=== PATIENT | female | born 1940 | race Caucasian/White ===

== ENCOUNTER 2017-12-09 13:56 | Observation (INO) | payer OTHER ==
[2017-12-09 14:38] LABS: Absolute Lymphocytes (CBC) 3.7 K/uL (0.7-4.9); Absolute Monocytes 0.5 K/uL (0.1-1.3); Absolute Neutrophil 4.8 K/uL (1.8-8.0); Basophils % 0.9 % (0-1.3); Eosinophils % 2.6 % (0-4.4); Hematocrit 42.9 % (36.0-45.0); Lymphocytes % 39.8 % (15.3-44.8); MCH 31.2 pg (27.0-35.0); MCV 94.7 fL (80-100); MPV 9.3 fL (7.6-11.3); Monocytes % 5.3 % (3.3-12.3); RBC Red Blood Cell Count 4.53 M/uL (3.86-4.86)
[2017-12-09 14:40] LABS: Protime INR 1.04
--- NOTE | 2017-12-09 14:41 | RAD REPORT ---
EXAM DESCRIPTION: CT - Ct Stroke Brain Wo Cont - 12/09/2017 2:29 pm CLINICAL HISTORY: Facial numbness, stroke protocol exam CLINICAL HISTORY: None. TECHNIQUE: Axial 5 millimeter thick images of the head were obtained without IV contrast. All CT scans are performed using dose optimization technique as appropriate and may include automated exposure control or mA/KV adjustment according to patient size. FINDINGS: No intracranial hemorrhage, mass, or cerebral edema. No acute cortical based infarction. N o cortical edema or sulcal effacement. Patient has advanced atrophy and chronic ischemic change. Vent ricular size is in proportion to volume loss. Dense arterial tree calcifications are present. No extr a-axial fluid collections. Villa matter-white matter differentiation is preserved. Visualized portions of the mastoid air cells, paranasal sinuses, and orbits are unremarkable. Findings telephoned to Dr. Self 2:37 p.m. IMPRESSION: No CT evidence of acute intracranial process. Advanced atrophy and chronic ischemic change.
[2017-12-09 14:53] LABS: Urine Blood NEGATIVE (NEG); Urine Glucose NEGATIVE (NEG); Urine Protein NEGATIVE (NEG); Urine Specific Gravity <1.005 (1.005-1.030)
--- NOTE | 2017-12-09 14:54 | RAD REPORT ---
EXAM DESCRIPTION: RAD - Chest Single View - 12/09/2017 2:49 pm CLINICAL HISTORY: Chest pain, malaise. COMPARISON: 04/28/2016 FINDINGS: Portable technique limits examination quality. The lungs are grossly clear. The heart is normal in size. No displaced fractures. IMPRESSION: No acute intrathoracic process suspected.
[2017-12-09 15:29] LABS: Potassium 4.4 mEq/L (3.6-5.0)
--- NOTE | 2017-12-09 15:32 | EDPHYS ---
Physician Documentation [facility] Name: Tsering Hamilton Age: 77 yrs Sex: Female : 1940 Arrival Date: 12/09/2017 Time: 14:00 Bed 4 Private MD: Darek Huerta R ED Physician Rudi Self HPI: 12/09 16:38 This 77 yrs old Female presents to ER via Ambulatory with complaints of gs Numbness Of Arm, Numbness Of Face. 16:38 The patient presents to the emergency department with paresthesias of the left side of gs the face, that is mild. Onset: The symptoms/episode began/occurred at 08:30. Associated signs and symptoms: Pertinent negatives: altered mental status. Severity of symptoms: At their worst the symptoms were mild in the emergency department the symptoms are unchanged. Patient's baseline: Neuro: alert and fully oriented, Motor: no deficits, Ambulation: walks without assistance, Speech: normal. Current symptoms: sensory loss. The patient has experienced a previous episode. The patient has not recently seen a physician. Historical: - Allergies: 14:05 No Known Allergies; ch - Home Meds: 14:16 Namenda Oral [Active]; Simvastatin Oral [Active]; ch - PMHx: 14:05 High Cholesterol; Hypertension; TIA; Dementia; ch - PSHx: 14:16 None; ch - Immunization history:: Adult Immunizations up to date. - Social history:: Smoking status: Patient/guardian denies using tobacco. - Ebola Screening: : Patient negative for fever greater than or equal to 101.5 degrees Fahrenheit, and additional compatible Ebola Virus Disease symptoms Patient denies exposure to infectious person Patient denies travel to an Ebola-affected area in the 21 days before illness onset No symptoms or risks identified at this time. ROS: 16:38 All other systems are negative. gs Exam: 16:38 Head/Face: Normocephalic, atraumatic. Eyes: Pupils equal round and reactive to light, gs extra-ocular motions intact. Lids and lashes normal. Conjunctiva and sclera are non-icteric and not injected. Cornea within normal limits. Periorbital areas with no swelling, redness, or edema. ENT: Nares patent. No nasal discharge, no septal abnormalities noted. Tympanic membranes are normal and external auditory canals are clear. Oropharynx with no redness, swelling, or masses, exudates, or evidence of obstruction, uvula midline. Mucous membranes moist. Neck: Trachea midline, no thyromegaly or masses palpated, and no cervical lymphadenopathy. Supple, full range of motion without nuchal rigidity, or vertebral point tenderness. No Meningismus. Chest/axilla: Normal chest wall appearance and motion. Nontender with no deformity. No lesions are appreciated. Cardiovascular: Regular rate and rhythm with a normal S1 and S2. No gallops, murmurs, or rubs. Normal PMI, no JVD. No pulse deficits. Respiratory: Lungs have equal breath sounds bilaterally, clear to auscultation and percussion. No rales, rhonchi or wheezes noted. No increased work of breathing, no retractions or nasal flaring. Abdomen/GI: Soft, non-tender, with normal bowel sounds. No distension or tympany. No guarding or rebound. No evidence of tenderness throughout. Back: No spinal tenderness. No costovertebral tenderness. Full range of motion. Skin: Warm, dry with normal turgor. Normal color with no rashes, no lesions, and no evidence of cellulitis. MS/ Extremity: Pulses equal, no cyanosis. Neurovascular intact. Full, normal range of motion. 16:38 Constitutional: The patient appears alert, awake. 16:38 ECG was reviewed by the Attending Physician. 16:38 Neuro: Orientation: is normal, Mentation: is normal, Memory: is normal, Cranial nerves: CN II- XII are normal as tested, Cerebellar function: normal finger to nose testing, Motor: strength is normal, Sensation: pin prick is decreased in the left ear and left druze. Vital Signs: 14:05 BP 194 / 82; Pulse 78; Resp 24; Temp 98.3; Pulse Ox 99% on R/A; Weight 71.67 kg; Height ch 5 ft. 4 in. (162.56 cm); Pain 0/10; 14:17 BP 184 / 80; Pulse 77; Resp 18; Pulse Ox 99% on R/A; ss 14:53 BP 153 / 60; Pulse 70; Resp 18; Pulse Ox 99% on R/A; sv 15:38 BP 140 / 63; Pulse 73 MON; Resp 18; Pulse Ox 99% on R/A; sv 16:56 Pulse 99; Resp 18; Pulse Ox 99% ; sv 17:21 Pulse 99; Resp 18; Pulse Ox 99% ; sv 17:25 BP 169 / 91; ss 14:05 Body Mass Index 27.12 (71.67 kg, 162.56 cm) ch 15:38 Sinus Rhythm sv NIH Stroke Scale Scores: 14:15 NIHSS Score: 1 sv 16:38 NIHSS Score: 1 gs Vj Coma Score: 14:17 Eye Response: spontaneous(4). Verbal Response: oriented(5). Motor Response: obeys ss commands(6). Total: 15. MDM: 14:33 Patient medically screened. gs 16:38 Data reviewed: vital signs, nurses notes. Response to treatment: the patient's symptoms gs have markedly improved after treatment, and as a result, I will admit patient. ED course: no TPA discussed risks benefits with low stroke scale with pt, declines at this time.. 12/09 14:23 Order name: Glucose, Ancillary Testing; Complete Time: 15:32 EDNC 12/09 14:23 Order name: Basic Metabolic Panel; Complete Time: 15:32 12/09 14:23 Order name: CBC with Diff; Complete Time: 15:32 12/09 14:23 Order name: Protime (+inr); Complete Time: 15:32 12/09 14:23 Order name: Urine Microscopic Only; Complete Time: 16:46 12/09 14:49 Order name: Urine Dipstick--Ancillary (enter results); Complete Time: 15:32 ag 12/09 14:23 Order name: CT Stroke Brain w/o Contrast; Complete Time: 15:32 12/09 14:23 Order name: Stroke CXR 1 View; Complete Time: 15:32 12/09 14:23 Order name: EKG; Complete Time: 14:24 12/09 14:23 Order name: Accucheck; Complete Time: 14:41 12/09 15:41 Order name: CONS Physician Consult EDNC 12/09 15:41 Order name: Regular EDNC 12/09 15:41 Order name: Stroke Protocol; Complete Time: 17:04 EDNC 12/09 14:23 Order name: Cardiac monitoring; Complete Time: 14:41 12/09 14:23 Order name: EKG - Nurse/Tech; Complete Time: 14:36 12/09 14:23 Order name: IV Saline Lock; Complete Time: 14:41 12/09 14:23 Order name: Labs collected and sent; Complete Time: 14:42 12/09 14:23 Order name: NPO; Complete Time: 14:42 12/09 14:23 Order name: O2 Per Protocol; Complete Time: 14:42 12/09 14:23 Order name: O2 Sat Monitoring; Complete Time: 14:42 12/09 14:23 Order name: Stroke Swallow Screen; Complete Time: 14:42 12/09 14:23 Order name: Urine Dipstick-Ancillary (obtain specimen); Complete Time: 14:53 gs EC:38 Rate is 77 beats/min. Rhythm is regular. SC interval is normal. QRS interval is normal. gs T waves are Normal. No ST changes noted. Clinical impression: Normal ECG. Interpreted by me. Administered Medications: 15:38 Drug: Aspirin Chewable Tablet 324 mg Route: PO; sv 15:41 Follow up: Response: No adverse reaction sv Point of Care Testing: Blood Glucose: 14:21 Blood Glucose: 129 mg/dL; ss Ranges: Critical Glucose Levels:Adult <50 mg/dl or >400 mg/dl <40 mg/dl or >180 mg/dl Disposition: 12/09/17 15:32 Hospitalization ordered by Darek Huerta for Observation. Preliminary diagnosis are Transient cerebral ischemic attack, unspecified, Cerebral infarction. - Bed requested for Telemetry/MedSurg (observation). - Status is Observation. sv - Condition is Stable. - Problem is new. - Symptoms have improved. UTI on Admission? No Critical care time excluding procedures: 16:38 Critical care time: Bedside Care: 10 minutes, Consultation: 10 minutes, Family gs Intervention: 10 minutes. Total time: 30 minutes NIH Stroke Scale - NIH Stroke Score Date: 12/09/2017 Time: 14:15 Total Score = 1 1a. Level of Consciousness (LOC) - 0(Alert) 1b. Level of Consciousness (LOC) (Year \T\ Age) - 0(Both) 1c. LOC Commands (Open \T\ Closes Eyes/Forensic Psychologist) - 0(Both) 2. Best Gaze (Lateral Gaze Paresis) - 0(Normal) 3. Visual Field Loss - 0(No visual loss) 4. Facial Palsy - 0(Normal) 5a. Left Arm: Motor (10-second hold) - 0(No drift) 5b. Right Arm: Motor (10-second hold) - 0(No drift) 6a. Left Leg: Motor (5-second hold - always test supine) - 0(No drift) 6b. Right Leg: Motor (5-second hold - always test supine) - 0(No drift) 7. Limb Ataxia (finger/nose \T\ heel/barba - test with eyes open) - 0(Absent) 8. Sensory Loss (pinprick arms/legs/face) - 1(Mild to moderate loss) 9. Best Language: Aphasia (description/naming/reading) - 0(No aphasia) 10. Dysarthria (speech clarity - read or repeat words) - 0(Normal) 11. Extinction and Inattention (visual/tactile/auditory/spatial/personal) - 0(No abnormality) Initials: emiliano NIH Stroke Scale - NIH Stroke Score Date: 12/09/2017 Time: 16:38 Total Score = 1 1a. Level of Consciousness (LOC) - 0(Alert) 1b. Level of Consciousness (LOC) (Year \T\ Age) - 0(Both) 1c. LOC Commands (Open \T\ Closes Eyes/Forensic Psychologist) - 0(Both) 2. Best Gaze (Lateral Gaze Paresis) - 0(Normal) 3. Visual Field Loss - 0(No visual loss) 4. Facial Palsy - 0(Normal) 5a. Left Arm: Motor (10-second hold) - 0(No drift) 5b. Right Arm: Motor (10-second hold) - 0(No drift) 6a. Left Leg: Motor (5-second hold - always test supine) - 0(No drift) 6b. Right Leg: Motor (5-second hold - always test supine) - 0(No drift) 7. Limb Ataxia (finger/nose \T\ heel/barba - test with eyes open) - 0(Absent) 8. Sensory Loss (pinprick arms/legs/face) - 1(Mild to moderate loss) 9. Best Language: Aphasia (description/naming/reading) - 0(No aphasia) 10. Dysarthria (speech clarity - read or repeat words) - 0(Normal) 11. Extinction and Inattention (visual/tactile/auditory/spatial/personal) - 0(No abnormality) Initials: gs Signatures: Dispatcher [employer] EDMS Felicity Lee, RN GISEL Jena Scales RN RN sv Woody, Diana, RN RN dw Starr, Gregory, MD MD Corrections: (The following items were deleted from the chart) 16:45 15:32 Hospitalization Ordered by Darek Huerta MD for Observation. Preliminary gs diagnosis is Transient cerebral ischemic attack, unspecified. Bed requested for Telemetry/MedSurg (observation). Status is Observation. Condition is Stable. Problem is new. Symptoms have improved. UTI on Admission? No. gs 17:12 16:45 12/09/2017 15:32 Hospitalization Ordered by Darek Huerta MD for dw Observation. Preliminary diagnosis is Transient cerebral ischemic attack, unspecified; Cerebral infarction. Bed requested for Telemetry/MedSurg (observation). Status is Observation. Condition is Stable. Problem is new. Symptoms have improved. UTI on Admission? No. gs 17:39 17:12 12/09/2017 15:32 Hospitalization Ordered by Darek Huerta MD for sv Observation. Preliminary diagnosis is Transient cerebral ischemic attack, unspecified; Cerebral infarction. Bed requested for Telemetry/MedSurg (observation). Status is Observation. Condition is Stable. Problem is new. Symptoms have improved. UTI on Admission? No. dw
--- NOTE | 2017-12-09 15:32 | ER ---
Nurse's Notes [facility] Name: Tsering Hamilton Age: 77 yrs Sex: Female : 1940 Arrival Date: 12/09/2017 Time: 14:00 Bed 4 Private MD: Darek Huerta R Diagnosis: Transient cerebral ischemic attack, unspecified;Cerebral infarction Presentation: 12/09 14:03 Presenting complaint: Patient states: tingling to tounge for over 24 hours. numbness to ch face and face not feeling right on and off, started at 11 after I went to cardiac rehab. Transition of care: patient was not received from another setting of care. Onset of symptoms was December 08, 2017. Risk Assessment: Do you want to hurt yourself or someone else? Patient reports no desire to harm self or others. Initial Sepsis Screen: Does the patient meet any 2 criteria? No. Patient's initial sepsis screen is negative. Does the patient have a suspected source of infection? No. Patient's initial sepsis screen is negative. Care prior to arrival: None. 14:03 Method Of Arrival: Ambulatory 14:03 Acuity: TALI 2 Triage Assessment: 14:05 General: Appears in no apparent distress. uncomfortable, well groomed, Behavior is ch anxious. Pain: Denies pain. Historical: - Allergies: 14:05 No Known Allergies; - Home Meds: 14:16 Namenda Oral [Active]; Simvastatin Oral [Active]; - PMHx: 14:05 High Cholesterol; Hypertension; TIA; Dementia; - PSHx: 14:16 None; - Immunization history:: Adult Immunizations up to date. - Social history:: Smoking status: Patient/guardian denies using tobacco. - Ebola Screening: : Patient negative for fever greater than or equal to 101.5 degrees Fahrenheit, and additional compatible Ebola Virus Disease symptoms Patient denies exposure to infectious person Patient denies travel to an Ebola-affected area in the 21 days before illness onset No symptoms or risks identified at this time. Screenin:20 Patient has been NPO before screening. The patient is alert, able to follow commands. ss The patient does not exhibit slurred or garbled speech The patient is not exhibiting difficulty speaking. The patient does not exhibit difficulty understanding words. The patient is able to swallow own secretions with no drooling or need for suction. Patient tolerated one teaspoon of water. No drooling, immediate coughing, gurgling, or clearing of the throat was noted. The patient tolerated 90mL of water. No drooling, immediate coughing, gurgling, or clearing of the throat was noted. The patient passed the bedside swallow screening. Oral medications may be given as ordered. Contact Physician for further diet orders. 14:42 Abuse screen: Denies threats or abuse. Denies injuries from another. Nutritional sv screening: No deficits noted. Tuberculosis screening: No symptoms or risk factors identified. Fall Risk None identified. Assessment: 14:13 General: Appears in no apparent distress. comfortable, well developed, Behavior is sv calm, cooperative, appropriate for age. Pain: Denies pain. Neuro: Level of Consciousness is awake, alert, obeys commands, Oriented to person, place, time, situation, Fleet Maintenance Foreman are equal bilaterally Moves all extremities. Full function Speech is normal, Facial symmetry appears normal, Facial symmetry: tongue is midline, Reports numbness in left zygomatic area, left cheek and mouth and left side of tongue since "either about 1000 or 1100". Cardiovascular: Patient's skin is warm and dry. Pulses are 3+ in right radial artery and left radial artery. Respiratory: Respiratory effort is even, unlabored, Respiratory pattern is regular, symmetrical. Derm: Skin is pink, warm \\T\\ dry. Musculoskeletal: Range of motion: intact in all extremities. 14:17 Reassessment: Code stroke called. Dr. Self, Jena Scales RN, Tiffanie Saenz RN and holli Mcnally ED tech at bedside. 14:23 Reassessment: EKG obtained and showed to Dr. Gamez. 14:24 Reassessment: To CT via stretcher on monitors with Jena Scales RN. 14:53 Reassessment: Patient appears in no apparent distress at this time. No changes from sv previously documented assessment. Patient and/or family updated on plan of care and expected duration. Pain level reassessed. Patient is alert, oriented x 3, equal unlabored respirations, skin warm/dry/pink. 15:30 Reassessment: Patient appears in no apparent distress at this time. Patient and/or sv family updated on plan of care and expected duration. Pain level reassessed. Patient is alert, oriented x 3, equal unlabored respirations, skin warm/dry/pink. 16:30 Reassessment: Pt currently in MRI. sv 16:56 Reassessment: Patient appears in no apparent distress at this time. No changes from sv previously documented assessment. Patient and/or family updated on plan of care and expected duration. Pain level reassessed. Patient is alert, oriented x 3, equal unlabored respirations, skin warm/dry/pink. 17:28 Reassessment: Patient appears in no apparent distress at this time. No changes from sv previously documented assessment. Patient and/or family updated on plan of care and expected duration. Pain level reassessed. Patient is alert, oriented x 3, equal unlabored respirations, skin warm/dry/pink. Vital Signs: 14:05 BP 194 / 82; Pulse 78; Resp 24; Temp 98.3; Pulse Ox 99% on R/A; Weight 71.67 kg; Height ch 5 ft. 4 in. (162.56 cm); Pain 0/10; 14:17 BP 184 / 80; Pulse 77; Resp 18; Pulse Ox 99% on R/A; ss 14:53 BP 153 / 60; Pulse 70; Resp 18; Pulse Ox 99% on R/A; sv 15:38 BP 140 / 63; Pulse 73 MON; Resp 18; Pulse Ox 99% on R/A; sv 16:56 Pulse 99; Resp 18; Pulse Ox 99% ; sv 17:21 Pulse 99; Resp 18; Pulse Ox 99% ; sv 17:25 BP 169 / 91; ss 14:05 Body Mass Index 27.12 (71.67 kg, 162.56 cm) ch 15:38 Sinus Rhythm sv Vitals: 14:15 Cardiac Rhythm Assessment Sinus rhythm. sv Vj Coma Score: 14:17 Eye Response: spontaneous(4). Verbal Response: oriented(5). Motor Response: obeys ss commands(6). Total: 15. NIH Stroke Scale Scores: 14:15 NIHSS Score: 1 sv 16:38 NIHSS Score: 1 ED Course: 14:00 Patient arrived in ED. as 14:00 Darek Huerta MD is Private Physician. as 14:04 Triage completed. ch 14:05 Arm band placed on left wrist. Patient placed in an exam room, on a stretcher. ch 14:10 Patient has correct armband on for positive identification. Placed in gown. Bed in low sv position. Side rails up X2. Adult w/ patient. shelter monitor on. Pulse ox on. NIBP on. Head of bed elevated. 14:12 Jena Scales RN is Primary Nurse. sv 14:15 Rudi Self MD is Attending Physician. gs 14:18 ED physician to see patient. sv 14:20 Inserted saline lock: 20 gauge in left antecubital area, using aseptic technique. sv ,using aseptic technique. insertion by Jena Scales RN Blood collected. 14:[address] via stretcher. vr 14:29 CT completed. Patient tolerated procedure well. Patient moved back from CT. vr 14:29 CT Stroke Brain w/o Contrast In Process Unspecified. EDMS 14:35 EKG done, by ED staff, by technology architect. reviewed by Rudi Self MD. [email or web address] 14:49 Stroke CXR 1 View In Process Unspecified. EDMS 14:55 Lab(s) recollected, by ED staff, sent to lab. sv 15:30 Darek Huerta MD is Hospitalizing Provider. gs 16:10 Patient moved to MRI via wheelchair. em2 17:32 No provider procedures requiring assistance completed. Patient admitted, IV remains in sv place. intact. Administered Medications: 15:38 Drug: Aspirin Chewable Tablet 324 mg Route: PO; sv 15:41 Follow up: Response: No adverse reaction sv Point of Care Testing: Blood Glucose: 14:21 Blood Glucose: 129 mg/dL; ss Ranges: Intake: 15:40 PO: 50ml (Water); Total: 50ml. sv Outcome: 15:32 Decision to Hospitalize by Provider. gs 17:33 Admitted to Tele accompanied by tech, family with patient, via stretcher, room 414, sv with chart, Report called to Laureen BATRES 17:33 Condition: stable 17:33 Instructed on the need for admit. 17:39 Patient left the ED. sv NIH Stroke Scale - NIH Stroke Score Date: 12/09/2017 Time: 14:15 Total Score = 1 1a. Level of Consciousness (LOC) - 0(Alert) 1b. Level of Consciousness (LOC) (Year \\T\\ Age) - 0(Both) 1c. LOC Commands (Open \\T\\ Closes Eyes/Melter Caster) - 0(Both) 2. Best Gaze (Lateral Gaze Paresis) - 0(Normal) 3. Visual Field Loss - 0(No visual loss) 4. Facial Palsy - 0(Normal) 5a. Left Arm: Motor (10-second hold) - 0(No drift) 5b. Right Arm: Motor (10-second hold) - 0(No drift) 6a. Left Leg: Motor (5-second hold - always test supine) - 0(No drift) 6b. Right Leg: Motor (5-second hold - always test supine) - 0(No drift) 7. Limb Ataxia (finger/nose \\T\\ heel/barba - test with eyes open) - 0(Absent) 8. Sensory Loss (pinprick arms/legs/face) - 1(Mild to moderate loss) 9. Best Language: Aphasia (description/naming/reading) - 0(No aphasia) 10. Dysarthria (speech clarity - read or repeat words) - 0(Normal) 11. Extinction and Inattention (visual/tactile/auditory/spatial/personal) - 0(No abnormality) Initials: NIH Stroke Scale - NIH Stroke Score Date: 12/09/2017 Time: 16:38 Total Score = 1 1a. Level of Consciousness (LOC) - 0(Alert) 1b. Level of Consciousness (LOC) (Year \\T\\ Age) - 0(Both) 1c. LOC Commands (Open \\T\\ Closes Eyes/Melter Caster) - 0(Both) 2. Best Gaze (Lateral Gaze Paresis) - 0(Normal) 3. Visual Field Loss - 0(No visual loss) 4. Facial Palsy - 0(Normal) 5a. Left Arm: Motor (10-second hold) - 0(No drift) 5b. Right Arm: Motor (10-second hold) - 0(No drift) 6a. Left Leg: Motor (5-second hold - always test supine) - 0(No drift) 6b. Right Leg: Motor (5-second hold - always test supine) - 0(No drift) 7. Limb Ataxia (finger/nose \\T\\ heel/barba - test with eyes open) - 0(Absent) 8. Sensory Loss (pinprick arms/legs/face) - 1(Mild to moderate loss) 9. Best Language: Aphasia (description/naming/reading) - 0(No aphasia) 10. Dysarthria (speech clarity - read or repeat words) - 0(Normal) 11. Extinction and Inattention (visual/tactile/auditory/spatial/personal) - 0(No abnormality) Initials: Signatures: Dispatcher [employer] Felicity Garcia, GISEL Scales, GISEL Bella RN, Amelia as Smirch, Shelby, RN RN ss Davis, Javid Linton Gregory, MD MD gs Stevenson, Kyle [email or web address] Corrections: (The following items were deleted from the chart) 14:35 14:20 Inserted saline lock: 20 gauge in left antecubital area, using aseptic sv technique. ,using aseptic technique. insertion by Jena Scales RN Blood collected. ss 14:35 14:16 Inserted saline lock: 20 gauge in left antecubital area, using aseptic sv technique. ,using aseptic technique. insertion by Jena Scales RN Blood collected. sv 14:41 14:10 General: Appears in no apparent distress. comfortable, well developed, sv Behavior is calm, cooperative, appropriate for age, sv 14:41 14:10 Pain: Denies pain. sv sv 14:41 14:10 Neuro: Level of Consciousness is awake, alert, obeys commands, Oriented sv to person, place, time, situation, Fleet Maintenance Foreman are equal bilaterally Moves all extremities. Full function Speech is normal, Facial symmetry appears normal, Facial symmetry: tongue is midline, Reports numbness in left zygomatic area, left cheek and mouth and left side of tongue since "either about 1000 or 1100" sv 14:41 14:10 Cardiovascular: Patient's skin is warm and dry. Pulses are 3+ in right sv radial artery and left radial artery sv 14:41 14:10 Respiratory: Respiratory effort is even, unlabored, Respiratory pattern sv is regular, symmetrical, sv 14:41 14:10 Derm: Skin is pink, warm \\T\\ dry. sv sv 14:41 14:10 Musculoskeletal: Range of motion: intact in all extremities, sv sv
[2017-12-09] MEDS ORDERED: ASPIRIN 81 MG CHEWABLE TABLET ONE (15:34)
[2017-12-09 16:23] LABS: Urine RBC <5 /HPF (NONE SEEN)
[2017-12-09 16:24] LABS: Urine Bacteria NONE SEEN /HPF (<20); Urine Culture Reflex Order NOT NEEDED
--- NOTE | 2017-12-09 17:01 | RAD REPORT ---
EXAM DESCRIPTION: MRI - Stroke Protocol - 12/09/2017 4:45 pm CLINICAL HISTORY: CVA COMPARISON: CT head December 09 TECHNIQUE: Sagittal T1- weighted images were obtained along with PD/heavily T2- weighted and T2-FLAI R images. Axial DWI and ADC mapping sequences were also obtained. Coronal heavily T2- weighted images were obtained. MRA head imaging performed with source images and 3D reconstruction images reviewed. MRA neck imaging was performed with source and 3D reconstruction imaging reviewed. Post contrast T1 i maging was performed. A 16 ml GD dosage was utilized. FINDINGS: No intracranial hemorrhage, mass or acute infarction. There is no edema or shift of midlin e structures. No extra-axial fluid collections. Villa-matter/white matter junction is preserved. Signa l voids are seen as a normal finding in the major intracranial vessels. Moderate atrophy and chronic ischemic changes are present. Ventricular size is in proportion. Brainstem, thalamus and basal gangli a tissue generally spared any measurable chronic ischemic change. Mastoid air cells and paranasal sinuses are clear. No globe or orbit abnormality. MRA Head imaging shows no aneurysm or vascular malformation. Scattered atherosclerotic changes are pr esent in the anterior, middle and posterior cerebral artery distributions. Significant degree of edward nal narrowing is not identifiable. No basilar or distal internal carotid artery significant disease. MRA Neck imaging shows no significant atherosclerotic disease or vessel narrowing seen. No dissection seen.No vertebral artery origins stenosis. The 3 vessel aortic arch and great vessel origin is limit ed in detail by motion. IMPRESSION: No acute infarction changes are present. There is moderate atrophy and chronic ischemic change in the cerebral white matter. MRA Head imaging shows scattered atherosclerotic changes in the intracranial circulation. No flow res tricting lesion or occlusion identifiable. MRA neck imaging shows no significant disease.
[2017-12-09 18:10] VITALS: BMI 27.1
[2017-12-09] MEDS: ACETAMINOPHEN 500 MG TAB PO PRN (22:05)
--- NOTE | 2017-12-10 02:14 | CON ---
Time: 2119. Reason For Consultation: Facial numbness. History: A 77-year-old lady, history of dementia and hypertension and insomnia. She was in her usual state of health until about a week ago when she started noticing pins and needle sensation on the left side of the tongue and the left cheek. Feels uncomfortable. She states it is swollen and tender to the touch. She was not unsure if the problem would improve or resolve, but it never really resolved, so she came to the emergency department, where given the aforementioned complaints, there was concern for a vascular event. She has had a brain MRI that does not demonstrate any evidence of any type of new ischemic change. Personal review of the CT does not reveal that sinuses are included in the CT scan of the brain and on MRI, there is certainly no evidence of severe acute sinusitis on the left. The patient recently was started on doxepin for insomnia and her Aricept was increased to 10 mg twice daily about a month ago. Otherwise, she has been on same medications for quite some time except for melatonin. There is no diplopia. There is no dysarthria. There is no extremity paresthesias, numbness, weakness, or confusion associated with the problem. She was admitted to the hospital. Dr. Kim is out of town through the weekend, so I was consulted. Hence I will tell them I would cover for his patient's when he is out of town. Past Medical History: As alluded to. Routine Medications: Vitamin C, multivitamin, aspirin, melatonin, doxepin, Aricept, Namenda, Cozaar, Prilosec, and Lipitor. Allergies: NONE. Social History: Never smoked. . Normally independent activities of daily living. Family History: Noncontributory. Review of Systems: General: Good health. Eyes: No diplopia. Ears, Nose, Throat: Negative. Cardiovascular: Hypertension. Pulmonary: Negative. GI: She has a cough. It has been attributed to reflux. : Negative. Musculoskeletal: Negative. Neurologic: As noted. Psychiatric: Negative. Endocrine: Negative. Hematologic: Negative. Physical Examination: Vital Signs: 99, 77, 16, 185/87. General: Pleasant lady, sitting in bed, in no distress. Awake, alert, and oriented to time, person, place, and situation, and lucid. HEENT: Pupils miotic, reactive. Ocular motion full without nystagmus. Duval full to confrontation bilaterally. Facial strength and sensation are normal. There are no facial triggers to suggest trigeminal neuralgia. There are no lesions in the oropharynx. There is no swelling around the gums or the dentures. There is some tenderness to the left maxillary region on palpation. There is a decreased gag reflex bilaterally. Tongue is midline. Soft palate elevates bilaterally. Heart: Sinus rhythm. No carotid bruits. Extremities: Examination of her extremities reveals full strength. Sensation is intact. Reflexes 1/4, symmetric. Toes are downgoing. No [id number] ataxia. Pertinent Laboratory Data: Imaging as noted. CBC was normal. Electrolytes, normal other than a glucose of 150. UA normal. Impression: Cranial neuritis. Plan: We will get plain films of the sinuses and do an evaluation for peripheral neuritis, sedimentation rate, B12, ANCA, WILLIAM, Gabe levels. While those will not be back in a timely fashion, if the sinus pain and paresthesias persist, ENT evaluation may be fruitful. We will decrease the doxepin to 10, and decrease the Aricept back to 10 at night. Occasionally, medications like Prilosec can generate facial paresthesias, so may be prudent to try a different type of H2 alejandrina for her cough. Thank you for the consult. We will continue to follow with you. ARIANA Voice ID: [id number] Report ID: [id number] GIGI
[2017-12-10] MEDS: ACETAMINOPHEN 500 MG TAB PO PRN (04:32)
--- NOTE | 2017-12-10 07:21 | EKG ---
Test Date: 2017-12-09 Test Time: 14:22:43 Condenser Tube Tender: JOHNNY MEASUREMENT RESULTS: Intervals: Rate: 77 MO: 126 QRSD: 82 QT: 420 QTc: 475 [place]: P: 61 MO: 126 QRS: 19 T: 35 INTERPRETIVE STATEMENTS: Normal sinus rhythm Normal ECG Compared to ECG 06/03/2011 09:40:33 No significant changes Electronically Signed On 12-10-17 07:19:49 CDT by Ras Andrade
[2017-12-10 07:24] LABS: Thyroid Stimulating Hormone 5.35 uIU/mL (0.34-5.60)
[2017-12-10] MEDS ORDERED: MEMANTINE HCL 10 MG TABLET PO SCH (09:00)
[2017-12-10] MEDS ORDERED: LOSARTAN POTASSIUM 50 MG TABLET PO SCH (09:00)
[2017-12-10] MEDS ORDERED: ASPIRIN EC 81 MG TAB PO SCH (09:00)
[2017-12-10] MEDS ORDERED: ASCORBIC ACID 500 MG TABLET PO SCH (09:00)
--- NOTE | 2017-12-10 10:37 | RAD REPORT ---
EXAM DESCRIPTION: RAD - Sinus 3/+ Views - 12/10/2017 10:29 am CLINICAL HISTORY: Left cheek pain COMPARISON: None. FINDINGS: No air-fluid level in the maxillary sinuses. There is delete select mucosal thickening in each maxillary sinus along the floor and lateral christensen. No sclerotic or expansile bony process. Nasal septum is midline. No foreign body. IMPRESSION: Maxillary sinus mucosal thickening. No air-fluid level to indicate acute sinusitis.
[2017-12-10 14:43] VITALS: O2SAT 97
[2017-12-10 16:05] VITALS: BP 169/83; TEMP 98.3
[2017-12-10] MEDS ORDERED: ATORVASTATIN 20 MG TAB PO SCH (21:00)
[2017-12-10] MEDS ORDERED: DONEPEZIL HCL 5 MG TAB PO SCH (21:00)
[2017-12-10] MEDS ORDERED: DOXEPIN HCL 10 MG CAP PO SCH (21:00)
[2017-12-11] MEDS ORDERED: PANTOPRAZOLE 40MG TABLET PO SCH (06:30)
--- NOTE | 2017-12-11 14:54 | HP ---
Date of Admission: 12/10/2017 Chief Complaint: Possible stroke. History Of Present Illness: A 77-year-old female, who was brought to the emergency room with symptom s of tingling of the tongue and tingling and numbness in left side of the face. The patient had eval uation done including CT scan, MRI. There was no evidence of stroke. The patient is admitted for ob servation. Past Medical History: Positive for Alzheimer disease, hyperlipidemia. Other problems include history of hyperlipidemia, hypertension. Family History: Noncontributory. Personal History: Nonsmoker. Home Medicines: Namenda and Zocor. Review of Systems: No history of fever, chills, or rigors. Physical Examination: General: Revealed a 77-year-old female, alert for her age. HEENT: Negative. Neck: Supple. JVD negative. Chest: Clear. Heart: Regular. Abdomen: Soft. Extremities: No edema. Neurologic: There is no focal deficit even though she had symptoms on left side of the face. Laboratory: CT scan, MRI negative for CVA. Assessment: 1.Possible transient ischemic attack. 2.Dementia. 3.Hypertension. 4.Hyperlipidemia. Plan: The patient has been seen by a neurologist and they also think that the patient did not have a ny evidence of stroke. The patient will be discharged on aspirin and modification of her home medica tions. She will be followed by Dr. Lee and Dr. Rodriguez in the office for further management. BRIANA/JOSUÉ Voice ID: [id number]
[2017-12-15 16:01] LABS: P-ANCA Anti-Myeloperoxidase Ab <1.0 AI (<1.0)
== END 2017-12-10 18:35 | disposition home or self-care (01) ==
LOC: ER 13:56 → ERHOLD 15:38 → 4TH 17:32
PROVIDERS: ADMIT Internal Medicine; ATTEND Internal Medicine
DX: G52.9 Cranial nerve disorder, unspecified (principal); G30.9 Alzheimer's disease, unspecified; F02.80 Dementia in other diseases classified elsewhere, unspecified severity, without behavioral disturbance, psychotic disturbance, mood disturbance, and anxiety; E78.5 Hyperlipidemia, unspecified; I10 Essential (primary) hypertension
CPT/HCPCS: 36415; 70220; 70450; 70544; 70549; 70553; 71045; 80048; 80061; 82607; 82962; 84443; 85025; 85610; 85652; 86021 ×2; 93005; 97163; 99285; A9577; G0378 ×2; 81003; 81015

== ENCOUNTER 2018-11-05 11:58 | Emergency (ER) | payer OTHER ==
--- NOTE | 2018-11-05 12:50 | RAD REPORT ---
EXAM DESCRIPTION: RAD - Foot Right 3 View - 11/05/2018 12:36 pm CLINICAL HISTORY: Right foot pain status post injury FINDINGS: No fracture or dislocation is seen . Osteoporosis
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
[2018-11-05 13:13] VITALS: BP 142/82; TEMP 98.2; O2SAT 100
== END 2018-11-05 13:06 | disposition home or self-care (01) ==
LOC: ER 11:58
DX: S93.501A Unspecified sprain of right great toe, initial encounter (principal); W22.8XXA Striking against or struck by other objects, initial encounter; F03.90 Unspecified dementia, unspecified severity, without behavioral disturbance, psychotic disturbance, mood disturbance, and anxiety; E78.00 Pure hypercholesterolemia, unspecified; I10 Essential (primary) hypertension; Z86.73 Personal history of transient ischemic attack (TIA), and cerebral infarction without residual deficits
CPT/HCPCS: 99283

== ENCOUNTER 2018-11-16 12:29 | Emergency (ER) | payer OTHER ==
--- NOTE | 2018-11-16 13:36 | RAD REPORT ---
EXAM DESCRIPTION: RAD - Hand Right 3 View - 11/16/2018 1:29 pm CLINICAL HISTORY: PAIN COMPARISON: No comparisons FINDINGS: Flexion deformity is seen at the level of the PIP joint of the third finger. Scattered art hritic changes are noted. An acute fracture is not seen.
[2018-11-16] MEDS ORDERED: BUPIVACAINE 0.5% PF 10 ML VIAL ONE (14:22)
[2018-11-16] MEDS ORDERED: LIDOCAINE 1% MPF 5 ML VIAL ONE (14:22)
--- NOTE | 2018-11-16 15:10 | EDPHYS ---
Physician Documentation [facility] Name: Tsering Hamilton Age: 78 yrs Sex: Female : 1940 Arrival Date: 11/16/2018 Time: 12:31 Bed 24 Private MD: Darek Huerta R ED Physician Rigo Kuhn HPI: 11/16 14:05 This 78 yrs old Female presents to ER via Ambulatory with complaints of kb Finger Problem. 14:06 The patient or guardian reports decreased range of motion, injury, tenderness. The kb complaints affect the right middle finger. Context: The problem was sustained at home, resulted from an unknown cause, happened when she was cleaning a window. Onset: The symptoms/episode began/occurred this morning. Modifying factors: The symptoms are alleviated by nothing, the symptoms are aggravated by movement. Associated signs and symptoms: The patient has no apparent associated signs or symptoms. Severity of symptoms: At their worst the symptoms were moderate, in the emergency department the symptoms are unchanged. The patient has not experienced similar symptoms in the past. The patient has not recently seen a physician. Historical: - Allergies: 12:33 No Known Allergies; la1 - PMHx: 12:33 Dementia; High Cholesterol; Hypertension; restasis; TIA; la1 - PSHx: 12:33 None; la1 - Immunization history:: Adult Immunizations up to date. - Social history:: Smoking status: Patient/guardian denies using tobacco. - Ebola Screening: : No symptoms or risks identified at this time. ROS: 14:05 Constitutional: Negative for fever, chills, and weight loss, Neck: Negative for injury, kb pain, and swelling, Cardiovascular: Negative for chest pain, palpitations, and edema, Respiratory: Negative for shortness of breath, cough, wheezing, and pleuritic chest pain, Abdomen/GI: Negative for abdominal pain, nausea, vomiting, diarrhea, and constipation, Skin: Negative for injury, rash, and discoloration, Neuro: Negative for headache, weakness, numbness, tingling, and seizure. 14:05 MS/extremity: Positive for injury or acute deformity, decreased range of motion, pain, tenderness, of the right middle finger. Exam: 14:03 Constitutional: This is a well developed, well nourished patient who is awake, alert, kb and in no acute distress. Head/Face: Normocephalic, atraumatic. Chest/axilla: Normal chest wall appearance and motion. Nontender with no deformity. No lesions are appreciated. Cardiovascular: Regular rate and rhythm with a normal S1 and S2. No gallops, murmurs, or rubs. Normal PMI, no JVD. No pulse deficits. Respiratory: Lungs have equal breath sounds bilaterally, clear to auscultation and percussion. No rales, rhonchi or wheezes noted. No increased work of breathing, no retractions or nasal flaring. Abdomen/GI: Soft, non-tender, with normal bowel sounds. No distension or tympany. No guarding or rebound. No evidence of tenderness throughout. Skin: Warm, dry with normal turgor. Normal color with no rashes, no lesions, and no evidence of cellulitis. Neuro: Awake and alert, GCS 15, oriented to person, place, time, and situation. Cranial nerves II-XII grossly intact. Motor strength 5/5 in all extremities. Sensory grossly intact. Cerebellar exam normal. Normal gait. 14:03 Musculoskeletal/extremity: Extremities: grossly normal except: noted in the right middle finger: pain, stuck in flexed position, ROM: limited active range of motion, in the right middle finger, limited passive range of motion, in the right middle finger, Circulation is intact in all extremities. Sensation intact. Vital Signs: 12:35 BP 156 / 80; Pulse 62; Resp 16; Temp 98.3; Pulse Ox 98% on R/A; Weight 71.67 kg; Height la1 5 ft. 4 in. (162.56 cm); Pain 6/10; 14:12 BP 142 / 78; Pulse 61; Resp 16; Pulse Ox 99% on R/A; Pain 2/10; ls4 15:19 BP 140 / 70; Pulse 63; Resp 16; Pulse Ox 99% on R/A; Pain 0/10; ls4 12:35 Body Mass Index 27.12 (71.67 kg, 162.56 cm) la1 Procedures: 15:06 Splinting: Splint applied to right middle finger using finger splint, applied by tech. kb Examined by va, post splint application: brisk capillary refill noted, Patient tolerated well. Reduction: of the right middle finger, using manipulation, Immobilized with finger splint, Patient tolerated well. Nerve block: (digital) of palmar aspect of proximal phalanx of right middle finger Medication: Lidocaine 1% without epinephrine Marcaine 0.5%, Amount: 4 mls were injected, Effect: the patient has resolution of the pain, Set up for procedure. Performed by Farrah GTZ Patient tolerated well. MDM: 12:55 Patient medically screened. kb 14:03 Data reviewed: vital signs, nurses notes. Data interpreted: Pulse oximetry: on room air kb is 98 %. Interpretation: normal. Counseling: I had a detailed discussion with the patient and/or guardian regarding: the historical points, exam findings, and any diagnostic results supporting the discharge/admit diagnosis, radiology results, the need for outpatient follow up, a family practitioner, to return to the emergency department if symptoms worsen or persist or if there are any questions or concerns that arise at home. 11/16 12:51 Order name: Hand Right 3 View XRAY; Complete Time: 13:40 kb Administered Medications: 14:20 Drug: Lidocaine (1 %) 1 vials {Note: administeredd by Farrah MCINTOSH} Volume: 5 ls4 ml; Route: Infiltration; 14:20 Drug: Marcaine (0.5 %) 1 vials {Note: administered by Farrah Gaytan} Volume: 10 ls4 ml; Route: Infiltration; Disposition: 16:54 Co-signature as Attending Physician, Rigo Kuhn MD. rn Disposition: 11/16/18 15:09 Discharged to Home. Impression: Extensor Tendon slip - right third digit. - Condition is Stable. - Discharge Instructions: Trigger Finger. - Medication Reconciliation Form, Thank You Letter, Antibiotic Education, Prescription Opioid Use form. - Follow up: Emergency Department; When: As needed; Reason: Worsening of condition. Follow up: Darek Huerta MD; When: 2 - 3 days; Reason: Recheck today's complaints, Continuance of care, Re-evaluation by your physician. Signatures: Dispatcher [employer] EDMS Farrah Lynch FNP-C FNP-Rigo Canales MD MD rn Attema, Lee, RN RN la1 Rachel Carter RN RN ls4 Corrections: (The following items were deleted from the chart) 15:24 15:09 11/16/2018 15:09 Discharged to Home. Impression: Extensor Tendon slip - right ls4 third digit. Condition is Stable. Forms are Medication Reconciliation Form, Thank You Letter, Antibiotic Education, Prescription Opioid Use. Follow up: Emergency Department; When: As needed; Reason: Worsening of condition. Follow up: Darek Huerta; When: 2 - 3 days; Reason: Recheck today's complaints, Continuance of care, Re-evaluation by your physician. kb
--- NOTE | 2018-11-16 15:10 | ER ---
Nurse's Notes [facility] Name: Tsering Hamilton Age: 78 yrs Sex: Female : 1940 Arrival Date: 11/16/2018 Time: 12:31 Bed 24 Private MD: Darek Huerta R Diagnosis: Extensor Tendon slip - right third digit Presentation: 11/16 12:33 Presenting complaint: Patient states: I was cleaning with a sponge and my right middle la1 finger contracted in and I cant move it. Transition of care: patient was not received from another setting of care. Onset of symptoms was November 16, 2018. Risk Assessment: Do you want to hurt yourself or someone else? Patient reports no desire to harm self or others. Initial Sepsis Screen: Does the patient meet any 2 criteria? No. Patient's initial sepsis screen is negative. Does the patient have a suspected source of infection? No. Patient's initial sepsis screen is negative. Care prior to arrival: None. 12:33 Method Of Arrival: Ambulatory la1 12:33 Acuity: TALI 3 la1 Triage Assessment: 13:09 General: Appears in no apparent distress. Behavior is calm, cooperative. Pain: ls4 Complains of pain in dorsal aspect of middle phalanx of right middle finger, dorsal aspect of proximal phalanx of right middle finger, palmar aspect of middle phalanx of right middle finger and palmar aspect of proximal phalanx of right middle finger Pain currently is 2 out of 10 on a pain scale. Neuro: No deficits noted. Cardiovascular: No deficits noted. Respiratory: No deficits noted. GI: No deficits noted. : No deficits noted. Musculoskeletal: Parent/caregiver report the patient having middle finger of right hand contracted and cannot be moved. Pt also felt right foot 1st great toe lose strength and dragged and it is now swollen. Pt feels there is something going on in her joints or electrolytes. Historical: - Allergies: 12:33 No Known Allergies; la1 - PMHx: 12:33 Dementia; High Cholesterol; Hypertension; restasis; TIA; la1 - PSHx: 12:33 None; la1 - Immunization history:: Adult Immunizations up to date. - Social history:: Smoking status: Patient/guardian denies using tobacco. - Ebola Screening: : No symptoms or risks identified at this time. Screenin:13 Abuse screen: Denies threats or abuse. Nutritional screening: No deficits noted. ls4 Tuberculosis screening: No symptoms or risk factors identified. Fall Risk None identified. Assessment: 13:12 General: Appears in no apparent distress. Neuro: No deficits noted. Cardiovascular: No ls4 deficits noted. Respiratory: No deficits noted. GI: No deficits noted. : No deficits noted. Derm: 1st great toe right foot swollen and reddened. Musculoskeletal: see triage note. 14:15 Reassessment: Patient and/or family updated on plan of care and expected duration. Pain ls4 level reassessed. Patient is alert, oriented x 3, equal unlabored respirations, skin warm/dry/pink. 15:18 Reassessment: Patient and/or family updated on plan of care and expected duration. Pain ls4 level reassessed. Patient is alert, oriented x 3, equal unlabored respirations, skin warm/dry/pink. Vital Signs: 12:35 BP 156 / 80; Pulse 62; Resp 16; Temp 98.3; Pulse Ox 98% on R/A; Weight 71.67 kg; Height la1 5 ft. 4 in. (162.56 cm); Pain 6/10; 14:12 BP 142 / 78; Pulse 61; Resp 16; Pulse Ox 99% on R/A; Pain 2/10; ls4 15:19 BP 140 / 70; Pulse 63; Resp 16; Pulse Ox 99% on R/A; Pain 0/10; ls4 12:35 Body Mass Index 27.12 (71.67 kg, 162.56 cm) la1 ED Course: 12:31 Patient arrived in ED. mr 12:32 Darek Huerta MD is Private Physician. mr 12:34 Triage completed. la1 12:34 Arm band placed on left wrist. la1 12:55 Farrah Lynch FNP-C is [facility]. kb 12:55 Rigo Kuhn MD is Attending Physician. kb 12:57 Rachel Carter, GISEL is Primary Nurse. ls4 13:05 Patient has correct armband on for positive identification. Bed in low position. Call ls4 light in reach. Side rails up X 1. Warm blanket given. Verbal reassurance given. 13:28 X-ray completed. Portable x-ray completed in exam room. Patient tolerated procedure ls3 well. 13:30 Hand Right 3 View XRAY In Process Unspecified. EDMS 15:08 Darek Huerta MD is Referral Physician. kb 15:19 No provider procedures requiring assistance completed. Patient did not have IV access ls4 during this emergency room visit. 15:21 See Farrah DIAZ note for procedure. Middle finger splinted. ls4 Administered Medications: 14:20 Drug: Lidocaine (1 %) 1 vials {Note: administeredd by Farrah DIAZ.} Volume: 5 ls4 ml; Route: Infiltration; 14:20 Drug: Marcaine (0.5 %) 1 vials {Note: administered by Farrah DIAZ .} Volume: 10 ls4 ml; Route: Infiltration; Outcome: 15:09 Discharge ordered by . kb 15:20 Discharged to home ambulatory. ls4 15:20 Condition: good 15:20 Discharge instructions given to patient, Instructed on discharge instructions, follow up and referral plans. medication usage, Demonstrated understanding of instructions, follow-up care, medications. 15:24 Patient left the ED. ls4 Signatures: Dispatcher [employer] EDMI Farrah Lynch, JOE-C [employer]-Ckb Pati Nunn mr Stoney Santiago RN RN la1 Jesusita Price ls3 Rachel Carter, RN RN ls4 Corrections: (The following items were deleted from the chart) 12:35 12:33 Presenting complaint: Patient states: I was cleaning with a sponge and my right la1 hand contracted in and I cant move it. la1
[2018-11-16 22:58] VITALS: TEMP 98.3
[2018-11-16 23:00] VITALS: O2SAT 99
[2018-11-16 23:02] VITALS: BP 140/70
== END 2018-11-16 15:24 | disposition home or self-care (01) ==
LOC: ER 12:29
PROC: 0LS70ZZ Reposition Right Hand Tendon, Open Approach (ICD-10-PCS; principal; 2018-11-16)
DX: M67.843 Other specified disorders of tendon, right hand (principal); F03.90 Unspecified dementia, unspecified severity, without behavioral disturbance, psychotic disturbance, mood disturbance, and anxiety; E78.00 Pure hypercholesterolemia, unspecified; I10 Essential (primary) hypertension; Z86.73 Personal history of transient ischemic attack (TIA), and cerebral infarction without residual deficits
CPT/HCPCS: 64450; 99283

== ENCOUNTER 2019-03-06 08:31 | Emergency (ER) | payer OTHER ==
[2019-03-06 09:33] VITALS: BP 174/82; TEMP 97.7; O2SAT 97
--- NOTE | 2019-03-06 09:39 | ER ---
Nurse's Notes [facility] Name: Tsering Hamilton Age: 78 yrs Sex: Female : 1940 Arrival Date: 03/06/2019 Time: 08:33 Bed 7 Private MD: Diagnosis: Fall due to bumping against object;Superficial injury of head-periorbital bruising, no entrapment Presentation: 03/06 09:08 Presenting complaint: Patient states: fell on Wednesday, slipped off a stool during iw rainstorm, feel to concrete, head first, large hematoma to left forehead, noticed new bruising to left orbital area yesterday, denies LOC, denies blood thinners. Transition of care: patient was not received from another setting of care. Onset of symptoms was March 04, 2019. Risk Assessment: Do you want to hurt yourself or someone else? Patient reports no desire to harm self or others. Initial Sepsis Screen: Does the patient meet any 2 criteria? No. Patient's initial sepsis screen is negative. Does the patient have a suspected source of infection? No. Patient's initial sepsis screen is negative. Care prior to arrival: None. 09:08 Method Of Arrival: Ambulatory iw 09:08 Acuity: TALI 4 iw Triage Assessment: 09:15 General: Appears in no apparent distress. Behavior is calm, cooperative. iw Historical: - Allergies: 09:11 No Known Allergies; iw - Home Meds: 09:11 Namenda Oral [Active]; Simvastatin Oral [Active]; iw - PMHx: 09:11 Dementia; High Cholesterol; Hypertension; restasis; TIA; iw - PSHx: 09:11 None; iw - Immunization history:: Adult Immunizations up to date. - Social history:: Smoking status: Patient/guardian denies using tobacco. - Family history:: not pertinent. - Ebola Screening: : Patient negative for fever greater than or equal to 101.5 degrees Fahrenheit, and additional compatible Ebola Virus Disease symptoms Patient denies exposure to infectious person Patient denies travel to an Ebola-affected area in the 21 days before illness onset No symptoms or risks identified at this time. Screenin:15 Abuse screen: Denies threats or abuse. Denies injuries from another. Nutritional iw screening: No deficits noted. Tuberculosis screening: No symptoms or risk factors identified. Fall Risk Fall in past 12 months (25 points). Assessment: 09:15 General: Appears in no apparent distress. comfortable, Behavior is calm, cooperative. iw Pain: Complains of pain in forehead. Neuro: Level of Consciousness is awake, alert, obeys commands, Oriented to person, place, time, situation, Moves all extremities. Full function. Cardiovascular: Patient's skin is warm and dry. Respiratory: Respiratory effort is even, unlabored, Respiratory pattern is regular. GI: No signs and/or symptoms were reported involving the gastrointestinal system. Derm: Bruising that is bright red, on left lower eyelid. Musculoskeletal: Range of motion: intact in all extremities. Vital Signs: 09:11 BP 174 / 82; Pulse 78; Resp 16; Temp 97.7; Pulse Ox 97% on R/A; Pain 2/10; iw [place] Coma Score: 09:13 Eye Response: spontaneous(4). Verbal Response: oriented(5). Motor Response: obeys mack commands(6). Total: 15. ED Course: 08:33 Patient arrived in ED. as 08:47 Trever Rendon MD is Attending Physician. mack 09:11 Triage completed. iw 09:11 Arm band placed on. iw 09:15 Patient has correct armband on for positive identification. iw 09:27 No provider procedures requiring assistance completed. Patient did not have IV access iw during this emergency room visit. 09:28 Winnie Pierce, RN is Primary Nurse. iw Administered Medications: No medications were administered Outcome: 09:15 Discharge ordered by . mack 09:27 Discharged to home ambulatory, with family. iw 09:27 Condition: good 09:27 Discharge instructions given to patient, Instructed on discharge instructions, the need for admit, Demonstrated understanding of instructions, follow-up care. 09:28 Patient left the ED. iw Signatures: Trever Rendon MD MD cha Martinez, Amelia as Winnie Pierce, RN RN iw
--- NOTE | 2019-03-06 09:39 | EDPHYS ---
Physician Documentation [facility] Name: Tsering Hamilton Age: 78 yrs Sex: Female : 1940 Arrival Date: 03/06/2019 Time: 08:33 Bed 7 Private MD: ED Physician Trever Rendon HPI: 03/06 09:09 This 78 yrs old Female presents to ER via Unassigned with complaints of Eye mack Problem. 09:09 The patient is experiencing pain. Onset: The symptoms/episode began/occurred 3 day(s) mack ago. Duration: the symptoms are continuous. Aggravated by nothing. Alleviated by nothing. Associated signs and symptoms: Pertinent positives: None. Pertinent negatives: None. Severity of symptoms: At their worst the symptoms were mild in the emergency department the symptoms are unchanged. The patient has not experienced similar symptoms in the past. 09:13 Context of injury: The problem was sustained at a relative's home. Associated signs and mack symptoms: Loss of consciousness: This patient did not experience any loss of consciousness. Pertinent positives:. Historical: - Allergies: 09:11 No Known Allergies; iw - Home Meds: 09:11 Namenda Oral [Active]; Simvastatin Oral [Active]; iw - PMHx: 09:11 Dementia; High Cholesterol; Hypertension; restasis; TIA; iw - PSHx: 09:11 None; iw - Immunization history:: Adult Immunizations up to date. - Social history:: Smoking status: Patient/guardian denies using tobacco. - Family history:: not pertinent. - Ebola Screening: : Patient negative for fever greater than or equal to 101.5 degrees Fahrenheit, and additional compatible Ebola Virus Disease symptoms Patient denies exposure to infectious person Patient denies travel to an Ebola-affected area in the 21 days before illness onset No symptoms or risks identified at this time. ROS: 09:10 Constitutional: Negative for fever, chills, and weight loss, Eyes: Negative for injury, mack pain, redness, and discharge, ENT: Negative for injury, pain, and discharge, Neck: Negative for injury, pain, and swelling, Cardiovascular: Negative for chest pain, palpitations, and edema, Respiratory: Negative for shortness of breath, cough, wheezing, and pleuritic chest pain, Abdomen/GI: Negative for abdominal pain, nausea, vomiting, diarrhea, and constipation, Back: Negative for injury and pain, : Negative for injury, bleeding, discharge, and swelling, MS/Extremity: Negative for injury and deformity, Neuro: Negative for headache, weakness, numbness, tingling, and seizure, Psych: Negative for depression, anxiety, suicide ideation, homicidal ideation, and hallucinations, Allergy/Immunology: Negative for hives, rash, and allergies, Endocrine: Negative for neck swelling, polydipsia, polyuria, polyphagia, and marked weight changes, Hematologic/Lymphatic: Negative for swollen nodes, abnormal bleeding, and unusual bruising. 09:10 Skin: Positive for swelling, of the forehead and left eye. Exam: 09:10 Constitutional: This is a well developed, well nourished patient who is awake, alert, mack and in no acute distress. Eyes: Pupils equal round and reactive to light, extra-ocular motions intact. Lids and lashes normal. Conjunctiva and sclera are non-icteric and not injected. Cornea within normal limits. Periorbital areas with no swelling, redness, or edema. ENT: Nares patent. No nasal discharge, no septal abnormalities noted. Tympanic membranes are normal and external auditory canals are clear. Oropharynx with no redness, swelling, or masses, exudates, or evidence of obstruction, uvula midline. Mucous membranes moist. Neck: Trachea midline, no thyromegaly or masses palpated, and no cervical lymphadenopathy. Supple, full range of motion without nuchal rigidity, or vertebral point tenderness. No Meningismus. Chest/axilla: Normal chest wall appearance and motion. Nontender with no deformity. No lesions are appreciated. Cardiovascular: Regular rate and rhythm with a normal S1 and S2. No gallops, murmurs, or rubs. Normal PMI, no JVD. No pulse deficits. Respiratory: Lungs have equal breath sounds bilaterally, clear to auscultation and percussion. No rales, rhonchi or wheezes noted. No increased work of breathing, no retractions or nasal flaring. Abdomen/GI: Soft, non-tender, with normal bowel sounds. No distension or tympany. No guarding or rebound. No evidence of tenderness throughout. Back: No spinal tenderness. No costovertebral tenderness. Full range of motion. Skin: Warm, dry with normal turgor. Normal color with no rashes, no lesions, and no evidence of cellulitis. MS/ Extremity: Pulses equal, no cyanosis. Neurovascular intact. Full, normal range of motion. Neuro: Awake and alert, GCS 15, oriented to person, place, time, and situation. Cranial nerves II-XII grossly intact. Motor strength 5/5 in all extremities. Sensory grossly intact. Cerebellar exam normal. Normal gait. Psych: Awake, alert, with orientation to person, place and time. Behavior, mood, and affect are within normal limits. 09:10 Head/face: Noted is Vital Signs: 09:11 BP 174 / 82; Pulse 78; Resp 16; Temp 97.7; Pulse Ox 97% on R/A; Pain 2/10; iw [place] Coma Score: 09:13 Eye Response: spontaneous(4). Verbal Response: oriented(5). Motor Response: obeys [facility] commands(6). Total: 15. MDM: 08:57 Patient medically screened. [facility] 09:10 Data reviewed: vital signs, nurses notes. [facility] Administered Medications: No medications were administered Disposition: 03/06/19 09:15 Discharged to Home. Impression: Fall due to bumping against object, Superficial injury of head - periorbital bruising, no entrapment. - Condition is Stable. - Discharge Instructions: Head Injury, Adult, Head Injury, Adult, [id number]. - Medication Reconciliation Form, Thank You Letter, Antibiotic Education, Prescription Opioid Use form. - Follow up: Private Physician; When: 2 - 3 days; Reason: Recheck today's complaints, Continuance of care, Re-evaluation by your physician. - Problem is new. - Symptoms have improved. Signatures: Trever Rendon MD MD cha Williams, Irene RN RN iw Corrections: (The following items were deleted from the chart) 09:28 09:15 03/06/2019 09:15 Discharged to Home. Impression: Fall due to bumping against iw object; Superficial injury of head - periorbital bruising, no entrapment. Condition is Stable. Forms are Medication Reconciliation Form, Thank You Letter, Antibiotic Education, Prescription Opioid Use. Follow up: Private Physician; When: 2 - 3 days; Reason: Recheck today's complaints, Continuance of care, Re-evaluation by your physician. Problem is new. Symptoms have improved. mack
== END 2019-03-06 09:28 | disposition home or self-care (01) ==
LOC: ER 08:31
DX: S00.202A Unspecified superficial injury of left eyelid and periocular area, initial encounter (principal); W18.00XA Striking against unspecified object with subsequent fall, initial encounter; Y93.9 Activity, unspecified; Y92.9 Unspecified place or not applicable; I10 Essential (primary) hypertension; E78.00 Pure hypercholesterolemia, unspecified; F03.90 Unspecified dementia, unspecified severity, without behavioral disturbance, psychotic disturbance, mood disturbance, and anxiety
CPT/HCPCS: 99281

== ENCOUNTER 2019-09-05 06:13 | Day surgery (SDC) | payer OTHER ==
--- OUTSIDE RECORDS SUMMARY | 2019-08-30 16:04 | XMS REPORT ---
:1940 Author Organization [employer] Care Team Providers Name Role Phone Allen Edward Provider Role Unavailable Allergies No Known Allergies Problems Problem Type Condition Code Onset Dates Condition Status Problem Glaucoma of both eyes, unspecified H40.9 Active glaucoma type Problem Mild cognitive disorder F09 Active Problem Insomnia, unspecified type G47.00 Active Problem HTN, goal below 150/90 I10 Active Problem Generalized anxiety disorder F41.1 Active Problem Non-seasonal allergic rhinitis, J30.89 Active unspecified trigger Problem Dry eyes, bilateral H04.123 Active Problem GERD without esophagitis K21.9 Active Problem Seasonal allergies J30.2 Active Problem Mixed hyperlipidemia E78.2 Active Problem Pain in joint of right hand M25.541 Active Problem Pain in joint of right foot M25.571 Active Problem Trigger finger, right middle finger M65.331 Active Problem 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
--- OUTSIDE RECORDS SUMMARY | 2019-08-30 16:04 | XMS REPORT ---
:1940 Author Organization e[employer] Care Team Providers Name Role Phone Edward Villa Provider Role Unavailable Allergies, Adverse Reactions, Alerts Substance Reaction Event Type N.K.D.A. Info Not Available Non Drug Allergy Problems Problem Type Condition Code Onset Dates Condition Status Assessment History of fall within past 90 days Z91.81 Active Assessment Dry eyes, bilateral H04.123 Active Problem Trigger finger, right middle finger M65.331 Active Assessment Glaucoma of both eyes, unspecified H40.9 Active glaucoma type Problem History of recurrent TIAs Z86.73 Active Assessment Insomnia, unspecified type G47.00 Active Problem Glaucoma of both eyes, unspecified H40.9 Active glaucoma type Problem Mild cognitive disorder F09 Active Problem Insomnia, unspecified type G47.00 Active Problem HTN, goal below 150/90 I10 Active Problem Generalized anxiety disorder F41.1 Active Assessment Non-seasonal allergic rhinitis, J30.89 Active unspecified trigger Assessment History of recurrent TIAs Z86.73 Active Problem Non-seasonal allergic rhinitis, J30.89 Active unspecified trigger Assessment Mild cognitive disorder F09 Active Problem Dry eyes, bilateral H04.123 Active Problem GERD without esophagitis K21.9 Active Problem Seasonal allergies J30.2 Active Problem Mixed hyperlipidemia E78.2 Active Assessment Mixed hyperlipidemia E78.2 Active Assessment HTN, goal below 150/90 I10 Active Assessment Generalized anxiety disorder F41.1 Active Assessment GERD without esophagitis K21.9 Active Problem Pain in joint of right hand M25.541 Active Problem Pain in joint of right foot M25.571 Active Problem 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 Medications Medication Code Code Instructions Start End Status Dosage System Date Date Omeprazole ND 06731495042 40 MG Orally Active 1 tablet Once a day Trazodone HCl ND 08038188016 100 MG Orally Active 1 tablet Once a day at bedtime Simvastatin ND 18359380390 20 MG Orally Active 1 tablet Once a day in the evening Losartan ND 66655596312 100 MG Orally Active 1 tablet Potassium Once a day Ativan [facility] 10937446037 0.5 MG Orally Active 1 tablet Once a day at bedtime as needed Zioptan [facility] [address]-04 Active not defined Ipratropium [facility] 10093260398 0.06 % Nasally Active 2 sprays [place] Three times a in each day nostril Zyrtec Allergy [facility] 36809274749 10 MG Orally Active 1 tablet Once a day Famotidine [facility] 70057610976 20 MG Active TAKE 1 TABLET BY MOUTH EVERY DAY AT BEDTIME NEEDED Losartan [facility] 15002288949 100 MG Active TAKE 1 Potassium TABLET BY MOUTH EVERY DAY Vitamin B12 [facility] 31137333888 1000 MCG Orally Active 1 tablet Once a day Donepezil HCl [facility] 77806873066 10 MG Orally Active 1 tablet Twice a day at bedtime Aspir-Low [facility] 88550066659 81 MG Orally Active 1 tablet Once a day Memantine HCl [facility] 42039079389 10 MG Orally Active 1 tablet Twice a day Famotidine [facility] 46868232013 20 MG Orally Active 1 tablet Once a day at bedtime as needed Results No Known Results Summary Purpose eClinicalWorks Submission
--- OUTSIDE RECORDS SUMMARY | 2019-08-30 16:05 | XMS REPORT ---
:1940 Author Organization [employer] Care Team Providers Name Role Phone Xiang Villah Provider Role Unavailable Allergies, Adverse Reactions, Alerts Substance Reaction Event Type N.K.D.A. Info Not Available Non Drug Allergy Problems Problem Type Condition Code Onset Dates Condition Status Assessment History of recurrent TIAs Z86.73 Active Assessment History of fall within past 90 days Z91.81 Active Assessment Dry eyes, bilateral H04.123 Active Assessment Glaucoma of both eyes, unspecified H40.9 Active glaucoma type Assessment Insomnia, unspecified type G47.00 Active Problem History of recurrent TIAs Z86.73 Active Assessment Mild cognitive disorder F09 Active Problem Glaucoma of both eyes, unspecified H40.9 Active glaucoma type Assessment Diverticula, bladder N32.3 Active Problem Insomnia, unspecified type G47.00 Active Problem GERD without esophagitis K21.9 Active Problem Mild cognitive disorder F09 Active Problem Non-seasonal allergic rhinitis, J30.89 Active unspecified trigger Problem HTN, goal below 150/90 I10 Active Assessment Non-seasonal allergic rhinitis, J30.89 Active unspecified trigger Assessment GERD without esophagitis K21.9 Active Problem Overactive bladder N32.81 Active Assessment Generalized anxiety disorder F41.1 Active Problem Mixed hyperlipidemia E78.2 Active Problem Dry eyes, bilateral H04.123 Active Problem Generalized anxiety disorder F41.1 Active Problem Seasonal allergies J30.2 Active Assessment HTN, goal below 150/90 I10 Active Assessment Overactive bladder N32.81 Active Assessment Mixed hyperlipidemia E78.2 Active Problem Pain in joint of right foot M25.571 Active Problem Trigger finger, right middle finger M65.331 Active Problem 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 Problem Pain in joint of right hand M25.541 Active Medications Medication Code Code Instructions Start End Status Dosage System Date Date Ativan [facility] 51413361846 0.5 MG Orally Active 1 tablet Once a day at bedtime as needed Famotidine [facility] 61042724216 20 MG Active TAKE 1 TABLET BY MOUTH EVERY DAY AT BEDTIME NEEDED Losartan [facility] 58314054106 100 MG Orally Active 1 tablet Potassium Once a day Famotidine [facility] 34300829200 20 MG Orally Active 1 tablet Once a day at bedtime as needed Donepezil HCl [facility] 04975605626 10 MG Orally Active 1 tablet Twice a day at bedtime Ipratropium [facility] 71158402818 0.06 % Nasally Active 2 sprays [place] Three times a in each day nostril Zyrtec Allergy [facility] 38114415109 10 MG Orally Active 1 tablet Once a day Omeprazole [facility] 14017369595 40 MG Orally Active 1 tablet Once a day Simvastatin [facility] 99117574478 20 MG Active TAKE 1 TABLET BY MOUTH EVERY DAY IN THE EVENING Trazodone HCl [facility] 03311201024 100 MG Orally Active 1 tablet Once a day at bedtime Omeprazole [facility] 16305702911 40 MG Orally Active 1 tablet Once a day Simvastatin [facility] 23537666185 20 MG Orally Active 1 tablet Once a day in the evening Zioptan [facility] [address]-17 Active not defined Memantine HCl [facility] 36474672372 10 MG Orally Active 1 tablet Twice a day Vitamin B12 [facility] 72499398609 1000 MCG Orally Active 1 tablet Once a day Aspir-Low [facility] 76189225179 81 MG Orally Active 1 tablet Once a day Results No Known Results Summary Purpose eClinicalWorks Submission
--- OUTSIDE RECORDS SUMMARY | 2019-08-30 16:05 | XMS REPORT ---
:1940 Author Organization [employer] Care Team Providers Name Role Phone Edward Villa Provider Role Unavailable Allergies No Known Allergies [...] Active Problem Mixed hyperlipidemia E78.2 Active Assessment History of recurrent TIAs Z86.73 Active Assessment HTN, goal below 150/90 I10 Active Problem Pain in joint of right [...]
--- OUTSIDE RECORDS SUMMARY | 2019-09-05 06:19 | XMS REPORT ---
[...] Status Dosage System Date Date Omeprazole ND 53927764745 40 MG Orally Active 1 tablet Once a day Trazodone HCl ND 42058087143 100 MG Orally Active 1 tablet Once a day at bedtime Simvastatin ND 71391809040 20 MG Orally Active 1 tablet Once a day in the evening Losartan ND 40598446269 100 MG Orally Active 1 tablet Potassium Once a day Ativan [facility] 64581902114 0.5 MG Orally Active 1 tablet Once a day at bedtime as needed Zioptan [facility] [address]-49 Active not defined Ipratropium [facility] 53904170607 0.06 % Nasally Active 2 sprays [place] Three times a in each day nostril Zyrtec Allergy [facility] 93977808560 10 MG Orally Active 1 tablet Once a day Famotidine [facility] 82173019878 20 MG Active TAKE 1 TABLET BY MOUTH EVERY DAY AT BEDTIME NEEDED Losartan [facility] 90480816397 100 MG Active TAKE 1 Potassium TABLET BY MOUTH EVERY DAY Vitamin B12 [facility] 52547391352 1000 MCG Orally Active 1 tablet Once a day Donepezil HCl [facility] 92502945339 10 MG Orally Active 1 tablet Twice a day at bedtime Aspir-Low [facility] 27030653385 81 MG Orally Active 1 tablet Once a day Memantine HCl [facility] 80607115789 10 MG Orally Active 1 tablet Twice a day Famotidine [facility] 34366137273 20 MG Orally Active 1 tablet Once a day at bedtime as needed Results No Known Results Summary Purpose eClinicalWorks Submission
--- OUTSIDE RECORDS SUMMARY | 2019-09-05 06:20 | XMS REPORT ---
[...] End Status Dosage System Date Date Ativan [facility] 39888569378 0.5 MG Orally Active 1 tablet Once a day at bedtime as needed Famotidine [facility] 90022437262 20 MG Active TAKE 1 TABLET BY MOUTH EVERY DAY AT BEDTIME NEEDED Losartan [facility] 22169066163 100 MG Orally Active 1 tablet Potassium Once a day Famotidine [facility] 23684047063 20 MG Orally Active 1 tablet Once a day at bedtime as needed Donepezil HCl [facility] 52840162211 10 MG Orally Active 1 tablet Twice a day at bedtime Ipratropium [facility] 91252971223 0.06 % Nasally Active 2 sprays [place] Three times a in each day nostril Zyrtec Allergy [facility] 03375792789 10 MG Orally Active 1 tablet Once a day Omeprazole [facility] 83377361158 40 MG Orally Active 1 tablet Once a day Simvastatin [facility] 22297048622 20 MG Active TAKE 1 TABLET BY MOUTH EVERY DAY IN THE EVENING Trazodone HCl [facility] 98640932563 100 MG Orally Active 1 tablet Once a day at bedtime Omeprazole [facility] 31195471304 40 MG Orally Active 1 tablet Once a day Simvastatin [facility] 48374303600 20 MG Orally Active 1 tablet Once a day in the evening Zioptan [facility] [address]-66 Active not defined Memantine HCl [facility] 61358326142 10 MG Orally Active 1 tablet Twice a day Vitamin B12 [facility] 94614921751 1000 MCG Orally Active 1 tablet Once a day Aspir-Low [facility] 61577361607 81 MG Orally Active 1 tablet Once a day Results No Known Results Summary Purpose eClinicalWorks Submission
--- OUTSIDE RECORDS SUMMARY | 2019-09-05 06:20 | XMS REPORT ---
:1940 Author Organization [employer]Works Care Team Providers Name Role Phone Ewdard Villa Provider Role Unavailable Allergies No Known [...]
[2019-09-05] MEDS ORDERED: Ringers Lactate 1,000 ML IV ONE (06:37)
[2019-09-05] MEDS ORDERED: propofoL 200 MG/20 ML VIAL IV ONE (07:12)
[2019-09-05] MEDS ORDERED: FENTANYL CITR 100 MCG/2 ML ONE (07:13)
[2019-09-05] MEDS ORDERED: ONDANSETRON 4 MG/2 ML VIAL ONE (07:14)
[2019-09-05] MEDS ORDERED: LIDOCAINE 1% MPF 5 ML VIAL ONE (07:14)
[2019-09-05] MEDS ORDERED: BOTU TOX TYPE A 100 UNIT/VIAL ID ONE (07:17)
[2019-09-05] MEDS ORDERED: NS 0.9% VIAL 30 ML ONE (07:19)
[2019-09-05] MEDS ORDERED: LIDOCAINE 1% W/EPI 1:100,000 MDV 20 ML VIAL ONE (07:19)
[2019-09-05] MEDS: CEFAZOLIN/SWI 1gm 1 GM/10 ML SYR ONE ×2 (08:01→08:05)
[2019-09-05] MEDS ORDERED: GLYCOPYRROLATE 0.2 MG/ML SYR ONE (08:04)
[2019-09-05] MEDS ORDERED: EPHEDRINE SULF 50 MG/ML VIAL ONE (08:05)
[2019-09-05 09:26] VITALS: BP 147/62; TEMP 97; O2SAT 95
--- NOTE | 2019-09-05 19:17 | OP ---
Date of Procedure: 09/05/2019 Surgeon: Alva Bhardwaj MD Preoperative Diagnosis: Refractive overactive bladder. Postoperative Diagnosis: Refractive overactive bladder. Anesthesia: General. Procedure Performed: Cystoscopy with Botox injections. Complications: None. Drains: None. Specimens: None. Condition: Stable. Indications: The patient is an 79-year-old female with refractory overactive bladder, failed to resp ond to diet changes, time voiding, medication treatment with anticholinergics with beta-3. At the ird line of treatment, she was counseled on sacral neuromodulation and Botox having equivalent benefi ts. Risks and procedures were explained for both the different options. She wanted to proceed with Botox injections and she was brought to the hospital. Description Of Procedure: A 1 g of Ancef was given preop. The patient was given anesthesia after ta hugh her back to the OR, placed in a supine fashion. General anesthesia given and placed in dorsal l ithotomy position using Jason stirrups. The vulva, vagina, and perineum prepped and draped in a ster ile fashion. The patient had emptied her bladder prior to coming in the OR. A 17-Micronesian sheath, 30- degree lens normal saline were used for distention. Laborie needle was inserted through the cystosco pe channel. Botox 100 units diluted in about 15 cc of normal saline, about 18 to 20 injections were given, starting above the level of the trigone about a centimeter to a centimeter and half above and injections given at least 3 cm apart. After all the injections were given, there was very minimal bl eeding. The bladder was rinsed out. It was filled to a good level before giving the injection. The cystoscopy showed no tumors or abnormalities in the bladder, just trabeculations. So, then after th e end of the procedure, the bladder was drained completely and the sheath removed. The patient was r ecovered from anesthesia. Instrument, needle, and sponge counts were correct at the end of the case. The patient tolerated the procedure well. She will follow up with me in 5 days for a voiding trial and 10 days for a visit. Her injections, the first 6 of them had 10 units at each site and the rest of them had lower dilution. SK/MAGGIEL Voice ID: [id number] Report ID: [id number]
== END 2019-09-05 09:50 | disposition home or self-care (01) ==
LOC: OR 06:13
PROVIDERS: ATTEND Obstetrics & Gynecology
PROC: 3E0K8GC Introduction of Other Therapeutic Substance into Genitourinary Tract, Via Natural or Artificial Opening Endoscopic (ICD-10-PCS; principal; 2019-09-05 07:30)
DX: N32.81 Overactive bladder (principal); N39.3 Stress incontinence (female) (male); I10 Essential (primary) hypertension; K21.9 Gastro-esophageal reflux disease without esophagitis; E78.00 Pure hypercholesterolemia, unspecified; Z86.73 Personal history of transient ischemic attack (TIA), and cerebral infarction without residual deficits
CPT/HCPCS: 52287; J2704; J0585; J3010; J0690; J7120; J2405

== ENCOUNTER → 2020-10-29 | Day surgery (SDC) | payer OTHER, MEDICARE ==
[2020-10-24 10:37] LABS: Urine Appearance CLEAR (Clear); Urine Bilirubin NEGATIVE (Negataive); Urine Blood NEGATIVE (Negative); Urine Color YELLOW (Yellow); Urine Glucose NEGATIVE (Negative); Urine Protein NEGATIVE (Negative); Urine pH 5.5 (5.0-7.0)
[2020-10-24 10:55] LABS: Urine Microscopic Reflex NO UMIC
[~2020-10-29] MED LIST: FENTANYL CITR 100 MCG/2 ML ONE; LIDOCAINE 2% MPF 5 ML VIAL ONE; ONDANSETRON 4 MG/2 ML VIAL ONE; Ringers Lactate 1,000 ML IV SCH; propofoL 200 MG/20 ML VIAL IV ONE
== END ==
LOC: OR 07:15
PROVIDERS: ATTEND Obstetrics & Gynecology
DX: N32.81 Overactive bladder (principal); I10 Essential (primary) hypertension; K21.9 Gastro-esophageal reflux disease without esophagitis; I63.9 Cerebral infarction, unspecified; E78.00 Pure hypercholesterolemia, unspecified; Z53.21 Procedure and treatment not carried out due to patient leaving prior to being seen by health care provider; Z20.822 Contact with and (suspected) exposure to COVID-19
CPT/HCPCS: 81003; U0002; J2405; J2704; J3010

== ENCOUNTER 2022-07-13 11:12 | Emergency (ER) | payer OTHER, MEDICARE ==
--- OUTSIDE RECORDS SUMMARY | 2022-07-13 11:17 | XMS REPORT | Continuity of Care Document ---
:1940 Author Organization [facility] t Address [address] [place] [address] Care Team Providers Name Role Phone Edward [facility] Attending Clinician Unavailable Payers Payer Name Policy Type Policy Number Effective Date Expiration Date S samia [facility] C1 [id number] 2019 [facility] t 00:00:[address] [facility] MEDICARE MB [id number] Common [facility] NOVITAS - [facility] MEDICARE MB [id number] Common [facility] [id number] 2019 Common Spiri t 00:00:00 [facility] Problems Condition Condition Condition Status Onset Resolution Last Treating Co mments Source Name Details Category Date Date Treatment Clinician Date [id number] [place] Comm on [id number] joint of [facility] right hand [facility] [id number] Osteoarthr Problem C ommon [id number] itis of [facility] first [facility] metatarsop [facility]ange[facility] [place] right foot [id number] Trigger Problem Commo n finger, [facility] right - [facility] middle finger [facility] [id number] Pain in Problem Comm on [id number] joint of [facility] right foot [facility] [id number] Seasonal Problem Comm on allergies [facility] [id number] GERD Problem Common without [facility] esophagiti [facility] s [facility] [id number] Mild Problem Common cognitive Spirit disorder [facility] [id number] 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 [facility] [id number] History of Problem Co mmon recurrent Spirit TIAs [facility] [id number] Glaucoma Problem Commo n of both Spirit eyes, - [facility] unspecifie St d glaucoma [facility] [id number] Insomnia, Problem Com mon unspecifie Spirit d type [facility] [id number] Decreased Problem Com mon hearing of Spirit both ears - [facility] [id number] Mixed Problem Common hyperlipid Spirit emia [facility] Diverticul Diverticul Problem C ommon um of a, bladder Spirit bladder [facility] [id number] Dry eyes, Problem Com mon bilateral Spirit [facility] [id number] HTN, goal Problem Comm on below Spirit 150/90 [facility] [id number] 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 Social History Social Habit Start Date Stop Date Quantity Comments Source History of Tobacco Use Co mmon [facility] Sex Assigned At Com mon [facility] Smoking Status Start Date Stop Date Source Never Smoker [facility] Medications Ordered Filled Start Stop Current Ordering Indication Dosage Frequency Signature Comments Components Source Medication Medication Date Date Medication? Clinician (SIG) Name Name Ativan 0.5 Ativan 0.5 No 1{table QD Ativan 0.5 MG MG t_at_be MG dtime_a s_neede d} Zioptan Zioptan No Zioptan Omeprazole Omeprazole No Omeprazole 40 MG 40 MG 40 MG Aspir-Low Aspir-Low No 1{table QD Aspir-Low 81 MG 81 MG t} 81 MG Losartan Losartan No 1{table QD Losartan Potassium Potassium t} Potassium 100 MG 100 MG 100 MG traZODone traZODone No 1{table QD traZODone HCl 100 MG HCl 100 MG t_at_be HCl 100 MG dtime} Memantine Memantine No 1{table BID Memantine HCl 10 MG HCl 10 MG t} HCl 10 MG Vitamin B12 Vitamin B12 No 1{table QD Vitamin 1000 MCG 1000 MCG t} B12 1000 MCG Simvastatin Simvastatin No 1{table QD Simvastati 20 MG 20 MG t_in_th n 20 MG e_eveni ng} traZODone traZODone No traZODone HCl 50 MG HCl 50 MG HCl 50 MG Memantine Memantine No 1{table BID Memantine HCl 10 MG HCl 10 MG t} HCl 10 MG Zioptan Zioptan No Zioptan Aspir-Low Aspir-Low No 1{table QD Aspir-Low 81 MG 81 MG t} 81 MG Donepezil Donepezil No 1{table BID Donepezil HCl 10 MG HCl 10 MG t_at_be HCl 10 MG dtime} Centrum Centrum No Centrum Silver - Silver - Silver - Omeprazole Omeprazole No 1{table QD Omeprazole 40 MG 40 MG t} 40 MG Famotidine Famotidine No Famotidine 20 MG 20 MG 20 MG Famotidine Famotidine No 1{table QD Famotidine 20 MG 20 MG t_at_be 20 MG dtime_a s_neede d} ZyrTEC ZyrTEC No 1{table QD ZyrTEC Allergy 10 Allergy 10 t} Allergy 10 MG MG MG Simvastatin Simvastatin No Simvastati 20 MG 20 MG n 20 MG Ativan 0.5 Ativan 0.5 No 1{table QD Ativan 0.5 MG MG t_at_be MG dtime_a s_neede d} Estrace 0.1 Estrace 0.1 No Estrace MG/GM MG/GM 0.1 MG/GM Simvastatin Simvastatin No 1{table QD Simvastati 20 MG 20 MG t_in_th n 20 MG e_eveni ng} Omeprazole Omeprazole No Omeprazole 40 MG 40 MG 40 MG Losartan Losartan No 1{table QD Losartan Potassium Potassium t} Potassium 100 MG 100 MG 100 MG Vitamin B12 Vitamin B12 No 1{table QD Vitamin 1000 MCG 1000 MCG t} B12 1000 MCG Losartan Losartan No Losartan Potassium Potassium Potassium 100 MG 100 MG 100 MG Ipratropium Ipratropium No 2{spray TID Ipratropiu [place] s_in_ea m [place] 0.06 % 0.06 % ch_nost 0.06 % ril} Donepezil Donepezil No 1{table BID HCl 10 MG HCl 10 MG t_at_be dtime} Memantine Memantine No 1{table BID HCl 10 MG HCl 10 MG t} Omeprazole Omeprazole No 1{table QD 40 MG 40 MG t} Aspir-Low Aspir-Low No 1{table QD 81 MG 81 MG t} Zioptan Zioptan No Centrum Centrum No Silver - Silver - traZODone traZODone No HCl 50 MG HCl 50 MG Famotidine Famotidine No 20 MG 20 MG Famotidine Famotidine No 1{table QD 20 MG 20 MG t_at_be dtime_a s_neede d} ZyrTEC ZyrTEC No 1{table QD Allergy 10 Allergy 10 t} MG MG Simvastatin Simvastatin No 20 MG 20 MG Ativan 0.5 Ativan 0.5 No 1{table QD MG MG t_at_be dtime_a s_neede d} Estrace 0.1 Estrace 0.1 No MG/GM MG/GM Simvastatin Simvastatin No 1{table QD 20 MG 20 MG t_in_th e_eveni ng} Omeprazole Omeprazole No 40 MG 40 MG Losartan Losartan No 1{table QD Potassium Potassium t} 100 MG 100 MG Vitamin B12 Vitamin B12 No 1{table QD 1000 MCG 1000 MCG t} Losartan Losartan No Potassium Potassium 100 MG 100 MG Ipratropium Ipratropium No 2{spray TID [place] s_in_ea 0.06 % 0.06 % ch_nost ril} Memantine Memantine No 1{table BID Memantine HCl 10 MG HCl 10 MG t} HCl 10 MG Centrum Centrum No Centrum Silver - Silver - Silver - Estrace 0.1 Estrace 0.1 No Estrace MG/GM MG/GM 0.1 MG/GM Famotidine Famotidine No 1{table QD Famotidine 20 MG 20 MG t_at_be 20 MG dtime_a s_neede d} traZODone traZODone No traZODone HCl 50 MG HCl 50 MG HCl 50 MG Ativan 0.5 Ativan 0.5 No 1{table QD Ativan 0.5 MG MG t_at_be MG dtime_a s_neede d} ZyrTEC ZyrTEC No 1{table QD ZyrTEC Allergy 10 Allergy 10 t} Allergy 10 MG MG MG Simvastatin Simvastatin No 1{table QD Simvastati 20 MG 20 MG t_in_th n 20 MG e_eveni ng} Aspir-Low Aspir-Low No 1{table QD Aspir-Low 81 MG 81 MG t} 81 MG Losartan Losartan No Losartan Potassium Potassium Potassium 100 MG 100 MG 100 MG Omeprazole Omeprazole No 1{table QD Omeprazole 40 MG 40 MG t} 40 MG Omeprazole Omeprazole No Omeprazole 40 MG 40 MG 40 MG Donepezil Donepezil No 1{table BID Donepezil HCl 10 MG HCl 10 MG t_at_be HCl 10 MG dtime} Famotidine Famotidine No Famotidine 20 MG 20 MG 20 MG Ipratropium Ipratropium No 2{spray TID Ipratropiu [place] s_in_ea m [place] 0.06 % 0.06 % ch_nost 0.06 % ril} Losartan Losartan No 1{table QD Losartan Potassium Potassium t} Potassium 100 MG 100 MG 100 MG Vitamin B12 Vitamin B12 No 1{table QD Vitamin 1000 MCG 1000 MCG t} B12 1000 MCG Simvastatin Simvastatin No Simvastati 20 MG 20 MG n 20 MG traZODone traZODone No 1{table QD traZODone HCl 100 MG HCl 100 MG t_at_be HCl 100 MG dtime} Zioptan Zioptan No Zioptan Famotidine Famotidine No 1{table QD Famotidine 20 MG 20 MG t_at_be 20 MG dtime_a s_neede d} Losartan Losartan No Losartan Potassium Potassium Potassium 100 MG 100 MG 100 MG Omeprazole Omeprazole No 1{table QD Omeprazole 40 MG 40 MG t} 40 MG Estrace 0.1 Estrace 0.1 No Estrace MG/GM MG/GM 0.1 MG/GM traZODone traZODone No traZODone HCl 50 MG HCl 50 MG HCl 50 MG Centrum Centrum No Centrum Silver - Silver - Silver - Simvastatin Simvastatin No Simvastati 20 MG 20 MG n 20 MG Ipratropium Ipratropium No 2{spray TID Ipratropiu [place] s_in_ea m [place] 0.06 % 0.06 % ch_nost 0.06 % ril} Donepezil Donepezil No 1{table BID Donepezil HCl 10 MG HCl 10 MG t_at_be HCl 10 MG dtime} ZyrTEC ZyrTEC No 1{table QD ZyrTEC Allergy 10 Allergy 10 t} Allergy 10 MG MG MG Famotidine Famotidine No Famotidine 20 MG 20 MG 20 MG Ativan 0.5 Ativan 0.5 No 1{table QD Ativan 0.5 MG MG t_at_be MG dtime_a s_neede d} Zioptan Zioptan No Zioptan Omeprazole Omeprazole No Omeprazole 40 MG 40 MG 40 MG Aspir-Low Aspir-Low No 1{table QD Aspir-Low 81 MG 81 MG t} 81 MG Losartan Losartan No 1{table QD Losartan Potassium Potassium t} Potassium 100 MG 100 MG 100 MG traZODone traZODone No 1{table QD traZODone HCl 100 MG HCl 100 MG t_at_be HCl 100 MG dtime} Memantine Memantine No 1{table BID Memantine HCl 10 MG HCl 10 MG t} HCl 10 MG Vitamin B12 Vitamin B12 No 1{table QD Vitamin 1000 MCG 1000 MCG t} B12 1000 MCG Simvastatin Simvastatin No 1{table QD Simvastati 20 MG 20 MG t_in_th n 20 MG e_eveni ng} Famotidine Famotidine No 1{table QD Famotidine 20 MG 20 MG t_at_be 20 MG dtime_a s_neede d} Losartan Losartan No Losartan Potassium Potassium Potassium 100 MG 100 MG 100 MG Omeprazole Omeprazole No 1{table QD Omeprazole 40 MG 40 MG t} 40 MG Estrace 0.1 Estrace 0.1 No Estrace MG/GM MG/GM 0.1 MG/GM traZODone traZODone No traZODone HCl 50 MG HCl 50 MG HCl 50 MG Centrum Centrum No Centrum Silver - Silver - Silver - Simvastatin Simvastatin No Simvastati 20 MG 20 MG n 20 MG Ipratropium Ipratropium No 2{spray TID Ipratropiu [place] s_in_ea m [place] 0.06 % 0.06 % ch_nost 0.06 % ril} Donepezil Donepezil No 1{table BID Donepezil HCl 10 MG HCl 10 MG t_at_be HCl 10 MG dtime} ZyrTEC ZyrTEC No 1{table QD ZyrTEC Allergy 10 Allergy 10 t} Allergy 10 MG MG MG Famotidine Famotidine No Famotidine 20 MG 20 MG 20 MG Ativan 0.5 Ativan 0.5 No 1{table QD Ativan 0.5 MG MG t_at_be MG dtime_a s_neede d} Zioptan Zioptan No Zioptan Omeprazole Omeprazole No Omeprazole 40 MG 40 MG 40 MG Aspir-Low Aspir-Low No 1{table QD Aspir-Low 81 MG 81 MG t} 81 MG Losartan Losartan No 1{table QD Losartan Potassium Potassium t} Potassium 100 MG 100 MG 100 MG traZODone traZODone No 1{table QD traZODone HCl 100 MG HCl 100 MG t_at_be HCl 100 MG dtime} Memantine Memantine No 1{table BID Memantine HCl 10 MG HCl 10 MG t} HCl 10 MG Vitamin B12 Vitamin B12 No 1{table QD Vitamin 1000 MCG 1000 MCG t} B12 1000 MCG Simvastatin Simvastatin No 1{table QD Simvastati 20 MG 20 MG t_in_th n 20 MG e_eveni ng} Famotidine Famotidine No 1{table QD Famotidine 20 MG 20 MG t_at_be 20 MG dtime_a s_neede d} Losartan Losartan No Losartan Potassium Potassium Potassium 100 MG 100 MG 100 MG Omeprazole Omeprazole No 1{table QD Omeprazole 40 MG 40 MG t} 40 MG Estrace 0.1 Estrace 0.1 No Estrace MG/GM MG/GM 0.1 MG/GM traZODone traZODone No traZODone HCl 50 MG HCl 50 MG HCl 50 MG Centrum Centrum No Centrum Silver - Silver - Silver - Simvastatin Simvastatin No Simvastati 20 MG 20 MG n 20 MG Ipratropium Ipratropium No 2{spray TID Ipratropiu [place] s_in_ea m [place] 0.06 % 0.06 % ch_nost 0.06 % ril} Donepezil Donepezil No 1{table BID Donepezil HCl 10 MG HCl 10 MG t_at_be HCl 10 MG dtime} ZyrTEC ZyrTEC No 1{table QD ZyrTEC Allergy 10 Allergy 10 t} Allergy 10 MG MG MG Famotidine Famotidine No Famotidine 20 MG 20 MG 20 MG Ativan 0.5 Ativan 0.5 No 1{table QD Ativan 0.5 MG MG t_at_be MG dtime_a s_neede d} Zioptan Zioptan No Zioptan Omeprazole Omeprazole No Omeprazole 40 MG 40 MG 40 MG Aspir-Low Aspir-Low No 1{table QD Aspir-Low 81 MG 81 MG t} 81 MG Losartan Losartan No 1{table QD Losartan Potassium Potassium t} Potassium 100 MG 100 MG 100 MG traZODone traZODone No 1{table QD traZODone HCl 100 MG HCl 100 MG t_at_be HCl 100 MG dtime} Memantine Memantine No 1{table BID Memantine HCl 10 MG HCl 10 MG t} HCl 10 MG Vitamin B12 Vitamin B12 No 1{table QD Vitamin 1000 MCG 1000 MCG t} B12 1000 MCG Simvastatin Simvastatin No 1{table QD Simvastati 20 MG 20 MG t_in_th n 20 MG e_eveni ng} Famotidine Famotidine No 1{table QD Famotidine 20 MG 20 MG t_at_be 20 MG dtime_a s_neede d} Losartan Losartan No Losartan Potassium Potassium Potassium 100 MG 100 MG 100 MG Omeprazole Omeprazole No 1{table QD Omeprazole 40 MG 40 MG t} 40 MG Estrace 0.1 Estrace 0.1 No Estrace MG/GM MG/GM 0.1 MG/GM traZODone traZODone No traZODone HCl 50 MG HCl 50 MG HCl 50 MG Simvastatin Simvastatin Yes Edward TAKE 1 [facility] TABLET BY Spirit MOUTH - CHI EVERY DAY [facility] Ativan Ativan Yes Edward 1 tablet Commo n Villa at bedtime Spirit as needed [facility] Zioptan Zioptan Yes Edward not Common [facility] defined [facility] Ipratropium Ipratropium Yes Edward 2 sprays Common [place] in each Spiri t nostril - [facility] Zyrtec Zyrtec Yes Edward 1 tablet Commo n Allergy Allergy Villa [facility] Famotidine Famotidine Yes Edward TAKE 1 Common [facility] TABLET BY Spirit MOUTH - [facility]I EVERY DAY [facility] AT BEDTIME [facility] Vitamin B12 Vitamin B12 Yes Edward 1 tablet Common Villa [facility] Donepezil Donepezil Yes Edward 1 tablet Common HCl HCl Villa at bedtime [facility] Aspir-Low Aspir-Low Yes Edward 1 tablet Common Villa [facility] Memantine Memantine Yes Edward 1 tablet Common HCl HCl Villa [facility] Omeprazole Omeprazole Yes Edward 1 tablet Common Villa [facility] Trazodone Trazodone Yes Edward 1-2 tablet Common HCl HCl Villa at bedtime [facility] PRN [facility] Insomnia [facility] Centrum Centrum Yes Edward as Common Silver Silver Villa directed [facility] Losartan Losartan Yes Edward TAKE 1 Com mon Potassium Potassium Villa TABLET BY [facility] MOUTH - [facility] EVERY DAY [facility] Losartan Losartan Yes Ewdard 1 tablet C ommon Potassium Potassium Villa Spir [facility] Omeprazole Omeprazole Yes Edward 1 tablet Common Villa [facility] Centrum Centrum No Centrum Silver - Silver - Silver - Simvastatin Simvastatin No Simvastati 20 MG 20 MG n 20 MG Ipratropium Ipratropium No 2{spray TID Ipratropiu [place] s_in_ea m [place] 0.06 % 0.06 % ch_nost 0.06 % ril} Donepezil Donepezil No 1{table BID Donepezil HCl 10 MG HCl 10 MG t_at_be HCl 10 MG dtime} ZyrTEC ZyrTEC No 1{table QD ZyrTEC Allergy 10 Allergy 10 t} Allergy 10 MG MG MG Famotidine Famotidine No Famotidine 20 MG 20 MG 20 MG Immunizations Ordered Immunization Filled Immunization Date Status Commen ts Source Name Name FLUZONE HIGH DOSE FLUZONE HIGH DOSE 2022-03-26 Completed [facility] OVER 65 OVER 65 10:18:00 [facility] FLUZONE HIGH DOSE FLUZONE HIGH DOSE 2022-03-26 Completed [facility] OVER 65 OVER 65 10:18:00 [facility] FLUZONE HIGH DOSE FLUZONE HIGH DOSE 2022-03-26 Completed [facility] OVER 65 OVER 65 10:18:00 - [facility] FLUZONE HIGH DOSE FLUZONE HIGH DOSE 2022-03-26 Completed Common [facility] OVER 65 OVER 65 10:18:00 - [facility] Moderna COVID-19 Moderna COVID-19 2020-08-05 Completed Co mmon [facility] Vaccine Vaccine 14:02:00 - [facility] Moderna COVID-19 Moderna COVID-19 2020-08-05 Completed Co mmon [facility] Vaccine Vaccine 14:02:00 - [facility] Moderna COVID-19 Moderna COVID-19 2020-08-05 Completed Co mmon [facility] Vaccine Vaccine 14:02:00 [facility] Moderna COVID-19 Moderna COVID-19 2020-08-05 Completed Co mmon [facility] Vaccine Vaccine 14:02:00 - [facility] Moderna COVID-19 Moderna COVID-19 2020-08-05 Completed Co mmon [facility] Vaccine Vaccine 14:02:00 - [facility] Moderna COVID-19 Moderna COVID-19 2020-08-05 Completed Co mmon [facility] Vaccine Vaccine 14:02:00 [facility] Moderna COVID-19 Moderna COVID-19 2020-08-05 Completed Co mmon [facility] Vaccine Vaccine 14:02:00 - [facility] Moderna COVID-19 Moderna COVID-19 2020-07-05 Completed Co mmon [facility] Vaccine Vaccine 14:02:00 - [facility] Moderna COVID-19 Moderna COVID-19 2020-07-05 Completed Co mmon [facility] Vaccine Vaccine 14:02:00 [facility] Moderna COVID-19 Moderna COVID-19 2020-07-05 Completed Co mmon [facility] Vaccine Vaccine 14:02:00 [facility] Moderna COVID-19 Moderna COVID-19 2020-07-05 Completed Co mmon [facility] Vaccine Vaccine 14:02:00 [facility] Moderna COVID-19 Moderna COVID-19 2020-07-05 Completed Co mmon [facility] Vaccine Vaccine 14:02:00 - [facility] Moderna COVID-19 Moderna COVID-19 2020-07-05 Completed Co mmon [facility] Vaccine Vaccine 14:02:00 - [facility] Moderna COVID-19 Moderna COVID-19 2020-07-05 Completed Co mmon [facility] Vaccine Vaccine 14:02:00 - [facility] Fluzone Fluzone 2020-03-05 Completed [facility] 14:04:00 - [facility] Fluzone Fluzone 2020-03-05 Completed [facility] 14:04:00 - [facility] Fluzone Fluzone 2020-03-05 Completed [facility] 14:04:00 - [facility] Fluzone Fluzone 2020-03-05 Completed [facility] 14:04:00 - [facility] Fluzone Fluzone 2020-03-05 Completed [facility] 14:04:00 - [facility] Fluzone Fluzone 2020-03-05 Completed [facility] 14:04:00 - [facility] Fluzone Fluzone 2020-03-05 Completed [facility] 14:04:00 - [facility] Pneumovax (PPSV23) Pneumovax (PPSV23) 2020-03-05 Completed [facility] 14:03:00 [facility] Pneumovax (PPSV23) Pneumovax (PPSV23) 2020-03-05 Completed [facility] 14:03:00 [facility] Pneumovax (PPSV23) Pneumovax (PPSV23) 2020-03-05 Completed [facility] 14:03:00 [facility] Pneumovax (PPSV23) Pneumovax (PPSV23) 2020-03-05 Completed [facility] 14:03:00 [facility] Pneumovax (PPSV23) Pneumovax (PPSV23) 2020-03-05 Completed [facility] 14:03:00 [facility] Pneumovax (PPSV23) Pneumovax (PPSV23) 2020-03-05 Completed [facility] 14:03:00 [facility] Pneumovax (PPSV23) Pneumovax (PPSV23) 2020-03-05 Completed [facility] 14:03:00 - [facility] Shingrix Shingrix 2019-07-05 Completed [facility] 14:03:00 - [facility] Shingrix Shingrix 2019-07-05 Completed [facility] 14:03:00 - [facility] Shingrix Shingrix 2019-07-05 Completed [facility] 14:03:00 - [facility] Shingrix Shingrix 2019-07-05 Completed [facility] 14:03:00 - [facility] Shingrix Shingrix 2019-07-05 Completed [facility] 14:03:00 - [facility] Shingrix Shingrix 2019-07-05 Completed [facility] 14:03:00 - [facility] Shingrix Shingrix 2019-07-05 Completed [facility] 14:03:00 - [facility] Vital Signs Vital Name Observation Time Observation Value Comments Source height 2022-03-26 09:40:00 64 [in_i] [facility] weight 2022-03-26 09:40:00 145.8 [lb_av] [facility] temperature 2022-03-26 09:40:00 97.2 [degF] [facility] bmi 2022-03-26 09:40:00 25.02 kg/m2 [facility] oximetry 2022-03-26 09:40:00 96 % [facility] respiratory rate 2022-03-26 09:40:00 17 /min Comm on [facility] blood pressure 2022-03-26 09:40:00 115 mm[Hg] Common [facility] - systolic [facility] blood pressure 2022-03-26 09:40:00 69 mm[Hg] Common [facility] - diastolic [facility] height 2022-03-26 09:30:00 64 [in_i] [facility] weight 2022-03-26 09:30:00 145.8 [lb_av] [facility] temperature 2022-03-26 09:30:00 97.2 [degF] Common [facility] bmi 2022-03-26 09:30:00 25.02 kg/m2 Common [facility] oximetry 2022-03-26 09:30:00 96 % Common [facility] respiratory rate 2022-03-26 09:30:00 17 /min Comm on [facility] blood pressure 2022-03-26 09:30:00 115 mm[Hg] Common [facility] - systolic [facility] blood pressure 2022-03-26 09:30:00 69 mm[Hg] Common [facility] - diastolic [facility] height 2021-09-24 10:30:00 64 [in_i] [facility] weight 2021-09-24 10:30:00 150.2 [lb_av] [facility] temperature 2021-09-24 10:30:00 96.8 [degF] [facility] bmi 2021-09-24 10:30:00 25.78 kg/m2 [facility] oximetry 2021-09-24 10:30:00 97 % Common [facility] respiratory rate 2021-09-24 10:30:00 18 /min Comm on [facility] blood pressure 2021-09-24 10:30:00 132 mm[Hg] Common [facility] - systolic [facility] blood pressure 2021-09-24 10:30:00 62 mm[Hg] Common [facility] - diastolic [facility] height 2021-03-25 10:00:00 64 [in_i] Common [facility] weight 2021-03-25 10:00:00 152.8 [lb_av] [facility] temperature 2021-03-25 10:00:00 97.0 [degF] [facility] bmi 2021-03-25 10:00:00 26.23 kg/m2 Common [facility] oximetry 2021-03-25 10:00:00 95 % Common S pirit - [facility] respiratory rate 2021-03-25 10:00:00 18 /min Comm on [facility] blood pressure 2021-03-25 10:00:00 120 mm[Hg] Common [facility] - systolic [facility] blood pressure 2021-03-25 10:00:00 62 mm[Hg] Common [facility] - diastolic [facility] Procedures This patient has no known procedures. Encounters Start End Encounter Admission Attending Care Care Encounter Source Date/Time Date/Time Type Type Clinicians Facility Department ID 2021-09-12 [facility], STLMLC STLMLC [id number] Common 15:07:00 Edward [id number] [facility] 2021-07-30 [facility], STLMLC STLMLC [id number] Common 13:50:58 Edward [id number] [facility] 2021-07-30 Outpatient [facility], STLMLC STLMLC [id number] Common 12:25:19 Edward [id number] [facility] 2021-07-30 Outpatient [facility], STLMLC STLMLC [id number] Common 11:06:24 Edward [id number] [facility] 2021-07-30 Outpatient [facility], STLMLC STLMLC [id number] Common 11:00:55 Edward [id number] [facility] 2021-07-30 Outpatient [facility], STLMLC STLMLC [id number] Common 10:59:46 Edward [id number] [facility] 2021-07-30 Outpatient [facility], STLMLC STLMLC [id number] Common 10:57:45 Edward [id number] [facility] 2022-03-26 2022-03-26 SUB ANNUAL STLMLC STLMLC [id number] Common 00:00:00 00:00:00 MCR [facility] WELLNESS - CHI VISIT [facility] 2022-03-26 2022-03-26 OFFICE STLMLC STLMLC [id number] Co mmon 00:00:00 00:00:00 VISIT Spirit ESTAB PT - CH[facility] LEVEL 4 [facility] 2021-09-24 2021-09-24 OFFICE STLMLC STLMLC [id number] Co mmon 00:00:00 00:00:00 VISIT [facility] ESTAB PT - CHI LEVEL 4 [facility] 2021-05-07 2021-05-07 (TEL) STLMLC STLMLC [id number] Co mmon 00:00:00 00:00:00 [facility] - [facility]I [facility] 2021-03-25 2021-03-25 Outpatient STLMLC STLMLC [id number] Common 00:00:00 00:00:00 [facility] - [facility] 2021-03-25 2021-03-25 SUB ANNUAL STLMLC STLMLC [id number] Common 00:00:00 00:00:00 MCR [facility] WELLNESS - CHI VISIT [facility] 2020-11-27 2020-11-27 Outpatient STLMLC STLMLC [id number] Common 00:00:00 00:00:00 Spirit [facility] 2020-07-30 2020-07-30 Outpatient STLMLC STLMLC [id number] Common 00:00:00 00:00:00 [facility] 2020-03-07 2020-03-07 [facility] [id number] Common 09:00:00 09:00:[address] [facility] 2020-03-07 2020-03-07 [facility] [id number] Common 09:00:00 09:00:[address] [facility] 2019-11-15 2019-11-15 [facility] [id number] Common 10:30:00 10:30:[address] Family [facility] 2019-08-14 2019-08-14 [facility] [id number] Common 11:45:00 11:45:[address] Family [facility] 2019-07-31 2019-07-31 [facility] [id number] Common 14:12:00 14:12:[address] [facility] 2019-07-19 2019-07-19 Outpatient Bettie Alexandret [id number] Common 15:55:00 15:55:[address] [facility] 2019-07-13 2019-07-13 Outpatient Bettie Alexandret [id number] Common 09:30:00 09:30:00 t [facility] [address] [facility] Results This patient has no known results.
--- NOTE | 2022-07-13 12:37 | RAD REPORT ---
EXAM DESCRIPTION: RAD - Chest Pa And Lat (2 Views) - 07/13/2022 12:32 pm CLINICAL HISTORY: COUGH Chest pain. COMPARISON: Chest Single View dated 12/09/2017; Chest Pa And Lat (2 Views) dated 04/28/2016; Chest Pa And Lat (2 Views) dated 10/23/2015; CHEST PA AND LAT 2 VIEW dated 06/26/2014 TECHNIQUE: PA and lateral views of the chest were obtained. FINDINGS: The lungs are hyperexpanded compatible with COPD. The heart is upper limit of normal in si ze. No fracture or aggressive bony process. IMPRESSION: COPD without acute process identified.
[2022-07-13] MEDS ORDERED: AZITHROMYCIN 250 MG TAB ONE (12:43)
[2022-07-13] MEDS ORDERED: FAMOTIDINE 20 MG TAB ONE (12:43)
--- NOTE | 2022-07-13 13:06 | EDPHYS ---
Physician Documentation [facility] Name: Tsering Hamilton Age: 82 yrs Sex: Female : 1940 Arrival Date: 07/13/2022 Time: 11:15 Bed DIS6 Private MD: ED Physician Trever Rendon HPI: 07/13 12:26 This 82 yrs old Female presents to ER via Ambulatory with complaints of Runny mack Nose, Headache, Covid+. 12:26 The patient or guardian reports cough, described as mild. Onset: The symptoms/episode mack began/occurred 3 day(s) ago. Severity of symptoms: At their worst the symptoms were mild, in the emergency department the symptoms are unchanged. Modifying factors: The symptoms are alleviated by nothing. Associated signs and symptoms: The patient has no apparent associated signs or symptoms. The patient has not experienced similar symptoms in the past. Historical: - Allergies: 11:38 No Known Allergies; iw - PMHx: 11:38 Dementia; High Cholesterol; Hypertension; restasis; TIA; iw - PSHx: 11:38 None; iw - Immunization history:: Client reports receiving the 2nd dose of the Covid vaccine. - Social history:: Smoking status: Patient denies any tobacco usage or history of. ROS: 12:28 Constitutional: Negative for fever, chills, and weight loss, Eyes: Negative for injury, mack pain, redness, and discharge, ENT: Negative for injury, pain, and discharge, Neck: Negative for injury, pain, and swelling, Cardiovascular: Negative for chest pain, palpitations, and edema, Abdomen/GI: Negative for abdominal pain, nausea, vomiting, diarrhea, and constipation, Back: Negative for injury and pain, : Negative for injury, bleeding, discharge, and swelling, MS/Extremity: Negative for injury and deformity, Skin: Negative for injury, rash, and discoloration, Neuro: Negative for headache, weakness, numbness, tingling, and seizure, Psych: Negative for depression, anxiety, suicide ideation, homicidal ideation, and hallucinations, Allergy/Immunology: Negative for hives, rash, and allergies, Endocrine: Negative for neck swelling, polydipsia, polyuria, polyphagia, and marked weight changes, Hematologic/Lymphatic: Negative for swollen nodes, abnormal bleeding, and unusual bruising. 12:28 Respiratory: Positive for cough, with no reported sputum. Exam: 12:28 Constitutional: This is a well developed, well nourished patient who is awake, alert, mack and in no acute distress. Head/Face: Normocephalic, atraumatic. Eyes: Pupils equal round and reactive to light, extra-ocular motions intact. Lids and lashes normal. Conjunctiva and sclera are non-icteric and not injected. Cornea within normal limits. Periorbital areas with no swelling, redness, or edema. ENT: Nares patent. No nasal discharge, no septal abnormalities noted. Tympanic membranes are normal and external auditory canals are clear. Oropharynx with no redness, swelling, or masses, exudates, or evidence of obstruction, uvula midline. Mucous membranes moist. Neck: Trachea midline, no thyromegaly or masses palpated, and no cervical lymphadenopathy. Supple, full range of motion without nuchal rigidity, or vertebral point tenderness. No Meningismus. Chest/axilla: Normal chest wall appearance and motion. Nontender with no deformity. No lesions are appreciated. Cardiovascular: Regular rate and rhythm with a normal S1 and S2. No gallops, murmurs, or rubs. Normal PMI, no JVD. No pulse deficits. Respiratory: Lungs have equal breath sounds bilaterally, clear to auscultation and percussion. No rales, rhonchi or wheezes noted. No increased work of breathing, no retractions or nasal flaring. Abdomen/GI: Soft, non-tender, with normal bowel sounds. No distension or tympany. No guarding or rebound. No evidence of tenderness throughout. Back: No spinal tenderness. No costovertebral tenderness. Full range of motion. Skin: Warm, dry with normal turgor. Normal color with no rashes, no lesions, and no evidence of cellulitis. MS/ Extremity: Pulses equal, no cyanosis. Neurovascular intact. Full, normal range of motion. Neuro: Awake and alert, GCS 15, oriented to person, place, time, and situation. Cranial nerves II-XII grossly intact. Motor strength 5/5 in all extremities. Sensory grossly intact. Cerebellar exam normal. Normal gait. Psych: Awake, alert, with orientation to person, place and time. Behavior, mood, and affect are within normal limits. 12:28 Musculoskeletal/extremity: DVT Exam: No signs of deep vein thrombosis. no pain, no swelling, no tenderness, negative Homans' sign noted on exam, no appreciated bluish discoloration, no erythema, no increased warmth. Vital Signs: 11:36 BP 122 / 78; Pulse 85; Resp 16; Temp 99.1; Pulse Ox 98% on R/A; iw MDM: 11:15 Patient medically screened. mack 12:28 Differential Diagnosis: Obstructed Airway Bronchitis Influenza Upper Respiratory mack Infection Sinusitis Pharyngitis Asthma Exacerbation Viral Syndrome Pneumonia. Data reviewed: vital signs, nurses notes, lab test result(s), radiologic studies, plain films. Consideration of Admission/Observation Patient was admitted/placed on observation. Escalation of care including admission/observation considered. Management of patient was discussed with the following: Hospitalist: carmen. I considered the following discharge prescriptions or medication management in the emergency department Medications were administered in the Emergency Department. See MAR. Independent interpretation of the following test(s) in the Emergency Department X-Ray: My interpretation is no pna. Test considered but Not performed: Labs: cbc, comp met. Care significantly affected by the following chronic conditions: Hypertension, tia, dementia. 07/13 11:47 Order name: COVID-19/FLU A+B mack 07/13 11:38 Order name: Chest Pa And Lat (2 Views) XRAY; Complete Time: 13:05 [facility] Administered Medications: 12:51 Drug: Zithromax (azithromycin) 500 mg Route: PO; jh5 12:51 Drug: Pepcid (famotidine) 40 mg Route: PO; jh5 Disposition Summary: 07/13/22 13:05 Discharge Ordered Location: Home mack Problem: new mack Symptoms: have improved mack Condition: Stable mack Diagnosis - Coronavirus infection, unspecified mack - SARS-associated coronavirus as the cause of diseases classified elsewhere mack - Acute upper respiratory infection, unspecified mack - COPD/ Chronic obstructive pulmonary disease, unspecified mack Followup: mack - With: Private Physician - When: 1 - 2 days - Reason: Trouble breathing, Recheck today's complaints, Continuance of care, Re-evaluation by your physician Followup: mack - With: Mamadou Reid MD - When: 2 - 3 days - Reason: Recheck today's complaints, Re-evaluation by your physician Discharge Instructions: - Discharge Summary Sheet mack - Cool Mist Vaporizer mack - Upper Respiratory Infection, Adult, [id number] mack - Cough, Adult, [id number] mack - Aspirin and Your Heart mack - Cough, Adult mack - COVID-19 mack - COVID-19 Frequently Asked Questions [facility] - 10 Things You Can Do to Manage Your COVID-19 Symptoms at Home - [facility] Forms: - Medication Reconciliation Form mack - Thank You Letter mack - Antibiotic Education mack - Prescription Opioid Use mack Prescriptions: - Pepcid 20 mg Oral Tablet - take 1 tablet by ORAL route every 12 hours for 21 days; 42 tablet; Refills: 0, [facility] Product Selection Permitted - Tessalon Perles 100 mg Oral Capsule - take 2 capsule by ORAL route every 8 hours As needed; 40 capsule; Refills: 0, [facility] Product Selection Permitted - Zithromax Z-Jony 250 mg Oral Tablet - take 1 tablet by ORAL route as directed for 5 days Day 1 - take two (2) tablets mack one time. Day 2, 3, 4 , 5 take one (1) tablet once daily.; 6 tablet; Refills: 0, Product Selection Permitted - budesonide 180 mcg/actuation Inhalation aerosol powdr breath activated - inhale 2 puff by INHALATION route 2 times per day; 1 Pump; Refills: 0, Product mack Selection Permitted Signatures: Dispatcher [employer] Trever Cobian MD MD cha Williams, Irene, RN Roxann Sena RN RN jh5
--- NOTE | 2022-07-13 13:06 | ER ---
Nurse's Notes [facility] Name: Tsering Hamilton Age: 82 yrs Sex: Female : 1940 Arrival Date: 07/13/2022 Time: 11:15 Bed DIS6 Private MD: Diagnosis: Coronavirus infection, unspecified;SARS-associated coronavirus as the cause of diseases classified elsewhere;Acute upper respiratory infection, unspecified;COPD/ Chronic obstructive pulmonary disease, unspecified Presentation: 07/13 11:36 Chief complaint: Patient states: home COVID test was positive last night, wants to iw verify it , symptoms started Wednesday night, cough, nausea, feeling bad, is actually feeling better today. Coronavirus screen: Client presents with at least one sign or symptom that may indicate coronavirus-19. Ebola Screen: Patient negative for fever greater than or equal to 101.5 degrees Fahrenheit, and additional compatible Ebola Virus Disease symptoms Patient denies exposure to infectious person. Patient denies travel to an Ebola-affected area in the 21 days before illness onset. No symptoms or risks identified at this time. Initial Sepsis Screen: Does the patient meet any 2 criteria? No. Patient's initial sepsis screen is negative. Does the patient have a suspected source of infection? No. Patient's initial sepsis screen is negative. Risk Assessment: Do you want to hurt yourself or someone else? Patient reports no desire to harm self or others. Onset of symptoms was July 13, 2022. 11:36 Method Of Arrival: Ambulatory iw 11:36 Acuity: TALI 4 iw Historical: - Allergies: 11:38 No Known Allergies; iw - PMHx: 11:38 Dementia; High Cholesterol; Hypertension; restasis; TIA; iw - PSHx: 11:38 None; iw - Immunization history:: Client reports receiving the 2nd dose of the Covid vaccine. - Social history:: Smoking status: Patient denies any tobacco usage or history of. Vital Signs: 11:36 BP 122 / 78; Pulse 85; Resp 16; Temp 99.1; Pulse Ox 98% on R/A; iw ED Course: 11:15 Patient arrived in ED. rg4 11:15 Trever Rendon MD is Attending Physician. mack 11:38 Triage completed. iw 11:38 Arm band placed on. iw 11:49 Kevin, Roxann, RN is Primary Nurse. [facility] 12:34 Chest Pa And Lat (2 Views) XRAY In Process Unspecified. EDMS 13:05 Mamadou Reid MD is Referral Physician. [facility] Administered Medications: 12:51 Drug: Zithromax (azithromycin) 500 mg Route: PO; [facility] 12:51 Drug: Pepcid (famotidine) 40 mg Route: PO; [facility] Outcome: 13:05 Discharge ordered by [facility] 14:04 Patient left the ED. [facility] Signatures: Dispatcher [employer] EDOR Trever Rendon MD MD cha Williams, Irene, RN RN Matilde Pineda rg4 Roxann Brown, GISEL RN [facility]
[2022-07-13 14:06] LABS: SARS-COV-2 RT PCR POSITIVE (NEGATIVE)
[2022-07-13 14:11] VITALS: BP 122/78; TEMP 99.1; O2SAT 98
== END 2022-07-13 14:04 | disposition home or self-care (01) ==
LOC: ER 11:12
DX: U07.1 COVID-19 (principal); J06.9 Acute upper respiratory infection, unspecified; J44.9 Chronic obstructive pulmonary disease, unspecified; I10 Essential (primary) hypertension; E78.00 Pure hypercholesterolemia, unspecified; F03.90 Unspecified dementia, unspecified severity, without behavioral disturbance, psychotic disturbance, mood disturbance, and anxiety
CPT/HCPCS: 0240U; 71046; Q0144; 99283

== ENCOUNTER 2022-08-03 09:46 | Inpatient (IN) | payer OTHER, MEDICARE ==
--- OUTSIDE RECORDS SUMMARY | 2022-08-03 09:50 | XMS REPORT | Continuity of Care Document ---
:1940 Author Organization [facility] t Address [address] [place] [address] Care Team Providers Name Role Phone Edward Villa Attending Clinician Unavailable Payers Payer Name Policy Type Policy Number Effective Date Expiration Date S samia [facility] C1 [id number] 2019 Common Spiri t 00:00:[address] [facility] MEDICARE MB [id number] Common [facility] NOVITAS - [facility] MEDICARE MB [id number] [facility] [id number] 2019 Common Spiri t 00:00:00 [facility] Problems Condition Condition Condition Status Onset Resolution Last Treating Co mments Source Name Details Category Date Date Treatment Clinician Date [id number] Pain [place] Problem Comm on 370991 joint of [facility] right hand [facility] [id number] Osteoarthr Problem C ommon 140025 itis of [facility] first [facility]atars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 [facility] [id number] Generalize Problem Com mon 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[facility] disorder [facility] [id number] History of Problem Co mmon recurrent Spirit TIAs [facility] [id number] Glaucoma Problem Commo n of both Spirit eyes, - [facility] unspecifie St d glaucoma [facility] [id number] Insomnia, Problem Com mon unspecifie Spirit d type [facility] [id number] Decreased Problem Com mon hearing of Spirit both ears [facility] [id number] Mixed Problem Common hyperlipid [facility] emia [facility] Diverticul Diverticul Problem C ommon um of a, bladder Spirit bladder [facility] [id number] Dry eyes, Problem Com mon bilateral [facility] [id number] HTN, goal Problem Comm on below Spirit 150/90 [facility] [id number] Non-season Problem Com mon al Spirit allergic - CHI rhinitis, unspecie [facility] [id number] Overactive Problem Co mmon bladder [facility] [id number] Dementia Problem Commo n without Spirit behavioral - [facility] disturbanc [facility] unspecifie [facility] type Allergies, Adverse Reactions, Alerts This patient has no known allergies or adverse reactions. Social History Social Habit Start Date Stop Date Quantity Comments Source History of Tobacco Use Co mmon [facility] Sex Assigned At Com mon [facility] Smoking Status Start Date Stop Date Source Never Smoker [facility] Medications Ordered Filled Start Stop Current Ordering Indication Dosage Frequency Signature Comments Components Source Medication Medication Date Date Medication? Clinician (SIG) Name Name Benzonatate Benzonatate 2022-2022- No 1{capsu Benzonatat 200 MG 200 MG 07-22 le} e 200 MG 00:00: 00:00 00 :00 Simvastatin Simvastatin No Simvastati 20 MG 20 MG n 20 MG Ipratropium Ipratropium No 2{spray TID Ipratropiu [place] s_in_ea m [place] 0.06 % 0.06 % ch_nost 0.06 % [...] MG Ipratropium Ipratropium No 2{spray TID Ipratropiu [place] s_in_ea m [place] 0.06 % 0.06 % ch_nost 0.06 % [...] 100 MG Ipratropium Ipratropium No 2{spray TID [place] s_in_ea 0.06 % 0.06 % ch_nost ril} [...] MG Ipratropium Ipratropium No 2{spray TID Ipratropiu [place] s_in_ea m [place] 0.06 % 0.06 % ch_nost 0.06 % [...] MG Ipratropium Ipratropium No 2{spray TID Ipratropiu [place] s_in_ea m [place] 0.06 % 0.06 % ch_nost 0.06 % [...] MG Ipratropium Ipratropium No 2{spray TID Ipratropiu [place] s_in_ea m [place] 0.06 % 0.06 % ch_nost 0.06 % [...] MG HCl 50 MG HCl 50 MG Famotidine Famotidine No 1{table QD Famotidine 20 MG 20 MG t_at_be 20 MG dtime_a s_neede d} Estrace 0.1 Estrace 0.1 No Estrace MG/GM MG/GM 0.1 MG/GM traZODone traZODone No 1{table QD traZODone HCl 100 MG HCl 100 MG t_at_be HCl 100 MG dtime} Centrum Centrum No Centrum Silver - Silver - Silver - Ipratropium Ipratropium No 2{spray TID Ipratropiu [place] s_in_ea m [place] 0.06 % 0.06 % ch_nost 0.06 % [...] 81 MG 81 MG t} 81 MG Simvastatin Simvastatin No Simvastati 20 MG 20 MG n 20 MG Memantine Memantine No 1{table BID Memantine HCl 10 MG HCl 10 MG t} HCl 10 MG Vitamin B12 Vitamin B12 No 1{table QD Vitamin 1000 MCG 1000 MCG t} B12 1000 MCG Losartan Losartan No Losartan Potassium Potassium Potassium 100 MG 100 MG 100 MG Omeprazole Omeprazole No Omeprazole 40 MG 40 MG 40 MG Aspir-Low Aspir-Low No 1{table QD Aspir-Low 81 MG 81 MG t} 81 MG Losartan Losartan No Losartan Potassium Potassium Potassium 100 MG 100 MG 100 MG traZODone traZODone No 1{table QD traZODone HCl 100 MG HCl 100 MG t_at_be HCl 100 MG dtime} Ativan 0.5 Ativan 0.5 No 1{table QD Ativan 0.5 MG MG t_at_be MG dtime_a s_neede d} Estrace 0.1 Estrace 0.1 No Estrace MG/GM MG/GM 0.1 MG/GM Vitamin B12 Vitamin B12 No 1{table QD Vitamin 1000 MCG 1000 MCG t} B12 1000 MCG Zioptan Zioptan No Zioptan Centrum Centrum No Centrum Silver - Silver - Silver - Simvastatin Simvastatin No Simvastati 20 MG 20 MG n 20 MG Famotidine Famotidine No 1{table QD Famotidine 20 MG 20 MG t_at_be 20 MG dtime_a s_neede d} Memantine Memantine No 1{table BID Memantine HCl 10 MG HCl 10 MG t} HCl 10 MG Ipratropium Ipratropium No 2{spray TID Ipratropiu [place] s_in_ea m [place] 0.06 % 0.06 % ch_nost 0.06 % ril} ZyrTEC ZyrTEC No 1{table QD ZyrTEC Allergy 10 Allergy 10 t} Allergy 10 MG MG MG Donepezil Donepezil No 1{table BID Donepezil HCl 10 MG HCl 10 MG t_at_be HCl 10 MG dtime} Famotidine Famotidine No Famotidine 20 MG 20 MG 20 MG traZODone traZODone No traZODone HCl 50 MG HCl 50 MG HCl 50 MG Famotidine Famotidine No 1{table QD Famotidine [...] MG Ipratropium Ipratropium No 2{spray TID Ipratropiu [place] s_in_ea m [place] 0.06 % 0.06 % ch_nost 0.06 % [...] MOUTH - CHI EVERY DAY [facility] IN [facility] Ativan Ativan Yes Edward 1 tablet Commo n Villa at bedtime Spirit as needed - [facility] Zioptan Zioptan Yes Edward not Common [facility] defined [facility] Ipratropium Ipratropium Yes Edward 2 sprays Common [place] in each Spiri t nostril - [facility] Zyrtec Zyrtec Yes Edward 1 tablet Commo n Allergy Allergy Villa [facility] Famotidine Famotidine Yes Edward TAKE 1 Common [facility] TABLET BY Spirit MOUTH - CHI EVERY DAY [facility] AT BEDTIME [facility] NEEDED Medical Center Vitamin B12 Vitamin B12 Yes Edward 1 tablet Common Villa [facility] Donepezil Donepezil Yes Edward 1 tablet Common HCl HCl Villa at bedtime [facility] Aspir-Low Aspir-Low Yes Edward 1 tablet Common Villa [facility] Memantine Memantine Yes Edward 1 tablet Common HCl HCl Villa [facility] Omeprazole Omeprazole Yes Edward 1 tablet Common Villa [facility] Trazodone Trazodone Yes Edward 1-2 tablet Common HCl HCl Villa at bedtime [facility] PRN - [facility] Insomnia [facility] Centrum Centrum Yes Edward as Common Silver Silver Villa directed [facility] Losartan Losartan Yes Edward TAKE 1 Com mon Potassium Potassium Villa TABLET BY Spirit MOUTH - CHI EVERY DAY [facility] Losartan Losartan Yes Edward 1 tablet C ommon Potassium Potassium Villa Spir [facility] Omeprazole Omeprazole Yes Edward 1 tablet Common Villa [facility] Centrum Centrum No Centrum Silver - Silver - Silver - Immunizations Ordered Immunization Filled Immunization Date Status Commen ts Source Name Name FLUZONE HIGH DOSE FLUZONE HIGH DOSE 2022-03-26 Completed Common [facility] OVER 65 OVER 65 10:18:00 [facility] FLUZONE HIGH DOSE FLUZONE HIGH DOSE 2022-03-26 Completed Common [facility] OVER 65 OVER 65 10:18:00 [facility] FLUZONE HIGH DOSE FLUZONE HIGH DOSE 2022-03-26 Completed Common [facility] OVER 65 OVER 65 10:18:00 [facility] FLUZONE HIGH DOSE FLUZONE HIGH DOSE 2022-03-26 Completed Common [facility] OVER 65 OVER 65 10:18:00 [facility] FLUZONE HIGH DOSE FLUZONE HIGH DOSE 2022-03-26 Completed Common Spirit OVER 65 OVER 65 10:18:00 [facility] FLUZONE HIGH DOSE FLUZONE HIGH DOSE 2022-03-26 Completed Common Spirit OVER 65 OVER 65 10:18:00 [facility] Moderna COVID-19 Moderna COVID-19 2020-08-05 Completed Co mmon Spirit Vaccine Vaccine 14:02:00 - [facility] Moderna COVID-19 Moderna COVID-19 2020-08-05 Completed Co mmon Spirit Vaccine Vaccine 14:02:00 - [facility] Moderna COVID-19 Moderna COVID-19 2020-08-05 Completed Co mmon Spirit Vaccine Vaccine 14:02:00 - [facility] Moderna COVID-19 Moderna COVID-19 2020-08-05 Completed Co mmon Spirit Vaccine Vaccine 14:02:00 - [facility] Moderna COVID-19 Moderna COVID-19 2020-08-05 Completed Co mmon Spirit Vaccine Vaccine 14:02:00 - [facility] Moderna COVID-19 Moderna COVID-19 2020-08-05 Completed Co mmon Spirit Vaccine Vaccine 14:02:00 - [facility] Moderna COVID-19 Moderna COVID-19 2020-08-05 Completed Co mmon Spirit Vaccine Vaccine 14:02:00 - [facility] Moderna COVID-19 Moderna COVID-19 2020-08-05 Completed Co mmon Spirit Vaccine Vaccine 14:02:00 [facility] Moderna COVID-19 Moderna COVID-19 2020-08-05 Completed Co mmon [facility] Vaccine Vaccine 14:02:00 [facility] Moderna COVID-19 Moderna COVID-19 2020-07-05 Completed Co mmon [facility] Vaccine Vaccine 14:02:00 - [facility] Moderna COVID-19 Moderna COVID-19 2020-07-05 Completed Co mmon [facility] Vaccine Vaccine 14:02:00 [facility] Moderna COVID-19 Moderna COVID-19 2020-07-05 Completed Co mmon [facility] Vaccine Vaccine 14:02:00 [facility] Moderna COVID-19 Moderna COVID-19 2020-07-05 Completed Co mmon [facility] Vaccine Vaccine 14:02:00 [facility] Moderna COVID-19 Moderna COVID-19 2020-07-05 Completed Co mmon [facility] Vaccine Vaccine 14:02:00 [facility] Moderna COVID-19 Moderna COVID-19 2020-07-05 Completed Co mmon Spirit Vaccine Vaccine 14:02:00 - [facility] Moderna COVID-19 Moderna COVID-19 2020-07-05 Completed Co mmon Spirit Vaccine Vaccine 14:02:00 - [facility] Moderna COVID-19 Moderna COVID-19 2020-07-05 Completed Co mmon Spirit Vaccine Vaccine 14:02:00 - [facility] Moderna COVID-19 Moderna COVID-19 2020-07-05 Completed Co mmon Spirit Vaccine Vaccine 14:02:00 - [facility] Fluzone Fluzone 2020-03-05 Completed Common [facility] 14:04:00 - [facility] Fluzone Fluzone 2020-03-05 Completed Common Spirit 14:04:00 - [facility] Fluzone Fluzone 2020-03-05 Completed Common Spirit 14:04:00 - [facility] Fluzone Fluzone 2020-03-05 Completed Common Spirit 14:04:00 - [facility] Fluzone Fluzone 2020-03-05 Completed Common [facility] 14:04:00 - [facility] Fluzone Fluzone 2020-03-05 Completed Common Spirit 14:04:00 - [facility] Fluzone Fluzone 2020-03-05 Completed Common [facility] 14:04:00 - [facility] Fluzone Fluzone 2020-03-05 Completed Common [facility] 14:04:00 - [facility] Fluzone Fluzone 2020-03-05 Completed Common [facility] 14:04:00 - [facility] Pneumovax (PPSV23) Pneumovax (PPSV23) 2020-03-05 Completed Common [facility] 14:03:00 - [facility] Pneumovax (PPSV23) Pneumovax (PPSV23) 2020-03-05 Completed Common [facility] 14:03:00 [facility] Pneumovax (PPSV23) Pneumovax (PPSV23) 2020-03-05 Completed Common [facility] 14:03:00 - [facility] Pneumovax (PPSV23) Pneumovax (PPSV23) 2020-03-05 Completed Common [facility] 14:03:00 [facility] Pneumovax (PPSV23) Pneumovax (PPSV23) 2020-03-05 Completed Common Spirit 14:03:00 [facility] Pneumovax (PPSV23) Pneumovax (PPSV23) 2020-03-05 Completed Common [facility] 14:03:00 - [facility] Pneumovax (PPSV23) Pneumovax (PPSV23) 2020-03-05 Completed Common [facility] 14:03:00 [facility] Pneumovax (PPSV23) Pneumovax (PPSV23) 2020-03-05 Completed Common Spirit 14:03:00 [facility] Pneumovax (PPSV23) Pneumovax (PPSV23) 2020-03-05 Completed Common [facility] 14:03:00 - [facility] Shingrix Shingrix 2019-07-05 Completed Common [facility] 14:03:00 - [facility] Shingrix Shingrix 2019-07-05 Completed Common [facility] 14:03:00 - [facility] Shingrix Shingrix 2019-07-05 Completed Common [facility] 14:03:00 - [facility] Shingrix Shingrix 2019-07-05 Completed Common [facility] 14:03:00 - [facility] Shingrix Shingrix 2019-07-05 Completed Common [facility] 14:03:00 - [facility] Shingrix Shingrix 2019-07-05 Completed Common [facility] 14:03:00 - [facility] Shingrix Shingrix 2019-07-05 Completed Common [facility] 14:03:00 [facility] Shingrix Shingrix 2019-07-05 Completed Common Spirit 14:03:00 [facility] Shingrix Shingrix 2019-07-05 Completed Common Spirit 14:03:00 [facility] Vital Signs Vital Name Observation Time Observation Value Comments Source height 2022-03-26 09:30:00 64 [in_i] Common S pirit - [facility] weight 2022-03-26 09:30:00 145.8 [lb_av] Common [facility] temperature 2022-03-26 09:30:00 97.2 [degF] Common S pirit [facility] bmi 2022-03-26 09:30:00 25.02 kg[facility]m2 [facility] 2022-03-26 09:30:00 96 % Common S pirit [facility] respiratory rate 2022-03-26 09:30:00 17 /min Comm on [facility] blood pressure 2022-03-26 09:30:00 115 mm[Hg] Common [facility] - systolic [facility] blood pressure 2022-03-26 09:30:00 69 mm[Hg] Common [facility] - diastolic [facility] height 2022-03-26 09:40:00 64 [in_i] Common [facility] weight 2022-03-26 09:40:00 145.8 [lb_av] [facility] temperature 2022-03-26 09:40:00 97.2 [degF] [facility] 2022-03-26 09:40:00 25.02 kg/m2 Common S [facility] oximetry 2022-03-26 09:40:00 96 % Common [facility] respiratory rate 2022-03-26 09:40:00 17 /min Comm on [facility] blood pressure 2022-03-26 09:40:00 115 mm[Hg] Common [facility] - systolic [facility] blood pressure 2022-03-26 09:40:00 69 mm[Hg] Common [facility] - diastolic [facility] height 2021-09-24 10:30:00 64 [in_i] Common [facility] weight 2021-09-24 10:30:00 150.2 [lb_av] [facility] temperature 2021-09-24 10:30:00 96.8 [degF] Common S pirit [facility] bmi 2021-09-24 10:30:00 25.78 kg/m2 [facility] oximetry 2021-09-24 10:30:00 97 % [facility] respiratory rate 2021-09-24 10:30:00 18 /min Comm on [facility] blood pressure 2021-09-24 10:30:00 132 mm[Hg] Common [facility] - systolic [facility] blood pressure 2021-09-24 10:30:00 62 mm[Hg] Common [facility] - diastolic [facility] height 2021-03-25 10:00:00 64 [in_i] [facility] weight 2021-03-25 10:00:00 152.8 [lb_av] [facility] temperature 2021-03-25 10:00:00 97.0 [degF] [facility] bmi 2021-03-25 10:00:00 26.23 kg/m2 [facility] oximetry 2021-03-25 10:00:00 95 % [facility] respiratory rate 2021-03-25 10:00:00 18 /min Comm on [facility] blood pressure 2021-03-25 10:00:00 120 mm[Hg] [facility] systolic [facility] blood pressure 2021-03-25 10:00:00 62 mm[Hg] [facility] diastolic [facility] Procedures This patient has no known procedures. Encounters Start End Encounter Admission Attending Care Care Encounter Source Date/Time Date/Time Type Type Clinicians Facility Department ID 2021-09-12 [facility] [id number] Common 15:07:00 Edward [id number] [facility] 2021-07-30 Outpatient [facility], STLMLC ST[facility] [id number] Common 13:50:58 Edward [id number] [facility] 2021-07-30 Outpatient [facility], STLMLC STLC [id number] Common 12:25:19 Edward 34402 [facility] 2021-07-30 Outpatient [facility], STLMLC STLMLC [id number] Common 11:06:24 Edward 18299 [facility] 2021-07-30 Outpatient [facility], STLMLC STLMLC [id number] Common 11:00:55 Edward 70924 [facility] 2021-07-30 Outpatient [facility], STLMLC STLMLC [id number] Common 10:59:46 Edward 70594 [facility] 2021-07-30 Outpatient [facility], STLMLC STLMLC [id number] Common 10:57:45 Edward [id number] [facility] 2022-07-21 2022-07-21 (TEL) STLMLC STLMLC [id number] Co mmon 00:00:00 00:00:00 [facility] 2022-07-14 2022-07-14 (TEL) STLMLC STLMLC [id number] Co mmon 00:00:00 00:00:00 [facility] 2022-03-26 2022-03-26 OFFICE STLMLC STLMLC [id number] Co mmon 00:00:00 00:00:00 VISIT [facility] ESTAB PT - CHI LEVEL 4 [facility] 2022-03-26 2022-03-26 SUB ANNUAL STLMLC STLMLC [id number] Common 00:00:00 00:00:00 MCR [facility] WELLNESS - CHI VISIT [facility] 2021-09-24 2021-09-24 OFFICE STLMLC STLMLC [id number] Co mmon 00:00:00 00:00:00 VISIT Spirit ESTAB PT - CHI LEVEL 4 [facility] 2021-05-07 2021-05-07 (TEL) STLMLC STLMLC [id number] Co mmon 00:00:00 00:00:00 [facility] 2021-03-25 2021-03-25 Outpatient STLMLC STLMLC [id number] Common 00:00:00 00:00:00 [facility] 2021-03-25 2021-03-25 SUB ANNUAL STLMLC STLMLC [id number] Common 00:00:00 00:00:00 MCR Spirit WELLNESS - CHI VISIT [facility] 2020-11-27 2020-11-27 Outpatient STLMLC STLMLC [id number] Common 00:00:00 00:00:00 Spirit [facility] 2020-07-30 2020-07-30 Outpatient STLMLC STLMLC [id number] Common 00:00:00 00:00:00 [facility] 2020-03-07 2020-03-07 [facility] [id number] Common 09:00:00 09:00:00 [place] [address] [facility] 2020-03-07 2020-03-07 [facility] [id number] Common 09:00:00 09:00:00 [place] [address] Sp[address] Drive [facility] 2019-11-15 2019-11-15 [facility] [id number] Common 10:30:00 10:30:00 [place] [address] Sp[address] Drive [facility] 2019-08-14 2019-08-14 [facility] [id number] Common 11:45:00 11:45:00 [place] [address] Sp[address] Drive [facility] 2019-07-31 2019-07-31 [facility] [id number] Common 14:12:00 14:12:00 [place] [address] Sp[address] Drive [facility] 2019-07-19 2019-07-19 [facility] [id number] Common 15:55:00 15:55:00 [place] [address] Sp[address] Drive [facility] 2019-07-13 2019-07-13 [facility] [id number] Common 09:30:00 09:30:00 [place] [address] Spir [address] Drive [facility] Results This patient has no known results.
[2022-08-03] MEDS ORDERED: METOPROLOL TARTRATE 5 MG/5 ML INJ IV ONE (10:28)
[2022-08-03] MEDS ORDERED: METOPROLOL XL 50 MG TAB PO ONE (10:40)
[2022-08-03] MEDS ORDERED: MAGNESIUM SULFATE 1 gm IVPB 1 GM/100 ML BAG IV ONE (10:40)
[2022-08-03 10:58] LABS: Absolute Lymphocytes (CBC) 1.4 K/uL (0.7-4.9); Hematocrit 37.6 % (36.0-45.0); Lymphocytes % 20.4 % (15.3-44.8); MCV 99.1 fL (80-100); MPV 7.6 fL (7.6-11.3); RBC Red Blood Cell Count 3.79 M/uL (3.86-4.86)
[2022-08-03 11:05] LABS: Protime INR 1.19
[2022-08-03 11:10] LABS: Magnesium 2.3 mg/dL (1.6-2.4); Troponin High Sensitivity 16.5 pg/mL (<58.9)
--- NOTE | 2022-08-03 11:31 | RAD REPORT ---
EXAM DESCRIPTION: RAD - Chest Single View - 08/03/2022 11:19 am CLINICAL HISTORY: DYSPNEA Chest pain. COMPARISON: Chest Pa And Lat (2 Views) dated 07/13/2022; Chest Single View dated 12/09/2017; Chest Pa An d Lat (2 Views) dated 04/28/2016; Chest Pa And Lat (2 Views) dated 10/23/2015 FINDINGS: Portable technique limits examination quality. The lungs are emphysematous. There is a mild patchy opacity in the right lung base likely representin g infiltrate/ pneumonia. The heart is normal in size. Tortuous thoracic aorta.Small hiatal hernia. IMPRESSION: COPD with mild right lung base infiltrate/ pneumonia.
[2022-08-03 11:34] LABS: SARS-COV-2 RT PCR POSITIVE (NEGATIVE)
[2022-08-03] MEDS ORDERED: CEFTRIAXONE 1000 MG/VIAL ONE (12:53)
[2022-08-03] MEDS ORDERED: AZITHROMYCIN 500 MG INJ IVPB ONE (12:53)
[2022-08-03] MEDS ORDERED: NA CHLORIDE 0.9% 50 ML IV ONE (12:53)
[2022-08-03] MEDS ORDERED: NA CHLORIDE 0.9% 250 ML ONE ×3 (12:54→13:53)
[2022-08-03] MEDS ORDERED: D5W 100 ML IV ONE (13:24)
[2022-08-03] MEDS ORDERED: AMIODARONE HCL 150 MG/3 ML INJ IV ONE (13:24)
--- NOTE | 2022-08-03 13:27 | EDPHYS ---
Physician Documentation [facility] Name: Tsering Hamilton Age: 82 yrs Sex: Female : 1940 Arrival Date: 08/03/2022 Time: 09:56 Bed 28 Private MD: [facility] ED Physician Rigo Kuhn HPI: 08/03 10:10 This 82 yrs old Female presents to ER via Ambulatory with complaints of Breathing jh7 Difficulty. 10:10 The patient has shortness of breath at rest. Onset: The symptoms/episode began/occurred jh7 3 week(s) ago, and became worse 3 day(s) ago. Associated signs and symptoms: Pertinent positives: productive cough, Syncope. 82-year-old female presents with shortness of breath and productive cough for the past 3 weeks. Reports that she was here on the and diagnosed with a URI and likely COVID. Reports that she was given Tessalon Perles which she believes caused syncopal episodes. Reports 2 syncopal episodes on Wednesday. Reports swelling in bilateral lower legs and states that it feels like she has gained 10 pounds. Reports a history of hypertension but no other cardiac history. Also reports that 10 days ago she saw her line locator Dr. Munoz for shortness of breath and cough. She states that he gave her 7 days of steroids and said that she did not need to see him back for this. PCP is Dr. Villa and shank stapler is Dr. Elias.. Historical: - Allergies: 10:25 Tessalon Perles; ap3 10:25 Codeine; ap3 - PMHx: 10:25 Dementia; High Cholesterol; Hypertension; restasis; TIA; ap3 - Immunization history:: Client reports receiving the 2nd dose of the Covid vaccine, Flu vaccine is up to date. - Social history:: Smoking status: Patient denies any tobacco usage or history of. ROS: 10:10 Constitutional: Negative for fever, chills, and weight loss, Eyes: Negative for injury, jh7 pain, redness, and discharge, ENT: Negative for injury, pain, and discharge, Neck: Negative for injury, pain, and swelling, Abdomen/GI: Negative for abdominal pain, nausea, vomiting, diarrhea, and constipation, Back: Negative for injury and pain, MS/Extremity: Negative for injury and deformity, Skin: Negative for injury, rash, and discoloration. 10:10 Cardiovascular: Positive for edema, Negative for chest pain. 10:10 Respiratory: Positive for cough, with white sputum, shortness of breath, at rest. Negative for wheezing. 10:10 Neuro: Positive for syncope, Negative for altered mental status, dizziness, gait disturbance, numbness, seizure activity, speech changes, tingling, visual changes. 10:10 All other systems are negative. Exam: 10:10 Constitutional: This is a well developed, well nourished patient who is awake, alert, jh7 and in no acute distress. Head/Face: Normocephalic, atraumatic. Eyes: Pupils equal round and reactive to light, extra-ocular motions intact. Lids and lashes normal. Conjunctiva and sclera are non-icteric and not injected. Cornea within normal limits. Periorbital areas with no swelling, redness, or edema. ENT: Nares patent. No nasal discharge, no septal abnormalities noted. Oropharynx with no redness, swelling, or masses, exudates, or evidence of obstruction, uvula midline. Mucous membranes moist. Neck: Trachea midline, no thyromegaly or masses palpated, and no cervical lymphadenopathy. Supple, full range of motion without nuchal rigidity, or vertebral point tenderness. No Meningismus. Respiratory: Lungs have equal breath sounds bilaterally, clear to auscultation and percussion. No rales, rhonchi or wheezes noted. No increased work of breathing, no retractions or nasal flaring. Abdomen/GI: Soft, non-tender, with normal bowel sounds. No distension or tympany. No guarding or rebound. No evidence of tenderness throughout. Skin: Warm, dry with normal turgor. Normal color with no rashes, no lesions, and no evidence of cellulitis. MS/ Extremity: Pulses equal, no cyanosis. Neurovascular intact. Full, normal range of motion. Neuro: Awake and alert, GCS 15, oriented to person, place, time, and situation. Motor strength 5/5 in all extremities. Sensory grossly intact. Normal gait. 10:10 Cardiovascular: Rate: tachycardic, actual rate is 160 bpm, Rhythm: irregularly irregular, Pulses: Pulses are 2+ in right radial artery and left radial artery. Edema: 2+ edema to level of left midcalf, left ankle, left foot, right midcalf, right ankle and right foot. 10:19 ECG was reviewed by the Attending Physician. 7 Vital Signs: 10:23 BP 134 / 94; Pulse 164; Resp 19; Pulse Ox 98% ; Weight 69.4 kg; ap3 10:26 BP 134 / 94; Pulse 168; Resp 20; Pulse Ox 100% on R/A; db 10:31 BP 121 / 76; Pulse 172; Resp 18; Pulse Ox 100% ; db 10:36 BP 105 / 83; Pulse 150; Resp 22; Pulse Ox 100% on R/A; db 10:40 BP 102 / 76; Pulse 160; db 10:45 BP 100 / 66; Pulse 172; Resp 14; Pulse Ox 99% on R/A; db 10:55 BP 99 / 34; Pulse 143; Resp 24; Pulse Ox 99% on R/A; db 11:08 BP 101 / 65; Pulse 148; Resp 18; Pulse Ox 98% on R/A; db 12:30 BP 109 / 86; Pulse 157; Resp 20; Pulse Ox 98% ; db 13:26 BP 118 / 87; Pulse 149; Resp 20; Pulse Ox 100% on R/A; ld1 13:30 BP 86 / 54; Pulse 132; Resp 19 S; Temp 98.6(O); Pulse Ox 99% on R/A; jl7 13:53 BP 78 / 66; Pulse 119; Resp 25; Pulse Ox 99% on 2 lpm NC; jl7 14:00 BP 73 / 62; Pulse 123; Resp 30 S; Pulse Ox 100% on 2 lpm NC; jl7 14:38 BP 105 / 92 RA; Pulse 129; Resp 24; Pulse Ox 98% on 2 lpm NC; db 14:40 BP 104 / 71 LA; Pulse 140; Resp 24; Pulse Ox 100% on 2 lpm NC; db 15:00 BP 74 / 55; Pulse 112; Resp 18; Pulse Ox 100% on 2 lpm NC; kr3 15:30 BP 96 / 80; Pulse 111; Resp 18; Pulse Ox 100% 2 lpm ; kr3 16:00 BP 80 / 45; Pulse 80; Resp 18; Pulse Ox 100% on 2 lpm NC; kr3 16:09 BP 80 / 45; Pulse 63; kr3 16:30 BP 93 / 67; Pulse 59; Resp 18; Pulse Ox 100% on 2 lpm NC; kr3 17:13 BP 82 / 53; Pulse 57; kr3 17:54 BP 100 / 65; Pulse 70; Resp 18; Pulse Ox 98% on 2 lpm NC; kr3 10:36 notified provider of BP 3rd lopressor held at this time db Procedures: 15:02 Central Line: the site was prepped with Betadine, in sterile fashion, a triple lumen rn catheter was inserted, in the right femoral vein, in 1 attempts. placement was verified, by blood return, the site was dressed with Tegaderm, using sterile technique, the patient tolerated the procedure, well. MDM: 09:57 Patient medically screened. [facility] 10:49 ED course: Dr. Marcellus thao for cardiac consult. [facility] 11:45 ED course: Dr. Marcellus thao again, states he will call back. [facility] 14:00 Management of patient was discussed with the following: Hospitalist: Shy, Admitting [facility] YARD SUPERVISOR COTTON GIN for Dr. Gallagher (hospitalist) . 14:20 ED course: The patient's blood pressure decreased to a MAP less than 60. Dr. Kuhn, ER [facility] attending physician, at bedside. Agreed to stop the amiodarone drip and start dopamine.. 14:20 Management of patient was discussed with the following: Security Professional: Dr. Germain, [facility] shank stapler. 15:00 Differential diagnosis: Bronchitis CHF exacerbation, Chronic Obstructive Pulmonary [facility] Disease Myocardial Infarction pneumonia, pulmonary edema, Pulmonary Embolism Sepsis. Antibiotic administration: Rocephin and Zithromax given. Data interpreted: patient monitor: rate is 65 beats/min, rhythm is normal sinus rhythm, Interpretation: normal rate, normal rhythm. Data reviewed: vital signs, nurses notes, lab test result(s), EKG, radiologic studies, CT scan, plain films. Consideration of Admission/Observation The patient was admitted to the ICU. I considered the following discharge prescriptions or medication management in the emergency department Medications were administered in the Emergency Department. See MAR. Independent interpretation of the following test(s) in the Emergency Department EKG: See my EKG interpretation above X-Ray: My interpretation is Pneumonia. Historians other than the Patient: Spouse/Significant Other: . Care significantly affected by the following chronic conditions: Hypertension. Counseling: I had a detailed discussion with the patient and/or guardian regarding: the historical points, exam findings, and any diagnostic results supporting the discharge/admit diagnosis, the need for further work-up and treatment in the hospital. 08/03 10:06 Order name: Basic Metabolic Panel; Complete Time: 11:13 [facility] 08/03 10:06 Order name: CBC with Diff; Complete Time: 11:05 [facility] 08/03 10:06 Order name: D-Dimer; Complete Time: 11:23 [facility] 08/03 10:06 Order name: Magnesium; Complete Time: 11:13 08/03 10:06 Order name: NT PRO-BNP; Complete Time: 11:13 [facility] 08/03 10:06 Order name: PT-INR; Complete Time: 11:23 [facility] 08/03 10:06 Order name: Troponin HS; Complete Time: 11:13 [facility] 08/03 10:06 Order name: COVID-19/FLU A+B; Complete Time: 11:34 [facility] 08/03 11:33 Order name: Blood Culture Adult (2) [facility] 08/03 11:34 Order name: Lactate w/ 2H reflex if indic.; Complete Time: 12:59 08/03 13:20 Order name: Urine Microscopic Only; Complete Time: 13:42 08/03 13:28 Order name: Urine Dipstick-Ancillary; Complete Time: 13:29 [facility] 08/03 15:58 Order name: Hemoglobin A1c; Complete Time: 16:14 [facility] 08/03 16:02 Order name: Phosphorus; Complete Time: 16:14 [facility] 08/03 10:06 Order name: XRAY Chest (1 view); Complete Time: 11:33 08/03 10:36 Order name: CT Head Brain wo Cont; Complete Time: 13:42 08/03 12:01 Order name: CT Chest For PE Angio [facility] 08/03 12:05 Order name: Chest For Pe Angio; Complete Time: 13:44 ID 08/03 16:02 Order name: Lipid Profile; Complete Time: 16:14 [facility] 08/03 16:02 Order name: Magnesium; Complete Time: 16:14 [facility] 08/03 17:00 Order name: Troponin High Sensitivity; Complete Time: 07:00 [facility] 08/03 22:12 Order name: Troponin High Sensitivity; Complete Time: 07:00 [facility] 08/04 04:30 Order name: CBC with Automated Diff; Complete Time: 07:00 [facility] 08/04 04:50 Order name: Basic Metabolic Panel; Complete Time: 07:00 [facility] 08/03 10:06 Order name: EKG; Complete Time: 10:07 [facility] 08/03 10:06 Order name: Cardiac monitoring; Complete Time: 10:34 [facility] 08/03 10:06 Order name: EKG - Nurse/Tech; Complete Time: 10: [facility] 08/03 10:06 Order name: IV Saline Lock; Complete Time: 10: [facility] 08/03 10:06 Order name: Labs collected and sent; Complete Time: 10:47 [facility] 08/03 10:06 Order name: O2 Per Protocol; Complete Time: : [facility] 08/03 10:06 Order name: O2 Sat Monitoring; Complete Time: 10: [facility] 08/03 13:20 Order name: Urine Dipstick-Ancillary (obtain specimen); Complete Time: 13:25 jh7 EC:19 Rate is 169 beats/min. Rhythm is irregularly irregular. QRS Newcomb is Normal. QRS jh7 interval is normal at 70 msec. QT interval is shortened at 280 msec. No Q waves. Clinical impression: Atrial Fibrillation. 14:05 Rate is 127 beats/min. Rhythm is irregularly irregular. QRS interval is normal at 82 jh7 msec. QT interval is normal at 364 msec. Clinical impression: Atrial fibrillation with rapid ventricular response. 15:16 Rate is 58 beats/min. Rhythm is regular. Right axis deviation noted. RI interval is jh7 shortened at 110 msec. QRS interval is normal at 84 msec. QT interval is prolonged at 490 msec. Clinical impression: Sinus bradycardia with marked sinus arrhythmia. Administered Medications: 14:57 Discontinued: amiodarone 900 mg, D5W 500 ml IVPB at 1 mg/min continuous; for 6 hrs, db then change to 0.5 mg/min 10:26 Drug: Metoprolol 5 mg Route: IVP; Site: right forearm; db 10:31 Drug: Metoprolol 5 mg Route: IVP; Site: right forearm; db 11:00 Follow up: Response: Blood pressure is lowered db 10:40 Drug: Lopressor (metoprolol TARTRATE) 50 mg Route: PO; db 11:30 Follow up: Response: No adverse reaction db 10:42 Drug: Magnesium Sulfate 1 grams Route: IVPB; Infused Over: 1 hrs; Site: right hand; db 12:37 Follow up: Response: No adverse reaction; IV Status: Completed infusion; IV Intake: db 100ml 13:00 Drug: Rocephin (cefTRIAXone) 1 grams Route: IV; Rate: 1 calculated rate; Site: right db hand; 13:33 Follow up: Response: No adverse reaction; IV Status: Completed infusion; IV Intake: 50mldb 13:30 Drug: AZITHromycin 500 mg Route: IVPB; Infused Over: 1 hrs; Site: right hand; db 14:44 Follow up: Response: No adverse reaction; IV Status: Completed infusion; IV Intake: db 250ml 13:30 Drug: amiodarone 150 mg Volume: 100 ml; Route: IVPB; Infused Over: 10 mins; Site: right db forearm; 13:40 Follow up: Response: No adverse reaction; IV Status: Completed infusion; IV Intake: db 100ml 13:45 Drug: amiodarone 900 mg, D5W 500 ml {Note: Administered by RN. Saroj} Route: IVPB; db Rate: 1 mg/min; Site: right wrist; 14:00 Drug: NS 0.9% 250 ml Route: IV; Rate: 250 bolus; Site: right wrist; db 14:15 Follow up: Response: No adverse reaction; IV Status: Completed infusion; IV Intake: db 250ml 14:25 Drug: DOPamine 0.5 mcg/kg/min Route: IV; Rate: 0.5 Titrate; Site: right forearm; db 14:25 Follow up: Rate change 2.5 mcg/kg/min db 14:38 Follow up: Rate change 2 mcg/kg/min db 16:09 Follow up: BP 80 / 45; Pulse 63 bpm; Rate change 4 mcg/kg/min kr3 17:11 Follow up: Rate change 4.5 mcg/kg/min kr3 17:13 Follow up: BP 82 / 53; Pulse 57 bpm kr3 Disposition: 08/04 18:09 Co-signature as Attending Physician, Rigo Kuhn MD I reviewed the patient's care rn provided by the Advanced Practice Provider and agree with the diagnosis and treatment plan. Disposition Summary: 08/03/22 13:27 Hospitalization Ordered Hospitalization Status: Inpatient Admission [facility] Provider: Flaco Gallagher 7 Condition: Fair [facility] Problem: new [facility] Symptoms: are unchanged [facility] Bed/Room Type: Standard [facility] Location: Telemetry/MedSurg (Inpatient)(08/04/22 13:10) aa5 Room Assignment: 418(08/04/22 13:10) aa5 Diagnosis - Atrial fibrillation with rapid ventricular response 7 - Coronavirus infection, unspecified jh7 - Other pneumonia, unspecified organism [facility] Forms: - Medication Reconciliation Form [facility] - SBAR form [facility] Signatures: Dispatcher [employer] EDMS Rigo Kuhn MD MD rn Calderon, Radha, RN RN aa5 Jackelin Rebollar RN RN jl7 Eva Palmer RN RN ap3 Joya Israel FNP [employer] 7 Neisha Zuniga RN RN db Dalia Tyson RN kr3 Corrections: (The following items were deleted from the chart) 08/03 17:29 13:27 Intensive Care Unit [facility]7 17: 13:27 [facility] 08/04 13:10 08/03 17:29 [facility] ER HOLD jl7 aa5 08/04 13:10 08/03 17:29 ERHOLD- jl7 aa5
--- NOTE | 2022-08-03 13:27 | ER ---
Nurse's Notes [facility] Name: Tsering Hamilton Age: 82 yrs Sex: Female : 1940 Arrival Date: 08/03/2022 Time: 09:56 Bed 28 Private MD: Edward Villa Diagnosis: Atrial fibrillation with rapid ventricular response;Coronavirus infection, unspecified;Other pneumonia, unspecified organism Presentation: 08/03 10:23 Chief complaint: Patient states: she has been feeling shortness of breath and feeling ap3 like she is "retaining fluid" for approx 3 weeks. patient reports being treated for COVID on 07/13/22, and states that she hasn't felt the same since. Coronavirus screen: Client presents with at least one sign or symptom that may indicate coronavirus-19. Ebola Screen: No symptoms or risks identified at this time. Initial Sepsis Screen: Does the patient meet any 2 criteria? HR > 90 bpm. Does the patient have a suspected source of infection? No. Patient's initial sepsis screen is negative. Risk Assessment: Do you want to hurt yourself or someone else? Patient reports no desire to harm self or others. Onset of symptoms was July 13, 2022. 10:23 Method Of Arrival: Ambulatory ap3 10:23 Acuity: TALI 2 ap3 Triage Assessment: 10:25 General: Appears uncomfortable, Behavior is calm, cooperative. Pain: Denies pain. ap3 Neuro: Level of Consciousness is awake, alert, obeys commands, Oriented to person, place, time, situation. Cardiovascular: Patient's skin is warm and dry. Rhythm is irregular. Respiratory: Reports shortness of breath Onset: The symptoms/episode began/occurred gradually. Historical: - Allergies: 10:25 Tessalon Perles; ap3 10:25 Codeine; ap3 - PMHx: 10:25 Dementia; High Cholesterol; Hypertension; restasis; TIA; ap3 - Immunization history:: Client reports receiving the 2nd dose of the Covid vaccine, Flu vaccine is up to date. - Social history:: Smoking status: Patient denies any tobacco usage or history of. Screenin:26 Abuse screen: Denies threats or abuse. Nutritional screening: No deficits noted. ap3 Tuberculosis screening: No symptoms or risk factors identified. Assessment: 10:25 Reassessment: Patient and/or family updated on plan of care and expected duration. Pain db level reassessed. patient states had syncopal episode at home x 2 starting 1 week ago. SOB \\T\\ cough x 1 week. General: Appears uncomfortable. General: Behavior is calm, cooperative. Pain: Complains of pain in chest. Neuro: Level of Consciousness is awake, alert, obeys commands, Oriented to person, place, time, situation. Cardiovascular: Reports chest pain, shortness of breath, Capillary refill < 3 seconds Rhythm is atrial fibrillation Chest pain. Respiratory: Airway is patent Respiratory effort is even, unlabored, Respiratory pattern is regular, symmetrical, Breath sounds are clear bilaterally. GI: No deficits noted. Abdomen is flat, non-distended. 10:36 Reassessment: patient BP 105/58 HR 150. Notified provider Hadash. 3rd Lopressor held at db this time till BP goes up. 11:24 Reassessment: Patient appears in no apparent distress at this time. Patient and/or db family updated on plan of care and expected duration. Pain level reassessed. Patient is alert, oriented x 3, equal unlabored respirations, skin warm/dry/pink. 11:35 Reassessment: called outside lab for blood cultures and lactic acid. db 11:50 Reassessment: Called outside lab for lab draw. Blood cultures. Difficulty obtaining db blood from patient. States unable to come. 12:20 Reassessment: Patient appears in no apparent distress at this time. Patient and/or db family updated on plan of care and expected duration. Pain level reassessed. Patient is alert, oriented x 3, equal unlabored respirations, skin warm/dry/pink. obtained labs and blood cultures. lab short. notified lab. 12:33 Reassessment: patient ambulatory to restroom. db 12:45 Reassessment: patient to CT. db 13:15 Reassessment: Patient appears in no apparent distress at this time. Patient and/or db family updated on plan of care and expected duration. Pain level reassessed. Patient is alert, oriented x 3, equal unlabored respirations, skin warm/dry/pink. denies complaints. 13:38 Reassessment: ERP notified of BP 86/54, VO to administer 250 mL NS bolus and start jl7 Amiodarone drip. 13:45 Reassessment: Pt reports nausea, ERP notified, VO for 4 mg Zofran IVP, pt medicated as jl7 ordered. 14:00 Reassessment: Pt reports continued nausea, appears mildly pale, reports shortness of jl7 breath, states "I feel worse" reports feeling worse in the last 10-15 minutes. GENNARO Hinson notified and at bedside. 14:05 Reassessment: Patient diaphoretic Dr. Kuhn and provider Lindy at patient bedside. db patient BP 73/62 (68). Patient clammy. states feels sick. 14:25 Reassessment: patient started on Dopamine 2.5 mcg/kg/min. last BP 61/40 (48). db 14:30 Reassessment: unable to obtain Repeat BP. Dr. Kuhn and Provider Lindy at bedside. db 14:35 Reassessment: Report given to GISEL Gómez. patient moved to Trauma 3 due to change in db critical status. Dr. Kuhn also at bedside. 14:35 Reassessment: Unable to obtain repeat BP. staff attempting manual BP. db 14:38 Reassessment: patient dopamine decreased to 2mg/kg/min per Dr. Kuhn patient BP Right db 105/92 (98) L 104/71 (82) , HR 140 NC 2L. 16:30 Reassessment: patient states I am actually feeling a little better Patient states kr3 symptoms have improved. 17:27 Reassessment: dopamine still being deliver through IV with minimal changes in BP. kr3 Vital Signs: 10:23 BP 134 / 94; Pulse 164; Resp 19; Pulse Ox 98% ; Weight 69.4 kg; ap3 10:26 BP 134 / 94; Pulse 168; Resp 20; Pulse Ox 100% on R/A; db 10:31 BP 121 / 76; Pulse 172; Resp 18; Pulse Ox 100% ; db 10:36 BP 105 / 83; Pulse 150; Resp 22; Pulse Ox 100% on R/A; db 10:40 BP 102 / 76; Pulse 160; db 10:45 BP 100 / 66; Pulse 172; Resp 14; Pulse Ox 99% on R/A; db 10:55 BP 99 / 34; Pulse 143; Resp 24; Pulse Ox 99% on R/A; db 11:08 BP 101 / 65; Pulse 148; Resp 18; Pulse Ox 98% on R/A; db 12:30 BP 109 / 86; Pulse 157; Resp 20; Pulse Ox 98% ; db 13:26 BP 118 / 87; Pulse 149; Resp 20; Pulse Ox 100% on R/A; ld1 13:30 BP 86 / 54; Pulse 132; Resp 19 S; Temp 98.6(O); Pulse Ox 99% on R/A; jl7 13:53 BP 78 / 66; Pulse 119; Resp 25; Pulse Ox 99% on 2 lpm NC; jl7 14:00 BP 73 / 62; Pulse 123; Resp 30 S; Pulse Ox 100% on 2 lpm NC; jl7 14:38 BP 105 / 92 RA; Pulse 129; Resp 24; Pulse Ox 98% on 2 lpm NC; db 14:40 BP 104 / 71 LA; Pulse 140; Resp 24; Pulse Ox 100% on 2 lpm NC; db 15:00 BP 74 / 55; Pulse 112; Resp 18; Pulse Ox 100% on 2 lpm NC; kr3 15:30 BP 96 / 80; Pulse 111; Resp 18; Pulse Ox 100% 2 lpm ; kr3 16:00 BP 80 / 45; Pulse 80; Resp 18; Pulse Ox 100% on 2 lpm NC; kr3 16:09 BP 80 / 45; Pulse 63; kr3 16:30 BP 93 / 67; Pulse 59; Resp 18; Pulse Ox 100% on 2 lpm NC; kr3 17:13 BP 82 / 53; Pulse 57; kr3 17:54 BP 100 / 65; Pulse 70; Resp 18; Pulse Ox 98% on 2 lpm NC; kr3 10:36 notified provider of BP 3rd lopressor held at this time db Vitals: 10:45 Cardiac Rhythm Assessment Irregular Atrial fibrillation. db ED Course: 09:56 Patient arrived in ED. am2 09:56 Edward Villa DO is Private Physician. am2 09:57 Joy[facility] Israel [facility]. jh7 09:57 Rigo Kuhn MD is Attending Physician. jh7 10:22 Neisha Zuniga, GISEL is Primary Nurse. db 10:25 Triage completed. ap3 10:26 EKG done, by ED staff, reviewed by Joya DIAZ. ap3 10:26 Arm band placed on right wrist. ap3 10:26 Patient has correct armband on for positive identification. Placed in gown. Bed in low ap3 position. Call light in reach. Adult w/ patient. child monitor on. Pulse ox on. NIBP on. Door closed. Noise minimized. 10:40 Initial lab(s) drawn, by clay processing labourer, unable to obtain labs notified lab . clay processing labourer at db bedside. 11:21 XRAY Chest (1 view) In Process Unspecified. EDMS 12:10 First set of blood cultures drawn left AC. difficulty obtaining specimen. db 12:20 Second set of blood cultures drawn by me. db 13:01 CT Head Brain wo Cont In Process Unspecified. EDMS 13:08 Chest For Pe Angio In Process Unspecified. EDMS 13:25 Flaco Gallagher is Hospitalizing Provider. [facility] 14:35 Report given to Gómez RN. db 14:56 Assisted provider with central line placement. Set up central line tray. Triple lumen kr3 line placed in right femoral. Line placed by Rigo Kuhn MD Placement verified by blood return, Dressed with Tegaderm, Patient tolerated well. Before procedure, did Practitioner(s) obtain informed consent? Yes. Patient \\T\\ family education about procedure, CLABSI prevention and S/S of infection? Time-out/Briefing performed prior to start of procedure? Yes. Was handwashing/sanitizing done immediately prior to procedure? Yes. Was patient positioned to in a way to prevent air embolism? Yes. Was procedure site sterilized? Yes, with chlorhexidine. Was the site allowed to dry? Yes. Was local anesthetic and/or sedation utilized? Yes. During the procedure, did the Practitioner(s) maintain a sterile field? Yes. Were unused ports clamped during insertion? Yes. Was a 2nd qualified MD obtained after 3 unsuccessful insertion attempts? No. Was blood aspirated from each lumen? Yes. After the procedure, did the Practitioner(s) clean the site and apply a sterile dressing? Yes. 15:35 Primary Nurse role handed off by Neisha Zuniga RN jl7 15:35 Dalia Tyson, GISEL is Primary Nurse. jl7 21:28 Primary Nurse role handed off by Dalia Tyson, RN mw2 Administered Medications: 14:57 Discontinued: amiodarone 900 mg, D5W 500 ml IVPB at 1 mg/min continuous; for 6 hrs, db then change to 0.5 mg/min 10:26 Drug: Metoprolol 5 mg Route: IVP; Site: right forearm; db 10:31 Drug: Metoprolol 5 mg Route: IVP; Site: right forearm; db 11:00 Follow up: Response: Blood pressure is lowered db 10:40 Drug: Lopressor (metoprolol TARTRATE) 50 mg Route: PO; db 11:30 Follow up: Response: No adverse reaction db 10:42 Drug: Magnesium Sulfate 1 grams Route: IVPB; Infused Over: 1 hrs; Site: right hand; db 12:37 Follow up: Response: No adverse reaction; IV Status: Completed infusion; IV Intake: db 100ml 13:00 Drug: Rocephin (cefTRIAXone) 1 grams Route: IV; Rate: 1 calculated rate; Site: right db hand; 13:33 Follow up: Response: No adverse reaction; IV Status: Completed infusion; IV Intake: 50mldb 13:30 Drug: AZITHromycin 500 mg Route: IVPB; Infused Over: 1 hrs; Site: right hand; db 14:44 Follow up: Response: No adverse reaction; IV Status: Completed infusion; IV Intake: db 250ml 13:30 Drug: amiodarone 150 mg Volume: 100 ml; Route: IVPB; Infused Over: 10 mins; Site: right db forearm; 13:40 Follow up: Response: No adverse reaction; IV Status: Completed infusion; IV Intake: db 100ml 13:45 Drug: amiodarone 900 mg, D5W 500 ml {Note: Administered by RN. Saroj} Route: IVPB; db Rate: 1 mg/min; Site: right wrist; 14:00 Drug: NS 0.9% 250 ml Route: IV; Rate: 250 bolus; Site: right wrist; db 14:15 Follow up: Response: No adverse reaction; IV Status: Completed infusion; IV Intake: db 250ml 14:25 Drug: DOPamine 0.5 mcg/kg/min Route: IV; Rate: 0.5 Titrate; Site: right forearm; db 14:25 Follow up: Rate change 2.5 mcg/kg/min db 14:38 Follow up: Rate change 2 mcg/kg/min db 16:09 Follow up: BP 80 / 45; Pulse 63 bpm; Rate change 4 mcg/kg/min kr3 17:11 Follow up: Rate change 4.5 mcg/kg/min kr3 17:13 Follow up: BP 82 / 53; Pulse 57 bpm kr3 Intake: 12:37 IV: 100ml; Total: 100ml. db 13:33 IV: 50ml; Total: 150ml. db 13:40 IV: 100ml; Total: 250ml. db 14:15 IV: 250ml; Total: 500ml. db 14:44 IV: 250ml; Total: 750ml. db Outcome: 13:27 Decision to Hospitalize by Provider. 7 08/04 14:15 Patient left the ED. aa5 Signatures: Dispatcher [employer] EDMS Radha Moreno, RN RN aa5 Jackelin Rebollar RN RN jl7 Eva Najera amEva Iverson RN RN ap3 Sully Rubin 2 Haley Garcia RN RN ld1 Joya Israel, FOURDRINIER OPERATOR FOURDRINIER OPERATOR 7 Dalia Tyson RN RN kr3 Neisha Zuniga RN RN db Corrections: (The following items were deleted from the chart) 08/03 14:53 14:00 Reassessment: Pt reports nausea, appears mildly pale, reports shortness of jl7 breath, states "I feel worse" reports feeling worse in the last 10 minutes. GENNARO Hinson notified and at bedside jl7 14:56 13:45 amiodarone 900 mg, D5W 500 ml IVPB at 1 mg/min in right wrist db db 18:00 17:54 BP 100 / 65; Pulse 70bpm; Resp 18bpm; Pulse Ox 98% RA; kr3 kr3
[2022-08-03 13:28] LABS: Urine Blood Negative (Negative); Urine Glucose Negative (Negative); Urine Protein 1+ (Negative)
[2022-08-03] MEDS ORDERED: AMIODARONE HCL 900 MG in Dextrose 5%-Water 482 ML IV ONE (13:30)
--- NOTE | 2022-08-03 13:40 | RAD REPORT ---
EXAM DESCRIPTION: CT - Head Brain Wo Cont - 08/03/2022 12:59 pm CLINICAL HISTORY: Syncope COMPARISON: None TECHNIQUE: Computed axial tomography of the head was obtained. IV contrast was not requested. All CT scans are performed using dose optimization technique as appropriate and may include automated exposure control or mA/KV adjustment according to patient size. FINDINGS: An intracranial bleed is not seen . The ventricles are normal in caliber. No extra-axial fluid collection is noted. Mild to moderate low-density areas within periventricular, deep and subcortical white matter likely r epresent ischemic changes secondary to small vessel disease. Fluid within the maxillary sinuses may indicate acute sinusitis IMPRESSION: No acute intracranial abnormality is seen. If patient's symptoms persist MRI of the bra in would be recommended.
[2022-08-03 13:41] LABS: Urine Bacteria None Seen /HPF (<20); Urine Mucus 1+ /HPF (None Seen); Urine RBC <5 /HPF (None Seen)
--- NOTE | 2022-08-03 13:43 | RAD REPORT ---
EXAM DESCRIPTION: CT - Chest For Pe Angio - 08/03/2022 1:06 pm CLINICAL HISTORY: Chest pain COMPARISON: None. TECHNIQUE: Dynamically enhanced axial 3 mm thick images of the chest were obtained during administra tion of 100 mL Isovue 370 IV contrast. Coronal and oblique reconstruction images were generated and r eviewed. Exam utilizes a protocol for optimal evaluation of pulmonary arterial tree. Maximum intensity projections 3D imaging was utilized All CT scans are performed using dose optimization technique as appropriate and may include automated exposure control or mA/KV adjustment according to patient size. FINDINGS: A pulmonary embolus is not seen. A thoracic aortic aneurysm is not noted. Small left and small to moderate right pleural effusions No pericardial effusion A lung consolidation is not present. IMPRESSION: Negative for a pulmonary embolism.
[2022-08-03] MEDS ORDERED: ONDANSETRON 4 MG/2 ML VIAL ONE ×2 (13:55→15:35)
[2022-08-03] MEDS ORDERED: DOPAMINE/D5W 400 MG/250 ML BAG IV ONE (14:24)
[2022-08-03] MEDS ORDERED: HYDROCODONE/APAP 5/325 MG TAB PO PRN (14:28)
[2022-08-03] MEDS ORDERED: ACETAMINOPHEN 325 MG TABLET PO PRN (14:28)
[2022-08-03] MEDS ORDERED: DOPAMINE/D5W 400 MG/250 ML BAG IV SCH (14:30)
[2022-08-03] MEDS ORDERED: HOME MED 1 EA UNK (Estradiol [Estrace] 42.5 GM Cream.Appl) VAG SCH (14:30)
[2022-08-03] MEDS ORDERED: ONDANSETRON 4 MG/2 ML VIAL IV PRN (14:33)
[2022-08-03] MEDS ORDERED: ASPIRIN 81 MG CHEWABLE TABLET PO ONE (14:34)
[2022-08-03] MEDS: IPRATROPIUM BROM 0.5MG/2.5ML NEB SCH ×2 (14:45→20:00)
[2022-08-03] MEDS: ALBUTEROL 2.5 MG/3 ML NEB SOL NEB SCH ×2 (14:45→20:00)
--- NOTE | 2022-08-03 14:46 | P.HP ---
Certification for Inpatient Patient admitted to: Inpatient With expected LOS: >2 Midnights Patient will require the following post-hospital care: None Practitioner: I am a practitioner with admitting privileges, knowledge of patient current condition, hospital course, and medical plan of care. Services: Services provided to patient in accordance with Admission requirements found in Title 42 Section 412.3 of the Code of Federal Regulations Patient History Date of Service: 08/03/22 Reason for admission: SOB, Cough History of Present Illness: Patient is an 82-year-old female with a past medical history significant for hypertension, hyperlipidemia, dementia, TIA, GERD who presents with complaint of shortness of breath. Patient is a poor historian and unable to provide accurate history. History is also limited due to patient's acute condition. Nursing staff reported that patient has been having shortness of breath for the past 3 weeks. Patient also had cough. Patient was seen recently in the ER and was diagnosed with URI. Patient was discharged home on Tessalon Perles and patient reported that she had 2 syncopal episodes 10 days ago and patient attributed syncope to the cough medication that was given to her. Patient followed up with her news specialist and was prescribed steroids for 7 days. Patient completed steroid dose but continued having worsening shortness of breath and cough. Patient reported associated signs and symptoms of bilateral extremity edema. Patient denies any other signs or symptoms. Symptoms are aggravated or relieved by nothing. Patient decided to present to the hospital due to worsening symptoms. Allergies No Known Allergies Allergy (Verified 10/24/20 09:41) Home Medications: Losartan Potassium [Cozaar] 100 mg PO DAILY 12/09/17 Memantine HCl [Namenda*] 10 mg PO BID 12/09/17 Multivit,Ther Iron,Ca,FA & Min [Centrum Tablet*] 1 tab PO DAILY 12/09/17 Cholecalciferol (Vitamin D3) [Vitamin D3] 5,000 unit PO DAILY 08/30/19 Docusate Sodium [Stool Softener] 100 mg PO BID 08/30/19 Donepezil [Aricept] 10 mg PO BID 08/30/19 Estradiol [Estrace] 42.5 gm VG SEECOM 08/30/19 Omeprazole [Prilosec] 40 mg PO DAILY 08/30/19 Tafluprost/Pf [Zioptan 0.0015% Eye Drops] 1 each OP BEDTIME 08/30/19 Trazodone [Desyrel] 50 mg PO BEDTIME 08/30/19 Ipratropium [Atrovent 0.03% (21MCG)/[place] Nasal] 60 sprays NS TID PRN 10/24/20 Simvastatin 20 mg PO BEDTIME 10/24/20 - Past Medical/Surgical History Diabetic: No -: Hypertension -: Hypercholesteronemia -: Glaucoma -: TIA -: Cataract -: Bilateral Tubal Ligation with Appendectomy -: Dilation and Curettage - Family History Father -: Heart disease Notes: Heart Failure Mother -: Cancer Notes: Esophageal Cancer Sister Notes: Rheumatoid Arthritis - Social History Smoking Status: Unknown if ever smoked Alcohol use: No CD- Drugs: No Caffeine use: Yes Place of Residence: Home Review of Systems General: Malaise Eyes: Unremarkable ENT: Unremarkable Respiratory: Cough, Shortness of Breath Cardiovascular: Unremarkable Gastrointestinal: Unremarkable Genitourinary: Unremarkable Musculoskeletal: Pedal edema, Other (BLE edema ) Integumentary: Unremarkable Neurological: Unremarkable Lymphatics: Unremarkable Physical Examination - Physical Exam General: Alert, Oriented x3, Cooperative, Mild distress HEENT: Atraumatic, PERRLA, Mucous membr. moist/pink, EOMI, Sclerae nonicteric Neck: Supple, 2+ carotid pulse no bruit, No LAD, Without JVD or thyroid abnormality Respiratory: Diminished Cardiovascular: No murmurs, Edema, Irregular heart rate/rhythm Capillary refill: <2 Seconds Gastrointestinal: Normal bowel sounds, Soft and benign Musculoskeletal: No clubbing, No contractures, No erythema, No tenderness Integumentary: No rashes, No breakdown, No significant lesion Neurological: Normal speech, Normal tone, Normal affect Lymphatics: No axilla or inguinal lymphadenopathy - Studies Laboratory Data (last 24 hrs) 08/03/22 10:43: PT 13.1 H, INR 1.19 08/03/22 10:43: WBC 6.80, Hgb 12.5, Hct 37.6, Plt Count 201 08/03/22 10:43: Sodium 139, Potassium 4.0, BUN 20 H, Creatinine 0.80, Glucose 113 H, Magnesium 2.3 Assessment and Plan - Plan --COVID-19 infection. No pneumonia noted on CT imaging. Pulmonology consulted. Patient placed on Decadron IV. Continue O2 therapy prn.. We will await further recommendation from news specialist. --A. fib with RVR. Patient medicated with amiodarone and metoprolol IV in the ER. Cardiology consulted. Echocardiogram pending to assess cardiac structures and functions. Repeat EKG indicates normal sinus rhythm. Telemetry to monitor for any malignant arrhythmia. Will await further recommendation from partner. --Pleural effusion. Small left and small to moderate right pleural effusion noted on CT imaging. Twine Reeling Machine Operator on board. Further management per pulm onologist. --Hypotension. Patient started on dopamine infusion in the ER. We will continue to monitor blood pressure levels. --GERD. Continue Protonix. --Dementia. Continue home medications. --History of TIA. Continue aspirin and statin. --BLE edema. Echocardiogram pending to assess cardiac structures and functions. BNP elevated. Chest x-ray does not indicate an enlarged heart or fluid ove rload.. Will hold off on Lasix due to hypotension. --HLD. Continue statin. --Glaucoma. Continue home medications. -- Elevated D-dimer. CTA PE protocol negative for PE. Continue supportive care. --CKD 2. Stable. We will continue monitor renal functions. --DVT prophylaxis with Lovenox subQ.. Discharge Plan: Home Plan to discharge in: Greater than 2 days - Advance Directives Does patient have a Living Will: Yes Does patient have a Durable POA for Healthcare: Yes - Code Status/Comfort Care Code Status Assessed: Yes Physician Review: Patient Assessed, Agree with Above Assessment and Plan Critical Care: No
[2022-08-03 16:01] LABS: Magnesium 2.7 mg/dL (1.6-2.4)
[2022-08-03] MEDS ORDERED: METHYLPREDNISOLONE 40 MG INJ IV SCH (17:00)
[2022-08-03] MEDS ORDERED: ALBUTEROL 2.5 MG/3 ML NEB SOL ONE (20:19)
[2022-08-03] MEDS ORDERED: IPRATROPIUM BROM 0.5MG/2.5ML ONE (20:19)
[2022-08-03] MEDS ORDERED: HOME MED 1 EA UNK (Simvastatin [Simvastatin] 20 MG Tablet) PO SCH (21:00)
[2022-08-03] MEDS ORDERED: MEMANTINE HCL 10 MG TABLET ONE (21:47)
[2022-08-03] MEDS ORDERED: ASPIRIN 81 MG CHEWABLE TABLET ONE (21:47)
[2022-08-03] MEDS ORDERED: ATORVASTATIN 10 MG TAB ONE (21:48)
[2022-08-03] MEDS ORDERED: TRAZODONE 50 MG TABLET ONE (21:48)
[2022-08-03] MEDS ORDERED: ENOXAPARIN 40 MG/0.4 ML SQ ONE (21:49)
[2022-08-03] MEDS ORDERED: dexAMETHasone 4 MG/ML VIAL ONE (21:49)
[2022-08-03] MEDS ORDERED: DONEPEZIL HCL 5 MG TAB ONE (21:49)
--- NOTE | 2022-08-03 21:58 | CON ---
Date of Consultation: 08/03/2022 Reason For Consultation: Atrial fibrillation with rapid ventricular response. History Of Present Illness: This 82-year-old female with history of hypertension, dyslipidemia, gabriel ntia, acid reflux, and history of CVA presented to the emergency room because of shortness of breath, lower extremity edema and cough, feeling generally very weak. In the emergency room, she was found to be in atrial fibrillation with rapid ventricular response. She was started on amiodarone drip. S rios that time, her blood pressure has been running low. Past Medical History: As outlined above in the HPI. Medications: Refer to reconciliation sheet for detailed list. Allergies: NO KNOWN DRUG ALLERGIES. Family History: No premature coronary artery disease, but there is history of esophageal cancer on m other's side. Social History: She does not smoke or drink. Does not use any drugs. Review of Systems: All systems reviewed and they were negative except what mentioned in HPI. Physical Examination: Vital Signs: Reviewed. Head And Neck: Pupils are equal and reactive to light. Intact eye movements. Mild JVD. Lungs: Decreased breathing sounds bilaterally with faint crackles in bases. No accessory muscle use or muscle retraction. Heart: Irregularly irregular. No extra sounds. Abdomen: Soft, nontender. Bowel sounds positive. No organomegaly. No masses or hernia. No rigidi ty or rebound. Extremities: 3+ pitting edema bilaterally. No clubbing or cyanosis. Intact pulses. Skin: No rash. Neurologic: Alert awake with confusion. No focal deficits appreciated. Investigations: BUN 20, creatinine 0.8. Troponin x2 are negative. NT-proBNP is 1734. Hemoglobin i s 12.5. CTA of the chest negative for pulmonary embolism. Assessment/recommendation: 1.Atrial fibrillation with rapid ventricle response. I agree with amiodarone. She converted sinus rhythm and to finish the full 24 hour load, if blood pressure allows. If it does not, then you can d iscontinue it and the patient should be placed on Eliquis 5 mg twice a day as well. 2.COVID-19 positive. The patient is being managed by primary hospitalist and Pulmonary. 3.Dyslipidemia. Continue statin. 4.Acute congestive heart failure exacerbation. The patient needs to be diuresed. Recommend IV Lasi x 40 mg q.12 hours, if blood pressure allows. SR/MODL Voice ID: [id number] Report ID: [id number]
[2022-08-03] MEDS: dexAMETHasone 10 MG/ML VIAL IV SCH (22:53)
[2022-08-03] MEDS: ENOXAPARIN 40 MG/0.4 ML SQ SCH (22:53)
[2022-08-03] MEDS: DONEPEZIL HCL 5 MG TAB PO SCH (22:54)
[2022-08-03] MEDS: DOCUSATE NA 100 MG CAP PO SCH (22:54)
[2022-08-03] MEDS: ATORVASTATIN 10 MG TAB PO SCH (22:55)
[2022-08-03] MEDS: MEMANTINE HCL 10 MG TABLET PO SCH (22:55)
[2022-08-03] MEDS: TRAZODONE 50 MG TABLET PO SCH (22:55)
[2022-08-04 00:53] VITALS: BMI 28.0
[2022-08-04] MEDS ORDERED: IPRATROPIUM BROM 0.5MG/2.5ML ONE (01:10)
[2022-08-04] MEDS: ALBUTEROL 2.5 MG/3 ML NEB SOL NEB SCH ×5 (01:15→20:00)
[2022-08-04] MEDS: IPRATROPIUM BROM 0.5MG/2.5ML NEB SCH ×4 (01:15→19:45)
[2022-08-04 04:28] LABS: Absolute Lymphocytes (CBC) 0.9 K/uL (0.7-4.9); Hematocrit 36.9 % (36.0-45.0); Lymphocytes % 13.6 % (15.3-44.8); MPV 7.9 fL (7.6-11.3); RBC Red Blood Cell Count 3.73 M/uL (3.86-4.86)
[2022-08-04 04:50] LABS: Potassium 4.5 mmol/L (3.5-5.1)
[2022-08-04] MEDS ORDERED: ASPIRIN 81 MG CHEWABLE TABLET ONE (07:33)
[2022-08-04] MEDS ORDERED: MULTIVITAMIN TAB PO ONE (07:34)
[2022-08-04] MEDS ORDERED: dexAMETHasone 10 MG/ML VIAL ONE (07:39)
[2022-08-04] MEDS ORDERED: PANTOPRAZOLE 40MG TABLET PO ONE (07:40)
[2022-08-04] MEDS ORDERED: ENOXAPARIN 40 MG/0.4 ML SQ ONE (07:40)
[2022-08-04] MEDS ORDERED: VITAMIN D 1000 UNIT TAB ONE (07:41)
[2022-08-04] MEDS: ENOXAPARIN 40 MG/0.4 ML SQ SCH (07:56)
[2022-08-04] MEDS: MEMANTINE HCL 10 MG TABLET PO SCH ×2 (07:56→21:19)
[2022-08-04] MEDS: DONEPEZIL HCL 5 MG TAB PO SCH ×2 (07:56→21:19)
[2022-08-04] MEDS: MULTIVITAMIN TAB PO SCH (08:03)
[2022-08-04] MEDS: ASPIRIN 81 MG CHEWABLE TABLET PO SCH (08:03)
[2022-08-04] MEDS: PANTOPRAZOLE 40MG TABLET PO SCH (08:03)
[2022-08-04] MEDS: dexAMETHasone 10 MG/ML VIAL IV SCH (08:06)
[2022-08-04] MEDS: AMIODARONE HCL 200 MG TAB PO SCH (08:12)
[2022-08-04] MEDS: FUROSEMIDE 40 MG TABLET PO SCH (08:12)
[2022-08-04] MEDS ORDERED: AMIODARONE HCL 200 MG TAB ONE (08:15)
[2022-08-04] MEDS ORDERED: FUROSEMIDE 40 MG TABLET ONE (08:15)
[2022-08-04] MEDS: DOCUSATE NA 100 MG CAP PO SCH ×2 (08:33→21:19)
[2022-08-04] MEDS: VITAMIN D 5,000 UNIT CAP PO SCH (08:33)
[2022-08-04] MEDS ORDERED: HOME MED 1 EA UNK (Omeprazole [Prilosec] 40 MG Capsule.Dr) PO SCH (09:00)
[2022-08-04] MEDS ORDERED: CHOLECALCIFEROL 5000 UNIT PO SCH (09:00)
--- NOTE | 2022-08-04 12:25 | P.CNS ---
Date of Consult: 08/04/22 Chief Complaint: SOB, Cough History of Present Illness: Patient is 82 years of age metabolic syndrome saw her in my office last week complaining of a cough was diagnosed with a COVID infection and treated with some steroids got worse came back to the emergency room complaining of worsening swelling of her leg shortness of breath with coughing Allergies No Known Allergies Allergy (Verified 10/24/20 09:41) Home Medications: Losartan Potassium [Cozaar] 100 mg PO DAILY 12/09/17 Memantine HCl [Namenda*] 10 mg PO BID 12/09/17 Multivit,Ther Iron,Ca,FA & Min [Centrum Tablet*] 1 tab PO DAILY 12/09/17 Cholecalciferol (Vitamin D3) [Vitamin D3] 5,000 unit PO DAILY 08/30/19 Docusate Sodium [Stool Softener] 100 mg PO BID 08/30/19 Donepezil [Aricept] 10 mg PO BID 08/30/19 Estradiol [Estrace] 42.5 gm VG SEECOM 08/30/19 Omeprazole [Prilosec] 40 mg PO DAILY 08/30/19 Tafluprost/Pf [Zioptan 0.0015% Eye Drops] 1 each OP BEDTIME 08/30/19 Trazodone [Desyrel] 50 mg PO BEDTIME PRN 08/30/19 Ipratropium [Atrovent 0.03% (21MCG)/Silver Nasal] 60 sprays NS TID PRN 10/24/20 Simvastatin 20 mg PO BEDTIME 10/24/20 - Past Medical/Surgical History Diabetic: No -: Hypertension -: Hypercholesteronemia -: Glaucoma -: TIA -: Cataract -: Bilateral Tubal Ligation with Appendectomy -: Dilation and Curettage - Family History Father Medical History: Heart disease Notes: Heart Failure Mother Medical History: Cancer Notes: Esophageal Cancer Sister Medical History: Heart disease Notes: Rheumatoid Arthritis - Social History Smoking Status: Never smoker Alcohol use: No CD- Drugs: No Caffeine use: Yes Place of Residence: Home Review of Systems General: Weakness Respiratory: Cough, Shortness of Breath Physical Examination Temp Pulse Resp BP Pulse Ox 98.1 F 74 18 116/60 18 L 08/04/22 12:00 08/04/22 12:00 08/04/22 12:00 08/04/22 12:00 08/04/22 12:00 General: Alert, In no apparent distress, Mild distress Respiratory: Clear to auscultation bilaterally Cardiovascular: No edema, Regular rate/rhythm, Normal S1 S2 - Problems (1) Diastolic heart failure Current Visit: Yes Status: Acute Plan: Patient 82 years of age admitted with cough shortness of breath she is got worse since her got COVID initially tested negative but now she is positive again CT scan does not show any evidence of thromboemboli scattered small bilateral pleural effusions cardiomegaly possible underlying heart failure continue with diuretics continue with steroids for now although there is no evidence of active coronavirus infection Labs reviewed echocardiogram ordered patient also developed A-fib vital signs of this otherwise stable Qualifiers: Heart failure chronicity: acute on chronic Qualified Code(s): I50.33 - Acute on chronic diastolic (congestive) heart failure
--- NOTE | 2022-08-04 16:56 | EKG ---
Test Date: 2022-08-03 Test Time: 15:16:31 Oncology Specialist: MILKA MEASUREMENT RESULTS: Intervals: Rate: 58 UT: 110 QRSD: 84 QT: 490 QTc: 481 [place]: P: UT: 110 QRS: 96 T: 64 INTERPRETIVE STATEMENTS: Sinus bradycardia with marked sinus arrhythmia with short UT Rightward axis Low voltage QRS RSR' or QR pattern in V1 suggests right ventricular conduction delay Borderline ECG Compared to ECG 08/03/2022 14:05:10 Short UT interval now present Right-axis deviation now present RSR' in V1 or V2 now present Atrial fibrillation no longer present Electronically Signed On 08-04-22 16:54:21 EVENT ATTENDANT by Ollie Germain
--- NOTE | 2022-08-04 16:57 | EKG ---
Test Date: 2022-08-03 Test Time: 14:05:10 General Agent: FLAKO MEASUREMENT RESULTS: Intervals: Rate: 127 VA: QRSD: 82 QT: 364 QTc: 529 [place]: P: VA: QRS: 52 T: 45 INTERPRETIVE STATEMENTS: Atrial fibrillation with rapid ventricular response Low voltage QRS Abnormal ECG Compared to ECG 08/03/2022 10:19:52 Low QRS voltage now present ST (T wave) deviation no longer present Electronically Signed On 08-04-22 16:54:34 LOSS CONTROL REPRESENTATIVE by Ollie Germain
--- NOTE | 2022-08-04 16:58 | EKG ---
Test Date: 2022-08-03 Test Time: 10:19:52 Branch Chief: FLAKO MEASUREMENT RESULTS: Intervals: Rate: 169 [place]: QRSD: 70 QT: 280 QTc: 469 [place]: P: WI: QRS: 49 T: -79 INTERPRETIVE STATEMENTS: Atrial fibrillation with rapid ventricular response Nonspecific ST and T wave abnormality, probably digitalis effect Abnormal ECG Compared to ECG 12/09/2017 14:22:43 ST (T wave) deviation now present Sinus rhythm no longer present Electronically Signed On 08-04-22 16:55:03 BLENDER / COOK by Ollie Germain
[2022-08-04] MEDS: ATORVASTATIN 10 MG TAB PO SCH (21:18)
[2022-08-04] MEDS: TRAZODONE 50 MG TABLET PO SCH (21:19)
--- NOTE | 2022-08-04 23:44 | P.PN ---
Date of Service: 08/04/22 Subjective: ROS: A complete review of systems was performed and is negative except as mentioned above Physical Exam: Gen: NAD, AOx3 HEENT: normal conjunctiva, sclera anicteric CV: regular rate & rhythm, no edema Pulm: non-labored respirations, clear bilaterally Abd: soft, non-tender, non-distended Neuro: normal speech, normal affect, moves all extremities vitals reviewed Problem List COVID-19 infection Afib with RVR, paroxysmal - new diagnosis Hypotension GERD Dementia h/o TIA b/l edema Glaucoma CKD2 elevated d-dimer CT negative for pneumonia; +COVID-19 pulm consulted, continue steroids; O2 as needed afib w/ RVR converted to sinus, s/p lopressor and amio drip cardiology consulted amio drip dc'd due to hypotension. started on PO amio 08/04 anticoagulation echo ordered continue chronic leatha e meds Code: full Dispo: home, ~1-2 days
[2022-08-05] MEDS: ALBUTEROL 2.5 MG/3 ML NEB SOL NEB SCH ×3 (02:00→14:32)
[2022-08-05] MEDS: IPRATROPIUM BROM 0.5MG/2.5ML NEB SCH ×3 (02:15→14:32)
[2022-08-05 05:16] LABS: Magnesium 2.4 mg/dL (1.6-2.4); Potassium 3.7 mmol/L (3.5-5.1)
--- NOTE | 2022-08-05 07:18 | ECHO ---
HEIGHT: 5 ft 2 in WEIGHT: 153 lb 0 oz DATE OF STUDY: 08/04/[address]: Priscilla Vasuqez 2-DIMENSIONAL: YES M.MODE: YES DOPPLER: YES COLOR FLOW: YES TDS: PORTABLE: YES DEFINITY: BUBBLE STUDY: DIAGNOSIS: NEW ONSET ATRIAL FIBRILLATION CARDIAC HISTORY: CATHERIZATION: NO SURGERY: NO PROSTHETIC VALVE: NO PACEMAKER: NO MEASUREMENTS (cm) DIASTOLIC (NORMALS) SYSTOLIC (NORMALS) IVSd 0.9 (0.6-1.2) LA Diam 3.3 (1.9-4.0) LVEF 53% LVIDd 3.3 (3.5-5.7) LVIDs 2.4 (2.0-3.5) %FS 27% LVPWd 1.0 (0.6-1.2) Ao Diam 2.7 (2.0-3.7) 2 DIMENSIONAL ASSESSMENT: RIGHT ATRIUM: NORMAL LEFT ATRIUM: NORMAL RIGHT VENTRICLE: NORMAL LEFT VENTRICLE: NORMAL TRICUSPID VALVE: MILD TRICUSPID REGURGITATION MITRAL VALVE: MILD MITRAL REGURGITATION PULMONIC VALVE: NORMAL AORTIC VALVE: NORMAL PERICARDIAL EFFUSION: NONE AORTIC ROOT: NORMAL LEFT VENTRICULAR WALL MOTION: NORMAL DOPPLER/COLOR FLOW: SEE BELOW COMMENTS: 1. NORMAL LEFT VENTRICULAR EJECTION FRACTION 55-60% 2. MILD TRICUSPID REGURGITATION 3. MILD MITRAL REGURGITATION 4. MODERATE PULMONARY HYPERTENSION, RIGHT VENTRICULAR SYSTOLIC PRESSURE OF 50-55 mmHg 5. MODERATE DIASTOLIC DYSFUNCTION TECHNOLOGIST: THOMAS HODGES
[2022-08-05] MEDS: ENOXAPARIN 40 MG/0.4 ML SQ SCH (08:36)
[2022-08-05] MEDS: dexAMETHasone 10 MG/ML VIAL IV SCH (08:37)
[2022-08-05] MEDS: ASPIRIN 81 MG CHEWABLE TABLET PO SCH (08:38)
[2022-08-05] MEDS: AMIODARONE HCL 200 MG TAB PO SCH (08:38)
[2022-08-05] MEDS: PANTOPRAZOLE 40MG TABLET PO SCH (08:38)
[2022-08-05] MEDS: VITAMIN D 5,000 UNIT CAP PO SCH (08:38)
[2022-08-05] MEDS: MEMANTINE HCL 10 MG TABLET PO SCH (08:38)
[2022-08-05] MEDS: FUROSEMIDE 40 MG TABLET PO SCH (08:38)
[2022-08-05] MEDS: MULTIVITAMIN TAB PO SCH (08:38)
[2022-08-05] MEDS: DOCUSATE NA 100 MG CAP PO SCH (08:39)
[2022-08-05] MEDS: DONEPEZIL HCL 5 MG TAB PO SCH (08:45)
[2022-08-05] MEDS ORDERED: POTASSIUM CL SA 10 MEQ TAB PO ONE (09:00)
[2022-08-05 10:12] VITALS: O2SAT 100
[2022-08-05 12:27] VITALS: BP 123/58; TEMP 98
[2022-08-05] MEDS ORDERED: SPIRONOLACTONE 25 MG TABLET PO SCH (12:52)
--- NOTE | 2022-08-05 12:55 | P.PN ---
Subjective Date of Service: 08/05/22 Chief Complaint: SOB, Cough No change patient still complaining of coughing and shortness of breath Review of Systems General: Weakness Respiratory: Cough, Shortness of Breath Physical Examination - Vital Signs Temperature: 98.0 F Blood Pressure: 123/58 Pulse: 83 Respirations: 16 Pulse Ox (%): 98 - Physical Exam General: Alert, In no apparent distress, Oriented x3 Respiratory: Clear to auscultation bilaterally Cardiovascular: No edema, Regular rate/rhythm, Normal S1 S2 Gastrointestinal: Normal bowel sounds, Soft and benign Assessment And Plan - Current Problems (Diagnosis) (1) Diastolic heart failure Current Visit: Yes Status: Acute Plan: Patient is 82 years of age admitted with shortness of breath and a cough not respond to steroids echocardiogram possible underlying diastolic heart failure continue with Lasix avoided spironolactone echocardiogram reviewed secondary pulmonary hypertension chemistries lab work reviewed dynamically stable normal sinus rhythm no evidence of active COVID on the chest x-ray or CT scan ambulate possible discharge DC steroid Qualifiers: Heart failure chronicity: acute on chronic Qualified Code(s): I50.33 - Acute on chronic diastolic (congestive) heart failure Physician Review: Patient Assessed, Agree with Above Assessment and Plan
--- NOTE | 2022-08-05 14:39 | P.DS ---
Admission Date: 08/03/22 Discharge Date: 08/05/22 Disposition: ROUTINE DISCHARGE Discharge Condition: GOOD Reason for Admission: SOB, Cough Consultations: Susan Germain Brief History of Present Illness: 82-year-old female with a past medical history significant for hypertension, hyperlipidemia, dementia, TIA, GERD who presents with complaint of shortness of breath. Patient is a poor historian and unable to provide accurate history. History is also limited due to patient's acute condition. Nursing staff reported that patient has been having shortness of breath for the past 3 weeks. Patient also had cough. Patient was seen recently in the ER and was diagnosed with URI. Patient was discharged home on Tessalon Perles and patient reported that she had 2 syncopal episodes 10 days ago and patient attributed syncope to the cough medication that was given to her. Patient followed up with her [facility] weaver and was prescribed steroids for 7 days. Patient completed steroid dose but continued having worsening shortness of breath and cough. Patient reported associated signs and symptoms of bilateral extremity edema. Patient denies any other signs or symptoms. Symptoms are aggravated or relieved by nothing. Patient decided to present to the hospital due to worsening symptoms. Hospital Course: Problem List COVID-19 infection Afib with RVR, paroxysmal - new diagnosis acute diastolic chf exacerbation - new diagnosis Hypotension GERD Dementia h/o TIA b/l edema Glaucoma CKD2 elevated d-dimer Presented with shortness of breath and had syncopal episodes. She was found to be in new atrial fibrillation and congestive heart failure. Initially treated with beta-blockers, which lead to low blood pressure. She was then switched to IV Amiodarone, and later discontinued due to low blood pressure. Cardiology, Dr. Germain was consulted. Heart rhythm converted to sinus rhythm soon after admission. Due to low blood pressure she was briefly treated with a dopamine infusion, which was discontinued within several hours. She was transitioned to oral amiodarone, which he tolerated well. She received IV lasix and transitioned to oral lasix for acute CHF Exacerbation. Echo noted EF: 53%, with moderate pulmonary hypertension and moderate diastolic dysfunction. She had improvement of her breathing and lower extremity swelling. She was deemed stable for discharge home. New medications: daily lasix and spironolactone,, daily amiodarone, and eliquis for anticoagulation due to risk from Afib. noted to be COVID-19 positive, but no obvious pneumonia. Follow up: PCP within 3-5 days Cardiology in ~2-3 weeks Vital Signs/Physical Exam: Temp Pulse Resp BP Pulse Ox 98.0 F 83 16 123/58 L 98 08/05/22 12:55 08/05/22 12:55 08/05/22 12:55 08/05/22 12:55 08/05/22 12:55 Physical Exam: Gen: NAD, AOx3 HEENT: normal conjunctiva, sclera anicteric CV: regular rate & rhythm, 1+ b/l lower extremity edema Pulm: non-labored respirations, clear bilaterally Abd: soft, non-tender, non-distended Neuro: normal speech, normal affect, moves all extremities Laboratory Data at Discharge: WBC 6.70 K/uL (4.3-10.9) 08/04/22 04:16 Hgb 12.2 g/dL (12.0-15.0) 08/04/22 04:16 Hct 36.9 % (36.0-45.0) 08/04/22 04:16 Plt Count 188 K/uL (152-406) 08/04/22 04:16 PT 13.1 SECONDS (9.5-12.5) H 08/03/22 10:43 INR 1.19 08/03/22 10:43 Sodium 137 mmol/L (136-145) 08/05/22 04:46 Potassium 3.7 mmol/L (3.5-5.1) D 08/05/22 04:46 BUN 25 mg/dL (7-18) H 08/05/22 04:46 Creatinine 0.85 mg/dL (0.55-1.02) 08/05/22 04:46 Glucose 120 mg/dL (74-106) H 08/05/22 04:46 Phosphorus 4.0 mg/dL (2.5-4.9) 08/03/22 15:33 Magnesium 2.4 mg/dL (1.6-2.4) 08/05/22 04:46 Triglycerides 89 mg/dL (<150) 08/03/22 15:33 Cholesterol 118 mg/dL (<200) 08/03/22 15:33 HDL Cholesterol 61 mg/dL (40-60) H 08/03/22 15:33 Cholesterol/HDL Ratio 1.93 08/03/22 15:33 Home Medications: Losartan Potassium [Cozaar] 100 mg PO DAILY 12/09/17 Memantine HCl [Namenda*] 10 mg PO BID 12/09/17 Multivit,Ther Iron,Ca,FA & Min [Centrum Tablet*] 1 tab PO DAILY 12/09/17 Cholecalciferol (Vitamin D3) [Vitamin D3] 5,000 unit PO DAILY 08/30/19 Docusate Sodium [Stool Softener] 100 mg PO BID 08/30/19 Donepezil [Aricept*] 10 mg PO BID 08/30/19 Estradiol [Estrace] 42.5 gm VG SEECOM 08/30/19 Omeprazole [Prilosec] 40 mg PO DAILY 08/30/19 Tafluprost/Pf [Zioptan 0.0015% Eye Drops] 1 each OP BEDTIME 08/30/19 Trazodone [Desyrel*] 50 mg PO BEDTIME PRN 08/30/19 Ipratropium [Atrovent 0.03% (21MCG)/[place] Nasal*] 60 sprays NS TID PRN 10/24/20 Simvastatin 20 mg PO BEDTIME 10/24/20 Amiodarone HCl [Cordarone*] 200 mg PO DAILY 30 Days #30 tab 08/05/22 Apixaban [Eliquis] 5 mg PO BID 30 Days #60 tab 08/05/22 Furosemide [Lasix*] 40 mg PO DAILY 30 Days #30 tab 08/05/22 Spironolactone [Aldactone*] 25 mg PO DAILY 30 Days #30 tab 08/05/22 New Medications: Spironolactone [Aldactone*] 25 mg PO DAILY 30 Days #30 tab Amiodarone HCl [Cordarone*] 200 mg PO DAILY 30 Days #30 tab Apixaban [Eliquis] 5 mg PO BID 30 Days #60 tab Furosemide [Lasix*] 40 mg PO DAILY 30 Days #30 tab Physician Discharge Instructions: Presented with shortness of breath and had syncopal episodes. She was found to be in new atrial fibrillation and congestive heart failure. Initially treated with beta-blockers, which lead to low blood pressure. She was then switched to IV Amiodarone, and later discontinued due to low blood pressure. Cardiology, Dr. Germain was consulted. Heart rhythm converted to sinus rhythm soon after admission. Due to low blood pressure she was briefly treated with a dopamine infusion, which was discontinued within several hours. She was transitioned to oral amiodarone, which he tolerated well. She received IV lasix and transitioned to oral lasix for acute CHF Exacerbation. Echo noted EF: %53%, with moderate pulmonary hypertension and moderate diastolic dysfunction. She had improvement of her breathing and lower extremity swelling. She was deemed stable for discharge home. New medications: daily lasix and spironolactone,, daily amiodarone, and eliquis for anticoagulation due to risk from Afib. noted to be COVID-19 positive, but no obvious pneumonia. Follow up: PCP within 3-5 days Cardiology in ~2-3 weeks Followup: Edward Villa DO [Primary Care Provider] - Time spent managing pt's care (in minutes): 45
--- NOTE | 2022-08-05 17:59 | PN ---
Date of Progress Note: 08/05/2022 Subjective: Seen by bedside. Doing clinically well. Review of Systems: No chest pain, shortness of breath, orthopnea, cough, nausea, vomiting, or diarrhea. All other syste ms reviewed and they were negative. Physical Examination: Vital Signs: Reviewed. Head And Neck: Pupils are equal, reactive to light. Intact eye movements. No JVD. No cervical lym phadenopathy. Neck is supple. Thyroid is not enlarged. Lungs: Clear to auscultation bilaterally. No rhonchi, rales, or crackles. No accessory muscle use. Heart: Irregular. No extra sounds. Abdomen: Soft, nontender. Bowel sounds positive. No organomegaly. No masses or hernia. No rigidi ty or rebound. Extremities: Trace edema. No clubbing or cyanosis. Intact pulses. Skin: No rash. Neurologic: Alert, awake, oriented x3. No acute focal deficits appreciated. Investigations: Labs were reviewed. Assessment And Recommendation: 1.Atrial fibrillation. She is in sinus rhythm. Continue amiodarone and Eliquis. 2.Positive COVID, being managed by hospitalist. She appears to be stable from a cardiac standpoint. 3.Dyslipidemia. Continue statin. 4.Acute on chronic congestive heart failure exacerbation. This is resolved. Recommend that she will be discharged on Lasix and follow up as an outpatient in 4 weeks p ost discharge. SR/MODL Voice ID: [id number] Report ID: [id number]
== END 2022-08-05 15:39 | disposition home or self-care (01) | DRG 177 ==
LOC: ER 09:46 → ERHOLD 14:24 → 4TH 08-04 13:11
PROVIDERS: ADMIT Internal Medicine; ATTEND Hospitalist
PROC: 02HV33Z Insertion of Infusion Device into Superior Vena Cava, Percutaneous Approach (ICD-10-PCS; principal; 2022-08-03)
DX: U07.1 COVID-19 (principal); I50.31 Acute diastolic (congestive) heart failure; I13.0 Hypertensive heart and chronic kidney disease with heart failure and stage 1 through stage 4 chronic kidney disease, or unspecified chronic kidney disease; N18.2 Chronic kidney disease, stage 2 (mild); I48.0 Paroxysmal atrial fibrillation; I95.2 Hypotension due to drugs; T44.7X5A Adverse effect of beta-adrenoreceptor antagonists, initial encounter; K21.9 Gastro-esophageal reflux disease without esophagitis; F03.90 Unspecified dementia, unspecified severity, without behavioral disturbance, psychotic disturbance, mood disturbance, and anxiety; H40.9 Unspecified glaucoma; E78.5 Hyperlipidemia, unspecified; I27.20 Pulmonary hypertension, unspecified; R79.1 Abnormal coagulation profile; Z79.899 Other long term (current) drug therapy; Z86.73 Personal history of transient ischemic attack (TIA), and cerebral infarction without residual deficits; Z80.0 Family history of malignant neoplasm of digestive organs; Z82.49 Family history of ischemic heart disease and other diseases of the circulatory system; Z82.61 Family history of arthritis
CPT/HCPCS: 0240U; 36415; 70450; 71045; 71275; 80048; 80061; 81003; 81015; 83036; 83605; 83735; 83880; 84100; 84146; 84484; 85025; 85379; 85610; 87040; 93005; 93306; 94640; 99285; J0282; J0456; J1100; J1265; J1650; J2405; J3475; J7050; J7060; J7613; J7644; Q9967

== ENCOUNTER 2022-08-07 15:12 | Inpatient (IN) | payer OTHER, MEDICARE ==
--- OUTSIDE RECORDS SUMMARY | 2022-08-07 15:16 | XMS REPORT | Continuity of Care Document ---
:1940 Author Organization [facility] t Address [address] [place] [address] Care Team Providers Name Role Phone Edward [facility] Attending Clinician Unavailable Payers Payer Name Policy Type Policy Number Effective Date Expiration Date S samia [facility] C1 [id number] 2019 Common Spiri t 00:00:[address] [facility] MEDICARE MB [id number] Common [facility] NOVITAS - [facility] MEDICARE MB [id number] Common [facility] [id number] 2019 Common Spiri t 00:00:00 [facility] Problems Condition Condition Condition Status Onset Resolution Last Treating Co mments Source Name Details Category Date Date Treatment Clinician Date [id number] Pain in Problem Comm on [id number] joint of [facility] right hand [facility] [id number] Osteoarthr Problem C ommon [id number] itis of [facility] first [facility] metatarsop St halangeal [facility] (MTP) [facility] [place] right foot [id number] Trigger Problem Commo n finger, [facility] right - 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 unspecifie St d glaucoma [facility] [id number] Insomnia, Problem Com mon unspecifie Spirit d type [facility] [id number] Decreased Problem Com mon hearing of Spirit both ears [facility] [id number] Mixed Problem Common hyperlipid [facility] emia [facility] Diverticul Diverticul Problem C ommon um of a, bladder Spirit bladder [facility] [id number] Dry eyes, Problem Com mon bilateral [facility] [id number] HTN, goal Problem Comm on below Spirit 150/90 [facility] [id number] Non-season Problem Com mon al Spirit allergic - CHI rhinitis, unspecie [facility] [id number] Overactive Problem Co mmon bladder [facility] [id number] Dementia Problem Commo n without Spirit behavioral - [facility] disturbanc [facility] unspecifie [facility] type Allergies, Adverse Reactions, Alerts This patient has no known allergies or adverse reactions. Social History Social Habit Start Date Stop Date Quantity Comments Source History of Tobacco Use Co mmon [facility] Sex Assigned At Com mon [facility] Smoking Status Start Date Stop Date Source Never Smoker [facility] Medications Ordered Filled Start Stop Current Ordering Indication Dosage Frequency Signature Comments Components Source Medication Medication Date Date Medication? Clinician (SIG) Name Name Benzonatate Benzonatate 2022-2022- No 1{capsu Benzonatat 200 MG 200 MG 07-22 le} e 200 MG 00:00: 00:00 00 :00 Simvastatin Simvastatin No Simvastati 20 MG 20 MG n 20 MG Ipratropium Ipratropium No 2{spray TID Ipratropiu [place] s_in_ea m [place] 0.06 % 0.06 % ch_nost 0.06 % [...] MG Ipratropium Ipratropium No 2{spray TID Ipratropiu [place] s_in_ea m [place] 0.06 % 0.06 % ch_nost 0.06 % [...] 100 MG Ipratropium Ipratropium No 2{spray TID [place] s_in_ea 0.06 % 0.06 % ch_nost ril} [...] MG Ipratropium Ipratropium No 2{spray TID Ipratropiu [place] s_in_ea m [place] 0.06 % 0.06 % ch_nost 0.06 % [...] MG Ipratropium Ipratropium No 2{spray TID Ipratropiu [place] s_in_ea m [place] 0.06 % 0.06 % ch_nost 0.06 % [...] MG Ipratropium Ipratropium No 2{spray TID Ipratropiu [place] s_in_ea m [place] 0.06 % 0.06 % ch_nost 0.06 % [...] - Ipratropium Ipratropium No 2{spray TID Ipratropiu [place] s_in_ea m [place] 0.06 % 0.06 % ch_nost 0.06 % [...] MG Ipratropium Ipratropium No 2{spray TID Ipratropiu [place] s_in_ea m [place] 0.06 % 0.06 % ch_nost 0.06 % [...] MG Ipratropium Ipratropium No 2{spray TID Ipratropiu [place] s_in_ea m [place] 0.06 % 0.06 % ch_nost 0.06 % [...] MOUTH - [facility]I EVERY DAY [facility] Ativan Ativan Yes Edward 1 tablet Commo n Villa at bedtime Spirit as needed - [facility]I [facility] Zioptan Zioptan Yes Edward not Common Villa defined [facility] Ipratropium Ipratropium Yes Edward 2 sprays Common [place] in each Spiri t nostril - [facility] Zyrtec Zyrtec Yes Edward 1 tablet Commo n Allergy Allergy Villa [facility] Famotidine Famotidine Yes Edward TAKE 1 Common [facility] TABLET BY Spirit MOUTH - CHI EVERY DAY [facility] AT BEDTIME [facility] NEEDED Medical Center Vitamin B12 Vitamin B12 Yes Edward 1 tablet Common Villa [facility] Donepezil Donepezil Yes Edward 1 tablet Common HCl HCl Villa at bedtime [facility] Aspir-Low Aspir-Low Yes Edward 1 tablet Common Villa [facility] Memantine Memantine Yes Edward 1 tablet Common HCl HCl Villa [facility] Omeprazole Omeprazole Yes Edward 1 tablet Common Villa [facility] Trazodone Trazodone Yes Edward 1-2 tablet Common HCl HCl Villa at bedtime [facility] PRN - [facility] Insomnia [facility] Centrum Centrum Yes Edward as Common Silver Silver Villa directed [facility] Losartan Losartan Yes Edward TAKE 1 Com mon Potassium Potassium Villa TABLET BY Spirit MOUTH - CHI EVERY DAY [facility] Losartan Losartan Yes Edward 1 tablet C ommon Potassium Potassium Villa Spir [facility] Omeprazole Omeprazole Yes Edward 1 tablet Common Villa [facility] Centrum Centrum No Centrum Silver - Silver - Silver - Immunizations Ordered Immunization Filled Immunization Date Status Commen ts Source Name Name FLUZONE HIGH DOSE FLUZONE HIGH DOSE 2022-03-26 Completed Common Spirit OVER 65 OVER 65 10:18:00 [facility] FLUZONE HIGH DOSE FLUZONE HIGH DOSE 2022-03-26 Completed Common Spirit OVER 65 OVER 65 10:18:00 [facility] FLUZONE HIGH DOSE FLUZONE HIGH DOSE 2022-03-26 Completed Common Spirit OVER 65 OVER 65 10:18:00 [facility] FLUZONE HIGH DOSE FLUZONE HIGH DOSE 2022-03-26 Completed Common Spirit OVER 65 OVER 65 10:18:00 [facility] FLUZONE HIGH DOSE FLUZONE HIGH DOSE 2022-03-26 Completed Common Spirit OVER 65 OVER 65 10:18:00 [facility] FLUZONE HIGH DOSE FLUZONE HIGH DOSE 2022-03-26 Completed Common Spirit OVER 65 OVER 65 10:18:00 [facility] Moderna COVID-19 Moderna COVID-19 2020-08-05 Completed Co mmon Spirit Vaccine Vaccine 14:02:00 - [facility] Moderna COVID-19 Moderna COVID-19 2020-08-05 Completed Co mmon Spirit Vaccine Vaccine 14:02:00 - [facility] Moderna COVID-19 Moderna COVID-19 2020-08-05 Completed Co mmon Spirit Vaccine Vaccine 14:02:00 - [facility] Moderna COVID-19 Moderna COVID-19 2020-08-05 Completed Co mmon Spirit Vaccine Vaccine 14:02:00 - [facility] Moderna COVID-19 Moderna COVID-19 2020-08-05 Completed Co mmon Spirit Vaccine Vaccine 14:02:00 - [facility] Moderna COVID-19 Moderna COVID-19 2020-08-05 Completed Co mmon Spirit Vaccine Vaccine 14:02:00 - [facility] Moderna COVID-19 Moderna COVID-19 2020-08-05 Completed Co mmon Spirit Vaccine Vaccine 14:02:00 - [facility] Moderna COVID-19 Moderna COVID-19 2020-08-05 Completed Co mmon Spirit Vaccine Vaccine 14:02:00 [facility] Moderna COVID-19 Moderna COVID-19 2020-08-05 Completed Co mmon Spirit Vaccine Vaccine 14:02:00 [facility] Moderna COVID-19 Moderna COVID-19 2020-07-05 Completed Co mmon Spirit Vaccine Vaccine 14:02:00 - [facility] Moderna COVID-19 Moderna COVID-19 2020-07-05 Completed Co mmon Spirit Vaccine Vaccine 14:02:00 [facility] Moderna COVID-19 Moderna COVID-19 2020-07-05 Completed Co mmon Spirit Vaccine Vaccine 14:02:00 [facility] Moderna COVID-19 Moderna COVID-19 2020-07-05 Completed Co mmon Spirit Vaccine Vaccine 14:02:00 [facility] Moderna COVID-19 Moderna COVID-19 2020-07-05 Completed Co mmon Spirit Vaccine Vaccine 14:02:00 [facility] Moderna COVID-19 Moderna COVID-19 2020-07-05 Completed Co mmon Spirit Vaccine Vaccine 14:02:00 - [facility] Moderna COVID-19 Moderna COVID-19 2020-07-05 Completed Co mmon Spirit Vaccine Vaccine 14:02:00 - [facility] Moderna COVID-19 Moderna COVID-19 2020-07-05 Completed Co mmon Spirit Vaccine Vaccine 14:02:00 - [facility] Moderna COVID-19 Moderna COVID-19 2020-07-05 Completed Co mmon Spirit Vaccine Vaccine 14:02:00 - [facility] Fluzone Fluzone 2020-03-05 Completed Common Spirit 14:04:00 - [facility] Fluzone Fluzone 2020-03-05 Completed Common Spirit 14:04:00 - [facility] Fluzone Fluzone 2020-03-05 Completed Common Spirit 14:04:00 - [facility] Fluzone Fluzone 2020-03-05 Completed Common Spirit 14:04:00 - [facility] Fluzone Fluzone 2020-03-05 Completed Common Spirit 14:04:00 - [facility] Fluzone Fluzone 2020-03-05 Completed Common Spirit 14:04:00 - [facility] Fluzone Fluzone 2020-03-05 Completed Common Spirit 14:04:00 - [facility] Fluzone Fluzone 2020-03-05 Completed Common Spirit 14:04:00 - [facility] Fluzone Fluzone 2020-03-05 Completed Common Spirit 14:04:00 - [facility] Pneumovax (PPSV23) Pneumovax (PPSV23) 2020-03-05 Completed Common Spirit 14:03:00 - [facility] Pneumovax (PPSV23) Pneumovax (PPSV23) 2020-03-05 Completed Common Spirit 14:03:00 [facility] Pneumovax (PPSV23) Pneumovax (PPSV23) 2020-03-05 Completed Common Spirit 14:03:00 - [facility] Pneumovax (PPSV23) Pneumovax (PPSV23) 2020-03-05 Completed Common Spirit 14:03:00 [facility] Pneumovax (PPSV23) Pneumovax (PPSV23) 2020-03-05 Completed Common Spirit 14:03:00 [facility] Pneumovax (PPSV23) Pneumovax (PPSV23) 2020-03-05 Completed Common Spirit 14:03:00 - [facility] Pneumovax (PPSV23) Pneumovax (PPSV23) 2020-03-05 Completed Common Spirit 14:03:00 [facility] Pneumovax (PPSV23) Pneumovax (PPSV23) 2020-03-05 Completed Common Spirit 14:03:00 [facility] Pneumovax (PPSV23) Pneumovax (PPSV23) 2020-03-05 Completed Common Spirit 14:03:00 - [facility] Shingrix Shingrix 2019-07-05 Completed Common Spirit 14:03:00 - [facility] Shingrix Shingrix 2019-07-05 Completed Common Spirit 14:03:00 - [facility] Shingrix Shingrix 2019-07-05 Completed Common Spirit 14:03:00 - [facility] Shingrix Shingrix 2019-07-05 Completed Common Spirit 14:03:00 - [facility] Shingrix Shingrix 2019-07-05 Completed Common Spirit 14:03:00 - [facility] Shingrix Shingrix 2019-07-05 Completed Common Spirit 14:03:00 - [facility] Shingrix Shingrix 2019-07-05 Completed Common Spirit 14:03:00 [facility] Shingrix Shingrix 2019-07-05 Completed Common Spirit 14:03:00 [facility] Shingrix Shingrix 2019-07-05 Completed Common Spirit 14:03:00 [facility] Vital Signs Vital Name Observation Time Observation Value Comments Source height 2022-03-26 09:30:00 64 [in_i] Common S pirit - [facility] weight 2022-03-26 09:30:00 145.8 [lb_av] Common [facility] temperature 2022-03-26 09:30:00 97.2 [degF] Common S pirit [facility] bmi 2022-03-26 09:30:00 25.02 kg/m2 [facility] 2022-03-26 09:30:00 96 % Common S pirit [facility] respiratory rate 2022-03-26 09:30:00 17 /min Comm on [facility] blood pressure 2022-03-26 09:30:00 115 mm[Hg] Common [facility] - systolic [facility] blood pressure 2022-03-26 09:30:00 69 mm[Hg] Common Spirit - diastolic [facility] height 2022-03-26 09:40:00 64 [in_i] Common [facility] weight 2022-03-26 09:40:00 145.8 [lb_av] [facility] temperature 2022-03-26 09:40:00 97.2 [degF] Common [facility] bmi 2022-03-26 09:40:00 25.02 kg/m2 Common S [facility] oximetry 2022-03-26 09:40:00 96 % Common [facility] respiratory rate 2022-03-26 09:40:00 17 /min Comm on [facility] blood pressure 2022-03-26 09:40:00 115 mm[Hg] Common [facility] - systolic [facility] blood pressure 2022-03-26 09:40:00 69 mm[Hg] Common Spirit - diastolic [facility] height 2021-09-24 10:30:00 64 [in_i] Common [facility] weight 2021-09-24 10:30:00 150.2 [lb_av] [facility] temperature 2021-09-24 10:30:00 96.8 [degF] Common S pirit [facility] bmi 2021-09-24 10:30:00 25.78 kg/m2 [facility] oximetry 2021-09-24 10:30:00 97 % [facility] respiratory rate 2021-09-24 10:30:00 18 /min Comm on [facility] blood pressure 2021-09-24 10:30:00 132 mm[Hg] Common [facility] - systolic [facility] blood pressure 2021-09-24 10:30:00 62 mm[Hg] Common [facility] - diastolic [facility] height 2021-03-25 10:00:00 64 [in_i] [facility] weight 2021-03-25 10:00:00 152.8 [lb_av] [facility] temperature 2021-03-25 10:00:00 97.0 [degF] [facility] bmi 2021-03-25 10:00:00 26.23 kg/m2 [facility] oximetry 2021-03-25 10:00:00 95 % [facility] respiratory rate 2021-03-25 10:00:00 18 /min Comm on [facility] blood pressure 2021-03-25 10:00:00 120 mm[Hg] [facility] systolic [facility] blood pressure 2021-03-25 10:00:00 62 mm[Hg] [facility] diastolic [facility] Procedures This patient has no known procedures. Encounters Start End Encounter Admission Attending Care Care Encounter Source Date/Time Date/Time Type Type Clinicians Facility Department ID 2021-09-12 [facility] [id number] Common 15:07:00 Edward [id number] [facility] 2021-07-30 Outpatient Villa, STLMLC ST[facility] [id number] Common 13:50:58 Edward [id number] [facility] 2021-07-30 Outpatient Villa, STLMLC STLC [id number] Common 12:25:19 Edward [id number] [facility] 2021-07-30 Outpatient Villa, STLMLC STLMLC [id number] Common 11:06:24 Edward [id number] [facility] 2021-07-30 Outpatient Villa, STLMLC STLMLC [id number] Common 11:00:55 Edward [id number] [facility] 2021-07-30 Outpatient Villa, STLMLC STLMLC [id number] Common 10:59:46 Edward 72192 [facility] 2021-07-30 Outpatient [facility], STLMLC STLMLC [id number] Common 10:57:45 Edward [id number] [facility] 2022-07-21 2022-07-21 (TEL) STLMLC STLMLC [id number] Co mmon 00:00:00 00:00:00 [facility] 2022-07-14 2022-07-14 (TEL) STLMLC STLMLC [id number] Co mmon 00:00:00 00:00:00 [facility] 2022-03-26 2022-03-26 OFFICE STLMLC STLMLC [id number] Co mmon 00:00:00 00:00:00 VISIT [facility] ESTAB PT - CHI LEVEL 4 [facility] 2022-03-26 2022-03-26 SUB ANNUAL STLMLC STLMLC [id number] Common 00:00:00 00:00:00 MCR [facility] WELLNESS - CHI VISIT [facility] 2021-09-24 2021-09-24 OFFICE STLMLC STLMLC [id number] Co mmon 00:00:00 00:00:00 VISIT Spirit ESTAB PT - CHI LEVEL 4 [facility] 2021-05-07 2021-05-07 (TEL) STLMLC STLMLC [id number] Co mmon 00:00:00 00:00:00 [facility] 2021-03-25 2021-03-25 Outpatient STLMLC STLMLC [id number] Common 00:00:00 00:00:00 [facility] 2021-03-25 2021-03-25 SUB ANNUAL STLMLC STLMLC [id number] Common 00:00:00 00:00:00 MCR Spirit WELLNESS - CHI VISIT [facility] 2020-11-27 2020-11-27 Outpatient STLMLC STLMLC [id number] Common 00:00:00 00:00:00 Spirit [facility] 2020-07-30 2020-07-30 Outpatient STLMLC STLMLC [id number] Common 00:00:00 00:00:00 [facility] 2020-03-07 2020-03-07 [id number] Common 09:00:00 09:00:[address] Sp[address] [facility] 2020-03-07 2020-03-07 [facility] [id number] Common 09:00:00 09:00:[address] Sp[address] [facility] 2019-11-15 2019-11-15 [facility] [id number] Common 10:30:00 10:30:[address] Sp[address] [facility] 2019-08-14 2019-08-14 [facility] [id number] Common 11:45:00 11:45:[address] Sp[address] [facility] 2019-07-31 2019-07-31 [facility] [id number] Common 14:12:00 14:12:[address] Sp[address] [facility] 2019-07-19 2019-07-19 [facility] [id number] Common 15:55:00 15:55:[address] Sp[address] [facility] 2019-07-13 2019-07-13 [facility] [id number] Common 09:30:00 09:30:[address] Sp[address] [facility] Results This patient has no known results.
[2022-08-07] MEDS ORDERED: D5W 100 ML IV ONE (16:00)
[2022-08-07] MEDS ORDERED: AMIODARONE HCL 150 MG/3 ML INJ IV ONE (16:00)
[2022-08-07] MEDS ORDERED: MAGNESIUM SULFATE 1 gm IVPB 1 GM/100 ML BAG IV ONE (16:00)
[2022-08-07] MEDS ORDERED: AMIODARONE IN DEXTROSE,ISO-OSM 360 MG/200 ML BAG IV ONE ×2 (16:00→21:18)
[2022-08-07 16:22] LABS: Absolute Lymphocytes (CBC) 1.7 K/uL (0.7-4.9); Hematocrit 39.3 % (36.0-45.0); Lymphocytes % 18.5 % (15.3-44.8); MCV 98.7 fL (80-100); MPV 7.7 fL (7.6-11.3); RBC Red Blood Cell Count 3.99 M/uL (3.86-4.86)
--- NOTE | 2022-08-07 16:27 | RAD REPORT ---
EXAM DESCRIPTION: Cheng Single View08/07/2022 4:15 pm CLINICAL HISTORY: Palpitations COMPARISON: July 2022 FINDINGS: Lungs appear clear of acute infiltrate. Heart is mildly enlarged Small bilateral pleural effusions
[2022-08-07 16:35] LABS: Potassium 3.6 mmol/L (3.5-5.1); Troponin High Sensitivity 18.9 pg/mL (<58.9)
--- NOTE | 2022-08-07 17:05 | EDPHYS ---
Physician Documentation [facility] Name: Tsering Hamilton Age: 82 yrs Sex: Female : 1940 Arrival Date: 08/07/2022 Time: 15:14 Bed 19 Private MD: Shikha Villa Saleem ED Physician Rigo Kuhn HPI: 08/07 15:45 This 82 yrs old Female presents to ER via Ambulatory with complaints of Irregular Pulse.rn 15:45 The patient presents with a history of heart racing. Context: The symptoms occur at rn rest. Onset: The symptoms/episode began/occurred yesterday. 16:48 Duration: The patient or guardian reports a single episode, that is still ongoing. rn Modifying factors: The symptoms are aggravated by nothing. The symptoms are alleviated by nothing. Associated signs and symptoms: Pertinent positives: SOB, Pertinent negatives: chest pain, cough, fever. Severity of symptoms: At their worst the symptoms were moderate in the emergency department the symptoms are unchanged. The patient has experienced a previous episode. The patient has been recently been admitted at [facility]. Pt with recent admission for new onset afib with rvr, sent home on amiodarone, returns with palpitations and sob. Taking amiodarone. . Historical: - Allergies: 15:33 Codeine; jl7 15:33 Tessalon Perles; jl7 - Home Meds: 15:33 spironolactone 25 mg Oral tab 1 tab once daily [Active]; amiodarone 200 mg Oral tab 1 jl7 tab once daily [Active]; Eliquis 5 mg oral tab 1 tab 2 times per day [Active]; furosemide 40 mg Oral tab 1 tab once daily [Active]; donepezil 10 mg oral tab [Active]; losartan 100 mg oral tab 1 tab once daily [Active]; Namenda 10 mg oral tab 2 times per day [Active]; simvastatin 20 mg oral tab once daily [Active]; - PMHx: 15:33 Dementia; High Cholesterol; Hypertension; restasis; TIA; Atrial fibrillation; jl7 Congestive heart failure; - Immunization history:: Client reports receiving the 2nd dose of the Covid vaccine. - Social history:: Smoking status: Patient denies any tobacco usage or history of. - Family history:: not pertinent. - Hospitalizations: : The patient was recently seen at [facility]. ROS: 16:48 Constitutional: Negative for fever, chills, and weight loss, Eyes: Negative for injury, rn pain, redness, and discharge, Cardiovascular: Negative for chest pain, and edema, Respiratory: Negative for cough, wheezing, and pleuritic chest pain, Abdomen/GI: Negative for abdominal pain, nausea, vomiting, diarrhea, and constipation, Back: Negative for injury and pain, MS/Extremity: Negative for injury and deformity, Skin: Negative for injury, rash, and discoloration, Neuro: Negative for headache, numbness, tingling, and seizure. Exam: 16:48 Constitutional: This is a well developed, well nourished patient who is awake, alert, rn and in no acute distress. Head/Face: Normocephalic, atraumatic. Cardiovascular: Tachycardic, irregular Respiratory: No increased work of breathing, no retractions or nasal flaring. Abdomen/GI: soft, non-tender Skin: Warm, dry MS/ Extremity: Pulses equal, no cyanosis. Neuro: Awake and alert, GCS 15 18:08 ECG was reviewed by the Attending Physician. rn Vital Signs: 15:32 BP 143 / 76; Pulse 153; Resp 17 S; Pulse Ox 98% on R/A; Weight 68.49 kg (R); Height 5 jl7 ft. 3 in. (160.02 cm) (R); Pain 0/10; 15:52 Temp 99.1(O); kr3 16:19 BP 133 / 84; Pulse 144; Resp 15; Pulse Ox 97% ; kr3 17:30 BP 141 / 96; Pulse 133; Resp 17; Pulse Ox 99% on R/A; kr3 15:32 Body Mass Index 26.75 (68.49 kg, 160.02 cm) jl7 MDM: 15:25 Patient medically screened. rn 15:51 Differential diagnosis: arrythmia, dehydration, afib with rvr. Data reviewed: vital rn signs, nurses notes. Management of patient was discussed with the following: Bilingual Nanny: Discussed case and management with Dr. Germain, requests amiodarone load with 150 then drip be started. Recommends against cardioversion at this time.. 16:48 Independent interpretation of the following test(s) in the Emergency Department EKG: rn See my EKG interpretation above X-Ray: My interpretation is CXR neg for pneumothorax or pneumonia. Counseling: I had a detailed discussion with the patient and/or guardian regarding: the historical points, exam findings, and any diagnostic results supporting the discharge/admit diagnosis, lab results, radiology results, the need for further work-up and treatment in the hospital. Response to treatment: the patient's symptoms have mildly improved after treatment. 08/07 15:43 Order name: Basic Metabolic Panel; Complete Time: 16:48 rn 08/07 15:43 Order name: CBC with Diff; Complete Time: 16:28 rn 08/07 15:43 Order name: Troponin HS; Complete Time: 16:48 rn 08/07 15:43 Order name: BNP; Complete Time: 16:48 rn 08/07 18:10 Order name: Magnesium la1 08/07 18:11 Order name: LFT's la1 08/07 15:43 Order name: XRAY Chest (1 view); Complete Time: 16:28 rn 08/07 18:11 Order name: PT-INR la1 08/07 18:50 Order name: SARS RAPID eb 08/08 03:01 Order name: CBC with Automated Diff EDMS 08/08 03:07 Order name: Basic Metabolic Panel EDMS 08/08 03:07 Order name: Magnesium EDMS 08/07 15:43 Order name: EKG; Complete Time: 15:46 rn 08/07 15:43 Order name: Cardiac monitoring; Complete Time: 15:52 rn 08/07 15:43 Order name: EKG - Nurse/Tech; Complete Time: 15:50 rn 08/07 15:43 Order name: IV Saline Lock; Complete Time: 16:21 rn 08/07 15:43 Order name: Labs collected and sent; Complete Time: 16:21 rn 08/07 15:43 Order name: O2 Per Protocol; Complete Time: 15:53 rn 08/07 15:43 Order name: O2 Sat Monitoring; Complete Time: 15:53 rn EC:08 Rate is 159 beats/min. Rhythm is irregularly irregular. QRS [place] is Normal. QRS rn interval is normal. QT interval is normal. No Q waves. No ST changes noted. Clinical impression: Atrial Fibrillation. Interpreted by me. Reviewed by me. Administered Medications: 16:08 Drug: amiodarone 150 mg Volume: 100 ml; Route: IVPB; Infused Over: 10 mins; Site: left kr3 forearm; 16:18 Follow up: Response: No adverse reaction; IV Status: Completed infusion kr3 16:15 Drug: Magnesium Sulfate 1 grams Route: IVPB; Infused Over: 1 hrs; Site: right forearm; kr3 16:20 Drug: amiodarone 900 mg, D5W 500 ml Route: IVPB; Rate: 1 mg/min; Site: left forearm; kr3 20:39 Drug: Potassium Chloride 40 mEq Route: PO; ad6 Disposition Summary: 08/07/22 17:04 Hospitalization Ordered Hospitalization Status: Observation rn Provider: Charles Kuhn rn Condition: Stable rn Problem: an acute exacerbation rn Symptoms: have improved rn Bed/Room Type: Standard rn Location: Telemetry/MedSurg (observation)(08/08/22 02:21) cg Room Assignment: [facility](08/08/22 02:21) cg Diagnosis - Paroxysmal atrial fibrillation - with RVR rn - Dyspnea, unspecified rn Forms: - Medication Reconciliation Form rn - SBAR form rn advanced time excluding procedures: 16:48 Critical care time: Bedside Care: 35 minutes, Consultation: 6 minutes. Total time: 41 rn minutes Signatures: Dispatcher [employer] EDMS Rigo Kuhn MD MD rn Attema, Lee, CONSERVATION POLICY ANALYST-C CONSERVATION POLICY ANALYST-Cla1 Lillian Damon, RN RN Jackelin Christensen RN RN jl7 Dalia Tyson, RN RN kr3 Sadie Nunes, RN RN ad6 Corrections: (The following items were deleted from the chart) 18:33 17:04 Telemetry/MedSurg (observation) bobby bernard 18:33 17:04 bobby bernard 08/08 02:21 08/07 18:33 [facility] ER HOLD marco antonio cg 08/08 02:08/07 18:33 ERHOLD- marco antonio cg
--- NOTE | 2022-08-07 17:05 | ER ---
Nurse's Notes [facility] Name: Tsering Hamilton Age: 82 yrs Sex: Female : 1940 Arrival Date: 08/07/2022 Time: 15:14 Bed 19 Private MD: Edward Villa; Ollie Germain Diagnosis: Paroxysmal atrial fibrillation-with RVR;Dyspnea, unspecified Presentation: 08/07 15:32 Chief complaint: Patient states: HR and BP was elevated and Dr. Villa said to return to [facility] ER, pt denies palpitations. Coronavirus screen: At this time, the client does not indicate any symptoms associated with coronavirus-19. Ebola Screen: No symptoms or risks identified at this time. Initial Sepsis Screen: Does the patient meet any 2 criteria? No. Patient's initial sepsis screen is negative. Does the patient have a suspected source of infection? No. Patient's initial sepsis screen is negative. Risk Assessment: Do you want to hurt yourself or someone else? Patient reports no desire to harm self or others. Onset of symptoms is unknown. Care prior to arrival: None. 15:32 Method Of Arrival: Ambulatory [facility] 15:32 Acuity: TALI 2 [facility] Triage Assessment: 15:33 General: Appears in no apparent distress. uncomfortable, Behavior is calm, cooperative, jl7 appropriate for age. Pain: Denies pain. Cardiovascular: Denies palpitations, Rhythm is atrial fibrillation with rapid ventricular response. Historical: - Allergies: 15:33 Codeine; jl7 15:33 Tessalon Perles; jl7 - Home Meds: 15:33 spironolactone 25 mg Oral tab 1 tab once daily [Active]; amiodarone 200 mg Oral tab 1 jl7 tab once daily [Active]; Eliquis 5 mg oral tab 1 tab 2 times per day [Active]; furosemide 40 mg Oral tab 1 tab once daily [Active]; donepezil 10 mg oral tab [Active]; losartan 100 mg oral tab 1 tab once daily [Active]; Namenda 10 mg oral tab 2 times per day [Active]; simvastatin 20 mg oral tab once daily [Active]; - PMHx: 15:33 Dementia; High Cholesterol; Hypertension; restasis; TIA; Atrial fibrillation; jl7 Congestive heart failure; - Immunization history:: Client reports receiving the 2nd dose of the Covid vaccine. - Social history:: Smoking status: Patient denies any tobacco usage or history of. - Family history:: not pertinent. - Hospitalizations: : The patient was recently seen at [facility]. Assessment: 15:30 Reassessment: Dr. Kuhn at bedside. kr3 15:53 Reassessment: Dr. Germain at bedside. kr3 Vital Signs: 15:32 BP 143 / 76; Pulse 153; Resp 17 S; Pulse Ox 98% on R/A; Weight 68.49 kg (R); Height 5 jl7 ft. 3 in. (160.02 cm) (R); Pain 0/10; 15:52 Temp 99.1(O); kr3 16:19 BP 133 / 84; Pulse 144; Resp 15; Pulse Ox 97% ; kr3 17:30 BP 141 / 96; Pulse 133; Resp 17; Pulse Ox 99% on R/A; kr3 15:32 Body Mass Index 26.75 (68.49 kg, 160.02 cm) jl7 ED Course: 15:14 Patient arrived in ED. as 15:16 Edward Villa DO is Private Physician. as 15:16 Ollie Germain MD is Private Physician. as 15:24 Rigo Kuhn MD is Attending Physician. rn 15:33 Triage completed. jl7 15:33 EKG done, by ED staff, reviewed by Rigo Kuhn MD. zm 15:33 Arm band placed on right wrist. jl7 15:40 EKG completed in triage. Results shown to MD. jl7 15:52 Dalia Tyson, GISEL is Primary Nurse. kr3 16:05 Initial lab(s) drawn, by ne, sent to lab. Inserted saline lock: 20 gauge in left jl7 forearm, using aseptic technique. Blood collected. 16:10 Inserted saline lock: 20 gauge in right forearm, using aseptic technique. jl7 16:17 XRAY Chest (1 view) In Process Unspecified. EDMS 17:04 Charles Kuhn MD is Hospitalizing Provider. rn 19:29 Primary Nurse role handed off by Dalia Tyson, GISEL jl7 Administered Medications: 16:08 Drug: amiodarone 150 mg Volume: 100 ml; Route: IVPB; Infused Over: 10 mins; Site: left kr3 forearm; 16:18 Follow up: Response: No adverse reaction; IV Status: Completed infusion kr3 16:15 Drug: Magnesium Sulfate 1 grams Route: IVPB; Infused Over: 1 hrs; Site: right forearm; kr3 16:20 Drug: amiodarone 900 mg, D5W 500 ml Route: IVPB; Rate: 1 mg/min; Site: left forearm; kr3 20:39 Drug: Potassium Chloride 40 mEq Route: PO; ad6 Outcome: 17:04 Decision to Hospitalize by Provider. rn 08/08 03:19 Patient left the ED. tw5 Signatures: Dispatcher [employer] Koki Borrero Roman, MD MD rn Leal, Jahala, RN RN jl7 Wood, Tiffany tw5 Sofie Mcnally Kelley, RN RN kr3 Sadie Nunes RN RN ad6
--- NOTE | 2022-08-07 19:05 | P.HP ---
Certification for Inpatient Patient admitted to: Observation With expected LOS: <2 Midnights Patient will require the following post-hospital care: None Practitioner: I am a practitioner with admitting privileges, knowledge of patient current condition, hospital course, and medical plan of care. Services: Services provided to patient in accordance with Admission requirements found in Title 42 Section 412.3 of the Code of Federal Regulations Patient History Date of Service: 08/07/22 Reason for admission: A-fib RVR History of Present Illness: 82-year-old female with recently diagnosed history of chronic diastolic congestive heart failure, A-fib RVR on chronic anticoagulation, GERD, dementia, hypertension, hyperlipidemia who was admitted on 08/03/2022 and subsequently discharged on 08/05/2022 for A-fib RVR, new onset CHF noticed that for the following 2 days after admission her heart rate was running very high she is having anxiety, palpitations, that reason she came back to the emergency department it was noted that she was in A-fib RVR with a rate of between 140 and 150. ED staff consulted with cardiology who recommended patient be placed on amiodarone drip and admitted for further evaluation. Her labs in the ED were significant for elevated BNP 1533, potassium 3.6 magnesium level pending. Chest x-ray shows lungs appear clear of acute infiltrate, heart is mildly enlarged, small bilateral pleural effusions. Patient does have mild lower extremity edema she does report orthopnea and dyspnea on exertion. Will admit for further evalu ation and management of A-fib RVR. Allergies No Known Allergies Allergy (Verified 10/24/20 09:41) Home Medications: Losartan Potassium [Cozaar] 100 mg PO DAILY 12/09/17 Memantine HCl [Namenda*] 10 mg PO BID 12/09/17 Multivit,Ther Iron,Ca,FA & Min [Centrum Tablet*] 1 tab PO DAILY 12/09/17 Cholecalciferol (Vitamin D3) [Vitamin D3] 5,000 unit PO DAILY 08/30/19 Docusate Sodium [Stool Softener] 100 mg PO BID 08/30/19 Donepezil [Aricept*] 10 mg PO BID 08/30/19 Estradiol [Estrace] 42.5 gm VG SEECOM 08/30/19 Omeprazole [Prilosec] 40 mg PO DAILY 08/30/19 Tafluprost/Pf [Zioptan 0.0015% Eye Drops] 1 each OP BEDTIME 08/30/19 Trazodone [Desyrel*] 50 mg PO BEDTIME PRN 08/30/19 Ipratropium [Atrovent 0.03% (21MCG)/[place] Nasal*] 60 sprays NS TID PRN 10/24/20 Simvastatin 20 mg PO BEDTIME 10/24/20 Amiodarone HCl [Cordarone*] 200 mg PO DAILY 30 Days #30 tab 08/05/22 Apixaban [Eliquis] 5 mg PO BID 30 Days #60 tab 08/05/22 Furosemide [Lasix*] 40 mg PO DAILY 30 Days #30 tab 08/05/22 Spironolactone [Aldactone*] 25 mg PO DAILY 30 Days #30 tab 08/05/22 - Past Medical/Surgical History Diabetic: No -: Hypertension -: Hypercholesteronemia -: Glaucoma -: TIA -: A-fib on chronic anticoagulation -: Chronic diastolic congestive heart failure -: Dementia -: Cataract -: Bilateral Tubal Ligation with Appendectomy -: Dilation and Curettage Psychosocial/ Personal History: Patient lives at home with her - Family History Father -: Heart disease Notes: Heart Failure Mother -: Cancer Notes: Esophageal Cancer Sister -: Heart disease Notes: Rheumatoid Arthritis - Social History Smoking Status: Never smoker Alcohol use: No CD- Drugs: No Caffeine use: Yes Place of Residence: Home Review of Systems 10-point ROS is otherwise unremarkable General: Other (Anxiety) Respiratory: SOB with Excertion Cardiovascular: Palpitations, Orthopnea Physical Examination - Physical Exam General: Alert, In no apparent distress, Oriented x3 HEENT: Atraumatic, PERRLA, Mucous membr. moist/pink, EOMI, Sclerae nonicteric Neck: Supple, 2+ carotid pulse no bruit, No LAD, Without JVD or thyroid abnormality Respiratory: Clear to auscultation bilaterally, Normal air movement Cardiovascular: Irregular heart rate/rhythm (A-fib RVR rate 145) Capillary refill: <2 Seconds Gastrointestinal: Normal bowel sounds, No tenderness Musculoskeletal: No tenderness Integumentary: No rashes Neurological: Normal speech, Normal strength at 5/5 x4 extr, Normal tone, Normal affect - Studies Laboratory Data (last 24 hrs) 08/07/22 16:03: WBC 9.30, Hgb 13.1, Hct 39.3, Plt Count 183 08/07/22 16:03: Sodium 142, Potassium 3.6, BUN 20 H, Creatinine 0.86, Glucose 126 H Assessment and Plan - Plan Assessment: Atrial fibrillation with rapid ventricular responseon chronic anticoagulation Acute on chronic diastolic congestive heart failure Hypertension Hyperlipidemia GERD Dementia Plan: Atrial fibrillation with rapid ventricular responseon chronic anticoagulation Started on IV Amio in the emergency department, continue amiodarone drip. Patient was discharged on oral amiodarone previously, also continue Eliquis. Monitor on telemetry. Cardiology consulted. Echocardiogram recently performed showed EF of 53%, moderate pulmonary hypertension and moderate diastolic dysfunction. Acute on chronic diastolic congestive heart failure Recently diagnosed with CHF, continue gentle diuresis. Appreciate further per from cardiology Hypertension Continue medications as appropriate, patient did have hypotension during previous admission we will hold off on oral antihypertensive agents until blood pressure and heart rate have improved. Hyperlipidemia GERD Dementia Continue home meds DVT PPX: Eliquis Code status: Full Discharge Plan: Home Plan to discharge in: 24 Hours - Advance Directives Does patient have a Living Will: No Does patient have a Durable POA for Healthcare: Yes - Code Status/Comfort Care Code Status Assessed: Yes (Full code) Critical Care: No Time Spent Managing Pts Care (In Minutes): 70
[2022-08-07] MEDS ORDERED: ONDANSETRON 4 MG/2 ML VIAL IV PRN (19:45)
[2022-08-07] MEDS ORDERED: AMIODARONE HCL 900 MG in Dextrose 5%-Water 482 ML IV SCH (19:45)
[2022-08-07 19:48] LABS: Protime INR 1.33
[2022-08-07 19:50] LABS: Albumin 3.5 g/dL (3.4-5.0); Bilirubin Direct 0.2 mg/dL (0-0.2); Bilirubin Total 0.4 mg/dL (0.2-1.0); Magnesium 2.6 mg/dL (1.6-2.4); Protein, Total 6.3 g/dL (6.4-8.2)
[2022-08-07 19:57] LABS: SARS-CoV-2 Antigen Rapid Res Negative (Negative)
[2022-08-07] MEDS ORDERED: POTASSIUM CL SA 10 MEQ TAB PO ONE (20:30)
--- NOTE | 2022-08-07 20:58 | CON ---
Date of Consultation: 08/07/2022 Reason For Consultation: Atrial fibrillation. History Of Present Illness: An 82-year-old female status post recent discharge from the hospital. S he had a recent defibrillation with rapid ventricular response. However, she was loaded partially wi th amiodarone and converted to sinus rhythm. She has history of hypertension, dyslipidemia, dementia , recent COVID, acid reflux, presented with significant palpitations, feels very weak. Denies having any chest pain. Has mild shortness of breath and she is also known to have a diastolic congestive h eart failure. Past Medical History: As outlined above in HPI. Medications: Refer reconciliation sheet for detailed list. Allergies: NO KNOWN DRUG ALLERGIES. Family History: No premature coronary artery disease or cancer. Social History: She does not smoke or drink. Does not use any drugs. Review of Systems: All systems reviewed are negative except mentioned in HPI. Physical Examination: Vital Signs: Reviewed. Head and Neck: Pupils are equal, reactive to light. Intact eye movements. No JVD. No cervical lym phadenopathy. Neck is supple. Thyroid is not enlarged. Lungs: Clear to auscultation bilaterally. No wheezing, crackles. No accessory muscle use. Heart: Irregularly irregular. No extra sounds. Abdomen: Soft, nontender. Bowel sounds positive. No organomegaly. No masses or hernia. No rigidi ty or rebound. Extremities: No clubbing, cyanosis. Trace edema. Neurologic: Alert, awake, oriented x3. No acute focal deficits appreciated. Investigations: Labs are pending. Assessment/recommendations: 1.Atrial fibrillation with rapid ventricular response. Heart rate is in the 150s. Recommend to rel oad with IV amiodarone 150 mg over 10 minutes and 1 mg/minute for 6 hours and then 0.5 mg/minute for 16 hours and creatinine is normal to be put on Eliquis 5 mg twice a day. 2.Diastolic congestive heart failure. She appears to be euvolemic. Low-dose Lasix 20 mg daily is r ecommended. 3.COVID. She needs to be in isolation. SR/MODL Voice ID: [id number] Report ID: [id number]
[2022-08-07 21:07] VITALS: BMI 26.5
[2022-08-07] MEDS ORDERED: TRAZODONE 50 MG TABLET PO PRN (21:33)
[2022-08-07] MEDS ORDERED: APIXABAN 5 MG TABLET ONE (22:14)
[2022-08-07] MEDS: DONEPEZIL HCL 5 MG TAB PO SCH (23:00)
[2022-08-07] MEDS: APIXABAN 5 MG TABLET PO SCH (23:00)
[2022-08-07] MEDS: MEMANTINE HCL 10 MG TABLET PO SCH (23:00)
[2022-08-08 00:11] VITALS: O2SAT 96
[2022-08-08 02:54] LABS: Hematocrit 35.8 % (36.0-45.0); Lymphocytes % 29.5 % (15.3-44.8); MCV 98.8 fL (80-100); MPV 7.6 fL (7.6-11.3); RBC Red Blood Cell Count 3.62 M/uL (3.86-4.86)
[2022-08-08 03:03] LABS: Magnesium 2.5 mg/dL (1.6-2.4); Potassium 3.7 mmol/L (3.5-5.1)
[2022-08-08] MEDS ORDERED: POTASSIUM CL SA 10 MEQ TAB PO ONE (03:43)
[2022-08-08] MEDS ORDERED: FUROSEMIDE 20 MG/ 2ML VIAL IV SCH (09:00)
[2022-08-08] MEDS ORDERED: AMIODARONE HCL 200 MG TAB PO SCH (09:00)
[2022-08-08] MEDS: DONEPEZIL HCL 5 MG TAB PO SCH ×2 (09:43→21:53)
[2022-08-08] MEDS: DOCUSATE NA 100 MG CAP PO SCH ×2 (09:43→21:53)
[2022-08-08] MEDS: MEMANTINE HCL 10 MG TABLET PO SCH ×2 (09:44→21:53)
[2022-08-08] MEDS: APIXABAN 5 MG TABLET PO SCH ×2 (09:44→21:54)
[2022-08-08] MEDS ORDERED: AMIODARONE HCL 900 MG in Dextrose 5%-Water 482 ML IV SCH (14:30)
[2022-08-08] MEDS: ATORVASTATIN 20 MG TAB PO SCH (21:54)
--- NOTE | 2022-08-08 22:03 | P.PN ---
Date of Service: 08/08/22 Subjective: no acute events overnight converted to sinus rhythm overnight. bradycardic to high 40s blood pressure down to 90s systolic amio drip discontinued, vitals improved ROS: A complete review of systems was performed and is negative except as mentioned above Physical Exam: Gen: NAD, AOx3 HEENT: normal conjunctiva, sclera anicteric CV: regular rate & rhythm, no edema Pulm: non-labored respirations, clear bilaterally Abd: soft, non-tender, non-distended Neuro: normal speech, normal affect, moves all extremities vitals reviewed Problem List Atrial fibrillation with rapid ventricular responseon chronic anticoagulation Acute on chronic diastolic congestive heart failure Hypertension Hyperlipidemia GERD Dementia AFib with RVR unable to undergo full IV load last hospitalization due to HR/hypotension, but was monitored >24hrs in sinus rhythm and on oral amio again was taken off amio drip early restarted on oral, vitals improved cardio consulted, restart IV load at 0.5 continue eliquis continue home meds hold anti-hypertensives VTE: eliquis Code: full Dispo: home, ~1 day
[2022-08-08] MEDS ORDERED: HYDRALAZINE HCL 20 MG/ML VIAL IV ONE (23:01)
[2022-08-09 04:32] LABS: Magnesium 2.4 mg/dL (1.6-2.4); Potassium 3.8 mmol/L (3.5-5.1)
[2022-08-09] MEDS ORDERED: POTASSIUM CL SA 10 MEQ TAB PO ONE (09:00)
[2022-08-09] MEDS: DONEPEZIL HCL 5 MG TAB PO SCH ×2 (09:41→22:00)
[2022-08-09] MEDS: APIXABAN 5 MG TABLET PO SCH ×2 (09:41→22:00)
[2022-08-09] MEDS: MEMANTINE HCL 10 MG TABLET PO SCH ×2 (09:41→21:00)
[2022-08-09] MEDS: DOCUSATE NA 100 MG CAP PO SCH ×2 (09:42→22:01)
[2022-08-09] MEDS ORDERED: LOSARTAN POTASSIUM 50 MG TABLET PO ONE (16:30)
--- NOTE | 2022-08-09 17:28 | P.PN ---
Date of Service: 08/09/22 Subjective: HTN to 200/100 overnight, felt "bad", short of breath, nothing more specific diuresing well weight down remains in sinus rhythm, on amio drip hypertensive ROS: A complete review of systems was performed and is negative except as mentioned above Physical Exam: Gen: NAD, AOx3 HEENT: normal conjunctiva, sclera anicteric CV: regular rate & rhythm, trace b/l pedal edema Pulm: non-labored respirations, clear bilaterally Abd: soft, non-tender, non-distended Neuro: normal speech, normal affect, moves all extremities vitals reviewed Problem List Atrial fibrillation with rapid ventricular responseon chronic anticoagulation Acute on chronic diastolic congestive heart failure Hypertension Hyperlipidemia GERD Dementia AFib with RVR unable to undergo full IV load last hospitalization due to HR/hypotension, but was monitored >24hrs in sinus rhythm and on oral amio again was taken off amio drip early restarted on oral, vitals improved cardio consulted, restart IV load at 0.5 on 08/08, completes 24hrs today, transition back to oral, monitor overnight patient again hypertensive, restart home losartan; IV PRN if needed continue eliquis continue home meds restart anti-hypertensives VTE: eliquis Code: full Dispo: home, ~1 day
[2022-08-09] MEDS: ATORVASTATIN 20 MG TAB PO SCH (22:00)
[2022-08-09] MEDS ORDERED: MELATONIN 5 MG TABLET PO PRN (23:40)
[2022-08-09] MEDS ORDERED: ACETAMINOPHEN 500 MG TAB PO PRN (23:41)
[2022-08-10 04:03] LABS: Magnesium 2.5 mg/dL (1.6-2.4); Potassium 4.3 mmol/L (3.5-5.1)
[2022-08-10] MEDS ORDERED: FUROSEMIDE 20 MG TABLET PO SCH (09:00)
[2022-08-10] MEDS ORDERED: LOSARTAN POTASSIUM 50 MG TABLET PO SCH (09:00)
[2022-08-10] MEDS ORDERED: AMIODARONE HCL 200 MG TAB PO SCH (09:00)
[2022-08-10] MEDS: DOCUSATE NA 100 MG CAP PO SCH (09:50)
[2022-08-10] MEDS: MEMANTINE HCL 10 MG TABLET PO SCH (09:51)
[2022-08-10] MEDS: APIXABAN 5 MG TABLET PO SCH (09:51)
[2022-08-10] MEDS: DONEPEZIL HCL 5 MG TAB PO SCH (09:51)
[2022-08-10] MEDS ORDERED: SPIRONOLACTONE 25 MG TABLET PO ONE (13:30)
[2022-08-10 16:55] VITALS: BP 172/72; TEMP 98.6
[2022-08-10] MEDS ORDERED: AMLODIPINE 5 MG TAB PO ONE (18:00)
[2022-08-10] MEDS ORDERED: AMIODARONE HCL 200 MG TAB PO ONE (18:10)
== END 2022-08-10 18:59 | disposition home or self-care (01) | DRG 308 ==
LOC: ER 15:12 → ERHOLD 18:45 → 4TH 08-08 02:41 → OBSVTOIN 08-09 11:50
PROVIDERS: ADMIT Hospitalist; ATTEND Hospitalist
DX: I48.91 Unspecified atrial fibrillation (principal); I50.33 Acute on chronic diastolic (congestive) heart failure; I11.0 Hypertensive heart disease with heart failure; K21.9 Gastro-esophageal reflux disease without esophagitis; F03.90 Unspecified dementia, unspecified severity, without behavioral disturbance, psychotic disturbance, mood disturbance, and anxiety; E78.00 Pure hypercholesterolemia, unspecified; F41.9 Anxiety disorder, unspecified; H40.9 Unspecified glaucoma; Z79.01 Long term (current) use of anticoagulants; Z79.899 Other long term (current) drug therapy; Z86.16 Personal history of COVID-19; Z86.73 Personal history of transient ischemic attack (TIA), and cerebral infarction without residual deficits; Z82.49 Family history of ischemic heart disease and other diseases of the circulatory system; Z80.0 Family history of malignant neoplasm of digestive organs; Z82.61 Family history of arthritis
CPT/HCPCS: 36415; 71045; 80048; 80076; 83735; 83880; 84484; 85025; 85610; 87811; 93005; 99284; G0378; J0282; J0360; J3475; J7060

== ENCOUNTER 2022-09-01 20:35 | Inpatient (IN) | payer OTHER, MEDICARE ==
[2022-09-01] MEDS ORDERED: LEVALBUTEROL 0.63 MG/3 ML NEB ONE (22:24)
[2022-09-01] MEDS ORDERED: dilTIAZem HCL 25 MG/5 ML VIAL IV ONE ×2 (22:25→23:26)
--- NOTE | 2022-09-01 22:31 | RAD REPORT ---
EXAM DESCRIPTION: RAD - Chest Single View - 09/01/2022 10:26 pm CLINICAL HISTORY: COUGH COMPARISON: Chest Single View dated 08/07/2022; Chest Single View dated 08/03/2022; Chest Pa And Lat (2 Views) dated 07/13/2022; Chest Single View dated 12/09/2017 FINDINGS: Lines: None. Lungs: No evidence of edema or pneumonia. Linear scarring in the left mid lung. Pleural: Pleural effusions no longer identified. Cardiac: Cardiomegaly. Mediastinum: Within normal limits. Bones: No acute fractures. Other: None IMPRESSION: No acute cardiopulmonary disease.
[2022-09-01 22:56] LABS: Absolute Lymphocytes (CBC) 2.9 K/uL (0.7-4.9); Hematocrit 44.7 % (36.0-45.0); Lymphocytes % 33.6 % (15.3-44.8); MCV 96.5 fL (80-100); MPV 8.4 fL (7.6-11.3); RBC Red Blood Cell Count 4.63 M/uL (3.86-4.86)
[2022-09-01 23:43] LABS: Albumin 3.8 g/dL (3.4-5.0); Bilirubin Total 0.3 mg/dL (0.2-1.0); Magnesium 2.3 mg/dL (1.6-2.4); Potassium 3.2 mmol/L (3.5-5.1); Troponin High Sensitivity 18.6 pg/mL (<58.9)
--- NOTE | 2022-09-02 00:14 | ER ---
Nurse's Notes [facility] Name: Tsering Hamilton Age: 82 yrs Sex: Female : 1940 Arrival Date: 09/01/2022 Time: 20:39 Bed 15 Private MD: Diagnosis: Unspecified atrial fibrillation Presentation: 09/01 21:50 Chief complaint: Patient states: My heart rate was around 154. I just left here a few kd3 weeks ago and diagnosed with AFIB. Chief complaint: Patient states: my doctor did take me off of the amiodarone. 21:50 Method Of Arrival: Ambulatory kd3 21:53 Coronavirus screen: Vaccine status: Patient reports receiving the 2nd dose of the covid kd3 vaccine. Ebola Screen: No symptoms or risks identified at this time. Initial Sepsis Screen: Does the patient meet any 2 criteria? No. Patient's initial sepsis screen is negative. Does the patient have a suspected source of infection? No. Patient's initial sepsis screen is negative. Risk Assessment: Do you want to hurt yourself or someone else? Patient reports no desire to harm self or others. Onset of symptoms was September 01, 2022. 21:53 Acuity: TALI 3 kd3 Triage Assessment: 21:54 General: Appears in no apparent distress. Behavior is calm, cooperative. Pain: Denies kd3 pain. Historical: - Allergies: 21:54 Codeine; kd3 21:54 Tessalon Perles; kd3 - PMHx: 21:54 Atrial fibrillation; Hypertension; Dementia; High Cholesterol; Congestive heart kd3 failure; restasis; TIA; - Immunization history:: Adult Immunizations up to date. - Social history:: Smoking status: unknown. - Family history:: not pertinent. Screenin:10 Abuse screen: Denies threats or abuse. Denies injuries from another. Nutritional aa9 screening: No deficits noted. Tuberculosis screening: No symptoms or risk factors identified. Assessment: 22:20 General: Appears comfortable, well groomed, Behavior is calm, cooperative, appropriate aa9 for age. Neuro: Level of Consciousness is awake, alert, obeys commands, Oriented to person, place, time, situation. Cardiovascular: Patient's skin is warm and dry. Rhythm is atrial fibrillation. Respiratory: Reports cough that is productive, Airway is patent Respiratory effort is even, unlabored, Sputum is thin. GI: No signs and/or symptoms were reported involving the gastrointestinal system. : No signs and/or symptoms were reported regarding the genitourinary system. Derm: Skin is intact, is fragile, is thin. 23:41 Reassessment: Patient appears in no apparent distress at this time. Patient and/or aa9 family updated on plan of care and expected duration. Pain level reassessed. Patient denies pain at this time. Vital Signs: 21:50 BP 137 / 97; Pulse 82; Resp 19; Temp 98.7; Pulse Ox 99% on R/A; kd3 22:35 BP 131 / 88; Pulse 125; Resp 19 S; Pulse Ox 100% on Nebulizer Mask; aa9 22:52 BP 125 / 95; Pulse 130; Resp 19; Pulse Ox 100% on Nebulizer Mask; aa9 23:30 BP 139 / 91; Pulse 134; Resp 20; Pulse Ox 95% on R/A; aa9 09/02 00:00 BP 132 / 78; Pulse 124; Resp 19 S; Pulse Ox 95% on R/A; aa9 01:05 BP 130 / 95; Pulse 130; aa9 01:12 BP 141 / 86; Pulse 131; aa9 01:30 BP 116 / 83; Pulse 133; Resp 16 S; Temp 97.9(O); Pulse Ox 94% on R/A; aa9 ED Course: 09/01 20:39 Patient arrived in ED. ag3 21:03 Milo Madrid MD is Attending Physician. rt 21:53 Triage completed. kd3 21:55 Arm band placed on. kd3 22:10 Winifred Cabrera, GISEL is Primary Nurse. aa9 22:27 Chest Single View XRAY In Process Unspecified. EDMS 22:48 No provider procedures requiring assistance completed. Inserted saline lock: 20 gauge aa9 in right wrist, using aseptic technique. Blood collected. 22:50 Magnesium Sent. aa9 22:50 BNP Sent. aa9 22:50 Troponin High Sensitivity Sent. aa9 22:50 CMP Sent. aa9 22:50 CBC with Diff Sent. aa9 22:54 Patient has correct armband on for positive identification. Placed in gown. Bed in low aa9 position. Side rails up X2. Adult w/ patient. Client placed on continuous cardiac and pulse oximetry monitoring. NIBP monitoring applied. 09/02 00:13 Charles Kuhn MD is Hospitalizing Provider. rt 01:41 Patient admitted, IV remains in place. aa9 03:42 SARS RAPID Sent. aa9 Administered Medications: 09/01 22:43 Drug: Cardizem (diltiazem) 10 mg Route: IVP; Site: right wrist; aa9 09/02 03:42 Follow up: Response: No adverse reaction aa9 09/01 22:49 Drug: Xopenex (levalbuterol) 0.63 mg Route: Inhalation; aa9 23:35 Drug: Cardizem (diltiazem) 10 mg Route: IVP; Site: right wrist; aa9 09/02 03:42 Follow up: Response: No adverse reaction aa9 00:22 Drug: Potassium Chloride 40 mEq Route: PO; aa9 03:42 Follow up: Response: No adverse reaction aa9 00:22 Drug: Xopenex (levalbuterol) 0.63 mg Route: Inhalation; aa9 01:00 Drug: Cardizem (diltiazem) 5 mg/hr {Note: 5mg/hr.} Route: IV; Rate: calculated rate; aa9 Site: right wrist; 01:05 Follow up: BP 130 / 95; Pulse 130 bpm; Response: No adverse reaction; Rate change 10 aa9 mg/hr 01:12 Follow up: BP 141 / 86; Pulse 131 bpm; Response: No adverse reaction; Rate change 15 aa9 mg/hr; IV Status: Infusion continued Medication: 01:41 VIS not applicable for this client. aa9 Outcome: 00:13 Decision to Hospitalize by Provider. rt 01:41 Admitted to ER Hold. Please see [facility] for further documentation. aa9 01:41 Condition: stable 01:41 Instructed on the need for admit. 20:18 Patient left the ED. pf1 Signatures: Dispatcher [employer] EDMS Krista Del Toro ag3 Lalita Oliva RN RN kd3 Winifred Cabrera RN RN aa9 Milo Madrid MD MD rt Vannessa santamaria RN RN pf1 Corrections: (The following items were deleted from the chart) 01:11 01:10 Cardizem (diltiazem) 5 mg/hr IV at calculated rate in right wrist aa9 aa9
--- NOTE | 2022-09-02 00:14 | EDPHYS ---
Physician Documentation [facility] Name: Tsering Hamilton Age: 82 yrs Sex: Female : 1940 Arrival Date: 09/01/2022 Time: 20:39 Bed 15 Private MD: ED Physician Milo Madrid HPI: 09/01 22:26 This 82 yrs old Female presents to ER via Ambulatory with complaints of AFIB. rt 22:26 Patient presents to the ED with reports that her heart rate was fast. She had a recent rt diagnosis of A-fib, currently taking amiodarone. She has had a cough over the past few days. She reports the chest pain which is unsure as this is related to the cough or the A-fib. Reports mild shortness of breath. Reports mild leg swelling. Denies other acute complaints at this time. Symptoms are moderate severity, no other aggravating or alleviating factors. Historical: - Allergies: 21:54 Codeine; kd3 21:54 Tessalon Perles; kd3 - PMHx: 21:54 Atrial fibrillation; Hypertension; Dementia; High Cholesterol; Congestive heart kd3 failure; restasis; TIA; - Immunization history:: Adult Immunizations up to date. - Social history:: Smoking status: unknown. - Family history:: not pertinent. ROS: 22:26 Constitutional: Negative for fever, chills, and weight loss, Eyes: Negative for injury, rt pain, redness, and discharge, Abdomen/GI: Negative for abdominal pain, nausea, vomiting, diarrhea, and constipation, MS/Extremity: Negative for injury and deformity, Skin: Negative for injury, rash, and discoloration, Neuro: Negative for headache, weakness, numbness, tingling, and seizure, Psych: Negative for depression, anxiety, suicide ideation, homicidal ideation, and hallucinations. 22:26 Cardiovascular: Positive for chest pain, edema. 22:26 Respiratory: Positive for cough, shortness of breath. Exam: 22:26 Constitutional: This is a well developed, well nourished patient who is awake, alert, rt and in no acute distress. Head/Face: Normocephalic, atraumatic. Neck: Trachea midline, no thyromegaly or masses palpated, and no cervical lymphadenopathy. Supple, full range of motion without nuchal rigidity, or vertebral point tenderness. No Meningismus. Chest/axilla: Normal chest wall appearance and motion. Nontender with no deformity. No lesions are appreciated. Cardiovascular: Regular rate and rhythm with a normal S1 and S2. No gallops, murmurs, or rubs. Normal PMI, no JVD. No pulse deficits. Abdomen/GI: Soft, non-tender, with normal bowel sounds. No distension or tympany. No guarding or rebound. No evidence of tenderness throughout. 22:26 Respiratory: Wheezes heard on all lung williamson, no respiratory distress. 22:26 Musculoskeletal/extremity: Trace preTibial edema. 22:26 ECG was reviewed by the Attending Physician. rt Vital Signs: 21:50 BP 137 / 97; Pulse 82; Resp 19; Temp 98.7; Pulse Ox 99% on R/A; kd3 22:35 BP 131 / 88; Pulse 125; Resp 19 S; Pulse Ox 100% on Nebulizer Mask; aa9 22:52 BP 125 / 95; Pulse 130; Resp 19; Pulse Ox 100% on Nebulizer Mask; aa9 23:30 BP 139 / 91; Pulse 134; Resp 20; Pulse Ox 95% on R/A; aa9 09/02 00:00 BP 132 / 78; Pulse 124; Resp 19 S; Pulse Ox 95% on R/A; aa9 01:05 BP 130 / 95; Pulse 130; aa9 01:12 BP 141 / 86; Pulse 131; aa9 01:30 BP 116 / 83; Pulse 133; Resp 16 S; Temp 97.9(O); Pulse Ox 94% on R/A; aa9 MDM: 09/01 22:04 Patient medically screened. rt 09/02 00:14 Differential diagnosis: A-fib, a flutter, dysrhythmia, pneumonia, pneumothorax. Data rt reviewed: vital signs, nurses notes, lab test result(s), EKG, radiologic studies. Consideration of Admission/Observation Patient was admitted/placed on observation. Management of patient was discussed with the following: Hospitalist: Agrees to admit. I considered the following discharge prescriptions or medication management in the emergency department Medications were administered in the Emergency Department. See MAR. Independent interpretation of the following test(s) in the Emergency Department X-Ray: My interpretation is No consolidation seen on my interpretation of the x-ray images. Test considered but Not performed: CT: Low suspicion for PE, CT angiogram not indicated. Care significantly affected by the following chronic conditions: A-fib. Counseling: I had a detailed discussion with the patient and/or guardian regarding: the historical points, exam findings, and any diagnostic results supporting the discharge/admit diagnosis, lab results, radiology results, the need for further work-up and treatment in the hospital. Response to treatment: the patient's symptoms have mildly improved after treatment. 09/01 22:14 Order name: CBC with Diff; Complete Time: 23:31 rt 09/01 22:14 Order name: CMP; Complete Time: 23:57 rt 09/01 22:14 Order name: Troponin High Sensitivity; Complete Time: 23:57 rt 09/01 22:14 Order name: BNP; Complete Time: 23:57 rt 09/01 22:14 Order name: Magnesium; Complete Time: 23:57 rt 09/01 22:14 Order name: Chest Single View XRAY; Complete Time: 22:31 rt 09/02 02:50 Order name: CBC with Automated Diff; Complete Time: 19:19 EDMS 09/02 02:58 Order name: Basic Metabolic Panel; Complete Time: 19:19 EDMS 09/02 02:58 Order name: Magnesium; Complete Time: 19:19 EDMS 09/02 03:20 Order name: SARS RAPID 09/02 04:28 Order name: SARS-COV-2 Antigen Rapid; Complete Time: 19:19 EDMS EC/28 22:26 Rate is 136 beats/min. Rhythm is regular, A fib with No ectopy, Rate related ST and T rt wave changes. QRS interval is normal. QT interval is prolonged at 505 msec. No Q waves. Administered Medications: 22:43 Drug: Cardizem (diltiazem) 10 mg Route: IVP; Site: right wrist; 9 09/02 03:42 Follow up: Response: No adverse reaction 09/01 22:49 Drug: Xopenex (levalbuterol) 0.63 mg Route: Inhalation; aa9 23:35 Drug: Cardizem (diltiazem) 10 mg Route: IVP; Site: right wrist; aa9 09/02 03:42 Follow up: Response: No adverse reaction 00:22 Drug: Potassium Chloride 40 mEq Route: PO; aa9 03:42 Follow up: Response: No adverse reaction aa9 00:22 Drug: Xopenex (levalbuterol) 0.63 mg Route: Inhalation; aa9 01:00 Drug: Cardizem (diltiazem) 5 mg/hr {Note: 5mg/hr.} Route: IV; Rate: calculated rate; aa9 Site: right wrist; 01:05 Follow up: BP 130 / 95; Pulse 130 bpm; Response: No adverse reaction; Rate change 10 aa9 mg/hr 01:12 Follow up: BP 141 / 86; Pulse 131 bpm; Response: No adverse reaction; Rate change 15 aa9 mg/hr; IV Status: Infusion continued Disposition Summary: 09/02/22 00:13 Hospitalization Ordered Provider: Charles Kuhn rt Condition: Fair rt Problem: an acute exacerbation rt Symptoms: have improved rt Bed/Room Type: Standard rt Hospitalization Status: Inpatient Admission(09/02/22 17:37) bd Location: Intensive Care Unit(09/02/22 17:37) bd Room Assignment: 3-(09/02/22 18:42) bd Diagnosis - Unspecified atrial fibrillation rt Forms: - Medication Reconciliation Form rt - SBAR form rt Signatures: Dispatcher [employer] EDMS Montserrat Ernst Shelby RN RN Lillian Ramirez RN RN cg Tyrell Robins RN RN ja1 Peltier, Brian RN RN Lalita Vazquez RN RN dejuan3 Winifred Cabrera RN RN aa9 Milo Madrid MD MD rt Corrections: (The following items were deleted from the chart) 01:05 00:13 Telemetry/MedSurg (observation) rt cg 01:05 00:13 rt cg 09:05 01:05 [facility] ER HOLD cg bp 09:05 01:05 ERHOLD- cg bp 09:44 09:05 Intensive Care Unit bp ja1 09:44 09:05 3- bp ja1 16:43 09:44 [facility] ER HOLD ja1 ja1 16:43 09:44 ERHOLD- ja1 ja1 16:56 16:43 Intensive Care Unit ja1 ja1 16:56 16:43 5- ja1 ja1 17:37 00:13 Observation rt bd 17:37 16:56 [facility] ER HOLD ja1 ss 17:37 16:56 ERHOLD- ja1 ss 17:37 17:37 Intensive Care Unit ss bd 17:37 17:37 3- ss bd 18:42 17:37 8- bd bd
[2022-09-02] MEDS ORDERED: LEVALBUTEROL 0.63 MG/3 ML NEB ONE (00:20)
[2022-09-02] MEDS ORDERED: POTASSIUM CL SA 10 MEQ TAB PO ONE (00:20)
[2022-09-02] MEDS: dilTIAZem HCL 25 MG/5 ML VIAL IV ONE ×2 (00:36)
[2022-09-02] MEDS ORDERED: NA CHLORIDE 0.9% 100 ML ONE (00:46)
[2022-09-02] MEDS: DILTIAZEM INJ 125 MG/25 ML 125 MG in NA CHLORIDE 0.9% 100 ML IV SCH ×2 (01:00→10:13)
--- NOTE | 2022-09-02 01:27 | P.HP ---
Certification for Inpatient Patient admitted to: Observation With expected LOS: <2 Midnights Patient will require the following post-hospital care: None Practitioner: I am a practitioner with admitting privileges, knowledge of patient current condition, hospital course, and medical plan of care. Services: Services provided to patient in accordance with Admission requirements found in Title 42 Section 412.3 of the Code of Federal Regulations Patient History Date of Service: 09/02/22 Reason for admission: A-fib RVR History of Present Illness: 82-year-old female with history of chronic diastolic congestive heart failure, atrial fibrillation on chronic anticoagulation, hypertension, hyperlipidemia, GERD, dementia presented to the emergency department for A-fib RVR. She has been similar to previous times with A-fib RVR, she was also seen by her senior web architect 2 days ago and reduced her amiodarone from the twice daily dose down to once daily. She felt hot at home so she checked her blood pressure/heart rate and noticed that it was elevated and felt similar to previous time she had rapid ventricular response, for this reason she came to the emergency department. Initially her heart rate was in the 130s to 140s, her labs were remarkable for mild hypokalemia which was treated in the ED. She was treated with IV Cardizem in the ED, currently has IV Cardizem infusion in place. ED provider wishes to admit under observation for A-fib RVR. Allergies No Known Allergies Allergy (Verified 10/24/20 09:41) Home Medications: Apixaban [Eliquis] 5 mg PO BID 08/07/22 Cholecalciferol (Vitamin D3) [Vitamin D3] 5,000 unit PO DAILY 08/07/22 Docusate Sodium 100 mg PO BID 08/07/22 Donepezil [Aricept*] 10 mg PO BID 08/07/22 Estradiol [Estrace] 42.5 gm VAG SEECOM 08/07/22 Furosemide [Lasix*] 40 mg PO DAILY 08/07/22 Ipratropium [Atrovent 0.03% (21MCG)/[place] Nasal*] 1 inh IN TID 08/07/22 Losartan Potassium [Cozaar] 100 mg PO DAILY 08/07/22 Memantine HCl [Namenda*] 10 mg PO BID 08/07/22 Multivitamin 1 tab PO DAILY 08/07/22 Omeprazole [Prilosec] 40 mg PO DAILY 08/07/22 Simvastatin 20 mg PO BEDTIME 08/07/22 Tafluprost/Pf [Tafluprost 0.0015% Eye Drop] 1 ea OPTH BEDTIME 08/07/22 Amiodarone HCl [Cordarone*] 200 mg PO BID 30 Days #60 tab 08/10/22 Amlodipine Besylate [Norvasc] 5 mg PO DAILY 30 Days #30 tab 08/10/22 - Past Medical/Surgical History Diabetic: No -: Hypertension -: Hypercholesteronemia -: Glaucoma -: TIA -: A-fib on chronic anticoagulation (jul 2022) -: Chronic diastolic congestive heart failure -: Dementia -: Cataract -: Bilateral Tubal Ligation with Appendectomy -: Dilation and Curettage Psychosocial/ Personal History: Patient lives at home with her - Family History Father -: Heart disease Notes: Heart Failure Mother -: Cancer Notes: Esophageal Cancer Sister -: Heart disease Notes: Rheumatoid Arthritis - Social History Smoking Status: Never smoker Alcohol use: No CD- Drugs: No Caffeine use: Yes Review of Systems 10-point ROS is otherwise unremarkable Respiratory: Cough, Sputum Cardiovascular: Palpitations Physical Examination - Physical Exam General: Alert, In no apparent distress, Oriented x3 HEENT: Atraumatic, PERRLA, Mucous membr. moist/pink, EOMI, Sclerae nonicteric Neck: Supple, 2+ carotid pulse no bruit, No LAD, Without JVD or thyroid abnormality Respiratory: Clear to auscultation bilaterally, Normal air movement Cardiovascular: Normal S1 S2, Irregular heart rate/rhythm (A-fib RVR rate 130) Capillary refill: <2 Seconds Gastrointestinal: Normal bowel sounds, No tenderness Musculoskeletal: No tenderness Integumentary: No rashes Neurological: Normal speech, Normal strength at 5/5 x4 extr, Normal tone, Normal affect - Studies Laboratory Data (last 24 hrs) 09/01/22 23:16: Sodium 140, Potassium 3.2 L, BUN 20 H, Creatinine 0.73, Glucose 130 H, Magnesium 2.3, Total Bilirubin 0.3, AST 35, ALT 34, Alkaline Phosphatase 71 09/01/22 22:43: WBC 8.60, Hgb 14.7, Hct 44.7, Plt Count 220 Assessment and Plan - Plan Assessment: Atrial fibrillation with rapid ventricular responseon chronic anticoagulation Hypokalemia Chronic diastolic congestive heart failure Hypertension Hyperlipidemia GERD Dementia Plan: Atrial fibrillation with rapid ventricular responseon chronic anticoagulation Continue Eliquis, cardiology consult in place. Recently had her dose of amiodarone reduced from twice daily down to once daily. She was started on Cardizem infusion in ED, will continue this overnight. Appreciate further input from cardiology regarding home dosing of medications. Hypokalemia Repleted in ED, protocol in place. Mag level checked. Chronic diastolic congestive heart failure Appears euvolemic at this time, continue oral Lasix daily. Hypertension Continue amlodipine Hyperlipidemia GERD Dementia Continue home meds DVT PPX: Continue Eliquis Code status: Full Discharge Plan: Home Plan to discharge in: 24 Hours - Advance Directives Does patient have a Living Will: Yes Does patient have a Durable POA for Healthcare: Yes - Code Status/Comfort Care Code Status Assessed: Yes (Full code) Critical Care: No Time Spent Managing Pts Care (In Minutes): 70
[2022-09-02] MEDS ORDERED: ONDANSETRON 4 MG/2 ML VIAL IV PRN (01:48)
[2022-09-02 02:47] LABS: Absolute Lymphocytes (CBC) 2.8 K/uL (0.7-4.9); Hematocrit 37.9 % (36.0-45.0); Lymphocytes % 41.1 % (15.3-44.8); MCV 96.6 fL (80-100); RBC Red Blood Cell Count 3.93 M/uL (3.86-4.86)
[2022-09-02 02:58] LABS: Magnesium 2.3 mg/dL (1.6-2.4); Potassium 3.3 mmol/L (3.5-5.1)
[2022-09-02] MEDS ORDERED: ACETAMINOPHEN 500 MG TAB ONE (03:41)
[2022-09-02] MEDS: ACETAMINOPHEN 500 MG TAB PO PRN ×2 (03:42→22:05)
[2022-09-02 04:27] LABS: SARS-CoV-2 Antigen Rapid Res Negative (Negative)
[2022-09-02] MEDS: APIXABAN 5 MG TABLET PO SCH ×2 (09:00→21:52)
[2022-09-02] MEDS ORDERED: APIXABAN 5 MG TABLET ONE (09:00)
[2022-09-02] MEDS: FUROSEMIDE 20 MG TABLET PO SCH (09:00)
[2022-09-02] MEDS ORDERED: AMLODIPINE 5 MG TAB ONE (09:00)
[2022-09-02] MEDS ORDERED: FUROSEMIDE 20 MG TABLET ONE (09:00)
[2022-09-02] MEDS: AMLODIPINE 5 MG TAB PO SCH (09:00)
[2022-09-02] MEDS ORDERED: CEFTRIAXONE 1000 MG/VIAL ONE (09:59)
[2022-09-02] MEDS ORDERED: NA CHLORIDE 0.9% 50 ML ONE (09:59)
[2022-09-02] MEDS ORDERED: POTASSIUM 25 MEQ EFFERV TAB ONE (09:59)
--- NOTE | 2022-09-02 13:00 | P.PN ---
Date of Service: 09/02/22 Subjective: HR slightly better, no new symptoms ROS: A complete review of systems was performed and is negative except as mentioned above Physical Exam General: Alert, In no apparent distress, Oriented x3 Respiratory: Clear to auscultation bilaterally, Normal air movement Cardiovascular: Irregular heart rate/rhythm (A-fib RVR rate 120), no edema Gastrointestinal: soft, nontender, nondistended Neurological: Normal speech, Normal strength at 5/5 x4 extr, Normal affect Problem List Atrial fibrillation with rapid ventricular responseon chronic anticoagulation Hypokalemia Chronic diastolic congestive heart failure Hypertension Hyperlipidemia GERD Dementia Continue Eliquis, cardiology consulted. recommends stopping cardizem, re-load with amio patient states she has been taking robitussin-DM, despite explicit instructions to avoid -DM started on Cardizem infusion in ED Repleted in ED, protocol in place Appears euvolemic at this time continue oral Lasix daily. Continue amlodipine DVT PPX: Continue Eliquis Code status: Full Discharge Plan: Home Plan to discharge in: 24-48hrs
[2022-09-02] MEDS: BENZONATATE 100 MG CAP PO PRN (15:47)
--- NOTE | 2022-09-02 17:30 | EKG ---
Test Date: 2022-09-01 Test Time: 22:01:18 Heating And Refrigeration Inspector: SHIRA MEASUREMENT RESULTS: Intervals: Rate: 136 NE: QRSD: 84 QT: 336 QTc: 505 [place]: P: NE: QRS: 7 T: -65 INTERPRETIVE STATEMENTS: Atrial fibrillation with rapid ventricular response RSR' or QR pattern in V1 suggests right ventricular conduction delay Cannot rule out Anterior infarct, age undetermined Marked ST abnormality, possible inferior subendocardial injury Abnormal ECG Compared to ECG 08/07/2022 20:32:37 Myocardial infarct finding now present ST (T wave) deviation now present Sinus rhythm no longer present Atrial premature complex(es) no longer present Electronically Signed On 09-02-22 17:28:46 RESPIRATORY COORDINATOR by Ollie Germain
[2022-09-02] MEDS ORDERED: AMIODARONE HCL 150 MG in D5W 100 ML IV STA (17:49)
[2022-09-02] MEDS: AMIODARONE HCL 900 MG in Dextrose 5%-Water 482 ML IV SCH (18:40)
--- NOTE | 2022-09-02 21:11 | CON ---
Date of Consultation: 09/02/2022 Reason For Consultation: Atrial fibrillation with rapid ventricular response. History Of Present Illness: An 82-year-old female with history of diastolic heart failure, chronic a trial fibrillation, hypertension, dyslipidemia, acid reflex, dementia presented to the emergency room with palpitation, found to be in atrial fibrillation with rapid ventricular response. Started on IV Cardizem drip. Heart rate is better. Past Medical History: As outlined above in the HPI. Medications: Refer reconciliation sheet for detailed list. Allergies: NO KNOWN DRUG ALLERGIES. Family History: No premature coronary artery disease or cancer. Social History: Does not smoke or drink. Does not use any drugs. Review of Systems: All systems reviewed are negative except mentioned in HPI. Physical Examination: Vital Signs: Reviewed. Head and Neck: Pupils are equal, reactive to light. Intact eye movements. No JVD. No cervical. N man is supple. Thyroid is not enlarged. Lungs: Clear to auscultation bilaterally. No rhonchi, wheezing, or crackles. No accessory muscle u se. Heart: Irregularly irregular. No extra sounds. Abdomen: Soft, nontender. Bowel sounds positive. No organomegaly. No masses or hernia. No rigidi ty or rebound. Extremities: No clubbing, cyanosis. Intact pulses. Skin: No rash. Neurologic: Alert, awake, oriented x3. No acute focal deficits appreciated. Investigations: BUN 19, creatinine 0.6. Hemoglobin is 12.6. Assessment/recommendation: 1.Atrial fibrillation with rapid ventricular response. Heart rate is slightly better on Cardizem. Plan for IV amiodarone load over the next 24 hours, then stop Cardizem drip. Patient is getting freq uent atrial fibrillation with rapid ventricular response episodes and requiring hospitalizations mult iple times due to the same issue. I will plan for outpatient atrial fibrillation ablation arrbandar t and then to continue Eliquis. 2.Diastolic heart failure, chronic. Continue Lasix 20 mg daily. SR/MODL Voice ID: [id number] Report ID: [id number]
[2022-09-02 21:59] VITALS: BMI 24.9
[2022-09-03 05:33] LABS: Absolute Lymphocytes (CBC) 2.5 K/uL (0.7-4.9); Hematocrit 37.2 % (36.0-45.0); Lymphocytes % 40.5 % (15.3-44.8); MCV 96.5 fL (80-100); RBC Red Blood Cell Count 3.85 M/uL (3.86-4.86)
[2022-09-03 05:41] LABS: Magnesium 2.3 mg/dL (1.6-2.4); Potassium 3.2 mmol/L (3.5-5.1)
[2022-09-03] MEDS ORDERED: DOCUSATE NA 100 MG CAP PO PRN (06:17)
[2022-09-03] MEDS ORDERED: POTASSIUM 25 MEQ EFFERV TAB PO ONE (07:00)
[2022-09-03] MEDS: PANTOPRAZOLE 40MG TABLET PO SCH (07:33)
[2022-09-03] MEDS: FUROSEMIDE 20 MG TABLET PO SCH (08:35)
[2022-09-03] MEDS: APIXABAN 5 MG TABLET PO SCH ×2 (08:36→20:14)
[2022-09-03] MEDS: AMLODIPINE 5 MG TAB PO SCH (08:36)
[2022-09-03] MEDS: MEMANTINE HCL 10 MG TABLET PO SCH ×2 (08:37→20:14)
--- NOTE | 2022-09-03 12:14 | P.PN ---
Date of Service: 09/03/22 Subjective: Feels little bit better able to sleep through the night converted to sinus rhythm overnight ROS: A complete review of systems was performed and is negative except as mentioned above Physical Exam General: Alert, In no apparent distress, Oriented x3 Respiratory: Clear to auscultation bilaterally, Normal air movement, nonlabored respirations on room air Cardiovascular: regular rate and rhythm, no edema Gastrointestinal: soft, nontender, nondistended Neurological: Normal speech, Normal affect Problem List Atrial fibrillation with rapid ventricular responseon chronic anticoagulation Hypokalemia Chronic diastolic congestive heart failure Hypertension Hyperlipidemia GERD Dementia Continue Eliquis, cardiology consulted. started on Cardizem infusion in ED recommended stopping cardizem, re-load with amio - 09/02 patient states she has been taking robitussin-DM, despite explicit instructions to avoid -DM likely would benefit from Appears euvolemic at this time continue oral Lasix daily. Continue amlodipine VTE: home eliquis Code: full Dispo: home, 24-48hrs
[2022-09-03] MEDS: AMIODARONE HCL 900 MG in Dextrose 5%-Water 482 ML IV SCH (17:04)
--- NOTE | 2022-09-03 18:02 | PN ---
Date of Progress Note: 09/03/2022 Subjective: Seen by bedside. Doing well. Converted to sinus rhythm. Review of Systems: No chest pain, shortness of breath, orthopnea, or cough. No nausea, vomiting, diarrhea. All other s ystems reviewed and they were negative. Physical Examination: Vital Signs: Reviewed. Head and Neck: Pupils are equal, reactive to light. Intact eye movements. No JVD. No cervical lym phadenopathy. Neck is supple. Thyroid is not enlarged. Lungs: Clear to auscultation bilaterally. No rhonchi, wheezing, or crackles. No accessory muscle u se. Heart: Regular rate and rhythm. No extra sounds. Abdomen: Soft, nontender. Bowel sounds positive. No organomegaly. No masses or hernia. No rigidi ty or rebound. Extremities: No edema, clubbing, or cyanosis. Intact pulses. Skin: No rash. Neurologic: Alert, awake, oriented x3. No acute focal deficits appreciated. Investigations: BUN 13, creatinine 0.52, and hemoglobin 12.4. Assessment And Recommendations: 1.Atrial fibrillation with rapid ventricular response. Converted to sinus rhythm. Continue full 24 hours of amiodarone load and then switch it to oral 200 mg twice a day. Continue Eliquis and the lily berumen can be released after that on p.o. amiodarone and to follow up with me in the office in 2 weeks post discharge. 2.Hypertension. Blood pressure is controlled. Continue current management. 3.Diastolic heart failure. She is euvolemic. Continue Lasix. SR/MODL Voice ID: [id number] Report ID: [id number]
[2022-09-03] MEDS: BENZONATATE 100 MG CAP PO PRN (19:42)
[2022-09-03] MEDS: AMIODARONE HCL 200 MG TAB PO SCH (20:14)
[2022-09-03] MEDS: ACETAMINOPHEN 500 MG TAB PO PRN (22:05)
[2022-09-04 04:36] LABS: Magnesium 2.3 mg/dL (1.6-2.4); Potassium 3.8 mmol/L (3.5-5.1)
[2022-09-04] MEDS ORDERED: POTASSIUM CL SA 10 MEQ TAB PO ONE (05:07)
[2022-09-04] MEDS: PANTOPRAZOLE 40MG TABLET PO SCH (05:22)
[2022-09-04] MEDS: BENZONATATE 100 MG CAP PO PRN (07:29)
[2022-09-04] MEDS: FUROSEMIDE 20 MG TABLET PO SCH (08:27)
[2022-09-04] MEDS: APIXABAN 5 MG TABLET PO SCH (08:28)
[2022-09-04] MEDS: AMIODARONE HCL 200 MG TAB PO SCH (08:28)
[2022-09-04] MEDS: MEMANTINE HCL 10 MG TABLET PO SCH (08:28)
[2022-09-04] MEDS: AMLODIPINE 5 MG TAB PO SCH (08:28)
[2022-09-04 08:29] VITALS: BP 152/99
[2022-09-04 08:32] VITALS: TEMP 97.1; O2SAT 95
--- NOTE | 2022-09-04 12:12 | P.DS ---
Admission Date: 09/02/22 Discharge Date: 09/04/22 Disposition: ROUTINE DISCHARGE Discharge Condition: GOOD Reason for Admission: A-fib RVR Consultations: Cardiology - Dr. Germain Brief History of Present Illness: 82-year-old female with history of chronic diastolic congestive heart failure, atrial fibrillation on chronic anticoagulation, hypertension, hyperlipidemia, GERD, dementia presented to the emergency department for A-fib RVR. She has been similar to previous times with A-fib RVR, she was also seen by her hob machine operator 2 days ago and reduced her amiodarone from the twice daily dose down to once daily. She felt hot at home so she checked her blood pressure/heart rate and noticed that it was elevated and felt similar to previous time she had rapid ventricular response, for this reason she came to the emergency department. Initially her heart rate was in the 130s to 140s, her labs were remarkable for mild hypokalemia which was treated in the ED. She was treated with IV Cardizem in the ED, currently has IV Cardizem infusion in place. ED provider wishes to admit under observation for A-fib RVR. Hospital Course: Problem List: Atrial fibrillation with rapid ventricular responseon chronic anticoagulation Hypokalemia Chronic diastolic congestive heart failure Hypertension Hyperlipidemia GERD Dementia Patient was found to be in afib with RVR. In the ED, she was started on Cardizem drip. Cardiology was consulted, and switched over to IV amiodarone. Patient converted to sinus rhythm overnight. She was transitioned to oral am iodarone and monitored. She remained in sinus rhythm, symptoms resolved. Reviewed recent medications, patient reported taking Robitussin DM over the last week. Discussed risk of certain medications, such as cough medication with decongestions "DM", that can further prolong her QT interval and increased risk of going into atrial fibrillation again. Advised to stay away from these medications, and to discuss with pharmacist and PCP prior to starting any medications, [id number] medications included. Continue amiodarone 200mg twice daily Follow up PCP within 1 week Cardiology in ~2 weeks, plan to schedule ablation procedure for afib in the near future. Vital Signs/Physical Exam: Temp Pulse Resp BP Pulse Ox 97.1 F 72 18 152/99 H 95 09/04/22 08:00 09/04/22 08:28 09/04/22 08:00 09/04/22 08:28 09/04/22 08:00 Physical Exam General: Alert, In no apparent distress, Oriented x3 Respiratory: Clear to auscultation bilaterally, Normal air movement, nonlabored respirations on room air Cardiovascular: regular rate and rhythm, no edema Gastrointestinal: soft, nontender, nondistended Neurological: Normal speech, Normal affect Laboratory Data at Discharge: WBC 6.30 K/uL (4.3-10.9) 09/03/22 04:57 Hgb 12.4 g/dL (12.0-15.0) 09/03/22 04:57 Hct 37.2 % (36.0-45.0) 09/03/22 04:57 Plt Count 184 K/uL (152-406) 09/03/22 04:57 Sodium 139 mmol/L (136-145) 09/04/22 04:04 Potassium 3.8 mmol/L (3.5-5.1) 09/04/22 04:04 BUN 14 mg/dL (7-18) 09/04/22 04:04 Creatinine 0.59 mg/dL (0.55-1.02) 09/04/22 04:04 Glucose 103 mg/dL (74-106) 09/04/22 04:04 Magnesium 2.3 mg/dL (1.6-2.4) 09/04/22 04:04 Total Bilirubin 0.3 mg/dL (0.2-1.0) 09/01/22 23:16 AST 35 U/L (15-37) 09/01/22 23:16 ALT 34 U/L (13-56) 09/01/22 23:16 Alkaline Phosphatase 71 U/L (45-117) 09/01/22 23:16 Home Medications: Apixaban [Eliquis] 5 mg PO BID 08/07/22 Cholecalciferol (Vitamin D3) [Vitamin D3] 5,000 unit PO DAILY 08/07/22 Docusate Sodium 100 mg PO BID 08/07/22 Donepezil [Aricept*] 10 mg PO BID 08/07/22 Estradiol [Estrace] 42.5 gm VAG SEECOM 08/07/22 Furosemide [Lasix*] 40 mg PO DAILY 08/07/22 Losartan Potassium [Cozaar] 100 mg PO DAILY 08/07/22 Memantine HCl [Namenda*] 10 mg PO BID 08/07/22 Multivitamin 1 tab PO DAILY 08/07/22 Omeprazole [Prilosec] 40 mg PO DAILY 08/07/22 Simvastatin 20 mg PO BEDTIME 08/07/22 Tafluprost/Pf [Tafluprost 0.0015% Eye Drop] 1 ea OPTH BEDTIME 08/07/22 Amlodipine Besylate [Norvasc] 5 mg PO DAILY 30 Days #30 tab 08/10/22 Amiodarone HCl [Cordarone*] 200 mg PO BID 30 Days #60 tab 09/04/22 New Medications: Amiodarone HCl [Cordarone*] 200 mg PO BID 30 Days #60 tab Physician Discharge Instructions: Patient was found to be in afib with RVR. In the ED, she was started on Cardizem drip. Cardiology was consulted, and switched over to IV amiodarone. Patient converted to sinus rhythm overnight. She was transitioned to oral amiodarone and monitored. She remained in sinus rhythm, symptoms resolved. Reviewed recent medications, patient reported taking Robitussin DM over the last week. Discussed risk of certain medications, such as cough medication with decongestions "DM", that can further prolong her QT interval and increased risk of going into atrial fibrillation again. Advised to stay away from these medications, and to discuss with pharmacist and PCP prior to starting any medications, [id number] medications included. Continue amiodarone 200mg twice daily Follow up PCP within 1 week Cardiology in ~2 weeks, plan to schedule ablation procedure for afib in the near future. Followup: Edward Villa, DO [Primary Care Provider] - Ollie Germain MD [ACTIVE - CAN ADMIT] - Time spent managing pt's care (in minutes): 45
--- NOTE | 2022-09-04 14:33 | EKG ---
Test Date: 2022-09-03 Test Time: 05:04:27 Psychology Fellow: Sia CONLEY MEASUREMENT RESULTS: Intervals: Rate: 63 MS: 132 QRSD: 80 QT: 484 QTc: 495 [place]: P: 89 MS: 132 QRS: 24 T: 60 INTERPRETIVE STATEMENTS: Sinus rhythm with marked sinus arrhythmia Prolonged QT Abnormal ECG Compared to ECG 09/01/2022 22:01:18 Prolonged QT interval now present Atrial fibrillation no longer present Myocardial infarct finding no longer present ST (T wave) deviation no longer present Electronically Signed On 09-04-22 14:29:37 WEAVING SUPERVISOR by Ollie Germain
--- NOTE | 2022-09-04 18:56 | PN ---
Date of Progress Note: 09/04/2022 Subjective: Seen at bedside. She remains in sinus rhythm. She is on oral amiodarone, doing well. Review of Systems: No chest pain, shortness of breath, orthopnea, or cough. No nausea, vomiting, or diarrhea. All othe r systems reviewed and they were negative. Physical Examination: Vital Signs: Reviewed. Head And Neck: Pupils are equal and reactive to light. Intact eye movements. No JVD. No cervical lymphadenopathy. Neck is supple. Thyroid is not enlarged. Lungs: Clear to auscultation bilaterally. No rhonchi, wheezing, or crackles. No accessory muscle u se. Heart: Regular rate and rhythm. No extra sounds. Abdomen: Soft, nontender. Bowel sounds positive. No organomegaly. No masses or hernia. No rigidi ty or rebound. Extremities: No edema, clubbing, or cyanosis. Intact pulses. Skin: No rash. Neurologic: Alert, awake, and oriented x3. No acute focal deficits appreciated. Investigations: BUN 14, creatinine 0.59, hemoglobin is 12.4. Assessment/recommendation: 1.Atrial fibrillation with rapid ventricular response, converted to sinus rhythm on amiodarone. Con raadue p.o. amiodarone 200 mg twice a day and Eliquis. The patient can be released. Follow up as an outpatient next week. We might consider atrial fibrillation ablation due to multiple rapid ventricul ar response episodes. 2.Hypertension. Blood pressure is acceptable. Continue with current management. SR/MODL Voice ID: [id number] Report ID: [id number]
== END 2022-09-04 09:39 | disposition home or self-care (01) | DRG 309 ==
LOC: ER 20:35 → ERHOLD 09-02 00:43 → OBSVTOIN 09-02 15:06 → 3RD-ICU 09-02 19:29 → 4TH 09-03 21:32
PROVIDERS: ADMIT Hospitalist; ATTEND Hospitalist
DX: I48.91 Unspecified atrial fibrillation (principal); I50.32 Chronic diastolic (congestive) heart failure; I11.0 Hypertensive heart disease with heart failure; E78.5 Hyperlipidemia, unspecified; E87.6 Hypokalemia; K21.9 Gastro-esophageal reflux disease without esophagitis; F03.90 Unspecified dementia, unspecified severity, without behavioral disturbance, psychotic disturbance, mood disturbance, and anxiety; Z98.51 Tubal ligation status; Z88.5 Allergy status to narcotic agent; Z88.8 Allergy status to other drugs, medicaments and biological substances; Z86.73 Personal history of transient ischemic attack (TIA), and cerebral infarction without residual deficits; Z79.01 Long term (current) use of anticoagulants; Z79.899 Other long term (current) drug therapy; Z20.822 Contact with and (suspected) exposure to COVID-19
CPT/HCPCS: 36415; 71045; 80048; 80053; 83735; 83880; 84132; 84484; 85025; 87811; 93005; 96374; 96375; 99285; G0378; J0282; J7060; J7614

== ENCOUNTER 2022-09-21 00:50 | Observation (INO) | payer OTHER, MEDICARE ==
[2022-09-21 01:48] LABS: Absolute Lymphocytes (CBC) 1.5 K/uL (0.7-4.9); Hematocrit 39.9 % (36.0-45.0); MCV 96.8 fL (80-100); MPV 7.6 fL (7.6-11.3); RBC Red Blood Cell Count 4.12 M/uL (3.86-4.86)
[2022-09-21] MEDS ORDERED: METOPROLOL TARTRATE 5 MG/5 ML INJ IV ONE ×3 (01:56→02:18)
[2022-09-21 02:06] LABS: Potassium 3.2 mEq/L (3.5-5.1); Troponin High Sensitivity 16.4 pg/mL (<58.9)
--- NOTE | 2022-09-21 02:17 | ER ---
Nurse's Notes [facility] Name: Tsering Hamilton Age: 82 yrs Sex: Female : 1940 Arrival Date: 09/21/2022 Time: 00:53 Bed 13 Private MD: Diagnosis: Unspecified atrial fibrillation;Atrial Fibrillation with Rapid Ventricular Rate;Essential (primary) hypertension;Hypokalemia Presentation: 09/21 01:13 Chief complaint: Patient states: high blood p[pressure rapid heart rate and chest kl pressure began T[employer] TER[employer] GAUGER. Coronavirus screen: Vaccine status: Patient reports receiving the 2nd dose of the covid vaccine. Ebola Screen: Patient negative for fever greater than or equal to 101.5 degrees Fahrenheit, and additional compatible Ebola Virus Disease symptoms. Initial Sepsis Screen: Does the patient meet any 2 criteria? HR > 90 bpm. Does the patient have a suspected source of infection? No. Patient's initial sepsis screen is negative. Risk Assessment: Do you want to hurt yourself or someone else? Patient reports no desire to harm self or others. 01:13 Method Of Arrival: Ambulatory 01:13 Acuity: TALI 3 kl 06:13 Onset of symptoms was September 21, 2022. as6 Triage Assessment: 01:16 General: Appears distressed, well groomed, well developed, Behavior is cooperative, kl anxious. Pain: Complains of pain in pt report chest pressure. EENT: No deficits noted. No signs and/or symptoms were reported regarding the EENT system. Neuro: No deficits noted. Level of Consciousness is awake, alert, obeys commands, Oriented to person, place, time, situation. Cardiovascular: Reports chest pain, shortness of breath, Rhythm is atrial fibrillation with rapid ventricular response. Respiratory: No deficits noted. GI: No deficits noted. No signs and/or symptoms were reported involving the gastrointestinal system. : No deficits noted. No signs and/or symptoms were reported regarding the genitourinary system. Derm: No deficits noted. No signs and/or symptoms reported regarding the dermatologic system. Historical: - Allergies: 01:15 Codeine; kl 01:15 Tessalon Perles; kl - Home Meds: 01:15 amiodarone 200 mg Oral tab 1 tab once daily [Active]; donepezil 10 mg Oral tab kl [Active]; Eliquis 5 mg Oral tab 1 tab 2 times per day [Active]; furosemide 40 mg Oral tab 1 tab once daily [Active]; losartan 100 mg Oral tab 1 tab once daily [Active]; Namenda 10 mg Oral tab 2 times per day [Active]; simvastatin 20 mg Oral tab once daily [Active]; spironolactone 25 mg Oral tab 1 tab once daily [Active]; - PMHx: 01:15 Atrial fibrillation; Congestive heart failure; Dementia; High Cholesterol; kl Hypertension; restasis; TIA; - Immunization history:: Adult Immunizations up to date. - Social history:: Smoking status: Patient denies any tobacco usage or history of. Screenin:18 [facility] ED Fall Risk Assessment (Adult) History of falling in the last 3 months, jb4 including since admission No falls in past 3 months (0 pts) Confusion or Disorientation No (0 pts) Score/Fall Risk Level 0 - 2 = Low Risk Oriented to surroundings, Maintained a safe environment. Abuse screen: Denies threats or abuse. Nutritional screening: No deficits noted. Tuberculosis screening: No symptoms or risk factors identified. Assessment: 01:10 Reassessment: See triage note. jb4 02:23 Reassessment: Patient appears in no apparent distress at this time. Patient and/or jb4 family updated on plan of care and expected duration. Pain level reassessed. Patient is alert, oriented x 3, equal unlabored respirations, skin warm/dry/pink. Vital Signs: 01:13 BP 154 / 73; Pulse 123; Resp 18; Temp 98.2(O); Pulse Ox 98% on R/A; Weight 63.96 kg kl (R); Height 5 ft. 3 in. ; 02:18 BP 125 / 83; Pulse 104; Resp 18; Pulse Ox 97% on R/A; jb4 01:13 Body Mass Index 24.98 (63.96 kg, 160.02 cm) ED Course: 00:53 Patient arrived in ED. jj6 00:54 Thor Krishnamurthy DO is Attending Physician. ms3 01:15 Triage completed. kl 01:29 XRAY Chest (1 view) In Process Unspecified. EDMS 01:41 Inserted saline lock: 20 gauge in right antecubital area, using aseptic technique. oe Blood collected. 01:42 Troponin HS Sent. oe 01:42 CBC with Diff Sent. oe 01:42 Basic Metabolic Panel Sent. oe 01:59 Basic Metabolic Panel Sent. pf1 01:59 Troponin HS Sent. pf1 02:11 Floyd Diaz, RN is Primary Nurse. jb4 02:16 Charles Kuhn MD is Hospitalizing Provider. ms3 02:18 Patient maintains SpO2 saturation greater than 95% on room air. jb4 02:18 Patient has correct armband on for positive identification. Bed in low position. Call jb4 light in reach. Side rails up X 1. Client placed on continuous cardiac and pulse oximetry monitoring. NIBP monitoring applied. court monitor on. 06:13 No provider procedures requiring assistance completed. Patient admitted, IV remains in as6 place. 06:13 Arm band placed on. as6 Administered Medications: 01:55 Drug: Metoprolol IVP 5 mg Route: IVP; Site: right antecubital; pf1 02:11 Drug: Metoprolol IVP 5 mg Route: IVP; Site: right antecubital; jb4 02:18 Drug: Metoprolol IVP 5 mg Route: IVP; Site: right antecubital; jb4 06:13 Follow up: Response: No adverse reaction as6 02:31 Drug: Potassium Chloride PO 40 mEq Route: PO; jb4 06:13 Follow up: Response: No adverse reaction as6 03:23 Drug: Acetaminophen PO 650 mg Route: PO; jb4 06:13 Follow up: Response: No adverse reaction as6 Medication: 06:12 VIS not applicable for this client. as6 Outcome: 02:16 Decision to Hospitalize by Provider. ms3 06:13 Admitted to ER Hold. Please see [facility] for further documentation. as6 06:13 Condition: stable 06:13 Instructed on the need for admit. 14:07 Patient left the ED. ph Signatures: Dispatcher [employer] EDMS Maggie Brewer RN RN kl Hall, Patricia, RN RN Floyd Diaz, RN RN jb4 Toni Mariano Marcus, DO DO ms3 Joya Johnsonj6 Santy Neal RN RN as6 Vannessa santamaria RN RN pf1
--- NOTE | 2022-09-21 02:17 | EDPHYS ---
Physician Documentation [facility] Name: Tsering Hamilton Age: 82 yrs Sex: Female : 1940 Arrival Date: 09/21/2022 Time: 00:53 Bed 13 Private MD: ED Physician Thor Krishnamurthy HPI: 09/21 01:57 This 82 yrs old Female presents to ER via Ambulatory with complaints of High Blood ms3 Pressure, Chest Tightness, Headache. 01:57 82-year-old female with past medical history of atrial fibrillation, congestive heart ms3 failure, dementia, hyperlipidemia presents for rapid heart rate and atrial fibrillation. Patient states she has been admitted 3 previous times for the same symptoms. Patient is to have a cardiac ablation on in [place]. Patient states she is also having chest pressure that she rates a 5/10. Patient endorses nausea, shortness of breath. Patient denies fevers, chills, diarrhea.. Historical: - Allergies: 01:15 Codeine; kl 01:15 Tessalon [place]; kl - Home Meds: 01:15 amiodarone 200 mg Oral tab 1 tab once daily [Active]; donepezil 10 mg Oral tab kl [Active]; Eliquis 5 mg Oral tab 1 tab 2 times per day [Active]; furosemide 40 mg Oral tab 1 tab once daily [Active]; losartan 100 mg Oral tab 1 tab once daily [Active]; Namenda 10 mg Oral tab 2 times per day [Active]; simvastatin 20 mg Oral tab once daily [Active]; spironolactone 25 mg Oral tab 1 tab once daily [Active]; - PMHx: 01:15 Atrial fibrillation; Congestive heart failure; Dementia; High Cholesterol; kl Hypertension; restasis; TIA; - Immunization history:: Adult Immunizations up to date. - Social history:: Smoking status: Patient denies any tobacco usage or history of. ROS: 01:57 Constitutional: Negative for fever, and chills. Neck: Negative for injury, pain, and ms3 swelling, Respiratory: Negative for shortness of breath, cough, wheezing, and pleuritic chest pain, Abdomen/GI: Negative for abdominal pain, nausea, vomiting, diarrhea, and constipation. 01:57 MS/Extremity: Negative for injury and deformity, Skin: Negative for injury, rash, and discoloration. 01:57 Cardiovascular: Positive for chest pain. 01:57 All other systems are negative. Exam: 01:57 Constitutional: This is a well developed, well nourished patient who is awake, alert, ms3 and in no acute distress. Head/Face: Normocephalic, atraumatic. Chest/axilla: Normal chest wall appearance and motion. Nontender with no deformity. Cardiovascular: Regular rate and rhythm with a normal S1 and S2. No gallops, murmurs, or rubs. Normal PMI, no JVD. No pulse deficits. Respiratory: Lungs have equal breath sounds bilaterally, clear to auscultation and percussion. No rales, rhonchi or wheezes noted. No increased work of breathing, no retractions or nasal flaring. 01:57 ECG was reviewed by the Attending Physician. Vital Signs: 01:13 BP 154 / 73; Pulse 123; Resp 18; Temp 98.2(O); Pulse Ox 98% on R/A; Weight 63.96 kg kl (R); Height 5 ft. 3 in. ; 02:18 BP 125 / 83; Pulse 104; Resp 18; Pulse Ox 97% on R/A; jb4 01:13 Body Mass Index 24.98 (63.96 kg, 160.02 cm) kl MDM: 01:29 Patient medically screened. ms3 02:02 Differential diagnosis: Arrhythmia vs MA. Data reviewed: vital signs, nurses notes. ms3 02:17 Consideration of Admission/Observation Patient was admitted/placed on observation. ms3 Management of patient was discussed with the following: Hospitalist: Stoney Santiago NP on behalf of Dr Aden Kuhn. I considered the following discharge prescriptions or medication management in the emergency department Medications were administered in the Emergency Department. See MAR. Independent interpretation of the following test(s) in the Emergency Department youth nutritional monitor: rate is 119 beats/min, Rhythm is atrial fibrillation, tachycardia. Counseling: I had a detailed discussion with the patient and/or guardian regarding: the historical points, exam findings, and any diagnostic results supporting the discharge/admit diagnosis, lab results, radiology results, the need for further work-up and treatment in the hospital. ED course: Patient remains in a fib with rapid ventricular rate with HR of 119. Patient states her symptoms have improved since arrival to the ED. Discussed case with Stoney Santiago NP, and he agrees with observation .. 09/21 01:10 Order name: Basic Metabolic Panel; Complete Time: 02:11 ms3 09/21 01:10 Order name: CBC with Diff; Complete Time: 02:11 ms3 09/21 01:10 Order name: Troponin HS; Complete Time: 02:11 ms3 09/21 02:17 Order name: Magnesium; Complete Time: 02:32 ms3 09/21 02:58 Order name: SARS RAPID jb4 09/21 02:58 Order name: Basic Metabolic Panel EDMS 09/21 02:58 Order name: Basic Metabolic Panel EDMS 09/21 02:58 Order name: Basic Metabolic Panel EDMS 09/21 02:58 Order name: Basic Metabolic Panel EDMS 09/21 02:58 Order name: CBC with Automated Diff EDMS 09/21 02:58 Order name: CBC with Automated Diff EDMS 09/21 02:58 Order name: CBC with Automated Diff EDMS 09/21 02:58 Order name: CBC with Automated Diff EDMS 09/21 02:58 Order name: Magnesium EDMS 09/21 02:58 Order name: Magnesium EDMS 09/21 02:58 Order name: Magnesium EDMS 09/21 02:58 Order name: Magnesium EDMS 09/21 02:58 Order name: Troponin High Sensitivity EDMS 09/21 02:58 Order name: Troponin High Sensitivity EDMS 09/21 02:58 Order name: Troponin High Sensitivity EDMS 09/21 01:10 Order name: XRAY Chest (1 view) ms3 09/21 01:10 Order name: EKG; Complete Time: 01:11 ms3 09/21 02:58 Order name: Heart Healthy EDMS 09/21 01:10 Order name: Cardiac monitoring; Complete Time: 01:13 ms3 09/21 01:10 Order name: EKG - Nurse/Tech; Complete Time: 01:13 ms3 09/21 01:10 Order name: IV Saline Lock; Complete Time: 01:42 ms3 09/21 01:10 Order name: Labs collected and sent; Complete Time: 01:42 ms3 09/21 01:10 Order name: O2 Per Protocol; Complete Time: 01:33 ms3 09/21 01:10 Order name: O2 Sat Monitoring; Complete Time: 01:33 ms3 EC:57 Rate is 123 beats/min. Rhythm is irregularly irregular. QRS [place] is Normal. QRS ms3 interval is normal. Clinical impression: Atrial Fibrillation and with RVR. Interpreted by me. Reviewed by me. Administered Medications: 01:55 Drug: Metoprolol IVP 5 mg Route: IVP; Site: right antecubital; pf1 02:11 Drug: Metoprolol IVP 5 mg Route: IVP; Site: right antecubital; jb4 02:18 Drug: Metoprolol IVP 5 mg Route: IVP; Site: right antecubital; jb4 06:13 Follow up: Response: No adverse reaction as6 02:31 Drug: Potassium Chloride PO 40 mEq Route: PO; jb4 06:13 Follow up: Response: No adverse reaction as6 03:23 Drug: Acetaminophen PO 650 mg Route: PO; jb4 06:13 Follow up: Response: No adverse reaction as6 Disposition Summary: 09/21/22 02:16 Hospitalization Ordered Hospitalization Status: Observation ms3 Provider: Charles Kuhn ms3 Condition: Stable ms3 Problem: new ms3 Symptoms: are unchanged ms3 Bed/Room Type: Standard ms3 Location: [facility] ER HOLD(09/21/22 03:02) cg Room Assignment: ERHOLD-(09/21/22 03:02) cg Diagnosis - Unspecified atrial fibrillation ms3 - Atrial Fibrillation with Rapid Ventricular Rate ms3 - Essential (primary) hypertension ms3 - Hypokalemia ms3 Forms: - Medication Reconciliation Form ms3 - SBAR form ms3 Signatures: Dispatcher [employer] EDMS Maggie Brewer RN RN Stoney Whiteside FNP-C FNP-Cla1 Lillian Damon RN RN cg Floyd Diaz RN RN jb4 Thor Krishnamurthy DO DO ms3 Santy Neal RN RN as6 Vannessa santamaria RN RN pf1 Corrections: (The following items were deleted from the chart) 03:02 02:16 Telemetry/MedSurg (observation) ms3 cg 03:02 02:16 ms3 cg
[2022-09-21] MEDS ORDERED: POTASSIUM CL SA 10 MEQ TAB PO ONE (02:30)
[2022-09-21] MEDS ORDERED: PROMETHAZINE INJ 25 MG/ML AMP IV PRN (02:56)
--- NOTE | 2022-09-21 03:10 | P.HP ---
Certification for Inpatient Patient admitted to: Observation With expected LOS: <2 Midnights Patient will require the following post-hospital care: None Practitioner: I am a practitioner with admitting privileges, knowledge of patient current condition, hospital course, and medical plan of care. Services: Services provided to patient in accordance with Admission requirements found in Title 42 Section 412.3 of the Code of Federal Regulations Patient History Date of Service: 09/21/22 Reason for admission: A-fib, chest pain History of Present Illness: 82-year-old female with history of chronic diastolic congestive heart failure, atrial fibrillation on chronic anticoagulation, hypertension, hyperlipidemia, GERD, dementia presented to the emergency department for A-fib RVR, chest pain. She reports she began to feel unwell yesterday, today felt palpitations and chest tightness in the evening, came to the emergency department for evaluation. On arrival to ED patient was found to be in A-fib RVR with a rate of 120-130. She was given Lopressor IV 5 mg x 3, rate is controlled around 100 bpm at this time she is in and out of sinus rhythm. Initial troponin negative, patient has appointment for outpatient ablation on , 09/25/2022 [facility] [place] due to her refractory A-fib. ED provider wishes to admit under observation for A-fib, chest pain. Allergies No Known Allergies Allergy (Verified 10/24/20 09:41) Home Medications: Apixaban [Eliquis] 5 mg PO BID 08/07/22 Cholecalciferol (Vitamin D3) [Vitamin D3] 5,000 unit PO DAILY 08/07/22 Docusate Sodium 100 mg PO BID 08/07/22 Donepezil [Aricept*] 10 mg PO BID 08/07/22 Estradiol [Estrace] 42.5 gm VAG SEECOM 08/07/22 Furosemide [Lasix*] 40 mg PO DAILY 08/07/22 Losartan Potassium [Cozaar] 100 mg PO DAILY 08/07/22 Memantine HCl [Namenda*] 10 mg PO BID 08/07/22 Multivitamin 1 tab PO DAILY 08/07/22 Omeprazole [Prilosec] 40 mg PO DAILY 08/07/22 Simvastatin 20 mg PO BEDTIME 08/07/22 Tafluprost/Pf [Tafluprost 0.0015% Eye Drop] 1 ea OPTH BEDTIME 08/07/22 Amlodipine Besylate [Norvasc] 5 mg PO DAILY 30 Days #30 tab 08/10/22 Amiodarone HCl [Cordarone*] 200 mg PO BID 30 Days #60 tab 09/04/22 - Past Medical/Surgical History Diabetic: No -: Hypertension -: Hypercholesteronemia -: Glaucoma -: TIA -: A-fib on chronic anticoagulation (jul 2022) -: Chronic diastolic congestive heart failure -: Dementia -: Cataract -: Bilateral Tubal Ligation with Appendectomy -: Dilation and Curettage Psychosocial/ Personal History: Patient lives at home with her - Family History Father -: Heart disease Notes: Heart Failure Mother -: Cancer Notes: Esophageal Cancer Sister -: Heart disease Notes: Rheumatoid Arthritis - Social History Alcohol use: No CD- Drugs: No Caffeine use: Yes Place of Residence: Home Review of Systems 10-point ROS is otherwise unremarkable Cardiovascular: Chest Pain, Palpitations Physical Examination - Physical Exam General: Alert, In no apparent distress, Oriented x3 HEENT: Atraumatic, PERRLA, Mucous membr. moist/pink, EOMI, Sclerae nonicteric Neck: Supple, 2+ carotid pulse no bruit, No LAD, Without JVD or thyroid abnormality Respiratory: Clear to auscultation bilaterally, Normal air movement Cardiovascular: Irregular heart rate/rhythm (afib rate 100) Capillary refill: <2 Seconds Gastrointestinal: Normal bowel sounds, No tenderness Musculoskeletal: No tenderness Integumentary: No rashes Neurological: Normal speech, Normal strength at 5/5 x4 extr, Normal tone, Normal affect - Studies Laboratory Data (last 24 hrs) 09/21/22 01:37: Magnesium 2.4 09/21/22 01:37: WBC 6.10, Hgb 13.0, Hct 39.9, Plt Count 185 09/21/22 01:37: Sodium 140, Potassium 3.2 L, BUN 17, Creatinine 0.74, Glucose 125 H Assessment and Plan - Plan Assessment: Atrial fibrillation with rapid ventricular responseon chronic anticoagulation Hypokalemia Chronic diastolic congestive heart failure Hypertension Hyperlipidemia GERD Dementia Plan: Atrial fibrillation with rapid ventricular responseon chronic anticoagulation Continue Eliquis, cardiology consult in place. She is back on amiodarone 200mg PO BID since her last discharge. Plan for definitive care with OP ablation. She was given IV lopressor x3 and rate has improved. Hypokalemia Repleted in ED, protocol in place. Mag level checked, normal. Chronic diastolic congestive heart failure Appears euvolemic at this time, continue oral Lasix daily. Hypertension Continue amlodipine Hyperlipidemia GERD Dementia Continue home meds DVT PPX: Continue Eliquis Code status: Full Discharge Plan: Home Plan to discharge in: 24 Hours - Advance Directives Does patient have a Living Will: Yes Does patient have a Durable POA for Healthcare: No - Code Status/Comfort Care Code Status Assessed: Yes (Full code) Critical Care: No Time Spent Managing Pts Care (In Minutes): 50
[2022-09-21 03:25] VITALS: BMI 25.0
[2022-09-21] MEDS ORDERED: ACETAMINOPHEN 325 MG TABLET ONE (03:26)
[2022-09-21 03:59] LABS: SARS-CoV-2 Antigen Rapid Res Negative (Negative)
[2022-09-21] MEDS ORDERED: APIXABAN 5 MG TABLET PO SCH (09:00)
[2022-09-21] MEDS ORDERED: AMIODARONE HCL 200 MG TAB PO SCH (09:00)
[2022-09-21] MEDS ORDERED: APIXABAN 5 MG TABLET ONE (09:20)
[2022-09-21] MEDS ORDERED: AMIODARONE HCL 200 MG TAB ONE (09:20)
[2022-09-21 09:40] VITALS: O2SAT 100
[2022-09-21 12:20] VITALS: BP 144/64; TEMP 97.5
--- NOTE | 2022-09-21 15:17 | RAD REPORT ---
EXAM DESCRIPTION: AP portable chest x-ray CLINICAL HISTORY: Chest pain.. TECHNIQUE: AP portable chest x-ray upright on 09/21/2022, at 01: 23. COMPARISON: None. FINDINGS: Heart: Normal size and configuration. Mediastinal Structures: There is atherosclerosis about the aortic arch. Lung [place]: No active disease. Pulmonary Vascularity: Normal. Pleural Space: No active disease. Bony Structures: The bony structures appear intact.. IMPRESSION: 1. No acute cardiopulmonary disease. 2. Atherosclerosis about the aortic arch. Electronically signed by: Lucas Wallace MD 09/21/2022 1:33 AM CDT Due to temporary technical issues with the PACS/Fluency reporting system, reports are being signed by the in house radiologists without review as a courtesy to insure prompt reporting. The interpreting radiologist is fully responsible for the content of the report.
--- NOTE | 2022-09-21 18:34 | CON ---
Date of Consultation: 09/21/2022 Reason For Consultation: Atrial fibrillation with rapid ventricular response. History Of Present Illness: An 82-year-old female with history of diastolic heart failure, atrial fi brillation, hypertension, dyslipidemia, acid reflux, who presented to the emergency room with atrial fibrillation and rapid ventricular response. Heart rate was in 130s. After Lopressor, she converted sinus rhythm and she has been in sinus rhythm ever since. Past Medical History: As outlined above in HPI. Medications: Refer to reconciliation sheet for detailed list. Allergies: NO KNOWN DRUG ALLERGIES. Family History: No premature coronary artery disease or cancer. Social History: She does not smoke or drink. Does not use any drugs. Review of Systems: All systems reviewed and they were negative except what mentioned in HPI. Physical Examination: Vital Signs: Reviewed. Head and Neck: Pupils are equal, reactive to light. Intact eye movements. No JVD. No cervical lym phadenopathy. Neck is supple. Thyroid is not enlarged. Lungs: Clear to auscultation bilaterally. No rhonchi, wheezing, or crackles. No accessory muscle u se. Heart: Regular rate and rhythm. No extra sounds. Abdomen: Soft, nontender. Bowel sounds positive. No organomegaly. No masses or hernia. No rigidi ty or rebound. Extremities: No edema, clubbing, or cyanosis. Intact pulses. Skin: No rash. Neurologic: Alert, awake, oriented x3. No acute focal deficits appreciated. Investigations: BUN is 17, creatinine 0.7, troponins are negative, and hemoglobin is 13. Assessment And Recommendations: 1.Atrial fibrillation with rapid ventricular response, now back in sinus rhythm. The patient can be released on amiodarone 200 mg twice a day and on Eliquis, and she has an appointment with EP for atr ial fibrillation ablation scheduled this week as she had multiple hospitalizations for this issue. 2.Hypertension. Blood pressure is controlled. Continue current management. The patient can be rel eased from Cardiology standpoint and to keep her appointment for the atrial fibrillation ablation. SR/MODL Voice ID: [id number] Report ID: [id number]
== END 2022-09-21 14:07 | disposition home or self-care (01) ==
LOC: ER 00:50 → ERHOLD 02:33
PROVIDERS: ADMIT Hospitalist; ATTEND Hospitalist
DX: I48.11 Longstanding persistent atrial fibrillation (principal); I50.32 Chronic diastolic (congestive) heart failure; I10 Essential (primary) hypertension; E87.6 Hypokalemia; E78.5 Hyperlipidemia, unspecified; K21.9 Gastro-esophageal reflux disease without esophagitis; F03.90 Unspecified dementia, unspecified severity, without behavioral disturbance, psychotic disturbance, mood disturbance, and anxiety; Z82.49 Family history of ischemic heart disease and other diseases of the circulatory system; Z79.01 Long term (current) use of anticoagulants; Z80.0 Family history of malignant neoplasm of digestive organs; Z20.822 Contact with and (suspected) exposure to COVID-19
CPT/HCPCS: 36415; 71045; 80048; 83735; 84484; 85025; 87811; G0378

== ENCOUNTER → 2023-07-04 | Emergency (ER) | payer OTHER, MEDICARE ==
[~2023-07-04] MED LIST changes: +FAMOTIDINE 20 MG/2 ML VIAL IV ONE; -FENTANYL CITR 100 MCG/2 ML ONE; -LIDOCAINE 2% MPF 5 ML VIAL ONE; -ONDANSETRON 4 MG/2 ML VIAL ONE; -Ringers Lactate 1,000 ML IV SCH; -propofoL 200 MG/20 ML VIAL IV ONE
--- OUTSIDE RECORDS SUMMARY | 2023-07-04 10:14 | XMS REPORT | Continuity of Care Document ---
Author Name Unknown Address [address] [facility] [address] [place], [place] [id number] [place] [address] thconnect Address [address] [facility] [address] [place] [address] Care Team Providers Care Assistant Plant Controller Name Role Phone Edward Villa Attending Clinician Unavailable [email or web address]_Kadiyala_S Attending Clinician Unavaila ble GC_GCBZW_Kadiyala_S Admitting Clinician Unavaila ble Payers Payer Name Policy Type Policy Number Effective Date Expirati on Date Source 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 Problem [facility] [id number] Trigger finger, right middle finger Problem [facility] [id number] Pain in joint of right foot Problem [facility] [id number] Seasonal allergies Problem [facility] [id number] GERD without esophagiti s Problem [facility] [id number] Mild cognitive disorder Problem [facility] [id number] Generalize d anxiety disorder Problem [facility] [id number] History of recurrent TIAs Problem [facility] [id number] Glaucoma of both eyes, unspecifie d glaucoma type Problem [facility] [id number] Insomnia, unspecifie d type Problem [facility] [id number] Decreased hearing of both ears Problem [facility] [id number] Mixed hyperlipid emia Problem [facility] Diverticul um of bladder Diverticul a, bladder Problem [facility] [id number] Dry eyes, bilateral Problem [facility] [id number] HTN, goal below 150/90 Problem [facility] [id number] Non-season al allergic rhinitis, unspecifie d trigger Problem [facility] [id number] Overactive bladder Problem [facility] [id number] Pulmonary hypertensi on Problem [facility] [id number] Paroxysmal atrial fibrillati on Problem [facility] [id number] Chronic diastolic congestive heart failure Problem [facility] [id number] Dementia without behavioral disturbanc e, unspecifie d dementia type Problem [facility] Social History Social Habit Start Date Stop Date Quantity Comments Source History of Tobacco Use [facility] Sex Assigned At [facility] Smoking Status Start Date Stop Date Source Never Smoker [facility] Medications Ordered Medication Name Filled Medication Name Start Date Stop Date Current Medication? Ordering Clinician Indication Dosage Frequency Signature (SIG) Comments Components Source Nebulizer - Nebulizer - 3- 00:00: 00 No Nebulizer - Nebulizer - Nebulizer - 3- 00:00: 00 No Nebulizer - Nebulizer - Nebulizer - 3- 00:00: 00 No Nebulizer - Nebulizer - Nebulizer - 3-0 3-02 00:00: 00 No Nebulizer - Ipratropium -Albuterol 0.5-2.5 (3) MG/3ML Ipratropium -Albuterol 0.5-2.5 (3) MG/3ML 3-0 2-24 00:00: 00 No 3{ml_as _needed } QID Ipratropiu m-Albutero l 0.5-2.5 (3) MG/3ML Ipratropium -Albuterol 0.5-2.5 (3) MG/3ML Ipratropium -Albuterol 0.5-2.5 (3) MG/3ML 3-0 2-24 00:00: 00 No 3{ml_as _needed } QID Ipratropiu m-Albutero l 0.5-2.5 (3) MG/3ML Ipratropium -Albuterol 0.5-2.5 (3) MG/3ML Ipratropium -Albuterol 0.5-2.5 (3) MG/3ML 3-0 2-24 00:00: 00 No 3{ml_as _needed } QID Ipratropiu m-Albutero l 0.5-2.5 (3) MG/3ML Ipratropium -Albuterol 0.5-2.5 (3) MG/3ML Ipratropium -Albuterol 0.5-2.5 (3) MG/3ML 3-0 2-24 00:00: 00 No 3{ml_as _needed } QID Ipratropiu m-Albutero l 0.5-2.5 (3) MG/3ML Benzonatate 200 MG Benzonatate 200 MG 2022-0 118 00:00: 00 08-21 00:00 :00 No 1{capsu le} Benzonatat e 200 MG Benzonatate 200 MG Benzonatate 200 MG 3-0 1-18 00:00: 00 08-21 00:00 :00 No 1{capsu le} Benzonatat e 200 MG Benzonatate 200 MG Benzonatate 200 MG 0 -18 00:00: 00 08-21 00:00 :00 No 1{capsu le} Benzonatat e 200 MG Simvastatin Simvastatin Yes Edward Villa TAKE 1 TABLET BY MOUTH EVERY DAY IN THE EVENING [facility] Ativan Ativan Yes Edward Villa 1 tablet at bedtime as needed [facility] Zioptan Zioptan Yes Edward Villa not defined [facility] Ipratropium [place] Ipratropium [place] Yes Edward Villa 2 sprays in each nostril [facility] Zyrtec Allergy Zyrtec Allergy Yes Edward Villa 1 tablet [facility] Famotidine Famotidine Yes Edward Villa TAKE 1 TABLET BY MOUTH EVERY DAY AT BEDTIME NEEDED [facility] Vitamin B12 Vitamin B12 Yes Edward Villa 1 tablet [facility] Donepezil HCl Donepezil HCl Yes Edward Villa 1 tablet at bedtime [facility] Aspir-Low Aspir-Low Yes Edward Villa 1 tablet [facility] Memantine HCl Memantine HCl Yes Edward Villa 1 tablet [facility] Omeprazole Omeprazole Yes Edward Villa 1 tablet [facility] Trazodone HCl Trazodone HCl Yes Edward Villa 1-2 tablet at bedtime PRN Insomnia [facility] Centrum Silver Centrum Silver Yes Edward Villa as directed [facility] Losartan Potassium Losartan Potassium Yes Edward Villa TAKE 1 TABLET BY MOUTH EVERY DAY [facility] Losartan Potassium Losartan Potassium Yes Edward Villa 1 tablet [facility] Omeprazole Omeprazole Yes Edward Villa 1 tablet [facility] Centrum Silver - Centrum Silver - No Centrum Silver - Simvastatin 20 MG Simvastatin 20 MG No Simvastati n 20 MG Ipratropium [place] 0.06 % Ipratropium [place] 0.06 % No 2{spray s_in_ea ch_nost ril} TID Ipratropiu m [place] 0.06 % Donepezil HCl 10 MG Donepezil HCl 10 MG No 1{table t_at_be dtime} BID Donepezil HCl 10 MG ZyrTEC Allergy 10 MG ZyrTEC Allergy 10 MG No 1{table t} QD ZyrTEC Allergy 10 MG Famotidine 20 MG Famotidine 20 MG No Famotidine 20 MG Ativan 0.5 MG Ativan 0.5 MG No 1{table t_at_be dtime_a s_neede d} QD Ativan 0.5 MG Zioptan Zioptan No Zioptan Omeprazole 40 MG Omeprazole 40 MG No Omeprazole 40 MG Aspir-Low 81 MG Aspir-Low 81 MG No 1{table t} QD Aspir-Low 81 MG Losartan Potassium 100 MG Losartan Potassium 100 MG No 1{table t} QD Losartan Potassium 100 MG traZODone HCl 100 MG traZODone HCl 100 MG No 1{table t_at_be dtime} QD traZODone HCl 100 MG Memantine HCl 10 MG Memantine HCl 10 MG No 1{table t} BID Memantine HCl 10 MG Vitamin B12 1000 MCG Vitamin B12 1000 MCG No 1{table t} QD Vitamin B12 1000 MCG Simvastatin 20 MG Simvastatin 20 MG No 1{table t_in_th e_eveni ng} QD Simvastati n 20 MG traZODone HCl 50 MG traZODone HCl 50 MG No traZODone HCl 50 MG Memantine HCl 10 MG Memantine HCl 10 MG No 1{table t} BID Memantine HCl 10 MG Zioptan Zioptan No Zioptan Aspir-Low 81 MG Aspir-Low 81 MG No 1{table t} QD Aspir-Low 81 MG Donepezil HCl 10 MG Donepezil HCl 10 MG No 1{table t_at_be dtime} BID Donepezil HCl 10 MG Centrum Silver - Centrum Silver - No Centrum Silver - Omeprazole 40 MG Omeprazole 40 MG No 1{table t} QD Omeprazole 40 MG Famotidine 20 MG Famotidine 20 MG No Famotidine 20 MG Famotidine 20 MG Famotidine 20 MG No 1{table t_at_be dtime_a s_neede d} QD Famotidine 20 MG ZyrTEC Allergy 10 MG ZyrTEC Allergy 10 MG No 1{table t} QD ZyrTEC Allergy 10 MG Simvastatin 20 MG Simvastatin 20 MG No Simvastati n 20 MG Ativan 0.5 MG Ativan 0.5 MG No 1{table t_at_be dtime_a s_neede d} QD Ativan 0.5 MG Estrace 0.1 MG/GM Estrace 0.1 MG/GM No Estrace 0.1 MG/GM Simvastatin 20 MG Simvastatin 20 MG No 1{table t_in_ e_eveni ng} QD Simvastati n 20 MG Omeprazole 40 MG Omeprazole 40 MG No Omeprazole 40 MG Losartan Potassium 100 MG Losartan Potassium 100 MG No 1{table t} QD Losartan Potassium 100 MG Vitamin B12 1000 MCG Vitamin B12 1000 MCG No 1{table t} QD Vitamin B12 1000 MCG Losartan Potassium 100 MG Losartan Potassium 100 MG No Losartan Potassium 100 MG Ipratropium [place] 0.06 % Ipratropium [place] 0.06 % No 2{spray s_in_ea ch_nost ril} TID Ipratropiu m [place] 0.06 % Donepezil HCl 10 MG Donepezil HCl 10 MG No 1{table t_at_be dtime} BID Memantine HCl 10 MG Memantine HCl 10 MG No 1{table t} BID Omeprazole 40 MG Omeprazole 40 MG No 1{table t} QD Aspir-Low 81 MG Aspir-Low 81 MG No 1{table t} QD Zioptan Zioptan No Centrum Silver - Centrum Silver - No traZODone HCl 50 MG traZODone HCl 50 MG No Famotidine 20 MG Famotidine 20 MG No Famotidine 20 MG Famotidine 20 MG No 1{table t_at_be dtime_a s_neede d} QD ZyrTEC Allergy 10 MG ZyrTEC Allergy 10 MG No 1{table t} QD Simvastatin 20 MG Simvastatin 20 MG No Ativan 0.5 MG Ativan 0.5 MG No 1{table t_at_be dtime_a s_neede d} QD Estrace 0.1 MG/GM Estrace 0.1 MG/GM No Simvastatin 20 MG Simvastatin 20 MG No 1{table t_in_th e_eveni ng} QD Omeprazole 40 MG Omeprazole 40 MG No Losartan Potassium 100 MG Losartan Potassium 100 MG No 1{table t} QD Vitamin B12 1000 MCG Vitamin B12 1000 MCG No 1{table t} QD Losartan Potassium 100 MG Losartan Potassium 100 MG No Ipratropium [place] 0.06 % Ipratropium [place] 0.06 % No 2{spray s_in_ea ch_nost ril} TID Memantine HCl 10 MG Memantine HCl 10 MG No 1{table t} BID Memantine HCl 10 MG Centrum Silver - Centrum Silver - No Centrum Silver - Estrace 0.1 MG/GM Estrace 0.1 MG/GM No Estrace 0.1 MG/GM Famotidine 20 MG Famotidine 20 MG No 1{table t_at_be dtime_a s_neede d} QD Famotidine 20 MG traZODone HCl 50 MG traZODone HCl 50 MG No traZODone HCl 50 MG Ativan 0.5 MG Ativan 0.5 MG No 1{table t_at_be dtime_a s_neede d} QD Ativan 0.5 MG ZyrTEC Allergy 10 MG ZyrTEC Allergy 10 MG No 1{table t} QD ZyrTEC Allergy 10 MG Simvastatin 20 MG Simvastatin 20 MG No 1{table t_in_th e_eveni ng} QD Simvastati n 20 MG Aspir-Low 81 MG Aspir-Low 81 MG No 1{table t} QD Aspir-Low 81 MG Losartan Potassium 100 MG Losartan Potassium 100 MG No Losartan Potassium 100 MG Omeprazole 40 MG Omeprazole 40 MG No 1{table t} QD Omeprazole 40 MG Omeprazole 40 MG Omeprazole 40 MG No Omeprazole 40 MG Donepezil HCl 10 MG Donepezil HCl 10 MG No 1{table t_at_be dtime} BID Donepezil HCl 10 MG Famotidine 20 MG Famotidine 20 MG No Famotidine 20 MG Ipratropium [place] 0.06 % Ipratropium [place] 0.06 % No 2{spray s_in_ea ch_nost ril} TID Ipratropiu m [place] 0.06 % Losartan Potassium 100 MG Losartan Potassium 100 MG No 1{table t} QD Losartan Potassium 100 MG Vitamin B12 1000 MCG Vitamin B12 1000 MCG No 1{table t} QD Vitamin B12 1000 MCG Simvastatin 20 MG Simvastatin 20 MG No Simvastati n 20 MG traZODone HCl 100 MG traZODone HCl 100 MG No 1{table t_at_be dtime} QD traZODone HCl 100 MG Zioptan Zioptan No Zioptan Famotidine 20 MG Famotidine 20 MG No 1{table t_at_be dtime_a s_neede d} QD Famotidine 20 MG Losartan Potassium 100 MG Losartan Potassium 100 MG No Losartan Potassium 100 MG Omeprazole 40 MG Omeprazole 40 MG No 1{table t} QD Omeprazole 40 MG Estrace 0.1 MG/GM Estrace 0.1 MG/GM No Estrace 0.1 MG/GM traZODone HCl 50 MG traZODone HCl 50 MG No traZODone HCl 50 MG Centrum Silver - Centrum Silver - No Centrum Silver - Simvastatin 20 MG Simvastatin 20 MG No Simvastati n 20 MG Ipratropium [place] 0.06 % Ipratropium [place] 0.06 % No 2{spray s_in_ea ch_nost ril} TID Ipratropiu m [place] 0.06 % Donepezil HCl 10 MG Donepezil HCl 10 MG No 1{table t_at_be dtime} BID Donepezil HCl 10 MG ZyrTEC Allergy 10 MG ZyrTEC Allergy 10 MG No 1{table t} QD ZyrTEC Allergy 10 MG Famotidine 20 MG Famotidine 20 MG No Famotidine 20 MG Ativan 0.5 MG Ativan 0.5 MG No 1{table t_at_be dtime_a s_neede d} QD Ativan 0.5 MG Zioptan Zioptan No Zioptan Omeprazole 40 MG Omeprazole 40 MG No Omeprazole 40 MG Aspir-Low 81 MG Aspir-Low 81 MG No 1{table t} QD Aspir-Low 81 MG Losartan Potassium 100 MG Losartan Potassium 100 MG No 1{table t} QD Losartan Potassium 100 MG traZODone HCl 100 MG traZODone HCl 100 MG No 1{table t_at_be dtime} QD traZODone HCl 100 MG Memantine HCl 10 MG Memantine HCl 10 MG No 1{table t} BID Memantine HCl 10 MG Vitamin B12 1000 MCG Vitamin B12 1000 MCG No 1{table t} QD Vitamin B12 1000 MCG Simvastatin 20 MG Simvastatin 20 MG No 1{table t_in_th e_eveni ng} QD Simvastati n 20 MG Famotidine 20 MG Famotidine 20 MG No 1{table t_at_be dtime_a s_neede d} QD Famotidine 20 MG Losartan Potassium 100 MG Losartan Potassium 100 MG No Losartan Potassium 100 MG Omeprazole 40 MG Omeprazole 40 MG No 1{table t} QD Omeprazole 40 MG Estrace 0.1 MG/GM Estrace 0.1 MG/GM No Estrace 0.1 MG/GM traZODone HCl 50 MG traZODone HCl 50 MG No traZODone HCl 50 MG Centrum Silver - Centrum Silver - No Centrum Silver - Simvastatin 20 MG Simvastatin 20 MG No Simvastati n 20 MG Ipratropium [place] 0.06 % Ipratropium [place] 0.06 % No 2{spray s_in_ea ch_nost ril} TID Ipratropiu m [place] 0.06 % Donepezil HCl 10 MG Donepezil HCl 10 MG No 1{table t_at_be dtime} BID Donepezil HCl 10 MG ZyrTEC Allergy 10 MG ZyrTEC Allergy 10 MG No 1{table t} QD ZyrTEC Allergy 10 MG Famotidine 20 MG Famotidine 20 MG No Famotidine 20 MG Ativan 0.5 MG Ativan 0.5 MG No 1{table t_at_be dtime_a s_neede d} QD Ativan 0.5 MG Zioptan Zioptan No Zioptan Omeprazole 40 MG Omeprazole 40 MG No Omeprazole 40 MG Aspir-Low 81 MG Aspir-Low 81 MG No 1{table t} QD Aspir-Low 81 MG Losartan Potassium 100 MG Losartan Potassium 100 MG No 1{table t} QD Losartan Potassium 100 MG traZODone HCl 100 MG traZODone HCl 100 MG No 1{table t_at_be dtime} QD traZODone HCl 100 MG Memantine HCl 10 MG Memantine HCl 10 MG No 1{table t} BID Memantine HCl 10 MG Vitamin B12 1000 MCG Vitamin B12 1000 MCG No 1{table t} QD Vitamin B12 1000 MCG Simvastatin 20 MG Simvastatin 20 MG No 1{table t_in_th e_eveni ng} QD Simvastati n 20 MG traZODone HCl 50 MG traZODone HCl 50 MG No traZODone HCl 50 MG Famotidine 20 MG Famotidine 20 MG No 1{table t_at_be dtime_a s_neede d} QD Famotidine 20 MG Estrace 0.1 MG/GM Estrace 0.1 MG/GM No Estrace 0.1 MG/GM traZODone HCl 100 MG traZODone HCl 100 MG No 1{table t_at_be dtime} QD traZODone HCl 100 MG Centrum Silver - Centrum Silver - No Centrum Silver - Ipratropium [place] 0.06 % Ipratropium [place] 0.06 % No 2{spray s_in_ea ch_nost ril} TID Ipratropiu m [place] 0.06 % Donepezil HCl 10 MG Donepezil HCl 10 MG No 1{table t_at_be dtime} BID Donepezil HCl 10 MG ZyrTEC Allergy 10 MG ZyrTEC Allergy 10 MG No 1{table t} QD ZyrTEC Allergy 10 MG Famotidine 20 MG Famotidine 20 MG No Famotidine 20 MG Ativan 0.5 MG Ativan 0.5 MG No 1{table t_at_be dtime_a s_neede d} QD Ativan 0.5 MG Zioptan Zioptan No Zioptan Omeprazole 40 MG Omeprazole 40 MG No Omeprazole 40 MG Aspir-Low 81 MG Aspir-Low 81 MG No 1{table t} QD Aspir-Low 81 MG Simvastatin 20 MG Simvastatin 20 MG No Simvastati n 20 MG Memantine HCl 10 MG Memantine HCl 10 MG No 1{table t} BID Memantine HCl 10 MG Vitamin B12 1000 MCG Vitamin B12 1000 MCG No 1{table t} QD Vitamin B12 1000 MCG Losartan Potassium 100 MG Losartan Potassium 100 MG No Losartan Potassium 100 MG Omeprazole 40 MG Omeprazole 40 MG No Omeprazole 40 MG Aspir-Low 81 MG Aspir-Low 81 MG No 1{table t} QD Aspir-Low 81 MG Losartan Potassium 100 MG Losartan Potassium 100 MG No Losartan Potassium 100 MG traZODone HCl 100 MG traZODone HCl 100 MG No 1{table t_at_be dtime} QD traZODone HCl 100 MG Ativan 0.5 MG Ativan 0.5 MG No 1{table t_at_be dtime_a s_neede d} QD Ativan 0.5 MG Estrace 0.1 MG/GM Estrace 0.1 MG/GM No Estrace 0.1 MG/GM Vitamin B12 1000 MCG Vitamin B12 1000 MCG No 1{table t} QD Vitamin B12 1000 MCG Zioptan Zioptan No Zioptan Centrum Silver - Centrum Silver - No Centrum Silver - Simvastatin 20 MG Simvastatin 20 MG No Simvastati n 20 MG Famotidine 20 MG Famotidine 20 MG No 1{table t_at_be dtime_a s_neede d} QD Famotidine 20 MG Memantine HCl 10 MG Memantine HCl 10 MG No 1{table t} BID Memantine HCl 10 MG Ipratropium [place] 0.06 % Ipratropium [place] 0.06 % No 2{spray s_in_ea ch_nost ril} TID Ipratropiu m [place] 0.06 % ZyrTEC Allergy 10 MG ZyrTEC Allergy 10 MG No 1{table t} QD ZyrTEC Allergy 10 MG Donepezil HCl 10 MG Donepezil HCl 10 MG No 1{table t_at_be dtime} BID Donepezil HCl 10 MG Famotidine 20 MG Famotidine 20 MG No Famotidine 20 MG traZODone HCl 50 MG traZODone HCl 50 MG No traZODone HCl 50 MG Aspir-Low 81 MG Aspir-Low 81 MG No 1{table t} QD Aspir-Low 81 MG traZODone HCl 50 MG traZODone HCl 50 MG No traZODone HCl 50 MG Ativan 0.5 MG Ativan 0.5 MG No 1{table t_at_be dtime_a s_neede d} QD Ativan 0.5 MG Omeprazole 40 MG Omeprazole 40 MG No Omeprazole 40 MG Zioptan Zioptan No Zioptan Centrum Silver - Centrum Silver - No Centrum Silver - Vitamin B12 1000 MCG Vitamin B12 1000 MCG No 1{table t} QD Vitamin B12 1000 MCG Donepezil HCl 10 MG Donepezil HCl 10 MG No 1{table t_at_be dtime} BID Donepezil HCl 10 MG Famotidine 20 MG Famotidine 20 MG No 1{table t_at_be dtime_a s_neede d} QD Famotidine 20 MG traZODone HCl 100 MG traZODone HCl 100 MG No 1{table t_at_be dtime} QD traZODone HCl 100 MG Estrace 0.1 MG/GM Estrace 0.1 MG/GM No Estrace 0.1 MG/GM ZyrTEC Allergy 10 MG ZyrTEC Allergy 10 MG No 1{table t} QD ZyrTEC Allergy 10 MG Famotidine 20 MG Famotidine 20 MG No Famotidine 20 MG Simvastatin 20 MG Simvastatin 20 MG No Simvastati n 20 MG Losartan Potassium 100 MG Losartan Potassium 100 MG No Losartan Potassium 100 MG Memantine HCl 10 MG Memantine HCl 10 MG No 1{table t} BID Memantine HCl 10 MG Ipratropium [place] 0.06 % Ipratropium [place] 0.06 % No 2{spray s_in_ea ch_nost ril} TID Ipratropiu m [place] 0.06 % Aspir-Low 81 MG Aspir-Low 81 MG No 1{table t} QD Aspir-Low 81 MG traZODone HCl 50 MG traZODone HCl 50 MG No traZODone HCl 50 MG Ativan 0.5 MG Ativan 0.5 MG No 1{table t_at_be dtime_a s_neede d} QD Ativan 0.5 MG Omeprazole 40 MG Omeprazole 40 MG No Omeprazole 40 MG Zioptan Zioptan No Zioptan Centrum Silver - Centrum Silver - No Centrum Silver - Vitamin B12 1000 MCG Vitamin B12 1000 MCG No 1{table t} QD Vitamin B12 1000 MCG Donepezil HCl 10 MG Donepezil HCl 10 MG No 1{table t_at_be dtime} BID Donepezil HCl 10 MG Famotidine 20 MG Famotidine 20 MG No 1{table t_at_be dtime_a s_neede d} QD Famotidine 20 MG traZODone HCl 100 MG traZODone HCl 100 MG No 1{table t_at_be dtime} QD traZODone HCl 100 MG Estrace 0.1 MG/GM Estrace 0.1 MG/GM No Estrace 0.1 MG/GM ZyrTEC Allergy 10 MG ZyrTEC Allergy 10 MG No 1{table t} QD ZyrTEC Allergy 10 MG Famotidine 20 MG Famotidine 20 MG No Famotidine 20 MG Simvastatin 20 MG Simvastatin 20 MG No Simvastati n 20 MG Losartan Potassium 100 MG Losartan Potassium 100 MG No Losartan Potassium 100 MG Memantine HCl 10 MG Memantine HCl 10 MG No 1{table t} BID Memantine HCl 10 MG Ipratropium [place] 0.06 % Ipratropium [place] 0.06 % No 2{spray s_in_ea ch_nost ril} TID Ipratropiu m [place] 0.06 % Vitamin C Vitamin C No Vitamin C Stool Softener Stool Softener No Stool Softener Donepezil HCl 10 MG Donepezil HCl 10 MG No 1{table t_at_be dtime} BID Donepezil HCl 10 MG Memantine HCl 10 MG Memantine HCl 10 MG No 1{table t} BID Memantine HCl 10 MG Benzonatate 100 MG Benzonatate 100 MG No 1{capsu le_as_n eeded} TID Benzonatat e 100 MG Eliquis 5 MG Eliquis 5 MG No 1{table t} BID Eliquis 5 MG Losartan Potassium 100 MG Losartan Potassium 100 MG No 1{table t} QD Losartan Potassium 100 MG Estrace 1 MG Estrace 1 MG No 1{table t} QD Estrace 1 MG Amiodarone HCl 200 MG Amiodarone HCl 200 MG No 1{table t} QD Amiodarone HCl 200 MG Aspir-Low 81 MG Aspir-Low 81 MG No 1{table t} QD Aspir-Low 81 MG Simvastatin 20 MG Simvastatin 20 MG No 1{table t_in_th e_eveni ng} QD Simvastati n 20 MG Famotidine 20 MG Famotidine 20 MG No 1{table t_at_be dtime_a s_neede d} QD Famotidine 20 MG Ativan 0.5 MG Ativan 0.5 MG No 1{table t_at_be dtime_a s_neede d} QD Ativan 0.5 MG Lasix 20 MG Lasix 20 MG No 1{table t} QD Lasix 20 MG Omeprazole 40 MG Omeprazole 40 MG No Omeprazole 40 MG Zioptan Zioptan No Zioptan Vitamin C Vitamin C No Vitamin C Stool Softener Stool Softener No Stool Softener Donepezil HCl 10 MG Donepezil HCl 10 MG No 1{table t_at_be dtime} BID Donepezil HCl 10 MG Memantine HCl 10 MG Memantine HCl 10 MG No 1{table t} BID Memantine HCl 10 MG Benzonatate 100 MG Benzonatate 100 MG No 1{capsu le_as_n eeded} TID Benzonatat e 100 MG Eliquis 5 MG Eliquis 5 MG No 1{table t} BID Eliquis 5 MG Losartan Potassium 100 MG Losartan Potassium 100 MG No 1{table t} QD Losartan Potassium 100 MG Estrace 1 MG Estrace 1 MG No 1{table t} QD Estrace 1 MG Amiodarone HCl 200 MG Amiodarone HCl 200 MG No 1{table t} QD Amiodarone HCl 200 MG Aspir-Low 81 MG Aspir-Low 81 MG No 1{table t} QD Aspir-Low 81 MG Simvastatin 20 MG Simvastatin 20 MG No 1{table t_in_th e_eveni ng} QD Simvastati n 20 MG Famotidine 20 MG Famotidine 20 MG No 1{table t_at_be dtime_a s_neede d} QD Famotidine 20 MG Ativan 0.5 MG Ativan 0.5 MG No 1{table t_at_be dtime_a s_neede d} QD Ativan 0.5 MG Lasix 20 MG Lasix 20 MG No 1{table t} QD Lasix 20 MG Omeprazole 40 MG Omeprazole 40 MG No Omeprazole 40 MG Zioptan Zioptan No Zioptan Vitamin C Vitamin C No Vitamin C Stool Softener Stool Softener No Stool Softener Donepezil HCl 10 MG Donepezil HCl 10 MG No 1{table t_at_be dtime} BID Donepezil HCl 10 MG Memantine HCl 10 MG Memantine HCl 10 MG No 1{table t} BID Memantine HCl 10 MG Benzonatate 100 MG Benzonatate 100 MG No 1{capsu le_as_n eeded} TID Benzonatat e 100 MG Eliquis 5 MG Eliquis 5 MG No 1{table t} BID Eliquis 5 MG Losartan Potassium 100 MG Losartan Potassium 100 MG No 1{table t} QD Losartan Potassium 100 MG Estrace 1 MG Estrace 1 MG No 1{table t} QD Estrace 1 MG Amiodarone HCl 200 MG Amiodarone HCl 200 MG No 1{table t} QD Amiodarone HCl 200 MG Aspir-Low 81 MG Aspir-Low 81 MG No 1{table t} QD Aspir-Low 81 MG Simvastatin 20 MG Simvastatin 20 MG No 1{table t_in_th e_eveni ng} QD Simvastati n 20 MG Famotidine 20 MG Famotidine 20 MG No 1{table t_at_be dtime_a s_neede d} QD Famotidine 20 MG Ativan 0.5 MG Ativan 0.5 MG No 1{table t_at_be dtime_a s_neede d} QD Ativan 0.5 MG Lasix 20 MG Lasix 20 MG No 1{table t} QD Lasix 20 MG Omeprazole 40 MG Omeprazole 40 MG No Omeprazole 40 MG Zioptan Zioptan No Zioptan Vitamin C Vitamin C No Vitamin C Stool Softener Stool Softener No Stool Softener Donepezil HCl 10 MG Donepezil HCl 10 MG No 1{table t_at_be dtime} BID Donepezil HCl 10 MG Memantine HCl 10 MG Memantine HCl 10 MG No 1{table t} BID Memantine HCl 10 MG Benzonatate 100 MG Benzonatate 100 MG No [facility] TID Benzonatat e 100 MG Eliquis 5 MG Eliquis 5 MG No 1{table t} BID Eliquis 5 MG Losartan Potassium 100 MG Losartan Potassium 100 MG No 1{table t} QD Losartan Potassium 100 MG Estrace 1 MG Estrace 1 MG No 1{table t} QD Estrace 1 MG Amiodarone HCl 200 MG Amiodarone HCl 200 MG No 1{table t} QD Amiodarone HCl 200 MG Aspir-Low 81 MG Aspir-Low 81 MG No 1{table t} QD Aspir-Low 81 MG Simvastatin 20 MG Simvastatin 20 MG No 1{table t_in_ e_eveni ng} QD Simvastati n 20 MG Famotidine 20 MG Famotidine 20 MG No 1{table t_at_be dtime_a s_neede d} QD Famotidine 20 MG Ativan 0.5 MG Ativan 0.5 MG No 1{table t_at_be dtime_a s_neede d} QD Ativan 0.5 MG Lasix 20 MG Lasix 20 MG No 1{table t} QD Lasix 20 MG Omeprazole 40 MG Omeprazole 40 MG No Omeprazole 40 MG Zioptan Zioptan No Zioptan Donepezil HCl 10 MG Donepezil HCl 10 MG No 1{table t_at_be dtime} BID Donepezil HCl 10 MG Eliquis 5 MG Eliquis 5 MG No 1{table t} BID Eliquis 5 MG Memantine HCl 10 MG Memantine HCl 10 MG No 1{table t} BID Memantine HCl 10 MG Lasix 20 MG Lasix 20 MG No 1{table t} QD Lasix 20 MG Losartan Potassium 100 MG Losartan Potassium 100 MG No Losartan Potassium 100 MG Ativan 0.5 MG Ativan 0.5 MG No 1{table t_at_be dtime_a s_neede d} QD Ativan 0.5 MG Aspir-Low 81 MG Aspir-Low 81 MG No 1{table t} QD Aspir-Low 81 MG Amiodarone HCl 200 MG Amiodarone HCl 200 MG No 1{table t} QD Amiodarone HCl 200 MG Famotidine 20 MG Famotidine 20 MG No 1{table t_at_be dtime_a s_neede d} QD Famotidine 20 MG amLODIPine Besylate 5 MG amLODIPine Besylate 5 MG No 1{table t} QD amLODIPine Besylate 5 MG Zioptan Zioptan No Zioptan Simvastatin 20 MG Simvastatin 20 MG No Simvastati n 20 MG Omeprazole 40 MG Omeprazole 40 MG No Omeprazole 40 MG Omeprazole 40 MG Omeprazole 40 MG No 1{table t} QD Omeprazole 40 MG Famotidine 20 MG Famotidine 20 MG No 1{table t_at_be dtime_a s_neede d} QD Famotidine 20 MG Donepezil HCl 10 MG Donepezil HCl 10 MG No 1{table t_at_be dtime} BID Donepezil HCl 10 MG Losartan Potassium 100 MG Losartan Potassium 100 MG No Losartan Potassium 100 MG Eliquis 5 MG Eliquis 5 MG No 1{table t} BID Eliquis 5 MG Memantine HCl 10 MG Memantine HCl 10 MG No 1{table t} BID Memantine HCl 10 MG Lasix 20 MG Lasix 20 MG No 1{table t} QD Lasix 20 MG Losartan Potassium 100 MG Losartan Potassium 100 MG No Losartan Potassium 100 MG Ativan 0.5 MG Ativan 0.5 MG No 1{table t_at_be dtime_a s_neede d} QD Ativan 0.5 MG Aspir-Low 81 MG Aspir-Low 81 MG No 1{table t} QD Aspir-Low 81 MG Amiodarone HCl 200 MG Amiodarone HCl 200 MG No 1{table t} QD Amiodarone HCl 200 MG Famotidine 20 MG Famotidine 20 MG No 1{table t_at_be dtime_a s_neede d} QD Famotidine 20 MG amLODIPine Besylate 5 MG amLODIPine Besylate 5 MG No 1{table t} QD amLODIPine Besylate 5 MG Zioptan Zioptan No Zioptan Omeprazole 40 MG Omeprazole 40 MG No 1{table t} QD Omeprazole 40 MG Simvastatin 20 MG Simvastatin 20 MG No Simvastati n 20 MG Omeprazole 40 MG Omeprazole 40 MG No Omeprazole 40 MG Omeprazole 40 MG Omeprazole 40 MG No 1{table t} QD Omeprazole 40 MG Estrace 0.1 MG/GM Estrace 0.1 MG/GM No Estrace 0.1 MG/GM Donepezil HCl 10 MG Donepezil HCl 10 MG No 1{table t_at_be dtime} BID Donepezil HCl 10 MG Eliquis 5 MG Eliquis 5 MG No 1{table t} BID Eliquis 5 MG Memantine HCl 10 MG Memantine HCl 10 MG No 1{table t} BID Memantine HCl 10 MG Lasix 20 MG Lasix 20 MG No 1{table t} QD Lasix 20 MG Losartan Potassium 100 MG Losartan Potassium 100 MG No Losartan Potassium 100 MG Ativan 0.5 MG Ativan 0.5 MG No 1{table t_at_be dtime_a s_neede d} QD Ativan 0.5 MG Aspir-Low 81 MG Aspir-Low 81 MG No 1{table t} QD Aspir-Low 81 MG traZODone HCl 50 MG traZODone HCl 50 MG No traZODone HCl 50 MG Amiodarone HCl 200 MG Amiodarone HCl 200 MG No 1{table t} QD Amiodarone HCl 200 MG Famotidine 20 MG Famotidine 20 MG No 1{table t_at_be dtime_a s_neede d} QD Famotidine 20 MG amLODIPine Besylate 5 MG amLODIPine Besylate 5 MG No 1{table t} QD amLODIPine Besylate 5 MG Zioptan Zioptan No Zioptan Simvastatin 20 MG Simvastatin 20 MG No Simvastati n 20 MG Omeprazole 40 MG Omeprazole 40 MG No Omeprazole 40 MG Omeprazole 40 MG Omeprazole 40 MG No 1{table t} QD Omeprazole 40 MG Centrum Silver - Centrum Silver - No Centrum Silver - Simvastatin 20 MG Simvastatin 20 MG No Simvastati n 20 MG Ipratropium Alger 0.06 % Ipratropium [place] 0.06 % No 2{spray s_in_ea ch_nost ril} TID Ipratropiu m [place] 0.06 % Donepezil HCl 10 MG Donepezil HCl 10 MG No 1{table t_at_be dtime} BID Donepezil HCl 10 MG ZyrTEC Allergy 10 MG ZyrTEC Allergy 10 MG No 1{table t} QD ZyrTEC Allergy 10 MG Famotidine 20 MG Famotidine 20 MG No Famotidine 20 MG Ativan 0.5 MG Ativan 0.5 MG No 1{table t_at_be dtime_a s_neede d} QD Ativan 0.5 MG Zioptan Zioptan No Zioptan Omeprazole 40 MG Omeprazole 40 MG No Omeprazole 40 MG Aspir-Low 81 MG Aspir-Low 81 MG No 1{table t} QD Aspir-Low 81 MG Losartan Potassium 100 MG Losartan Potassium 100 MG No 1{table t} QD Losartan Potassium 100 MG traZODone HCl 100 MG traZODone HCl 100 MG No 1{table t_at_be dtime} QD traZODone HCl 100 MG Memantine HCl 10 MG Memantine HCl 10 MG No 1{table t} BID Memantine HCl 10 MG Vitamin B12 1000 MCG Vitamin B12 1000 MCG No 1{table t} QD Vitamin B12 1000 MCG Simvastatin 20 MG Simvastatin 20 MG No 1{table t_in_th e_eveni ng} QD Simvastati n 20 MG Famotidine 20 MG Famotidine 20 MG No 1{table t_at_be dtime_a s_neede d} QD Famotidine 20 MG Losartan Potassium 100 MG Losartan Potassium 100 MG No Losartan Potassium 100 MG Omeprazole 40 MG Omeprazole 40 MG No 1{table t} QD Omeprazole 40 MG Estrace 0.1 MG/GM Estrace 0.1 MG/GM No Estrace 0.1 MG/GM traZODone HCl 50 MG traZODone HCl 50 MG No traZODone HCl 50 MG Immunizations Ordered Immunization Name Filled Immunization Name Date Status Comments Source FLUZONE HIGH DOSE OVER 65 FLUZONE HIGH DOSE OVER 65 2022-03-26 10:18:00 Completed [facility] FLUZONE HIGH DOSE OVER 65 FLUZONE HIGH DOSE OVER 65 2022-03-26 10:18:00 Completed [facility] FLUZONE HIGH DOSE OVER 65 FLUZONE HIGH DOSE OVER 65 2022-03-26 10:18:00 Completed [facility] FLUZONE HIGH DOSE OVER 65 FLUZONE HIGH DOSE OVER 65 2022-03-26 10:18:00 Completed [facility] FLUZONE HIGH DOSE OVER 65 FLUZONE HIGH DOSE OVER 65 2022-03-26 10:18:00 Completed [facility] FLUZONE HIGH DOSE OVER 65 FLUZONE HIGH DOSE OVER 65 2022-03-26 10:18:00 Completed [facility] FLUZONE HIGH DOSE OVER 65 FLUZONE HIGH DOSE OVER 65 2022-03-26 10:18:00 Completed [facility] FLUZONE HIGH DOSE OVER 65 FLUZONE HIGH DOSE OVER 65 2022-03-26 10:18:00 Completed [facility] Moderna COVID-19 Vaccine Moderna COVID-19 Vaccine 2020-08-05 14:02:00 Completed [facility] Moderna COVID-19 Vaccine Moderna COVID-19 Vaccine 2020-08-05 14:02:00 Completed [facility] Moderna COVID-19 Vaccine Moderna COVID-19 Vaccine 2020-08-05 14:02:00 Completed [facility] Moderna COVID-19 Vaccine Moderna COVID-19 Vaccine 2020-08-05 14:02:00 Completed [facility] Moderna COVID-19 Vaccine Moderna COVID-19 Vaccine 2020-08-05 14:02:00 Completed [facility] Moderna COVID-19 Vaccine Moderna COVID-19 Vaccine 2020-08-05 14:02:00 Completed [facility] Moderna COVID-19 Vaccine Moderna COVID-19 Vaccine 2020-08-05 14:02:00 Completed [facility] Moderna COVID-19 Vaccine Moderna COVID-19 Vaccine 2020-08-05 14:02:00 Completed [facility] Moderna COVID-19 Vaccine Moderna COVID-19 Vaccine 2020-08-05 14:02:00 Completed [facility] Moderna COVID-19 Vaccine Moderna COVID-19 Vaccine 2020-08-05 14:02:00 Completed [facility] Moderna COVID-19 Vaccine Moderna COVID-19 Vaccine 2020-08-05 14:02:00 Completed [facility] Moderna COVID-19 Vaccine Moderna COVID-19 Vaccine 2020-07-05 14:02:00 Completed [facility] Moderna COVID-19 Vaccine Moderna COVID-19 Vaccine 2020-07-05 14:02:00 Completed [facility] Moderna COVID-19 Vaccine Moderna COVID-19 Vaccine 2020-07-05 14:02:00 Completed [facility] Moderna COVID-19 Vaccine Moderna COVID-19 Vaccine 2020-07-05 14:02:00 Completed [facility] Moderna COVID-19 Vaccine Moderna COVID-19 Vaccine 2020-07-05 14:02:00 Completed [facility] Moderna COVID-19 Vaccine Moderna COVID-19 Vaccine 2020-07-05 14:02:00 Completed [facility] Moderna COVID-19 Vaccine Moderna COVID-19 Vaccine 2020-07-05 14:02:00 Completed [facility] Moderna COVID-19 Vaccine Moderna COVID-19 Vaccine 2020-07-05 14:02:00 Completed [facility] Moderna COVID-19 Vaccine Moderna COVID-19 Vaccine 2020-07-05 14:02:00 Completed [facility] Moderna COVID-19 Vaccine Moderna COVID-19 Vaccine 2020-07-05 [facility] 2020-07-05 14:02:00 Completed [facility] Fluzone Fluzone 2020-03-05 14:04:00 Completed [facility] Fluzone Fluzone 2020-03-05 14:04:00 Completed [facility] Fluzone Fluzone 2020-03-05 14:04:00 Completed [facility] Fluzone Fluzone 2020-03-05 14:04:00 Completed [facility] Fluzone Fluzone 2020-03-05 14:04:00 Completed [facility] Fluzone Fluzone 2020-03-05 14:04:00 Completed [facility] Fluzone Fluzone 2020-03-05 14:04:00 Completed [facility] Fluzone Fluzone 2020-03-05 14:04:00 Completed [facility] Fluzone Fluzone 2020-03-05 14:04:00 Completed [facility] Fluzone Fluzone 2020-03-05 14:04:00 Completed [facility] Fluzone Fluzone 2020-03-05 14:04:00 Completed [facility] Pneumovax (PPSV23) Pneumovax (PPSV23) 2020-03-05 14:03:00 Completed [facility] Pneumovax (PPSV23) Pneumovax (PPSV23) 2020-03-05 14:03:00 Completed [facility] Pneumovax (PPSV23) Pneumovax (PPSV23) 2020-03-05 14:03:00 Completed [facility] Pneumovax (PPSV23) Pneumovax (PPSV23) 2020-03-05 14:03:00 Completed [facility] Pneumovax (PPSV23) Pneumovax (PPSV23) 2020-03-05 14:03:00 Completed [facility] Pneumovax (PPSV23) Pneumovax (PPSV23) 2020-03-05 14:03:00 Completed [facility] Pneumovax (PPSV23) Pneumovax (PPSV23) 2020-03-05 14:03:00 Completed [facility] Pneumovax (PPSV23) Pneumovax (PPSV23) 2020-03-05 14:03:00 Completed [facility] Pneumovax (PPSV23) Pneumovax (PPSV23) 2020-03-05 14:03:00 Completed [facility] Pneumovax (PPSV23) Pneumovax (PPSV23) 2020-03-05 14:03:00 Completed [facility] Pneumovax (PPSV23) Pneumovax (PPSV23) 2020-03-05 14:03:00 Completed [facility] Shingrix Shingrix 2019-07-05 14:03:00 Completed [facility] Shingrix Shingrix 2019-07-05 14:03:00 Completed [facility] Shingrix Shingrix 2019-07-05 14:03:00 Completed [facility] Shingrix Shingrix 2019-07-05 14:03:00 Completed [facility] Shingrix Shingrix 2019-07-05 14:03:00 Completed [facility] Shingrix Shingrix 2019-07-05 14:03:00 Completed [facility] Shingrix Shingrix 2019-07-05 14:03:00 Completed [facility] Shingrix Shingrix 2019-07-05 14:03:00 Completed [facility] Shingrix Shingrix 2019-07-05 14:03:00 Completed [facility] Shingrix Shingrix 2019-07-05 14:03:00 Completed [facility] Shingrix Shingrix 2019-07-05 14:03:00 Completed [facility] Moderna COVID-19 Vaccine Moderna COVID-19 Vaccine Unknown Completed [facility] Moderna COVID-19 Vaccine Moderna COVID-19 Vaccine Unknown Completed [facility] Shingrix Shingrix Unknown Completed [facility] Fluzone Fluzone Unknown Completed [facility] Pneumovax (PPSV23) Pneumovax (PPSV23) Unknown Completed [facility] FLUZONE HIGH DOSE OVER 65 FLUZONE HIGH DOSE OVER 65 Unknown Completed [facility] Moderna COVID-19 Vaccine Moderna COVID-19 Vaccine Unknown Completed [facility] Moderna COVID-19 Vaccine Moderna COVID-19 Vaccine Unknown Completed [facility] Shingrix Shingrix Unknown Completed [facility] Fluzone Fluzone Unknown Completed [facility] Pneumovax (PPSV23) Pneumovax (PPSV23) Unknown Completed [facility] FLUZONE HIGH DOSE OVER 65 FLUZONE HIGH DOSE OVER 65 Unknown Completed [facility] Moderna COVID-19 Vaccine Moderna COVID-19 Vaccine Unknown Completed [facility] Moderna COVID-19 Vaccine Moderna COVID-19 Vaccine Unknown Completed [facility] Shingrix Shingrix Unknown Completed [facility] Fluzone Fluzone Unknown Completed [facility] Pneumovax (PPSV23) Pneumovax (PPSV23) Unknown Completed [facility] FLUZONE HIGH DOSE OVER 65 FLUZONE HIGH DOSE OVER 65 Unknown Completed [facility] Moderna COVID-19 Vaccine Moderna COVID-19 Vaccine Unknown Completed [facility] Moderna COVID-19 Vaccine Moderna COVID-19 Vaccine Unknown Completed [facility] Shingrix Shingrix Unknown Completed [facility] Fluzone Fluzone Unknown Completed [facility] Pneumovax (PPSV23) Pneumovax (PPSV23) Unknown Completed [facility] FLUZONE HIGH DOSE OVER 65 FLUZONE HIGH DOSE OVER 65 Unknown Completed [facility] FluAD Quad SD FluAD Quad SD Unknown Completed [facility] Moderna COVID-19 Vaccine Moderna COVID-19 Vaccine Unknown Completed [facility] Moderna COVID-19 Vaccine Moderna COVID-19 Vaccine Unknown Completed [facility] Shingrix Shingrix Unknown Completed [facility] Fluzone Fluzone Unknown Completed [facility] Pneumovax (PPSV23) Pneumovax (PPSV23) Unknown Completed [facility] FLUZONE HIGH DOSE OVER 65 FLUZONE HIGH DOSE OVER 65 Unknown Completed [facility] FluAD Quad SD FluAD Quad SD Unknown Completed [facility] Moderna COVID-19 Vaccine Moderna COVID-19 Vaccine Unknown Completed [facility] Moderna COVID-19 Vaccine Moderna COVID-19 Vaccine Unknown Completed [facility] Shingrix Shingrix Unknown Completed [facility] Fluzone Fluzone Unknown Completed [facility] Pneumovax (PPSV23) Pneumovax (PPSV23) Unknown Completed [facility] FLUZONE HIGH DOSE OVER 65 FLUZONE HIGH DOSE OVER 65 Unknown Completed [facility] FluAD Quad SD FluAD Quad SD Unknown Completed [facility] Moderna COVID-19 Vaccine Moderna COVID-19 Vaccine Unknown Completed [facility] Moderna COVID-19 Vaccine Moderna COVID-19 Vaccine Unknown Completed [facility] Shingrix Shingrix Unknown Completed [facility] Fluzone Fluzone Unknown Completed [facility] Pneumovax (PPSV23) Pneumovax (PPSV23) Unknown Completed [facility] FLUZONE HIGH DOSE OVER 65 FLUZONE HIGH DOSE OVER 65 Unknown Completed [facility] Vital Signs Vital Name Observation Time Observation Value Comments S leece height 2022-09-29 15:10:00 63 [in_i] Commo n [facility] weight 2022-09-29 15:10:00 142.0 [lb_av] [facility] temperature 2022-09-29 15:10:00 97.3 [degF] Com [facility] [place] bmi 2022-09-29 15:10:00 25.15 kg/m2 Comm on [facility] oximetry 2022-09-29 15:10:00 96 % Commo n [facility] respiratory rate 2022-09-29 15:10:00 17 /min [facility] blood pressure systolic 2022-09-29 15:10:00 138 mm[Hg] [facility] blood pressure diastolic 2022-09-29 15:10:00 70 mm[Hg] [facility] height 2022-08-17 10:40:00 63 [in_i] Commo n [facility] weight 2022-08-17 10:40:00 142.8 [facility]lb_av[facility] 2022-08-17 10:40:00 97.3 [degF] Com [facility] [place] bmi 2022-08-17 10:40:00 25.29 kg/m2 Comm on [facility] oximetry 2022-08-17 10:40:00 98 % Commo n [facility] respiratory rate 2022-08-17 10:40:00 18 /min [facility] blood pressure systolic 2022-08-17 10:40:00 138 mm[Hg] [facility] blood pressure diastolic 2022-08-17 10:40:00 65 mm[Hg] [facility] height 2022-03-26 09:30:00 64 [in_i] Commo n [facility] weight 2022-03-26 09:30:00 145.8 [lb_av] Co mmon [facility] temperature 2022-03-26 09:30:00 97.2 [degF] Com mon [facility] bmi 2022-03-26 09:30:00 25.02 kg/m2 Comm on [facility] oximetry 2022-03-26 09:30:00 96 % Commo n [facility] respiratory rate 2022-03-26 09:30:00 17 /min [facility] blood pressure systolic 2022-03-26 09:30:00 115 mm[Hg] [facility] blood pressure diastolic 2022-03-26 09:30:00 69 mm[Hg] [facility] height 2022-03-26 09:40:00 64 [in_i] Commo n [facility] weight 2022-03-26 09:40:00 145.8 [lb_av] Co mmon [facility] temperature 2022-03-26 09:40:00 97.2 [degF] Com mon [facility] bmi 2022-03-26 09:40:00 25.02 kg/m2 Comm on [facility] oximetry 2022-03-26 09:40:00 96 % Commo n [facility] respiratory rate 2022-03-26 09:40:00 17 /min [facility] blood pressure systolic 2022-03-26 09:40:00 115 mm[Hg] [facility] blood pressure diastolic 2022-03-26 09:40:00 69 mm[Hg] [facility] height 2021-09-24 10:30:00 64 [in_i] Commo n [facility] weight 2021-09-24 10:30:00 150.2 [lb_av] Co mmon [facility] temperature 2021-09-24 10:30:00 96.8 [degF] Com mon [facility] bmi 2021-09-24 10:30:00 25.78 kg/m2 Comm on [facility] oximetry 2021-09-24 10:30:00 97 % Commo n [facility] respiratory rate 2021-09-24 10:30:00 18 /min [facility] blood pressure systolic 2021-09-24 10:30:00 132 mm[Hg] Common [facility] blood pressure diastolic 2021-09-24 10:30:00 62 mm[Hg] Common [facility] height 2021-03-25 10:00:00 64 [in_i] Commo n [facility] weight 2021-03-25 10:00:00 152.8 [lb_av] Co mmon [facility] temperature 2021-03-25 10:00:00 97.0 [degF] Com mon [facility] bmi 2021-03-25 10:00:00 26.23 kg/m2 Comm on [facility] oximetry 2021-03-25 10:00:00 95 % Commo n [facility] respiratory rate 2021-03-25 10:00:00 18 /min [facility] blood pressure systolic 2021-03-25 10:00:00 120 mm[Hg] [facility] blood pressure diastolic 2021-03-25 10:00:00 62 mm[Hg] [facility] Encounters Start Date/Time End Date/Time Encounter Type Admission Type Attending Clinicians Care Facility Care Department Encounter ID Source 2022-09-02 14:04:00 [facility] [id number] [facility] 2021-09-12 15:07:00 [facility] [id number] [facility] 2021-07-30 13:50:58 [facility] [id number] [facility] 2021-07-30 12:25:19 [facility] [id number] [facility] 2021-07-30 11:06:24 [facility] [id number] [facility] 2021-07-30 11:00:55 [facility] [id number] [facility] 2021-07-30 10:59:46 [facility] [id number] [facility] 2021-07-30 10:57:45 [facility] [id number] [facility] 2023-04-30 00:00:00 2023-04-30 00:00:00 Outpatient [email or web address] [id number] [facility] 2023-01-22 00:00:00 2023-01-22 00:00:00 (TEL) STLMLC STLMLC [id number] [facility] 2022-10-08 00:00:00 2022-10-08 00:00:00 (TEL) STLMLC STLMLC [id number] [facility] 2022-09-29 00:00:00 2022-09-29 00:00:00 OFFICE VISIT ESTAB PT LEVEL 4 [facility] ST[facility] [id number] [facility] 2022-09-03 00:00:00 2022-09-03 00:00:00 (TEL) STLMLC STLMLC [id number] [facility] 2022-08-28 00:00:00 2022-08-28 00:00:00 (TEL) STLMLC STLMLC [id number] [facility] 2022-08-28 00:00:00 2022-08-28 00:00:00 OL DIG E/M SVC 11-20 MIN STLMLC STLMLC [id number] [facility] 2022-08-17 00:00:00 2022-08-17 00:00:00 (HOSP F/U) Hospital Follow Up STLMLC STLMLC [id number] [facility] 2022-08-12 00:00:00 2022-08-12 00:00:00 (TEL) STLMLC STLMLC [id number] [facility] 2022-08-07 00:00:00 2022-08-07 00:00:00 (TEL) STLMLC STLMLC [id number] [facility] 2022-07-21 00:00:00 2022-07-21 00:00:00 (TEL) STLMLC STLMLC [id number] [facility] 2022-07-14 00:00:00 2022-07-14 00:00:00 (TEL) STLMLC STLMLC [id number] [facility] 2022-03-26 00:00:00 2022-03-26 00:00:00 OFFICE VISIT ESTAB PT LEVEL 4 STLMLC STLMLC [id number] [facility] 2022-03-26 00:00:00 2022-03-26 00:00:00 SUB ANNUAL [facility] VIS[facility] STLMLC STLMLC [id number] [facility] 2021-09-24 00:00:00 2021-09-24 00:00:00 OFFICE VISIT ESTAB PT LEVEL 4 STLMLC STLMLC [id number] [facility] 2021-05-07 00:00:00 2021-05-07 00:00:00 (TEL) STLMLC STLMLC [id number] [facility] 2021-03-25 00:00:00 2021-03-25 00:00:00 Outpatient STLMLC STLMLC [id number] [facility] 2021-03-25 00:00:00 2021-03-25 00:00:00 SUB ANNUAL [facility]IS[facility] STLMLC STLMLC [id number] [facility] 2020-11-27 00:00:00 2020-11-27 00:00:00 Outpatient STLMLC STLMLC [id number] [facility] 2020-07-30 00:00:00 2020-07-30 00:00:00 Outpatient STLMLC STLMLC [id number] [facility] 2020-03-07 09:00:00 2020-03-07 09:00:00 [facility] [id number] [facility] 2020-03-07 09:00:00 2020-03-07 09:00:00 [facility] [id number] [facility] 2019-11-15 10:30:00 2019-11-15 10:30:00 [facility] [id number] [facility] 2019-08-14 11:45:00 2019-08-14 11:45:00 [facility] [id number] [facility] 2019-07-31 14:12:00 2019-07-31 14:12:00 [facility] [id number] [facility] 2019-07-19 15:55:00 2019-07-19 15:55:00 [facility] [id number] [facility] 2019-07-13 09:30:00 2019-07-13 09:30:00 [facility] [id number] [facility] Results Test Description Test Time Test Comments Results Result Co mments Source TSH REFLEX TO FREE [id number] 00:00:00* Test Item Value Reference Range Interpretation Comme nts TSH REFLEX TO FREE T4 (test code = 47664-9) 2.950 UIU/ML See_Comment [Automated messa ge] The system which generated this result transmitted reference range: 0.400-4.100 UIU/ML. The reference range was not used to interpret this result as normal/abnormal. LIPID PANEL WITH REFLEX DIRECT [id number] 00:00:00* Test Item Value Reference Range Interpretation Comme nts CALC LDL CHOL (test code = 30046-8) 69 MG/DL See_Comment [Automated messa ge] The system which generated this result transmitted reference range: <100 MG/DL. The reference range was not used to interpret this result as normal/abnormal. CHOLESTEROL (test code = 2093-3) 173 MG/DL See_Comment [Automated messa ge] The system which generated this result transmitted reference range: <200 MG/DL. The reference range was not used to interpret this result as normal/abnormal. HDL CHOLESTEROL (test code = 2085-9) 88 MG/DL See_Comment [Automated messa ge] The system which generated this result transmitted reference range: >39 MG/DL. The reference range was not used to interpret this result as normal/abnormal. RISK RATIO LDL/HDL (test code = 13132-1) 0.78 RATIO See_Comment [Automated message] The system which generated this result transmitted reference range: <3.22 RATIO. The reference range was not used to interpret this result as normal/abnormal. TRIGLYCERIDES (test code = 2571-8) 78 MG/DL See_Comment [Automated messa ge] The system which generated this result transmitted reference range: <150 MG/DL. The reference range was not used to interpret this result as normal/abnormal. COMPREHENSIVE METABOLIC [id number] 00:00:00* Test Item Value Reference Range Interpretation Comme nts ALBUMIN (test code = 1751-7) 4.7 G/DL See_Comment [Automated messa ge] The system which generated this result transmitted reference range: 3.5-5.2 G/DL. The reference range was not used to interpret this result as normal/abnormal. ALKALINE PHOSPHATASE (test code = 6768-6) 63 U/L See_Comment [Automated message] The system which generated this result transmitted reference range: 40-142 U/L. The reference range was not used to interpret this result as normal/abnormal. BILIRUBIN, TOTAL (test code = 1975-2) 0.6 MG/DL See_Comment [Automated message] The system which generated this result transmitted reference range: <=1.2 MG/DL. The reference range was not used to interpret this result as normal/abnormal. BUN (test code = 3094-0) 13 MG/DL See_Comment [Automated messa ge] The system which generated this result transmitted reference range: 8-23 MG/DL. The reference range was not used to interpret this result as normal/abnormal. CALCIUM (test code = 73514-9) 9.5 MG/DL See_Comment [Automated messa ge] The system which generated this result transmitted reference range: 8.5-10.5 MG/DL. The reference range was not used to interpret this result as normal/abnormal. CALC A/G RATIO (test code = 1759-0) 2.4 RATIO See_Comment [Automated messa ge] The system which generated this result transmitted reference range: 1.0-2.6 RATIO. The reference range was not used to interpret this result as normal/abnormal. CALC BUN/CREAT (test code = 3097-3) 17 RATIO See_Comment [Automated messa ge] The system which generated this result transmitted reference range: 6-28 RATIO. The reference range was not used to interpret this result as normal/abnormal. CALC GLOBULIN (test code = 00100-6) 2.0 G/DL See_Comment [Automated messa ge] The system which generated this result transmitted reference range: 1.9-3.7 G/DL. The reference range was not used to interpret this result as normal/abnormal. CARBON DIOXIDE (test code = 1963-8) 26 MEQ/L See_Comment [Automated messa ge] The system which generated this result transmitted reference range: 19-31 MEQ/L. The reference range was not used to interpret this result as normal/abnormal. CHLORIDE (test code = 2075-0) 105 MEQ/L See_Comment [Automated messa ge] The system which generated this result transmitted reference range: 95-107 MEQ/L. The reference range was not used to interpret this result as normal/abnormal. CREATININE (test code = 2160-0) 0.78 MG/DL See_Comment [Automated messa ge] The system which generated this result transmitted reference range: 0.60-1.30 MG/DL. The reference range was not used to interpret this result as normal/abnormal. eGFR (2020 CKD-EPI) (test code = 24736-5) 74 ML/MIN/1.73 See_Comment [Automated messa ge] The system which generated this result transmitted reference range: >60 ML/MIN/1.73. The reference range was not used to interpret this result as normal/abnormal. GLUCOSE (test code = 1558-6) 100 MG/DL See_Comment H [Automated messa ge] The system which generated this result transmitted reference range: 70-99 MG/DL. The reference range was not used to interpret this result as normal/abnormal. POTASSIUM (test code = 2823-3) 4.3 MEQ/L See_Comment [Automated messa ge] The system which generated this result transmitted reference range: 3.5-5.4 MEQ/L. The reference range was not used to interpret this result as normal/abnormal. PROTEIN, TOTAL (test code = 2885-2) 6.7 G/DL See_Comment [Automated messa ge] The system which generated this result transmitted reference range: 6.1-8.3 G/DL. The reference range was not used to interpret this result as normal/abnormal. AST (test code = 1920-8) 27 U/L See_Comment [Automated messa ge] The system which generated this result transmitted reference range: 9-40 U/L. The reference range was not used to interpret this result as normal/abnormal. ALT (test code = 1742-6) 31 U/L See_Comment [Automated messa ge] The system which generated this result transmitted reference range: 5-40 U/L. The reference range was not used to interpret this result as normal/abnormal. SODIUM (test code = 2951-2) 144 MEQ/L See_Comment [Automated messa ge] The system which generated this result transmitted reference range: 133-146 MEQ/L. The reference range was not used to interpret this result as normal/abnormal. ColonoscopyColonoscopy
[2023-07-04 11:16] LABS: Absolute Lymphocytes (CBC) 1.3 K/uL (0.7-4.9); Hematocrit 36.2 % (36.0-45.0); Lymphocytes % 21.2 % (15.3-44.8); MCV 98.7 fL (80-100); MPV 7.8 fL (7.6-11.3); Platelets 186 thou/uL (152-406); RBC Red Blood Cell Count 3.67 M/uL (3.86-4.86)
[2023-07-04 11:20] LABS: Specific Gravity 1.006 (1.005-1.030); Urine Bacteria None Seen /HPF (<20); Urine Bilirubin NEGATIVE (Negative); Urine Blood Negative (Negative); Urine Clarity Clear (Clear); Urine Color Colorless (Yellow); Urine Glucose NEGATIVE (Negative); Urine Protein NEGATIVE (Negative); Urine RBC <5 /HPF (None Seen); Urine Urobilinogen Normal (Normal)
--- NOTE | 2023-07-04 11:21 | RAD REPORT ---
EXAM DESCRIPTION: RAD - Chest Single View - 07/04/2023 11:13 am CLINICAL HISTORY: DYSPNEA Chest pain. COMPARISON: <Comparisons> FINDINGS: Portable technique limits examination quality. Emphysematous changes are present. Mild increased opacity is seen in the right base. Mild interstitia l pulmonary edema seen with small pleural effusions, greater on the right. The heart is moderately en larged. No displaced fractures. IMPRESSION: Mild CHF is suspected. Right basilar increased lung markings could be atelectasis or a s mall superimposed acute infiltrate.
[2023-07-04 11:33] LABS: Potassium 3.5 mEq/L (3.5-5.1); Troponin High Sensitivity 13.8 pg/mL (<58.9)
[2023-07-04 12:31] LABS: SARS-CoV-2 Antigen Rapid Res Negative (Negative)
--- NOTE | 2023-07-04 12:43 | ER ---
Nurse's Notes [facility] Name: Tsering Hamilton Age: 83 yrs Sex: Female : 1940 Arrival Date: 07/04/2023 Time: 10:08 Bed 7 Private MD: Diagnosis: Other pneumonia, unspecified organism;Chronic combined systolic (congestive) and diastolic (congestive) heart failure Presentation: 07/04 10:23 Chief complaint: SOB, wheezing, and burning epigastric pain x 1 week. Hx of CHF, has hb gained 9 pounds over the last 3-4 weeks. Coronavirus screen: Client presents with at least one sign or symptom that may indicate coronavirus-19. Provider contacted for isolation considerations. Ebola Screen: No symptoms or risks identified at this time. Initial Sepsis Screen: Does the patient meet any 2 criteria? No. Patient's initial sepsis screen is negative. Does the patient have a suspected source of infection? No. Patient's initial sepsis screen is negative. Risk Assessment: Do you want to hurt yourself or someone else? Patient reports no desire to harm self or others. Onset of symptoms was June 27, 2023. 10:23 Method Of Arrival: Ambulatory hb 10:23 Acuity: TALI 3 hb Historical: - Allergies: 10:25 Codeine; hb 10:25 Tessalon Perles; hb - Home Meds: 10:25 furosemide 40 mg Oral tab 1 tab once daily [Active]; amiodarone 200 mg Oral tab 1 tab hb once daily [Active]; donepezil 10 mg Oral tab [Active]; simvastatin 20 mg Oral tab once daily [Active]; Eliquis 5 mg Oral tab 1 tab 2 times per day [Active]; losartan 100 mg Oral tab 1 tab once daily [Active]; Metoprolol Tartrate Oral 2 times per day [Active]; omeprazole Oral [Active]; amlodipine oral [Active]; Lactulose Oral [Active]; Famotidine Oral [Active]; - PMHx: 10:25 Atrial fibrillation; Dementia; Congestive heart failure; restasis; High Cholesterol; hb Hypertension; TIA; - Immunization history:: Adult Immunizations up to date. - Social history:: Smoking status: Patient denies any tobacco usage or history of. Screenin:14 [facility] ED Fall Risk Assessment (Adult) History of falling in the last 3 months, ld1 including since admission No falls in past 3 months (0 pts). Abuse screen: Denies threats or abuse. Denies injuries from another. Nutritional screening: No deficits noted. Tuberculosis screening: No symptoms or risk factors identified. Assessment: 11:14 General: Appears in no apparent distress. comfortable, Behavior is calm, cooperative, ld1 appropriate for age. Pain: Complains of pain in chest Pain does not radiate. Pain currently is 8 out of 10 on a pain scale. Quality of pain is described as throbbing, Pain began suddenly, Is intermittent. Neuro: Level of Consciousness is awake, alert, obeys commands, Oriented to person, place, time, situation. Cardiovascular: Capillary refill < 3 seconds Patient's skin is warm and dry. Respiratory: Airway is patent Respiratory effort is even, unlabored. GI: Abdomen is flat, non-distended. : No signs and/or symptoms were reported regarding the genitourinary system. EENT: No signs and/or symptoms were reported regarding the EENT system. Derm: No signs and/or symptoms reported regarding the dermatologic system. Musculoskeletal: No signs and/or symptoms reported regarding the musculoskeletal system. Vital Signs: 10:23 BP 128 / 66; Pulse 60; Resp 20; Temp 98.3(O); Pulse Ox 99% on R/A; Weight 67.13 kg; hb Height 5 ft. 3 in. ; Pain 7/10; 11:14 Pulse 50; Resp 18; Pulse Ox 98% on R/A; ld1 11:54 BP 138 / 75; Pulse 53; Resp 18; Pulse Ox 97% on R/A; ld1 10:23 Body Mass Index 26.22 (67.13 kg, 160.02 cm) hb 10:23 Pain Scale: Adult hb ED Course: 10:09 Patient arrived in ED. ts1 10:14 [facility] jh7 10:14 Rigo Kuhn MD is Attending Physician. jh7 10:25 Triage completed. hb 11:02 Urinalysis W/Microscopic Sent. ld1 11:14 XRAY Chest (1 view) In Process Unspecified. EDMS 11:14 Haley Krishnamurthy, GISEL is Primary Nurse. ld1 11:14 No provider procedures requiring assistance completed. Inserted saline lock: 22 gauge ld1 in right antecubital area, using aseptic technique. Blood collected. Patient maintains SpO2 saturation greater than 95% on room air. 11:14 Patient has correct armband on for positive identification. Placed in gown. Bed in low ld1 position. Call light in reach. Side rails up X2. crochet beader on. Pulse ox on. NIBP on. Door closed. Noise minimized. Warm blanket given. 11:17 Urinalysis W/Microscopic Sent. ld1 13:14 IV discontinued, intact, bleeding controlled, No redness/swelling at site. ld1 13:14 Arm band placed on right wrist. ld1 Administered Medications: 11:22 Drug: Famotidine IVP 20 mg IVP once; dilute with 10 mL 0.9% NaCl; give over 2 minutes ld1 Route: IVP; Site: right antecubital; Medication: 11:14 VIS not applicable for this client. ld1 Outcome: 12:42 Discharge ordered by . eloise 13:13 Discharged to home ambulatory, ld1 13:13 Condition: stable 13:13 Discharge instructions given to patient, Instructed on discharge instructions, follow up and referral plans. Demonstrated understanding of instructions, follow-up care, 13:14 Patient left the ED. ld1 Signatures: Dispatcher [employer] EDMS Fatou Avila RN RN Haley Krishnamurthy RN RN ld1 Joya Israel FNP HOSPITAL PRODUCT SPECIALIST 7 Diane Soto, BRYAN PAS ts1
--- NOTE | 2023-07-04 12:43 | EDPHYS ---
Physician Documentation [facility] Name: Tsering Hamilton Age: 83 yrs Sex: Female : 1940 Arrival Date: 07/04/2023 Time: 10:08 Bed 7 Private MD: ED Physician Rigo Kuhn HPI: 07/04 10:25 This 83 yrs old Female presents to ER via Ambulatory with complaints of Chest Tightness.jh7 10:25 Onset: The symptoms/episode began/occurred 3 day(s) ago. jh7 10:25 Associated signs and symptoms: Pertinent positives: nasal discharge, shortness of jh7 breath, wheezing, Pertinent negatives: abdominal pain, chest pain, congestion, cough, dysuria, fever. 10:25 83-year-old female reports intermittent chest tightness when she takes a deep breath jh7 for the past 3 days. Reports intermittent wheezing while lying down as well. She denies cough or fever. Reports that she has a history of hypertension and A-fib and that Dr. Germain is her ginger farmer. She also sees Dr. iHnes for constipation. Also reports upset stomach and burning acid like feeling.. Historical: - Allergies: 10:25 Codeine; hb 10:25 Tessalon Perles; hb - Home Meds: 10:25 furosemide 40 mg Oral tab 1 tab once daily [Active]; amiodarone 200 mg Oral tab 1 tab hb once daily [Active]; donepezil 10 mg Oral tab [Active]; simvastatin 20 mg Oral tab once daily [Active]; Eliquis 5 mg Oral tab 1 tab 2 times per day [Active]; losartan 100 mg Oral tab 1 tab once daily [Active]; Metoprolol Tartrate Oral 2 times per day [Active]; omeprazole Oral [Active]; amlodipine oral [Active]; Lactulose Oral [Active]; Famotidine Oral [Active]; - PMHx: 10:25 Atrial fibrillation; Dementia; Congestive heart failure; restasis; High Cholesterol; hb Hypertension; TIA; - Immunization history:: Adult Immunizations up to date. - Social history:: Smoking status: Patient denies any tobacco usage or history of. ROS: 10:25 Constitutional: Negative for fever, chills, and weight loss, Eyes: Negative for injury, jh7 pain, redness, and discharge, Neck: Negative for injury, pain, and swelling, Cardiovascular: Negative for chest pain, palpitations, and edema, Abdomen/GI: Negative for abdominal pain, nausea, vomiting, diarrhea, and constipation, Back: Negative for injury and pain, MS/Extremity: Negative for injury and deformity, Skin: Negative for injury, rash, and discoloration, Neuro: Negative for headache, weakness, numbness, tingling, and seizure, 10:25 Respiratory: Positive for shortness of breath, at rest. wheezing, Negative for cough, 10:25 All other systems are negative, Exam: 10:25 Constitutional: This is a well developed, well nourished patient who is awake, alert, jh7 and in no acute distress. Head/Face: Normocephalic, atraumatic. ENT: Nares patent. No nasal discharge, no septal abnormalities noted. Oropharynx with no redness, swelling, or masses, exudates, or evidence of obstruction, uvula midline. Mucous membranes moist. Neck: Trachea midline, no thyromegaly or masses palpated, and no cervical lymphadenopathy. Supple, full range of motion without nuchal rigidity, or vertebral point tenderness. No Meningismus. Cardiovascular: Regular rate and rhythm with a normal S1 and S2. No gallops, murmurs, or rubs. Normal PMI, no JVD. No pulse deficits. Respiratory: Lungs have equal breath sounds bilaterally, clear to auscultation and percussion. No rales, rhonchi or wheezes noted. No increased work of breathing, no retractions or nasal flaring. Abdomen/GI: Soft, non-tender, with normal bowel sounds. No distension or tympany. No guarding or rebound. No evidence of tenderness throughout. Back: No spinal tenderness. No costovertebral tenderness. Full range of motion. Skin: Warm, dry with normal turgor. Normal color with no rashes, no lesions, and no evidence of cellulitis. MS/ Extremity: Pulses equal, no cyanosis. Neurovascular intact. Full, normal range of motion. Neuro: Awake and alert, GCS 15, oriented to person, place, time, and situation. Motor strength 5/5 in all extremities. Sensory grossly intact. Normal gait. Vital Signs: 10:23 BP 128 / 66; Pulse 60; Resp 20; Temp 98.3(O); Pulse Ox 99% on R/A; Weight 67.13 kg; hb Height 5 ft. 3 in. ; Pain 7/10; 11:14 Pulse 50; Resp 18; Pulse Ox 98% on R/A; ld1 11:54 BP 138 / 75; Pulse 53; Resp 18; Pulse Ox 97% on R/A; ld1 10:23 Body Mass Index 26.22 (67.13 kg, 160.02 cm) hb 10:23 Pain Scale: Adult hb MDM: 10:14 Patient medically screened. [facility] 12:35 Differential diagnosis: bacterial infection, bronchitis, pneumonia CHF exacerbation. [facility] Data reviewed: vital signs, nurses notes, lab test result(s), EKG, radiologic studies, plain films. I considered the following discharge prescriptions or medication management in the emergency department Medications were administered in the Emergency Department. See MAR. Independent interpretation of the following test(s) in the Emergency Department EKG: See my EKG interpretation above. Care significantly affected by the following chronic conditions: Hypertension, Congestive Heart Failure. Counseling: I had a detailed discussion with the patient and/or guardian regarding the historical points, exam findings, and any diagnostic results supporting the discharge/admit diagnosis, the need for outpatient follow up, a ginger farmer, to return to the emergency department if symptoms worsen or persist or if there are any questions or concerns that arise at home. Response to treatment: the patient's symptoms have mildly improved after treatment. ED course: Inform the patient that her chest x-ray showed possible early pneumonia and that we will treat with antibiotics. When reassessing her she stated that she noticed that her legs have been slightly more swollen than normal, and that she has gained 9 pounds. Informed her that this was likely due to her CHF and that she should follow-up with her ginger farmer for medication adjustment. Informed her that she may need to increase the dose on her Lasix. If she develops any new concerning symptoms, she may return to the ER for further eval.. 07/04 10:31 Order name: Basic Metabolic Panel; Complete Time: 12:06 [facility] 07/04 10:31 Order name: CBC with Diff; Complete Time: 11:22 [facility] 07/04 10:31 Order name: NT PRO-BNP; Complete Time: 12:06 [facility] 07/04 10:31 Order name: Troponin HS; Complete Time: 12:06 [facility] 07/04 10:31 Order name: Urinalysis W/Microscopic; Complete Time: 11:22 [facility] 07/04 11:25 Order name: SARS RAPID; Complete Time: 12:32 [facility] 07/04 10:31 Order name: XRAY Chest (1 view); Complete Time: 11:22 [facility] 07/04 10:31 Order name: EKG; Complete Time: 10:31 [facility] 07/04 10:31 Order name: Cardiac monitoring; Complete Time: 11:02 [facility] 07/04 10:31 Order name: EKG - Nurse/Tech; Complete Time: 11:02 [facility] 07/04 10:31 Order name: IV Saline Lock; Complete Time: 11:17 [facility] 07/04 10:31 Order name: Labs collected and sent; Complete Time: 11:17 [facility] 07/04 10:31 Order name: O2 Per Protocol; Complete Time: 11:02 [facility] 07/04 10:31 Order name: O2 Sat Monitoring; Complete Time: 11:02 [facility] EC:56 Rate is 54 beats/min. Rhythm is regular. QRS Hendricks is Normal. [place] interval is normal at [facility] 116 msec. QRS interval is normal at 88 msec. QT interval is prolonged at 538 msec. No Q waves. T waves are Normal. No ST changes noted. Clinical impression: Sinus bradycardia. Administered Medications: 11:22 Drug: Famotidine IVP 20 mg IVP once; dilute with 10 mL 0.9% NaCl; give over 2 minutes ld1 Route: IVP; Site: right antecubital; Disposition: 07/05 08:53 Co-signature as Attending Physician, Rigo Kuhn MD I reviewed the patient's care rn provided by the Advanced Practice Provider and agree with the diagnosis and treatment plan. Disposition Summary: 07/04/23 12:42 Discharge Ordered Notes: Location: Home [facility] Problem: new [facility] Symptoms: have improved [facility] Condition: Stable [facility] Diagnosis - Other pneumonia, unspecified organism [facility] - Chronic combined systolic (congestive) and diastolic (congestive) heart failure [facility] Followup: [facility] - With: Private Physician - When: 2 - 3 days - Reason: Recheck today's complaints Discharge Instructions: - Discharge Summary Sheet [facility] - Heart Failure, Diagnosis 7 - Community-Acquired Pneumonia, Adult [facility] Forms: - Medication Reconciliation Form jh7 - Thank You Letter jh7 - Antibiotic Education 7 - Patient Portal Instructions 7 - Leadership Thank You Letter [facility] Prescriptions: - albuterol sulfate 90 mcg/actuation Inhalation HFA Aerosol Inhaler - inhale 2 puff INHALATION route every 4-6 hours As needed; 1 Each; Refills: 0, 7 Product Selection Permitted - Doxycycline Hyclate 100 mg Oral tablet - take 1 tablet ORAL route every 12 hours for 7 days; 14 tablet; Refills: 0, [facility] Product Selection Permitted Signatures: Dispatcher [employer] EDMS Rigo Kuhn MD MD rn Baxter, Heather, RN RN Haley Krishnamurthy RN RN ld1 Joya Israel, SUPERVISOR [employer] ROOM [place] [id number] Corrections: (The following items were deleted from the chart) 07/04 11:26 10:25 Associated signs and symptoms: Pertinent positives: nasal discharge, shortness of jh7 breath, wheezing, Pertinent negatives: abdominal pain, chest pain, congestion, cough, dysuria, fever, jh7
[2023-07-04 13:27] VITALS: TEMP 98.3
[2023-07-04 13:37] VITALS: BP 138/75; O2SAT 97
== END ==
LOC: ER 10:08
DX: J18.8 Other pneumonia, unspecified organism (principal); I50.42 Chronic combined systolic (congestive) and diastolic (congestive) heart failure; I10 Essential (primary) hypertension; I48.91 Unspecified atrial fibrillation; Z79.01 Long term (current) use of anticoagulants; F03.90 Unspecified dementia, unspecified severity, without behavioral disturbance, psychotic disturbance, mood disturbance, and anxiety; Z11.52 Encounter for screening for COVID-19; Z88.5 Allergy status to narcotic agent; Z88.8 Allergy status to other drugs, medicaments and biological substances
CPT/HCPCS: 36415; 71045; 80048; 81001; 83880; 84484; 85025; 87811; 93005; 96374; 99285